=== PATIENT | female | born 1960 | race Caucasian/White ===

== ENCOUNTER → 2020-03-23 10:43 | Outpatient (BNVA) | payer OTHER, SELFPAY | PROVIDERS: PCP Internal Medicine Geriatric Medicine; Referring Provider Internal Medicine Geriatric Medicine; Visit Provider Anesthesiology | DX: M19.011 Primary osteoarthritis, right shoulder (principal) | CPT/HCPCS: 99213 ==

== ENCOUNTER 2020-07-01 10:44 | Outpatient (REF) | payer OTHER, SELFPAY | END 2020-07-01 10:45 | disposition home or self-care (01) | LOC: HO.LAB 10:44 | PROVIDERS: Visit Provider Internal Medicine | DX: Z20.822 Contact with and (suspected) exposure to COVID-19 (principal) | CPT/HCPCS: 36415; C9803; U0003 ==

== ENCOUNTER 2020-09-14 10:58 | Outpatient (REF) | payer OTHER, SELFPAY ==
[2020-09-14 14:44] LABS: SARS COV2 PCR INHOUSE NEGATIVE (Negative)
== END 2020-09-14 10:59 | disposition home or self-care (01) ==
LOC: HO.LAB 10:58
PROVIDERS: Visit Provider Internal Medicine
DX: Z20.822 Contact with and (suspected) exposure to COVID-19 (principal)
CPT/HCPCS: C9803; U0003

== ENCOUNTER 2021-11-17 14:06 | Outpatient (REF) | payer OTHER, SELFPAY ==
--- NOTE | ~2021-11-17 | MM_ITS ---
EXAMINATION: MM DIAGNOSTIC DIGITAL BREAST TOMOSYNTHESIS, RIGHT US DIAGNOSTIC ULTRASOUND BREAST, RIGHT CLINICAL INFORMATION: New palpable lump right breast mid upper quadrant. No known family history breast cancer. TC score 7%. COMPARISON: Mammography: Outside mammography 05/30/2021, 05/17/2020, 05/12/2019 ([place]). TECHNIQUE: Digital breast tomosynthesis is performed in both the craniocaudal and mediolateral oblique views along with computer-aided detection (CAD). Synthesized 2D images are generated from the tomosynthesis. Additional spot right CC and standard right ML views are obtained. Case also reviewed intra departmentally. Ultrasound right breast is targeted to the palpable concern mid upper breast. Grayscale imaging and color Doppler are performed without and with harmonics. Additional imaging also performed right axilla. FINDINGS: There are scattered areas of fibroglandular density (ACR BI-RADS breast composition Category b). There is a new oval mass in the area of palpable concern mid 11:30 o'clock position measuring approximately 1.5 cm. Margins appear smooth but partly obscured. There is minor overlying compressed parenchyma. No spiculation or associated calcifications. No skin thickening or coarsening of the Austin's ligaments. The axilla is unremarkable. Ultrasound demonstrates a complex oval cystic mass with geographic internal echogenicity, mildly irregular margins, increased through-transmission of sound, measuring 2.7 x 1.6 x 2.0 cm and residing at 12:00 position 7 cm from nipple. There is strong adjacent and surrounding color flow but also moderate scattered internal color flow. There is a small triangular shaped hypoechoic lesion also with some peripheral or internal color flow measuring 1.3 x 0.7 x 0.8 cm. There is no significant pain with transducer compression. No skin thickening or edema tracking in soft tissue planes. Additional imaging right axilla shows no lymphadenopathy. Results are discussed with the patient at time of visit using an customer engagement specialist. Ultrasound-guided sampling is recommended. Results and recommendation called to office (Jo kauffman RN) for JARROD Capps on 11/17/2021. MM/MM tomosynthesis diagnostic RT IMPRESSION: -New complex cystic/solid mass at site of palpable concern mid upper right breast measuring 2.7 x 1.6 x 2.0 cm with strong peripheral and moderate internal color flow. -No skin thickening or edema tracking in soft tissue planes. Axilla are unremarkable. ASSESSMENT: BI-RADS 4: Suspicious RECOMMENDATION: Ultrasound-guided sampling right breast lesion. Consider attempt at aspiration followed by core biopsy if lesion will not aspirate. This patient's information was entered into a reminder system with a target due date for their next mammogram.
== END 2021-11-17 14:07 | disposition home or self-care (01) ==
LOC: HO.MAMMO 14:06
PROVIDERS: Visit Provider Registered Nurse
DX: N63.15 Unspecified lump in the right breast, overlapping quadrants (principal)
CPT/HCPCS: 76642; 77061; 77065

== ENCOUNTER → 2021-11-20 08:21 | Outpatient (BNVA) | payer OTHER, SELFPAY | PROVIDERS: PCP Internal Medicine Geriatric Medicine; Referring Provider Internal Medicine Geriatric Medicine; Visit Provider Surgery | DX: N63.15 Unspecified lump in the right breast, overlapping quadrants (principal) | CPT/HCPCS: 99202 ==

== ENCOUNTER 2021-11-21 08:01 | Outpatient (REF) | payer OTHER, SELFPAY ==
--- NOTE | ~2021-11-21 | US_ITS ---
PROCEDURE: US GUIDED BREAST BIOPSY, RIGHT CLINICAL INFORMATION: Mass 12:00 position right breast COMPARISON: November 17, 2021 and mammography dating back to May 12, 2019 PROCEDURAL DETAILS: The details of the procedure, as well as the risks, benefits, and alternatives to the procedure were explained to the patient in detail and all of her questions were answered, after which written informed consent was obtained. Site and side were confirmed. Prior to the procedure, sonography revealed a hypoechoic solid mass with mildly irregular margins and measuring 2.7 cm in largest dimension.. A time-out was performed, the lesion intended for biopsy was targeted, and the skin of the right breast was then prepped and draped in the usual sterile fashion. Using sonographic guidance, sterile technique, and 1% lidocaine without epinephrine for local anesthesia, multiple automated core biopsies were obtained through the targeted area with a 14G spring loaded Achieve core biopsy device. There was real-time confirmation of appropriate needle passage. Sampling was documented. At the completion of tissue sampling, a single open coil metallic clip was deposited at the biopsy site. There was no evidence of immediate complication. SPECIMEN: An appropriate sample was obtained. No postprocedure mammogram was performed due to the position of the biopsied lesion and direct visualization of the clip placement in the lesion by ultrasound. The patient tolerated the procedure well and, after assuring adequate hemostasis, was discharged in good condition after reviewing postbiopsy breast care instructions. Final pathology results are pending. US/US breast ndl core biopsy RT IMPRESSION: 1. No immediate complication from ultrasound-guided percutaneous biopsy right breast. 2. Ultrasound was used to localize and guide marker clip placement. 3. Final pathology results are pending. A separate report with final recommendations will be issued once these results are made available.
--- NOTE | ~2021-11-21 | MM_ITS ---
EXAMINATION: MM DIAGNOSTIC DIGITAL BREAST TOMOSYNTHESIS, RIGHT CLINICAL INFORMATION: Two-view study post ultrasound-guided core biopsy right breast with clip placement. COMPARISON: Mammography: November 17, 2021 and ultrasound done today. Technique: A two-view postprocedure diagnostic mammogram was performed in craniocaudal and mediolateral oblique projections with thompson symphysis is being performed. The breast parenchyma is a mixture of fibroglandular tissue (ACR BI-RADS category B) A coil-shaped clip is seen within the targeted mass within the superior aspect of the right breast. No new abnormalities identified. ASSESSMENT: BI-RADS (Post Biopsy Clip Placement)
[2021-11-21] MEDS: Lidocaine HCl 1 % 20 ML VIAL 10 ML SUBCUT (09:19)
== END 2021-11-21 08:02 | disposition home or self-care (01) ==
LOC: HO.MAMMO 08:01
PROVIDERS: PCP Internal Medicine Geriatric Medicine; Visit Provider Surgery
DX: N63.15 Unspecified lump in the right breast, overlapping quadrants (principal)
CPT/HCPCS: 19083; 77061; 77065; 88305; 88360; A4648

== ENCOUNTER → 2021-11-27 09:59 | Outpatient (BNVA) | payer OTHER, SELFPAY | PROVIDERS: PCP Internal Medicine Geriatric Medicine; Visit Provider Surgery | DX: C50.911 Malignant neoplasm of unspecified site of right female breast (principal); Z17.1 Estrogen receptor negative status [ER-]; Z98.890 Other specified postprocedural states | CPT/HCPCS: 99212 ==

== ENCOUNTER → 2021-12-01 15:13 | Outpatient (BNV) | payer OTHER, SELFPAY | PROVIDERS: PCP Internal Medicine Geriatric Medicine; Referring Provider Surgery; Visit Provider Internal Medicine | DX: C50.911 Malignant neoplasm of unspecified site of right female breast (principal); C77.9 Secondary and unspecified malignant neoplasm of lymph node, unspecified; G89.3 Neoplasm related pain (acute) (chronic) | CPT/HCPCS: 99205; 99212; 99213; 99214; 99215; G2211 ==

== ENCOUNTER 2021-12-11 07:18 | Day surgery (SDC) | payer OTHER, SELFPAY ==
--- NOTE | ~2021-12-11 | IR_ITS ---
PROCEDURE: IR INSERTION OF TUNNEL CATHETER CLINICAL INFORMATION: Right breast cancer. COMPARISON: None TECHNIQUE: Procedure and risks and benefits including bleeding, infection and pneumothorax were discussed with the patient and informed consent was obtained. All elements of maximal sterile barrier technique followed including use of cap, mask, sterile gown, sterile gloves, a sterile full body drape and hand hygiene. Also followed skin preparation with 2% chlorhexidine for cutaneous antisepsis, and sterile ultrasound preparation with sterile gel and probe cover when applicable. The left neck and chest were anesthetized with 1% lidocaine with epinephrine. A small incision was made in the lower neck. Using ultrasound guidance and a 5-Surinamese micropuncture system, left internal jugular vein access was obtained. Over an .018 wire, a 5-Surinamese dilator was positioned in the left innominate vein. A small incision in the left chest was made. Using blunt dissection, a subcutaneous pocket was created. Subcutaneous tunnel from the chest to the neck incision was anesthetized with 1% lidocaine with epinephrine. Using a tunneler, a 6.6-Surinamese single-lumen catheter was tunneled from the chest to the neck incision. The catheter was attached to the port. The port was positioned in the subcutaneous pocket and secured using two 2-0 nonabsorbable sutures. An .025 guidewire was advanced through the 5-Surinamese dilator into the IVC. Following serial dilatation, a 7-Surinamese peel-away sheath was advanced over the guidewire into the SVC. Using bent wire technique, the catheter length was estimated and the catheter was cut. The catheter length is 26.5 cm. The catheter was fed through the peel-away sheath. The catheter tip is in the cavoatrial junction. The neck incision was closed using a 4-0 absorbable subcuticular suture. The chest was closed using three 3-0 interrupted sutures followed by a 4-0 absorbable running subcuticular suture. The port was accessed. The port had good blood return, flushed easily and was instilled with 5 mL heparin 1000 unit per mL solution. Real-time ultrasound guidance was used to document vein patency and for needle entry. A formal ultrasound picture was recorded. Fluoroscopy time: 0.4 minutes. DAP: 72 cGy-cm2. 1 saved fluoroscopic image. Conscious sedation was provided by a registered nurse under my direct supervision. The patient received Versed 1 mg and fentanyl 50 mcg and Kefzol 2 g IV during the procedure. Total sedation time was 54 minutes. FINDINGS: There is a left internal jugular 6.6-Surinamese Dignity Port-A-Cath with tip projecting over the cavoatrial junction. IR/IR cvc insert tunnel w prt/complex case manager IMPRESSION: Left internal jugular 6.6-Surinamese single-lumen Dignity Port-A-Cath placement.
[2021-12-11 07:14] VITALS: BMI 36.7
[2021-12-11 07:21] VITALS: BP 116/76; PULSE 80; RESP 18; TEMP 36.6; O2SAT 98
[2021-12-11] MEDS: Lidocaine HCl 2% PF/Epi 1:200 20 ML VIAL INFILTRATI (11:32)
[2021-12-11] MEDS: Heparin Sodium,Porcine Flush 500 UNIT/5 ML SYRINGE IVFLUSH (11:32)
[2021-12-11] MEDS: Lidocaine HCl 1 % MPF 5 ML VIAL INFILTRATI (11:33)
[2021-12-11 12:23] VITALS: BP 107/64; PULSE 70; RESP 17; TEMP 36.8; O2SAT 95
--- NOTE | 2021-12-11 12:33 | HO.RADPN ---
RADIOLOGY Narrative Narrative: [facility] 6.6 fr Dignity portacath placed. Tip at cavoatrial junction.
[2021-12-11 12:38] VITALS: BP 102/59; PULSE 72; RESP 16; O2SAT 95
[2021-12-11 12:53] VITALS: BP 105/70; PULSE 70; RESP 16; O2SAT 95
[2021-12-11 13:08] VITALS: BP 114/70; PULSE 71; RESP 16; O2SAT 97
[2021-12-11 13:20] VITALS: BP 99/66; PULSE 72; RESP 16; TEMP 36.8; O2SAT 97
== END 2021-12-11 13:23 | disposition home or self-care (01) ==
PROVIDERS: PCP Internal Medicine Geriatric Medicine; Visit Provider Radiology Diagnostic Radiology
DX: C50.911 Malignant neoplasm of unspecified site of right female breast (principal); Z17.1 Estrogen receptor negative status [ER-]; M79.7 Fibromyalgia; I10 Essential (primary) hypertension; M19.90 Unspecified osteoarthritis, unspecified site; Z79.899 Other long term (current) drug therapy; Z88.8 Allergy status to other drugs, medicaments and biological substances
CPT/HCPCS: 36561; 99152; 99153; C1769; C1788; J0690; J1642; J2250; J3010

== ENCOUNTER → 2022-01-18 09:12 | Outpatient (REF) | payer OTHER, SELFPAY ==
--- NOTE | 2022-01-18 09:17 | CA_ITS ---
Transthoracic Echocardiogram Patient (Last, First, Middle): Magaly Zaidi, Gender: Female Date of : 1960 Age: 61 Procedure Date: 01/18/2022 Procedure Type: Transthoracic Echocardiogram Location: OP Height: 149.86 cm Weight: 83.01 kg BSA: 1.78 m2 Heart Rate: 74 bpm BP: 108 / 76 mmHg Systems Support Officer: LEONARDO Referring MD: Linda Calderon MD Heating And Air Conditioning Mechanic: Tae Spence MD Symptoms: pre chemo eval Study Quality: Strain unable to track due to fair apical window ECG Rhythm: Sinus Conclusions: - Essentially normal study Findings Left Ventricle Normal left ventricular size, thickness, and systolic function. The visually estimated ejection fraction is between 60-65%. Spectral Doppler is indicative of a normal filling pattern. Right Ventricle Normal right ventricular cavity size and systolic function. Atria The left atrium is normal in size. Interatrial shunt cannot be excluded. The right atrium is normal in size. Aortic Valve Normal aortic valve structure and function. There is no aortic valve stenosis. There is no aortic valve regurgitation. Mitral Valve Normal mitral valve structure and function. There is trace mitral valve regurgitation. There is no mitral valve stenosis. Pulmonic Valve The pulmonic valve was not well visualized. Tricuspid Valve Likely normal tricuspid valve structure and function. There is trace tricuspid valve regurgitation. The right ventricular systolic pressure is normal. The right ventricular systolic pressure is 24 mmHg. Normal right atrial pressure. There is no evidence of pulmonary hypertension. Great Vessels All visible segments of the aorta are normal in size. The pulmonary artery was not well visualized. Venous The inferior vena cava is normal in size and collapses greater than 50% with inspiration. Pericardium/Pleural There is no evidence of pericardial effusion. Prior Study Comparison No significant change compared to prior study dated: 01/31/2017. Measurements 2D Linear Measurements IVSd: 1.06 0.6-0.9/0.6-1.0 cm LVIDd: 4.57 3.9-5.3/4.2-5.9 cm LVIDd Index: 2.57 2.4-3.2/2.2-3.1 cm/m2 LVIDs: 3.39 2.0-3.6 cm LVPWd: 0.74 0.7-1.1 cm LA Diam: 3.10 2.7-3.8/3.0-4.0 cm LAIDs Index: 1.74 1.5-2.3 cm/m2 LV Mass: 169.68 67-162/88-224 g LV Mass Index: 95.33 43-95/49-115 g/m2 LVOT Diam: 1.90 3.0+(-)1.3 cm 2D Systolic Function EF 4C: 60.30 >55% EF 2C: 65.00 >55% EF BiP: 60.00 >55% Mitral Valve MV Pk E: 0.97 MV PK A: 0.85 MV Decel Time: 152.00 E/A: 1.20 E'Lateral: 10.00 E'Medial: 7.07 E/E' Med: 13.80 E/E' Lat: 9.70 PHT: 45.00 MVA PHT: 4.89 Decel Meeker: 6.39 Aortic Valve AoV Pk Timo: 1.53 AoV Mn Timo: 0.98 AoV VTI: 0.30 AoV Pk Grad: 9.00 Aov Mn Grad: 4.00 JOYCE Cont.VTI: 2.22 LVOT LVOT Pk Timo: 1.17 LVOT Mn Timo: 0.81 LVOT VTI: 0.24 LVOT Pk Grad: 5.00 LVOT Mn Grad: 3.00 LVOT Diam: 1.90 LVOT Area: 2.84 Diastolic Function MV Pk E: 0.97 MV Pk A: 0.85 E/A: 1.20 E'Medial: 7.07 E/E' Med: 13.80 E' Laterial: 10.00 E/E' Lat: 9.70 Right Ventricle TAPSE (mm): 23.50 TVS' Timo: 11.70 Tricuspid Valve TR Pk Timo: 2.31 TR Pk Grad: 21.00 RA Press: 3.00 RVSP: 24.00 Great Vessels Aorta Sinus of Valsalva: 3.00 2.0-3.5 cm Ao Asc: 3.20 2.1-3.4 cm Ao Arch: 2.80 Pulmonary Valve PV Pk Timo: 1.14 Peak PV Grad: 5.00 Updated in Other Vendor System with Status of Final Tae Spence MD electronically signed on 01/19/2022 5:38:48 PM with status of Final
== END ==
LOC: HO.CARD 09:12
PROVIDERS: PCP Internal Medicine Geriatric Medicine; Visit Provider Internal Medicine
DX: Z01.818 Encounter for other preprocedural examination (principal); C50.919 Malignant neoplasm of unspecified site of unspecified female breast
CPT/HCPCS: 93306

== ENCOUNTER 2022-01-22 09:09 | Inpatient (IN) | payer OTHER, SELFPAY ==
[2022-01-22] VITALS (10 sets, daily range): BP systolic 83–117; BP diastolic 43–84; PULSE 92–198; RESP 16–18; TEMP 36.9–38.2; O2SAT 95–98; BMI 36.9; BMI 37.3
--- NOTE | 2022-01-22 | ECG_ITS ---
Test Reason : ?seizure Blood Pressure : / mmHG Vent. Rate : 113 BPM Atrial Rate : 113 BPM P-R Int : 128 ms QRS Dur : 086 ms QT Int : 306 ms P-R-T Axes : 049 024 009 degrees QTc Int : 419 ms Sinus tachycardia Nonspecific ST and T wave abnormality Abnormal ECG When compared with ECG of 09-NOV-2009 12:02, Vent. rate has increased BY 38 BPM Nonspecific T wave abnormality, worse in Inferior leads Nonspecific T wave abnormality now evident in Lateral leads Referred By: Generic ED Physician Electronically Signed By:OLVIN JOHNSTON
--- NOTE | ~2022-01-22 | CT_ITS ---
EXAMINATION: CT HEAD WITH/WITHOUT CONTRAST CLINICAL INFORMATION: Headaches, history of breast cancer COMPARISON: None TECHNIQUE: Contiguous axial imaging was performed from the skull base to vertex before and after the administration of 85 mL of Omnipaque [address] examination was performed using dose optimization techniques as appropriate, variously including the following: *Automated exposure control *Adjustment of mA and/or kV according to patient size (this includes techniques or standardized protocols for targeted exams where dose is matched to indication/reason for exam; i.e. extremities or head) *Use of iterative reconstruction technique DLP: 1238 mGy-cm FINDINGS: There is no evidence of acute intracranial hemorrhage or territorial infarction. No abnormal mass effect or midline shift is seen. Clarke to white matter differentiation is well preserved. No extra-axial fluid collections are identified. There is no abnormal enhancement. The ventricles are normal in size. There is no abnormal attenuation within the brain parenchyma. The osseous structures and soft tissues are normal. The mastoid air cells are well aerated. Right frontal sinus mucous retention cyst and mild left posterior ethmoid mucosal thickening. CT/CT head/brain wo/w con IMPRESSION: No acute intracranial abnormality. No evidence of intracranial metastatic disease, although contrast-enhanced MRI would be more sensitive.
--- NOTE | ~2022-01-22 | XR_ITS ---
EXAMINATION: XR chest 1V CLINICAL INFORMATION: Cough COMPARISON: None TECHNIQUE: XR chest 1V Tubes and lines: Port-A-Cath embedded in the left chest wall with its tip projecting over the SVC unchanged properly positioned. Lungs and pleura: Mild prominence of the pulmonary vasculature, No radiographic evidence of acute pneumonia. Heart and mediastinum: The mediastinum is within normal limits.. Bones/soft tissue: Skeletal structures included are normal for patient's age. XR/XR chest 1V IMPRESSION: Exam somewhat limited, motion artifact and soft tissue overlap. There is mild vascular congestion No radiographic evidence of pneumonia.
--- NOTE | ~2022-01-22 | XR_ITS ---
EXAMINATION: XR CHEST CLINICAL INFORMATION: Fever and shaking chills COMPARISON: 07/30/2016 TECHNIQUE: 2 views of the chest were obtained. FINDINGS: A left chest wall port is present with its tip in the proximal SVC. No significant abnormality is noted involving the heart, lungs, mediastinum, bony thorax or soft tissues. XR/XR chest 2V IMPRESSION: Unremarkable examination. A left chest wall port is in place with tip in the proximal SVC.
[2022-01-22 10:13] LABS: MANUAL DIFF FLAG NO
[2022-01-22 10:17] LABS: Basophils Percent Auto 0.6 % (0-2); Hematocrit 39.1 % (37.0-47.0); Hemoglobin 13.1 g/dl (12.0-16.0); Imm Gran Abs Auto 0.06 X10*3/uL (0.00-0.03); Imm Gran Pct Auto 0.9 % (0.0-0.4); Lymphocytes Absolute Auto 0.3 X10*3/uL (1.2-4.9); Lymphocytes Percent Auto 5.1 % (20-40); Mean Corpuscular HGB Conc 33.5 g/dl (31.0-35.0); Mean Corpuscular Hemoglobin 28.8 pg (27.0-33.0); Mean Corpuscular Volume 85.9 fL (80.0-98.0); Mean Platelet Volume 10.1 fL (9.4-12.3); Monocytes Absolute Auto 0.5 X10*3/uL (0.1-1.2); Monocytes Percent Auto 6.9 % (2-11); Neutrophils Absolute Auto 5.8 x10*3/uL (2.0-8.3); Neutrophils Percent Auto 86.5 % (45-73); Red Blood Count 4.55 X10*6/uL (4.20-5.50); Red Cell Distribution Width 15.2 % (11.0-16.0); White Blood Count 6.7 X10*3/uL (4.8-10.8)
[2022-01-22 10:33] LABS: Lactic Acid 1.9 mmol/L (0.5-2.0)
[2022-01-22 10:36] LABS: Anion Gap 16 (12-20); Blood Urea Nitrogen 12 mg/dL (9-16); Carbon Dioxide 23 mmol/L (22-29); Chloride 99 mmol/L (96-108); Creatinine Clr Calc Pharmacy 69.8; Estimated Glomerular Filt Rate > 60; Glucose Random 163 mg/dL (60-115); Potassium 4.1 mmol/L (3.3-5.1); Sodium 134 mmol/L (135-145)
[2022-01-22 11:48] LABS: Carbamazepine Tegretol < 2.0 mcg/mL (5.0-12.0); Phenytoin Dilantin < 0.5 ug/mL (10.0-20.0); Valproate < 2.0 mcg/mL (50.0-100.0)
[2022-01-22 11:51] LABS: Platelet Count 171 X10*3/uL (160-400)
[2022-01-22] MEDS: Acetaminophen 325 MG TABLET 650 MG PO ×2 (12:49→22:33)
--- NOTE | 2022-01-22 16:10 | ED.GENADULT ---
HPI - General Adult General Chief complaint: General Medical Stated complaint: headache ,seizure Time Seen by Provider: 01/22/22 16:10 Source: patient Mode of arrival: ambulatory Limitations: language barrier History of Present Illness HPI narrative: History obtained through program review director. patient is an active chemotherapy patient for breast cancer. 2 days ago had chills, yesterday the temp was 107. Bodyaches, headache, tired. Patient is vaccinated against covid. Onset (ago): day(s) Related Data Home Medications Medication Instructions Recorded Confirmed albuterol sulfate 90 mcg/actuation 2 puff PO Q4H PRN Shortness Of 03/19/20 01/22/22 aerosol inhaler Breath baclofen 10 mg tablet 10 mg PO TID 03/19/20 01/22/22 clonazepam 0.5 mg tablet 0.5 mg PO DAILY 03/19/20 01/22/22 duloxetine 20 mg capsule,delayed 20 mg PO DAILY 03/19/20 01/22/22 release hydroxyzine pamoate 25 mg capsule 25 mg PO BID 03/19/20 01/22/22 lisinopril 10 mg tablet 10 mg PO DAILY 03/19/20 01/22/22 meloxicam 15 mg tablet 15 mg PO DAILY 03/19/20 01/22/22 omeprazole 20 mg capsule,delayed 20 mg PO DAILY 03/19/20 01/22/22 release atorvastatin 20 mg tablet 20 mg PO DAILY 11/20/21 01/22/22 amlodipine 2.5 mg tablet 1 tab PO DAILY 01/22/22 01/22/22 calcium carbonate 600 mg-vitamin 1 tab PO DAILY 01/22/22 01/22/22 D3 5 mcg (200 unit) tablet diclofenac sodium 1 % topical gel See Rx Instructions .Route .COMPLEX 01/22/22 01/22/22 fluticasone propionate 110 1 inh inhalation BID 01/22/22 01/22/22 mcg/actuation HFA aerosol inhaler (Flovent HFA) mometasone 0.1 % topical cream 1 applic topical DAILY 01/22/22 01/22/22 multivitamin with folic acid 400 1 tab PO DAILY 01/22/22 01/22/22 mcg tablet (Tab-A-Richard) pregabalin 150 mg capsule 1 cap PO BID 01/22/22 01/22/22 triamcinolone acetonide 0.1 % 1 applic topical BID-TID 01/22/22 01/22/22 topical cream Previous Rx's Medication Instructions Recorded dexamethasone 4 mg tablet 4 mg PO BID #30 tabs 12/19/21 ondansetron 8 mg disintegrating 8 mg PO Q8H PRN Nausea #60 tabs 12/19/21 tablet Allergies Allergy/AdvReac Type Severity Reaction Status Date / Time metoprolol [METOPROLOL] Allergy Unknown RASH Verified 01/22/22 09:51 Review of Systems Constitutional: Constitutional: Reports no additional constitutional complaints Eyes: Eyes: Reports no additional eye complaints ENT: Denies dizziness Cardiovascular: Cardiovascular: Reports no additional cardiovascular complaints Respiratory: Respiratory: Reports as per HPI Gastrointestinal: Gastrointestinal: Reports no additional gastrointestinal complaints Genitourinary: Genitourinary: Reports no additional female genitourinary complaints Musculoskeletal: Musculoskeletal: Reports no additional musculoskeletal complaints Integumentary/Breasts: Skin/Breast: Denies rash Neurologic: Reports system reviewed and no additional complaints, except as documented, Denies dizziness and Denies Sensory deficit (Neuro) Psychiatric: Psychiatric: Denies anxiety [facility] Past Medical History Medical History Breast mass, right Fibromyalgia HTN (hypertension) Invasive ductal carcinoma of breast Osteoarthritis of right shoulder Surgical History History of foot surgery History of hysterectomy Family History Family History Father Stroke Mother Hypertension Asthma Maternal Grandmother Lung cancer Maternal Aunt Breast cancer Maternal Aunt Thyroid cancer Maternal Aunt Colon cancer Social History Social History Household Members: Spouse and Children Housing: Other 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 (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) Alcohol intake: current Alcohol intake frequency: holidays/special occasions only Patient Tobacco Use Status: Never used Tobacco Advance Directives: No Advance Directives Information Provided: Yes service: No Current occupational status: disabled Physical Exam ED Vital Signs: Vital Signs - 24 hr 01/22/22 09:45 01/22/22 16:00 01/22/22 18:00 Temperature 100.6 F H 99.6 F 100.7 F H Pulse Rate 115 H 107 H 198 H Respiratory Rate 18 16 16 Blood Pressure 104/66 98/70 83/43 L Pulse Oximetry 95 98 98 Oxygen Delivery Method Room Air Room Air Room Air 01/22/22 18:24 01/22/22 18:56 01/22/22 19:20 Temperature 98.9 F Pulse Rate 103 H Respiratory Rate 16 Blood Pressure 94/52 L 103/56 L 96/58 L Pulse Oximetry 95 Oxygen Delivery Method Room Air BMI result Body Mass Index 36.9 Const Other: Alopecia Nutritional Appearance: average body habitus Orientation/consciousness: oriented to person and patient oriented x3 Limitations: no limitations HENMT Head: Yes normal to inspection Ears: external ears normal General nose exam: Normal external nose present Mouth: Normal oral and palatal mucosa present and oropharynx normal Throat: Yes posterior oropharynx normal Eyes General: appearance normal, both eyes and all related structures Neck Neck: Yes normal visual inspection Chest Chest palpation & inspection: normal inspection of the chest Resp Auscultation: clear to auscultation bilaterally Cardio Jugular venous distension: no JVD Rate: regular rate Rhythm: regular rhythm Heart sounds: S1 normal heart sound present and S2 normal heart sound present GI Inspection: Yes normal to inspection Palpation (GI): Soft to palpation, nontender and No hepatosplenomegaly present Auscultation: normal bowel sounds General: Yes no CVA tenderness Back/Spine/Pelvis Back: no CVA tenderness Skin General skin exam: no rashes or lesions noted Neuro General: oriented to person and patient oriented x3 Cranial nerves: Yes CN's II-XII intact bilaterally Motor exam (neuro): 5/5 motor strength present throughout Sensory Exam: No Sensory deficit (Neuro) Extrem General: Yes normal to inspection Psych Appearance: grossly normal Course Reevaluation(s) Reevaluation #1: systolic BP is 83, temperature 101 will call sepsis alert Time: 18:19 Reevaluation #2: patient lactic acid not elevated BP now 106 systolic will admit Time: 19:24 Reevaluation #3: BP dropped again, discussed with Dr. Snyder will place a rodriguez repeat chem 7, if urine output is ok can go to floor. patient is looking well and is well perfused. Time: 20:42 Medical Decision Making Lab Data Result diagrams: 01/22/22 10:06 01/22/22 10:06 Labs: Lab Results 01/22/22 01/22/22 01/22/22 Range/Units 10:06 10:06 10:06 WBC 6.7 (4.8-10.8) X10*3/uL RBC 4.55 (4.20-5.50) X10*6/uL Hgb 13.1 (12.0-16.0) g/dl Hct 39.1 (37.0-47.0) % MCV 85.9 (80.0-98.0) fL MCH 28.8 (27.0-33.0) pg MCHC 33.5 (31.0-35.0) g/dl RDW 15.2 (11.0-16.0) % Plt Count 171 D (160-400) X10*3/uL MPV 10.1 (9.4-12.3) fL Immature Gran % (Auto) 0.9 H (0.0-0.4) % Neut % (Auto) 86.5 H (45-73) % Lymph % (Auto) 5.1 L (20-40) % [place] % (Auto) 6.9 (2-11) % Eos % (Auto) 0.0 (0-4) % Baso % (Auto) 0.6 (0-2) % Lymph # (Auto) 0.3 L (1.2-4.9) X10*3/uL [place] # (Auto) 0.5 (0.1-1.2) X10*3/uL Eos # (Auto) 0.0 (0.0-0.4) X10*3/uL Baso # (Auto) 0.0 (0.0-0.2) X10*3/uL Abs Immat Gran (auto) 0.06 H (0.00-0.03) X10*3/uL Absolute Neuts (auto) 5.8 (2.0-8.3) x10*3/uL Absolute Nucleated RBC 0.000 (0.0-0.012) X10*3/uL Nucleated RBC % (auto) 0.0 (0.0-0.2) /100WBC Sodium 134 L (135-145) mmol/L Potassium 4.1 (3.3-5.1) mmol/L Chloride 99 (96-108) mmol/L Carbon Dioxide 23 (22-29) mmol/L Anion Gap 16 (12-20) BUN 12 (9-16) mg/dL Creatinine 0.81 (0.5-1.4) mg/dL Estim Creat Clear Calc 69.8 Estimated GFR > 60 Random Glucose 163 H (60-115) mg/dL Lactic Acid 1.9 (0.5-2.0) mmol/L Calcium 9.0 (8.4-10.2) mg/dL Urine Color Urine Appearance Urine pH (5.0-8.0) Ur Specific [place] (1.005-1.025) Urine Protein (NEG-TRACE) MG/DL Urine Glucose (UA) (NEG) MG/DL Urine Ketones (NEG) MG/DL Urine Blood (NEG) Urine Nitrite (NEG) Ur Leukocyte Esterase (NEG) Urine RBC (0) /HPF Urine WBC (0-4) /HPF Ur Squamous Epith Cells /LPF Amorphous Sediment /LPF Urine Bacteria /LPF Urine Mucus /LPF Phenytoin < 0.5 L* (10.0-20.0) ug/mL Valproic Acid < 2.0 L (50.0-100.0) mcg/mL Carbamazepine < 2.0 L* (5.0-12.0) mcg/mL COVID-19 (DOUGIE) (Negative) COVID-19 Clin Com 01/22/22 01/22/22 01/22/22 Range/Units 17:00 18:15 18:46 WBC (4.8-10.8) X10*3/uL RBC (4.20-5.50) X10*6/uL Hgb (12.0-16.0) g/dl Hct (37.0-47.0) % MCV (80.0-98.0) fL MCH (27.0-33.0) pg MCHC (31.0-35.0) g/dl RDW (11.0-16.0) % Plt Count (160-400) X10*3/uL MPV (9.4-12.3) fL Immature Gran % (Auto) (0.0-0.4) % Neut % (Auto) (45-73) % Lymph % (Auto) (20-40) % [place] % (Auto) (2-11) % Eos % (Auto) (0-4) % Baso % (Auto) (0-2) % Lymph # (Auto) (1.2-4.9) X10*3/uL [place] # (Auto) (0.1-1.2) X10*3/uL Eos # (Auto) (0.0-0.4) X10*3/uL Baso # (Auto) (0.0-0.2) X10*3/uL Abs Immat Gran (auto) (0.00-0.03) X10*3/uL Absolute Neuts (auto) (2.0-8.3) x10*3/uL Absolute Nucleated RBC (0.0-0.012) X10*3/uL Nucleated RBC % (auto) (0.0-0.2) /100WBC Sodium (135-145) mmol/L Potassium (3.3-5.1) mmol/L Chloride (96-108) mmol/L Carbon Dioxide (22-29) mmol/L Anion Gap (12-20) BUN (9-16) mg/dL Creatinine (0.5-1.4) mg/dL Estim Creat Clear Calc Estimated GFR Random Glucose (60-115) mg/dL Lactic Acid 0.9 (0.5-2.0) mmol/L Calcium (8.4-10.2) mg/dL Urine Color YELLOW Urine Appearance CLEAR Urine pH 6.0 (5.0-8.0) Ur Specific [place] 1.025 (1.005-1.025) Urine Protein 1+ H (NEG-TRACE) MG/DL Urine Glucose (UA) NEG (NEG) MG/DL Urine Ketones NEG (NEG) MG/DL Urine Blood TRACE (NEG) Urine Nitrite NEG (NEG) Ur Leukocyte Esterase 1+ H (NEG) Urine RBC 1-4 (0) /HPF Urine WBC 15-29 H (0-4) /HPF Ur Squamous Epith Cells 1+ /LPF Amorphous Sediment TRACE /LPF Urine Bacteria TRACE /LPF Urine Mucus 1+ /LPF Phenytoin (10.0-20.0) ug/mL Valproic Acid (50.0-100.0) mcg/mL Carbamazepine (5.0-12.0) mcg/mL COVID-19 (DOUGIE) Negative (Negative) COVID-19 Clin Com See Note Imaging Data Chest x-ray: Radiologist's impression: IMPRESSION: Unremarkable examination. A left chest wall port is in place with tip in the proximal SVC. Critical Care Time Critical Care Time Attestation: I spent 40 minutes of critical care, with interventions, assessments, speaking to patient, consultants, and family. Discharge Plan Discharge Clinical Impression: Urinary tract infection, Acute hypotension, Fever Patient Disposition: Admitted As Inpatient
[2022-01-22] MEDS: 0.9 % Sodium Chloride 1,000 ML 999 ML IVCONT ×4 (16:52→18:54)
[2022-01-22] MEDS: Ibuprofen 800 MG TABLET PO (16:55)
[2022-01-22 17:17] LABS: Appearance Urine CLEAR; Color Urine YELLOW; Glucose Urine UA NEG (NEG); Leukocyte Esterase Urine 1+ (NEG); Nitrite Urine NEG (NEG); Specific Gravity - Urine 1.025 (1.005-1.025); UACC Culture Trigger YES; Urine Blood TRACE (NEG); Urine Ketones NEG (NEG); Urine Protein 1+ MG/DL (NEG-TRACE)
[2022-01-22 17:30] LABS: Mucus Urine 1+ /LPF; Squamous Epithelial Cell Urine 1+ /LPF
[2022-01-22 17:32] LABS: Amorphous Sediment Urine TRACE /LPF; Bacteria Urine TRACE /LPF
[2022-01-22 18:40] LABS: COVID-19 Test Negative (Negative); IDNOW Serial# 16C4AD1C
[2022-01-22] MEDS: cefTRIAXone sodium 1 GM in 0.9 % Sodium Chloride 50 ML IV (18:51)
[2022-01-22 19:01] LABS: Lactic Acid 0.9 mmol/L (0.5-2.0)
--- NOTE | 2022-01-22 19:25 | P.HPHOSP_ITS ---
History of Present Illness Date of Service: 01/22/22 [facility] Medical History Breast mass, right Fibromyalgia HTN (hypertension) Invasive ductal carcinoma of breast Osteoarthritis of right shoulder Family History Father Stroke Mother Hypertension Asthma Maternal Grandmother Lung cancer Maternal Aunt Breast cancer Maternal Aunt Thyroid cancer Maternal Aunt Colon cancer Surgical History History of foot surgery History of hysterectomy Social History Household Members: Spouse and Children Housing: Other Are you a primary home health care respiratory therapist to a significant other at home: Yes (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) Alcohol intake: current Alcohol intake frequency: holidays/special occasions only Patient Tobacco Use Status: Never used Tobacco Advance Directives: No Advance Directives Information Provided: Yes service: No Current occupational status: disabled Meds Allergies Allergy/AdvReac Type Severity Reaction Status Date / Time metoprolol [METOPROLOL] Allergy Unknown RASH Verified 01/22/22 09:51 Active Medications: Current Medications Pharmacy Consult (Consult Rx Perform Med Rec) 1 each MISCELLANE ONCE PRN PRN Reason: Consult order Home Medications Medication Instructions Recorded Confirmed Last Taken Type albuterol sulfate 90 mcg/actuation 2 puff PO Q4-6H PRN Allergic 03/19/20 01/17/22 12/11/21 History aerosol inhaler Symptoms baclofen 10 mg tablet 10 mg PO TID 03/19/20 01/17/22 12/11/21 History clonazepam 0.5 mg tablet 0.5 mg PO DAILY 03/19/20 01/17/22 Unknown History diclofenac sodium 1 % topical gel 1 g topical DAILY 03/19/20 01/17/22 Unknown History duloxetine 20 mg capsule,delayed 20 mg PO DAILY 03/19/20 01/17/22 Unknown History release hydroxyzine pamoate 25 mg capsule 25 mg PO BID 03/19/20 01/17/22 Unknown History lisinopril 10 mg tablet 10 mg PO DAILY 03/19/20 01/17/22 12/11/21 History meloxicam 15 mg tablet 15 mg PO DAILY 03/19/20 01/17/2212/08/22 History omeprazole 20 mg capsule,delayed 20 mg PO DAILY 03/19/20 01/17/22 12/11/21 History release atorvastatin 20 mg tablet 20 mg PO DAILY 11/20/21 01/17/22 Unknown History Physical Exam Vital Signs and Narrative: Vital Signs: Last Vital Signs Temp 98.9 F 01/22/22 19:20 Pulse 103 H 01/22/22 19:20 Resp 16 01/22/22 19:20 BP 96/58 L 01/22/22 19:20 Pulse Ox 95 01/22/22 19:20 O2 Del Method 01/22/22 19:20 BMI result Body Mass Index 36.9 Results Labs CBC and Chem 7: 01/22/22 10:06 01/22/22 10:06 Labs: Laboratory Results - last 24 hr 01/22/22 01/22/22 01/22/22 10:06 10:06 10:06 MCV 85.9 MCH 28.8 MCHC 33.5 RDW 15.2 Plt Count 171 D MPV 10.1 Immature Gran % (Auto) 0.9 H Neut % (Auto) 86.5 H Lymph % (Auto) 5.1 L [place] % (Auto) 6.9 Eos % (Auto) 0.0 Baso % (Auto) 0.6 Lymph # (Auto) 0.3 L [place] # (Auto) 0.5 Eos # (Auto) 0.0 Baso # (Auto) 0.0 Abs Immat Gran (auto) 0.06 H Absolute Neuts (auto) 5.8 Absolute Nucleated RBC 0.000 Nucleated RBC % (auto) 0.0 Anion Gap 16 Estim Creat Clear Calc 69.8 Estimated GFR > 60 Random Glucose 163 H Lactic Acid 1.9 Calcium 9.0 Urine Color Urine Appearance Urine pH Ur Specific [place] Urine Protein Urine Glucose (UA) Urine Ketones Urine Blood Urine Nitrite Ur Leukocyte Esterase Urine RBC Urine WBC Ur Squamous Epith Cells Amorphous Sediment Urine Bacteria Urine Mucus Phenytoin < 0.5 L* Valproic Acid < 2.0 L Carbamazepine < 2.0 L* COVID-19 ([facility]) COVID-19 Clin Com 01/22/22 01/22/22 01/22/22 17:00 18:15 18:46 MCV MCH MCHC RDW Plt Count MPV Immature Gran % (Auto) Neut % (Auto) Lymph % (Auto) [place] % (Auto) Eos % (Auto) Baso % (Auto) Lymph # (Auto) [place] # (Auto) Eos # (Auto) Baso # (Auto) Abs Immat Gran (auto) Absolute Neuts (auto) Absolute Nucleated RBC Nucleated RBC % (auto) Anion Gap Estim Creat Clear Calc Estimated GFR Random Glucose Lactic Acid 0.9 Calcium Urine Color YELLOW Urine Appearance CLEAR Urine pH 6.0 Ur Specific [place] 1.025 Urine Protein 1+ H Urine Glucose (UA) NEG Urine Ketones NEG Urine Blood TRACE Urine Nitrite NEG Ur Leukocyte Esterase 1+ H Urine RBC 1-4 Urine WBC 15-29 H Ur Squamous Epith Cells 1+ Amorphous Sediment TRACE Urine Bacteria TRACE Urine Mucus 1+ Phenytoin Valproic Acid Carbamazepine COVID-19 (D[facility]GIE) Negative COVID-19 Clin Com See Note Imaging Radiologist's Impressions: Impressions Chest X-Ray 01/22/22 17:23 IMPRESSION: Unremarkable examination. A left chest wall port is in place with tip in the proximal SVC. Quality VTE VTE Risk Level:: Medical - moderate - high VTE Device Contraindication: Treatment Not Indicated VTE Drug Contraindication: N/A - Med Ordered
--- NOTE | 2022-01-22 21:11 | PHA.MEDREC ---
Pharmacy Consult ? Medication Reconciliation Pharmacy has completed the medication reconciliation. SPOKE WITH PT AND FAMILY MEMBER USING DIRECTOR EDUCATIONAL RADIO
[2022-01-22] MEDS: 0.9 % Sodium Chloride 1,000 ML 200 ML IVCONT (21:37)
[2022-01-22 21:38] LABS: Influenza A PCR NEGATIVE (Negative); Influenza B PCR NEGATIVE (Negative); Resp Syncy Virus RNA Qual PCR NEGATIVE (Negative); SARS COV2 PCR INHOUSE NEGATIVE (Negative)
[2022-01-22 22:22] LABS: Anion Gap 13 (12-20); Blood Urea Nitrogen 9 mg/dL (9-16); Calcium 7.5 mg/dL (8.4-10.2); Carbon Dioxide 20 mmol/L (22-29); Chloride 109 mmol/L (96-108); Creatinine Clr Calc Pharmacy 80.8; Estimated Glomerular Filt Rate > 60; Glucose Random 144 mg/dL (60-115); Sodium 138 mmol/L (135-145)
[2022-01-22] MEDS: Enoxaparin Sodium 40 MG/0.4 ML SYRINGE SUBCUT (22:25)
--- NOTE | 2022-01-22 22:55 | PHA.PROG ---
Admission Date/Time: January 22, 2022 19:24 Indication: bacteremia Weight in k.007 kg Adjusted body weight in K.6 [place] body weight in Kg: Obesity Dosing Indication % IBW: Serum Creatinine - Last 168 Hours 01/22/22 01/22/22 10:06 22:02 Creatinine 0.81 0.70 Estimated CrCl and GFR - Last 168 Hours 01/22/22 01/22/22 10:06 22:02 Estim Creat Clear Calc 69.8 80.8 Estimated GFR > 60 > 60 Vancomycin Loading Dose: 1250 mg Current Vancomycin Dosing Regimen:750 mg q 12 hours Vancomycin Monitoring using AUC goal of 400 - 600 range with trough as surrogate marker: Date and Time for next Vancomycin Level to be drawn:01/24/22 0900 Pharmacist Comments on Vancomycin Plan:predicted auc 487 Vancomycin dosing will take advantage of [employer] as a clinical decision support tool that uses Bayesian modeling to calculate individual patient's pharmacokinetic parameters and forecast the patient's drug concentration time course with the target goal AUC 24 range of 400 - 600 mg/L/hr.
[2022-01-22] MEDS: 0.9 % Sodium Chloride Flush 3 ML SYRINGE IVFLUSH (23:40)
[2022-01-22] MEDS: vancomycin HCL 1,250 MG in 0.9 % Sodium Chloride 250 ML 166.67 MG IV (23:40)
[2022-01-23] VITALS (8 sets, daily range): BP systolic 91–116; BP diastolic 53–66; PULSE 87–119; RESP 16–20; TEMP 36.1–37.1; O2SAT 93–99
--- NOTE | 2022-01-23 06:47 | PM.IMHP ---
History of Present Illness Date of Service: 01/22/22 Chief Complaint: elevated temp Dutch-speaking only, history is obtained with the help of an assembler installer general This is a 61-year-old female with history of breast cancer currently undergoing chemotherapy, HTN, who presents to the hospital with complaints of chills, as well as a fever of 107 yesterday. Patient is adamant that she had a fever of 107 yesterday, she is also complaining feeling generally fatigued, body aches, and headache. She denies any chest pain, no shortness of breath, has urinary frequency and urgency with no dysuria, reports no diarrhea constipation, no abdominal pain nausea or vomiting, and no lower extremity edema. On arrival to the ED patient found to be hypotensive with blood pressure in the 80s/40s. patient was also found to be febrile.Patient was aggressively resuscitated with over 4 L of fluid with blood pressure improving. Labs were found to be significant for WBC count of 6.7, hemoglobin of 13.1, hematocrit 39.1, sodium of 134, UA positive for leukocyte Estrace and WBC, Chest x-ray is unremarkable patient started on IV antibiotics and will be admitted for further management Review of Systems Review of Systems: Yes all other systems are reviewed and are negative [facility] Medical History Breast mass, right Fibromyalgia HTN (hypertension) Invasive ductal carcinoma of breast Osteoarthritis of right shoulder Family History Father Stroke Mother Hypertension Asthma Maternal Grandmother Lung cancer Maternal Aunt Breast cancer Maternal Aunt Thyroid cancer Maternal Aunt Colon cancer Surgical History History of foot surgery History of hysterectomy Social History Household Members: Family Housing: House Are you a primary medicare contact specialist to a significant other at home: Yes (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) Alcohol intake: current Alcohol intake frequency: holidays/special occasions only Patient Tobacco Use Status: Never used Tobacco Use of substances other than those prescribed or required for medical reasons: No Currently Displaying Signs/Symptoms of Drug Intoxication Withdrawal: No Any prior treatment program specific to substance use: No Have you been hit, kicked, punched, or otherwise hurt by someone within the past year? If so, by whom?: No Do you feel safe in your current relationship?: No Is there a partner from a previous relationship who is making you feel unsafe now?: No Are you made to feel afraid or neglected: No Advance Directives: No Advance Directives Information Provided: Yes Do you have thoughts of harming others: None Do you have a plan to hurt others: No Plan Recently lost weight without trying: No How much weight loss: Not applicable Eating poorly because of decreased appetite: No Nutrition screen score: 0 Nutrition Risks: No Nutritional Risk Patient : No : No Poor oral hygiene: No service: No Current occupational status: disabled Meds Allergies Allergy/AdvReac Type Severity Reaction Status Date / Time metoprolol [METOPROLOL] Allergy Unknown RASH Verified 01/22/22 09:51 Active Medications: Current Medications Acetaminophen (Acetaminophen 325 Mg Tablet) 650 mg PO Q6H PRN PRN Reason: Pain, Mild (Pain Scale 1-3) Last Admin: 01/22/22 22:33 Dose: 650 mg Docusate Sodium (Docusate Sodium 100 Mg Capsule) 100 mg PO DAILY PRN PRN Reason: Constipation Enoxaparin Sodium (Enoxaparin Sodium 40 Mg/0.4 Ml Syringe) 40 mg SUBCUT Q24H [facility] Last Admin: 01/22/22 22:25 Dose: 40 mg Ceftriaxone Sodium 1 gm/ (Sodium Chloride) 50 mls @ 100 mls/hr IV Q24H CHRIS Vancomycin HCl 750 mg/ Sodium (Chloride) 265 mls @ 265 mls/hr IV Q12H [facility] Melatonin (Melatonin 3 Mg Tablet) 6 mg PO BEDTIME PRN PRN Reason: Insomnia Ondansetron HCl (Ondansetron Hcl 4 Mg/2 Ml Vial) 4 mg IVPUSH Q8H PRN PRN Reason: Nausea and Vomiting Pharmacy Consult (Consult Rx Perform Med Rec) 1 each MISCELLANE ONCE PRN PRN Reason: Consult order Pharmacy Consult (Consult Rx Vancomycin Dosing) 1 each MISCELLANE DAILY PRN PRN Reason: Consult order Sodium Chloride (0.9 % Sodium Chloride Flush 3 Ml Syringe) 3 ml IVFLUSH QSHIFT [facility] Last Admin: 01/22/22 23:40 Dose: 3 ml Home Medications Medication Instructions Recorded Confirmed Last Taken Type albuterol sulfate 90 mcg/actuation 2 puff PO Q4H PRN Shortness Of 03/19/20 01/22/22 12/11/21 History aerosol inhaler Breath baclofen 10 mg tablet 10 mg PO TID 03/19/20 01/22/22 01/21/22 History clonazepam 0.5 mg tablet 0.5 mg PO DAILY 03/19/20 01/22/22 01/21/22 History duloxetine 20 mg capsule,delayed 20 mg PO DAILY 03/19/20 01/22/22 01/21/22 History release hydroxyzine pamoate 25 mg capsule 25 mg PO BID 03/19/20 01/22/22 01/21/22 History lisinopril 10 mg tablet 10 mg PO DAILY 03/19/20 01/22/22 01/21/22 History meloxicam 15 mg tablet 15 mg PO DAILY 03/19/20 01/22/22 01/21/22 History omeprazole 20 mg capsule,delayed 20 mg PO DAILY 03/19/20 01/22/22 01/21/22 History release atorvastatin 20 mg tablet 20 mg PO DAILY 11/20/21 01/22/22 01/21/22 History amlodipine 2.5 mg tablet 1 tab PO DAILY 01/22/22 01/22/22 01/21/22 History calcium carbonate 600 mg-vitamin 1 tab PO DAILY 01/22/22 01/22/22 01/21/22 History D3 5 mcg (200 unit) tablet dexamethasone 4 mg tablet See Rx Instructions .Route .COMPLEX 01/22/22 01/22/22 Unknown History diclofenac sodium 1 % topical gel See Rx Instructions .Route .COMPLEX 01/22/22 01/22/22 01/21/22 History fluticasone propionate 110 1 inh inhalation BID 01/22/22 01/22/22 01/21/22 History mcg/actuation HFA aerosol inhaler (Flovent HFA) mometasone 0.1 % topical cream 1 applic topical DAILY 01/22/22 01/22/22 01/21/22 History multivitamin with folic acid 400 1 tab PO DAILY 01/22/22 01/22/22 01/21/22 History mcg tablet (Tab-A-Richard) pregabalin 150 mg capsule 1 cap PO BID 01/22/22 01/22/22 01/21/22 History triamcinolone acetonide 0.1 % 1 applic topical TID 01/22/22 01/22/22 01/21/22 History topical cream Physical Exam Vital Signs and Narrative: Vital Signs: Last Vital Signs Temp 98.7 F 01/23/22 03:51 Pulse 91 01/23/22 03:51 Resp 18 01/23/22 03:51 BP 105/58 L 01/23/22 03:51 Pulse Ox 95 01/23/22 03:51 O2 Del Method 01/23/22 03:51 BMI result Body Mass Index 37.3 Const: Other: Nontoxic appearing General: cooperative and no acute distress Orientation/consciousness: patient oriented x3 Eyes: General: appearance normal, both eyes and all related structures Resp: Effort & Inspection: normal respiratory effort Auscultation: clear to auscultation bilaterally Cardio: Rate: regular rate Rhythm: regular rhythm GI: Palpation (GI): Soft to palpation Auscultation: normal bowel sounds Skin: General skin exam: no rashes or lesions noted Neuro: General: patient oriented x3 Cognition (Neuro): normal cognition Extrem: General: Yes normal to inspection and Yes no pedal edema Results Labs CBC and Chem 7: 01/22/22 10:06 01/22/22 22:02 Labs: Laboratory Results - last 24 hr 01/22/22 01/22/22 01/22/22 10:06 10:06 10:06 MCV 85.9 MCH 28.8 MCHC 33.5 RDW 15.2 Plt Count 171 D MPV 10.1 Immature Gran % (Auto) 0.9 H Neut % (Auto) 86.5 H Lymph % (Auto) 5.1 L [place] % (Auto) 6.9 Eos % (Auto) 0.0 Baso % (Auto) 0.6 Lymph # (Auto) 0.3 L [place] # (Auto) 0.5 Eos # (Auto) 0.0 Baso # (Auto) 0.0 Abs Immat Gran (auto) 0.06 H Absolute Neuts (auto) 5.8 Absolute Nucleated RBC 0.000 Nucleated RBC % (auto) 0.0 Anion Gap 16 Estim Creat Clear Calc 69.8 Estimated GFR > 60 Random Glucose 163 H Lactic Acid 1.9 Calcium 9.0 Urine Color Urine Appearance Urine pH Ur Specific [place] Urine Protein Urine Glucose (UA) Urine Ketones Urine Blood Urine Nitrite Ur Leukocyte Esterase Urine RBC Urine WBC Ur Squamous Epith Cells Amorphous Sediment Urine Bacteria Urine Mucus Phenytoin < 0.5 L* Valproic Acid < 2.0 L Carbamazepine < 2.0 L* SARS-CoV-2 (PCR) COVID-19 ([facility]) COVID-19 Clin Com Influenza Type A (PCR) Influenza Type B (PCR) RSV RNA Qual (PCR) SARS-CoV-2 RNA (RT-PCR) 01/22/22 01/22/22 01/22/22 17:00 18:15 18:46 MCV MCH MCHC RDW Plt Count MPV Immature Gran % (Auto) Neut % (Auto) Lymph % (Auto) [place] % (Auto) Eos % (Auto) Baso % (Auto) Lymph # (Auto) [place] # (Auto) Eos # (Auto) Baso # (Auto) Abs Immat Gran (auto) Absolute Neuts (auto) Absolute Nucleated RBC Nucleated RBC % (auto) Anion Gap Estim Creat Clear Calc Estimated GFR Random Glucose Lactic Acid 0.9 Calcium Urine Color YELLOW Urine Appearance CLEAR Urine pH 6.0 Ur Specific [place] 1.025 Urine Protein 1+ H Urine Glucose (UA) NEG Urine Ketones NEG Urine Blood TRACE Urine Nitrite NEG Ur Leukocyte Esterase 1+ H Urine RBC 1-4 Urine WBC 15-29 H Ur Squamous Epith Cells 1+ Amorphous Sediment TRACE Urine Bacteria TRACE Urine Mucus 1+ Phenytoin Valproic Acid Carbamazepine SARS-CoV-2 (PCR) COVID-19 ([facility]) Negative COVID-19 Clin Com See Note Influenza Type A (PCR) Influenza Type B (PCR) RSV RNA Qual (PCR) SARS-CoV-2 RNA (RT-PCR) 01/22/22 01/22/22 01/22/22 20:50 20:50 22:02 MCV MCH MCHC RDW Plt Count MPV Immature Gran % (Auto) Neut % (Auto) Lymph % (Auto) [place] % (Auto) Eos % (Auto) Baso % (Auto) Lymph # (Auto) [place] # (Auto) Eos # (Auto) Baso # (Auto) Abs Immat Gran (auto) Absolute Neuts (auto) Absolute Nucleated RBC Nucleated RBC % (auto) Anion Gap 13 Estim Creat Clear Calc 80.8 Estimated GFR > 60 Random Glucose 144 H Lactic Acid Calcium 7.5 L D Urine Color Urine Appearance Urine pH Ur Specific [place] Urine Protein Urine Glucose (UA) Urine Ketones Urine Blood Urine Nitrite Ur Leukocyte Esterase Urine RBC Urine WBC Ur Squamous Epith Cells Amorphous Sediment Urine Bacteria Urine Mucus Phenytoin Valproic Acid Carbamazepine SARS-CoV-2 (PCR) Cancelled COVID-19 ([facility]) COVID-19 Clin Com Influenza Type A (PCR) NEGATIVE Influenza Type B (PCR) NEGATIVE RSV RNA Qual (PCR) NEGATIVE SARS-CoV-2 RNA (RT-PCR) NEGATIVE Imaging Radiologist's Impressions: Impressions Chest X-Ray 01/22/22 17:23 IMPRESSION: Unremarkable examination. A left chest wall port is in place with tip in the proximal SVC. Assessment and Plan (1) Sepsis: Status: Acute (2) Urinary tract infection: Status: Acute (3) Acute hypotension: Status: Acute Plan 61-year-old female with past medical history of breast cancer undergoing chemotherapy treatment at this time presents to the hospital with complaints of fatigue, chills, and fever found to have UTI # acute sepsis - secondary to UTI - UA positive, has fever, hypotension - treated with IV fluids, will start IV antibiotic - follow cultures # UTI - acute - positive UA , symptomatic - treated with IV antibiotics, will continue - follow cultures # hypertension - secondary to above - resuscitated with aggressive IV fluid - continue maintenance fluids - hold antihypertensives - monitor BP # breast cancer - continue outpatient follow-up DVT prophylaxis: Lovenox Quality Stroke Does the patient have a stroke diagnosis?: No VTE Prior VTE?: No VTE Risk Level:: Medical - moderate - high VTE Device Contraindication: Treatment Not Indicated VTE Drug Contraindication: N/A - Med Ordered
[2022-01-23 06:56] LABS: Hematocrit 30.8 % (37.0-47.0); Mean Corpuscular HGB Conc 33.1 g/dl (31.0-35.0); Mean Corpuscular Hemoglobin 28.7 pg (27.0-33.0); Mean Corpuscular Volume 86.8 fL (80.0-98.0); Mean Platelet Volume 10.9 fL (9.4-12.3); Red Blood Count 3.55 X10*6/uL (4.20-5.50); Red Cell Distribution Width 15.4 % (11.0-16.0); White Blood Count 5.3 X10*3/uL (4.8-10.8)
[2022-01-23 07:01] LABS: Anion Gap 12 (12-20); Blood Urea Nitrogen 7 mg/dL (9-16); Calcium 7.6 mg/dL (8.4-10.2); Carbon Dioxide 20 mmol/L (22-29); Chloride 110 mmol/L (96-108); Creatinine Clr Calc Pharmacy 93.2; Estimated Glomerular Filt Rate > 60; Glucose Random 126 mg/dL (60-115); Potassium 3.7 mmol/L (3.3-5.1); Sodium 138 mmol/L (135-145)
[2022-01-23 07:04] LABS: Hemoglobin 10.2 g/dl (12.0-16.0)
--- NOTE | 2022-01-23 07:33 | HE.PHANOTE ---
Vancomycin Dosing Addendum Patients renal function is down to 0.61 this morning from 0.7. Continue current dose of 750mg Q12H for now. Level to be drawn 01/24 @ 0900. Will reassess once labs are done. Predicted AUC 428 mg/L/hr.
[2022-01-23 08:01] LABS: Band Neutrophils Percent 29 % (3-5); Lymphocytes Absolute Manual 0.4 X10*3/uL (1.2-4.9); Lymphocytes Percent Manual 7 % (20-40); Metamyelocytes Absolute 0.1 X10*3/uL; Metamyelocytes Percent 1 %; Monocytes Absolute Manual 0.5 X10*3/uL (0.1-1.2); Monocytes Percent Manual 9 % (2-11); Neutrophils Absolute Manual 4.4 X10*3/uL (2.0-8.3); Neutrophils Percent Manual 54 % (45-73); Platelet Estimate DECREASED (NORMAL); RBC Morphology NORMAL
[2022-01-23 08:02] LABS: Dohle Bodies PRESENT; Platelet Morphology Comment NORMAL
[2022-01-23 08:09] LABS: Platelet Count 109 X10*3/uL (160-400)
[2022-01-23] MEDS: Lactated Ringers 1,000 ML 100 ML IVCONT ×2 (08:29→19:41)
[2022-01-23] MEDS: Calcium + Vitamin D 250 MG TABLET 500 MG PO (08:33)
[2022-01-23] MEDS: Omeprazole 20 MG CAPSULE.DR PO (08:33)
[2022-01-23] MEDS: clonazePAM 0.5 MG TABLET PO (08:33)
[2022-01-23] MEDS: Baclofen 10 MG TABLET PO ×3 (08:33→22:01)
[2022-01-23] MEDS: 0.9 % Sodium Chloride Flush 3 ML SYRINGE IVFLUSH ×2 (08:33→18:04)
[2022-01-23] MEDS: hydrOXYzine HCL 25 MG TABLET PO ×2 (08:33→22:02)
[2022-01-23] MEDS: Pregabalin 150 MG CAPSULE PO ×2 (08:33→22:02)
[2022-01-23] MEDS: NaPROXEN 500 MG TABLET PO ×2 (08:33→22:02)
[2022-01-23] MEDS: DULoxetine HCl 20 MG CAPSULE.DR PO (08:33)
[2022-01-23] MEDS: Multivitamin TABLET 1 TAB PO (08:33)
[2022-01-23] MEDS: Fluticasone Propionate 100 MCG BLST.W.DEV 1 PUFF INHALE ×2 (08:35→19:23)
--- NOTE | 2022-01-23 08:58 | MHC.CM.PN ---
Addendum entered by Irina Landrum 01/23/22 11:17: HCP COMPLETED. ORIGINAL AND COPIES GIVEN TO PT. COPY UPLOADED TO [facility] COPY FILED IN CHART Original Note: IMM addressed, original to patient and copy filed in chart. Patient is Urdu speaking/requires insurance clerk Patient reports she lives with her spouse and foster child, has a daughter that lives next door. She is independent at home and community, does have a cane that she uses sometime, also uses CPAP equipment. No home services at [facility]. She is connected to [facility], has a nurse who calls her annually and a coordinator. She is Ayseid carlos eduardo'd x4 (MRNA), HCP is Mahesh Rosenbaum. Spouse or daughter will transport home. HCP will be completed with patient. D/C Plan: Home (self-care).
--- NOTE | 2022-01-23 11:27 | HO.PM.IMPN ---
Subjective Subjective Date of Service: 01/23/22 Interval History: Seen in f/u for sepsis due to UTI and Gram-positive cocci bacteremia. Interval history: Clinically improving, blood pressure is better, no fever, and overall clinically she feels better than she did yesterday. Review of Systems No fever, no chills, no chest pain no dizziness no dysuria. Physical Exam Vital Signs: Vital Signs: Last Vital Signs Temp 97.6 F 01/23/22 07:47 Pulse 107 H 01/23/22 08:36 Resp 16 01/23/22 08:36 BP 116/66 01/23/22 07:47 Pulse Ox 98 01/23/22 07:47 O2 Del Method 01/23/22 07:47 BMI result Body Mass Index 37.3 Const: Other: General: AO X 3, no acute distress Resp: CTA bilateral CVS: S1,S2,RRR GI: +BS, NT, no distention Skin: No rash Neuro: motor grossly intact Psych: appropriate affect Objective Data Active Medications Acetaminophen (Acetaminophen 325 Mg Tablet) 650 mg PO Q6H PRN PRN Reason: Pain, Mild (Pain Scale 1-3) Last Admin: 01/22/22 22:33 Dose: 650 mg Documented By: LAURA Albuterol Sulfate (Albuterol Sulfate 90 Mcg 8 Gm Inhaler) 2 puff INHALE Q4H PRN PRN Reason: Shortness Of Breath Atorvastatin Calcium (Atorvastatin Calcium 20 Mg Tablet) 20 mg PO BEDTIME [facility] Baclofen (Baclofen 10 Mg Tablet) 10 mg PO TID [facility] Last Admin: 01/23/22 08:33 Dose: 10 mg Documented By: MARSHALL Calcium Carbonate/Cholecalciferol (Calcium + Vitamin D 250 Mg Tablet) 500 mg PO DAILY [facility] Last Admin: 01/23/22 08:33 Dose: 500 mg Documented By: MARSHALL Clonazepam (Clonazepam 0.5 Mg Tablet) 0.5 mg PO DAILY [facility] Last Admin: 01/23/22 08:33 Dose: 0.5 mg Documented By: MARSHALL Docusate Sodium (Docusate Sodium 100 Mg Capsule) 100 mg PO DAILY PRN PRN Reason: Constipation Duloxetine HCl (Duloxetine Hcl 20 Mg Capsule.) 20 mg PO DAILY [facility] Last Admin: 01/23/22 08:33 Dose: 20 mg Documented By: MARSHALL Enoxaparin Sodium (Enoxaparin Sodium 40 Mg/0.4 Ml Syringe) 40 mg SUBCUT Q24H [facility] Last Admin: 01/22/22 22:25 Dose: 40 mg Documented By: LAURA Fluticasone Propionate (Fluticasone Propionate 100 Mcg Blst.W.Dev) 1 puff INHALE RBID [facility] Last Admin: 01/23/22 08:35 Dose: 1 puff Documented By: JOÃO Hydroxyzine HCl (Hydroxyzine Hcl 25 Mg Tablet) 25 mg PO BID [facility] Last Admin: 01/23/22 08:33 Dose: 25 mg Documented By: MARSHALL Ceftriaxone Sodium 1 gm/ (Sodium Chloride) 50 mls @ 100 mls/hr IV Q24H [facility] Vancomycin HCl 750 mg/ Sodium (Chloride) 265 mls @ 265 mls/hr IV Q12H [facility] Lactated Ringer's (Lr) 1,000 mls @ 100 mls/hr IVCONT .Q10H [facility] Last Admin: 01/23/22 08:29 Dose: 100 mls/hr Documented By: MARSHALL Melatonin (Melatonin 3 Mg Tablet) 6 mg PO BEDTIME PRN PRN Reason: Insomnia Multivitamins/Vitamin C (Multivitamin Tablet) 1 tab PO DAILY [facility] Last Admin: 01/23/22 08:33 Dose: 1 tab Documented By: MARSHALL Naproxen (Naproxen 500 Mg Tablet) 500 mg PO BID [facility] Last Admin: 01/23/22 08:33 Dose: 500 mg Documented By: MARSHALL Omeprazole (Omeprazole 20 Mg Capsule.) 20 mg PO DAILY@0630 [facility] Last Admin: 01/23/22 08:33 Dose: 20 mg Documented By: MARSHALL Ondansetron HCl (Ondansetron Hcl 4 Mg/2 Ml Vial) 4 mg IVPUSH Q8H PRN PRN Reason: Nausea and Vomiting Pharmacy Consult (Consult Rx Perform Med Rec) 1 each MISCELLANE ONCE PRN PRN Reason: Consult order Pharmacy Consult (Consult Rx Vancomycin Dosing) 1 each MISCELLANE DAILY PRN PRN Reason: Consult order Pregabalin (Pregabalin 150 Mg Capsule) 150 mg PO BID [facility] Last Admin: 01/23/22 08:33 Dose: 150 mg Documented By: MARSHALL Sodium Chloride (0.9 % Sodium Chloride Flush 3 Ml Syringe) 3 ml IVFLUSH QSHIFT [facility] Last Admin: 01/23/22 08:33 Dose: 3 ml Documented By: MARSHALL Triamcinolone Acetonide (Triamcinolone Acet 0.1 % Cream 15 Gm Tube) 1 appl TOPICAL TID [facility]; Protocol Last Admin: 01/23/22 08:34 Dose: Not Given Documented By: MARSHALL Non-Admin Reason: Med Not Available Labs CBC & Chem 7: 01/23/22 05:54 01/23/22 05:54 Labs: Laboratory Results - last 24 hr 01/22/22 01/22/22 01/22/22 10:06 10:06 17:00 MCV MCH MCHC RDW Plt Count 171 D MPV Immature Gran % (Auto) Neut % (Auto) Lymph % (Auto) [place] % (Auto) Eos % (Auto) Baso % (Auto) Lymph # (Auto) [place] # (Auto) Eos # (Auto) Baso # (Auto) Abs Immat Gran (auto) Absolute Neuts (auto) Absolute Nucleated RBC Nucleated RBC % (auto) Neutrophils % (Manual) Band Neutrophils % Lymphocytes % (Manual) Monocytes % (Manual) Metamyelocytes % Abs Neuts (Manual) Lymphocytes # (Manual) Monocytes # (Manual) Metamyelocytes # Dohle Bodies Platelet Estimate Plt Morphology Comment RBC Morphology Anion Gap Estim Creat Clear Calc Estimated GFR Random Glucose Lactic Acid Calcium Urine Color YELLOW Urine Appearance CLEAR Urine pH 6.0 Ur Specific [place] 1.025 Urine Protein 1+ H Urine Glucose (UA) NEG Urine Ketones NEG Urine Blood TRACE Urine Nitrite NEG Ur Leukocyte Esterase 1+ H Urine RBC 1-4 Urine WBC 15-29 H Ur Squamous Epith Cells 1+ Amorphous Sediment TRACE Urine Bacteria TRACE Urine Mucus 1+ Phenytoin < 0.5 L* Valproic Acid < 2.0 L Carbamazepine < 2.0 L* SARS-CoV-2 (PCR) COVID-19 ([facility]) COVID-19 Clin Com Influenza Type A (PCR) Influenza Type B (PCR) RSV RNA Qual (PCR) SARS-CoV-2 RNA (RT-PCR) 01/22/22 01/22/22 01/22/22 18:15 18:46 20:50 MCV MCH MCHC RDW Plt Count MPV Immature Gran % (Auto) Neut % (Auto) Lymph % (Auto) [place] % (Auto) Eos % (Auto) Baso % (Auto) Lymph # (Auto) [place] # (Auto) Eos # (Auto) Baso # (Auto) Abs Immat Gran (auto) Absolute Neuts (auto) Absolute Nucleated RBC Nucleated RBC % (auto) Neutrophils % (Manual) Band Neutrophils % Lymphocytes % (Manual) Monocytes % (Manual) Metamyelocytes % Abs Neuts (Manual) Lymphocytes # (Manual) Monocytes # (Manual) Metamyelocytes # Dohle Bodies Platelet Estimate Plt Morphology Comment RBC Morphology Anion Gap Estim Creat Clear Calc Estimated GFR Random Glucose Lactic Acid 0.9 Calcium Urine Color Urine Appearance Urine pH Ur Specific [place] Urine Protein Urine Glucose (UA) Urine Ketones Urine Blood Urine Nitrite Ur Leukocyte Esterase Urine RBC Urine WBC Ur Squamous Epith Cells Amorphous Sediment Urine Bacteria Urine Mucus Phenytoin Valproic Acid Carbamazepine SARS-CoV-2 (PCR) Cancelled COVID-19 ([facility]) Negative COVID-19 Clin Com See Note Influenza Type A (PCR) Influenza Type B (PCR) RSV RNA Qual (PCR) SARS-CoV-2 RNA (RT-PCR) 01/22/22 01/22/22 01/23/22 20:50 22:02 05:54 MCV 86.8 MCH 28.7 MCHC 33.1 RDW 15.4 Plt Count 109 L D MPV 10.9 Immature Gran % (Auto) Cancelled Neut % (Auto) Cancelled Lymph % (Auto) Cancelled [place] % (Auto) Cancelled Eos % (Auto) Cancelled Baso % (Auto) Cancelled Lymph # (Auto) Cancelled [place] # (Auto) Cancelled Eos # (Auto) Cancelled Baso # (Auto) Cancelled Abs Immat Gran (auto) Cancelled Absolute Neuts (auto) Cancelled Absolute Nucleated RBC 0.000 Nucleated RBC % (auto) 0.0 Neutrophils % (Manual) 54 Band Neutrophils % 29 H Lymphocytes % (Manual) 7 L Monocytes % (Manual) 9 Metamyelocytes % 1 Abs Neuts (Manual) 4.4 Lymphocytes # (Manual) 0.4 L Monocytes # (Manual) 0.5 Metamyelocytes # 0.1 Dohle Bodies PRESENT Platelet Estimate DECREASED Plt Morphology Comment NORMAL RBC Morphology NORMAL Anion Gap 13 Estim Creat Clear Calc 80.8 Estimated GFR > 60 Random Glucose 144 H Lactic Acid Calcium 7.5 L D Urine Color Urine Appearance Urine pH Ur Specific [place] Urine Protein Urine Glucose (UA) Urine Ketones Urine Blood Urine Nitrite Ur Leukocyte Esterase Urine RBC Urine WBC Ur Squamous Epith Cells Amorphous Sediment Urine Bacteria Urine Mucus Phenytoin Valproic Acid Carbamazepine SARS-CoV-2 (PCR) COVID-19 ([facility]) COVID-19 Clin Com Influenza Type A (PCR) NEGATIVE Influenza Type B (PCR) NEGATIVE RSV RNA Qual (PCR) NEGATIVE SARS-CoV-2 RNA (RT-PCR) NEGATIVE 01/23/22 05:54 MCV MCH MCHC RDW Plt Count MPV Immature Gran % (Auto) Neut % (Auto) Lymph % (Auto) [place] % (Auto) Eos % (Auto) Baso % (Auto) Lymph # (Auto) [place] # (Auto) Eos # (Auto) Baso # (Auto) Abs Immat Gran (auto) Absolute Neuts (auto) Absolute Nucleated RBC Nucleated RBC % (auto) Neutrophils % (Manual) Band Neutrophils % Lymphocytes % (Manual) Monocytes % (Manual) Metamyelocytes % Abs Neuts (Manual) Lymphocytes # (Manual) Monocytes # (Manual) Metamyelocytes # Dohle Bodies Platelet Estimate Plt Morphology Comment RBC Morphology Anion Gap 12 Estim Creat Clear Calc 93.2 Estimated GFR > 60 Random Glucose 126 H Lactic Acid Calcium 7.6 L Urine Color Urine Appearance Urine pH Ur Specific [place] Urine Protein Urine Glucose (UA) Urine Ketones Urine Blood Urine Nitrite Ur Leukocyte Esterase Urine RBC Urine WBC Ur Squamous Epith Cells Amorphous Sediment Urine Bacteria Urine Mucus Phenytoin Valproic Acid Carbamazepine SARS-CoV-2 (PCR) COVID-19 ([facility]) COVID-19 Clin Com Influenza Type A (PCR) Influenza Type B (PCR) RSV RNA Qual (PCR) SARS-CoV-2 RNA (RT-PCR) Microbiology Microbiology Results: Microbiology 01/22/22 17:00 Urine Culture - Preliminary Urine clean catch - Urine mathew top Culture too young to evaluate. 01/22/22 10:08 Blood Culture - Preliminary Blood - Venous Staphylococcus species 01/22/22 10:06 Blood Culture - Preliminary Blood - Venous Staphylococcus species Assessment and Plan (1) Sepsis: Status: Acute (2) Urinary tract infection: Status: Acute (3) Invasive ductal carcinoma of breast: Status: Acute Plan 61-year-old female with past medical history of breast cancer undergoing chemotherapy treatment at this time presents to the hospital with complaints of fatigue, chills, and fever found to have UTI #? acute sepsis -? secondary to UTI and bacteremia -? continue IVF -? follow cultures -ID consult -echo to rule vegetation #? UTI--culture pending, continue Ceftriaxone D2 #? hypertension--BP now low, hold all meds #? breast cancer -? continue outpatient follow-up (due to for chemo tomorrow but will need to be postponed ?DVT prophylaxis:? Lovenox Need for inapteitn: Sepsis in chemo patient and life threatening and therefore needs IV Abx and close monitoring Quality Stroke Does the patient have a stroke diagnosis?: No VTE Prior VTE?: No VTE Risk Level:: Medical - moderate - high VTE Device Contraindication: Treatment Not Indicated VTE Drug Contraindication: N/A - Med Ordered
[2022-01-23] MEDS: vancomycin HCL 750 MG in 0.9 % Sodium Chloride 250 ML 265 MG IV ×2 (11:37→22:03)
--- NOTE | 2022-01-23 13:00 | CA_ITS ---
Transthoracic Echocardiogram Limited Patient (Last, First, Middle): Magaly Zaidi, Gender: Female Date of : 1960 Age: 61 Procedure Date: 01/23/2022 Procedure Type: Transthoracic Echocardiogram Limited Location: S3E Height: 149.86 cm Weight: 83.92 kg BSA: 1.78 m2 Heart Rate: bpm BP: 116 / 66 mmHg Compensation/Benefits Specialist: JONATHON Referring MD: Arjun Chaparro MD Symptoms: bacteremia Study Quality: Adequate ECG Rhythm: Sinus Conclusions: - The left ventricular systolic function is normal. The calculated ejection fraction is 58% by biplane method. - No obvious valvular pathology seen on this study. Findings Left Ventricle Normal left ventricular cavity size. The left ventricular systolic function is normal. The calculated ejection fraction is 58% by biplane method. There is no evidence of regional wall motion abnormalities. Aortic Valve The aortic valve structure and function is likely normal. There is no aortic valve stenosis. There is no aortic valve regurgitation. Mitral Valve The mitral valve appears normal. There is trace mitral valve regurgitation. There is no mitral valve stenosis. Pulmonic Valve The pulmonic valve was not well visualized. There is mild pulmonic valve regurgitation. Tricuspid Valve Normal tricuspid valve structure. There is trace tricuspid valve regurgitation. Prior Study Comparison No significant change compared to prior study dated: 01/18/2022. Recommendations, Care & Conclusions No obvious valvular pathology seen on this study. Consider a CHIDI if clinically appropriate. Measurements 2D Linear Measurements IVSd: 0.89 0.6-0.9/0.6-1.0 cm LVIDd: 4.14 3.9-5.3/4.2-5.9 cm LVIDd Index: 2.33 2.4-3.2/2.2-3.1 cm/m2 LVIDs: 2.34 2.0-3.6 cm LVPWd: 1.04 0.7-1.1 cm LV Mass: 158.68 67-162/88-224 g LV Mass Index: 89.15 43-95/49-115 g/m2 2D Systolic Function EF 4C: 54.30 >55% EF 2C: 58.50 >55% EF BiP: 58.40 >55% Tricuspid Valve TR Pk Timo: 2.47 TR Pk Grad: 24.00 RA Press: 3.00 RVSP: 27.00 Updated in Other Vendor System with Status of Final Bjorn Yan MD electronically signed on 01/23/2022 4:36:06 PM with status of Final
--- NOTE | 2022-01-23 13:58 | W.PM.IDCN ---
History of Present Illness Data of Consult Service Date: 01/23/22 Requesting physician: Arjun Chaparro Primary Care Provider: MD SALLIE Acevedo Reason for consult: sepsis,staph She presents with two days of chills and fever to 107 she says. She has right breast cancer recently diagnosed and started on chemotherapy. She had chemotherapy six days ago and is due tomorrow again to finish second round. Two weeks ago she had port placed and has been having chemotherapy. Her impression was that sutures would fall out or dissolve on own but had one stitch upper chest wall left that didnt fall out and area became reddened. Her daughter said area near suture had purulence as well. Area became better after antibiotics and there is no pain over port or redness or swelling there. Review of Systems Review of Systems: Yes all other systems are reviewed and are negative [facility] Past Medical History Medical History Breast mass, right Fibromyalgia HTN (hypertension) Invasive ductal carcinoma of breast Osteoarthritis of right shoulder Family History Family History Father Stroke Mother Hypertension Asthma Maternal Grandmother Lung cancer Maternal Aunt Breast cancer Maternal Aunt Thyroid cancer Maternal Aunt Colon cancer Family history: reviewed and not pertinent Surgical History Surgical History History of foot surgery History of hysterectomy Social History Social History Household Members: Family Housing: House 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 If so, by whom?: No Do you feel safe in your current relationship?: No Is there a partner from a previous relationship who is making you feel unsafe now?: No Are you made to feel afraid or neglected: No Advance Directives: No Advance Directives Information Provided: Yes Do you have thoughts of harming others: None Do you have a plan to hurt others: No Plan Recently lost weight without trying: No How much weight loss: Not applicable Eating poorly because of decreased appetite: No Nutrition screen score: 0 Nutrition Risks: No Nutritional Risk Patient : No : No Poor oral hygiene: No service: No Current occupational status: disabled Meds Allergies Allergy/AdvReac Type Severity Reaction Status Date / Time metoprolol [METOPROLOL] Allergy Unknown RASH Verified 01/22/22 09:51 Active Medications: Current Medications Acetaminophen (Acetaminophen 325 Mg Tablet) 650 mg PO Q6H PRN PRN Reason: Pain, Mild (Pain Scale 1-3) Last Admin: 01/22/22 22:33 Dose: 650 mg Albuterol Sulfate (Albuterol Sulfate 90 Mcg 8 Gm Inhaler) 2 puff INHALE Q4H PRN PRN Reason: Shortness Of Breath Atorvastatin Calcium (Atorvastatin Calcium 20 Mg Tablet) 20 mg PO BEDTIME [facility] Baclofen (Baclofen 10 Mg Tablet) 10 mg PO TID [facility] Last Admin: 01/23/22 08:33 Dose: 10 mg Calcium Carbonate/Cholecalciferol (Calcium + Vitamin D 250 Mg Tablet) 500 mg PO DAILY [facility] Last Admin: 01/23/22 08:33 Dose: 500 mg Clonazepam (Clonazepam 0.5 Mg Tablet) 0.5 mg PO DAILY [facility] Last Admin: 01/23/22 08:33 Dose: 0.5 mg Docusate Sodium (Docusate Sodium 100 Mg Capsule) 100 mg PO DAILY PRN PRN Reason: Constipation Duloxetine HCl (Duloxetine Hcl 20 Mg Capsule.Dr) 20 mg PO DAILY [facility] Last Admin: 01/23/22 08:33 Dose: 20 mg Enoxaparin Sodium (Enoxaparin Sodium 40 Mg/0.4 Ml Syringe) 40 mg SUBCUT Q24H [facility] Last Admin: 01/22/22 22:25 Dose: 40 mg Fluticasone Propionate (Fluticasone Propionate 100 Mcg Blst.W.Dev) 1 puff INHALE RBID [facility] Last Admin: 01/23/22 08:35 Dose: 1 puff Hydroxyzine HCl (Hydroxyzine Hcl 25 Mg Tablet) 25 mg PO BID [facility] Last Admin: 01/23/22 08:33 Dose: 25 mg Ceftriaxone Sodium 1 gm/ (Sodium Chloride) 50 mls @ 100 mls/hr IV Q24H [facility] Vancomycin HCl 750 mg/ Sodium (Chloride) 265 mls @ 265 mls/hr IV Q12H [facility] Last Infusion: 01/23/22 12:50 Dose: Infused Lactated Ringer's (Lr) 1,000 mls @ 100 mls/hr IVCONT .Q10H [facility] Last Admin: 01/23/22 08:29 Dose: 100 mls/hr Melatonin (Melatonin 3 Mg Tablet) 6 mg PO BEDTIME PRN PRN Reason: Insomnia Multivitamins/Vitamin C (Multivitamin Tablet) 1 tab PO DAILY [facility] Last Admin: 01/23/22 08:33 Dose: 1 tab Naproxen (Naproxen 500 Mg Tablet) 500 mg PO BID [facility] Last Admin: 01/23/22 08:33 Dose: 500 mg Omeprazole (Omeprazole 20 Mg Capsule.Dr) 20 mg PO DAILY@0630 [facility] Last Admin: 01/23/22 08:33 Dose: 20 mg Ondansetron HCl (Ondansetron Hcl 4 Mg/2 Ml Vial) 4 mg IVPUSH Q8H PRN PRN Reason: Nausea and Vomiting Pharmacy Consult (Consult Rx Perform Med Rec) 1 each MISCELLANE ONCE PRN PRN Reason: Consult order Pharmacy Consult (Consult Rx Vancomycin Dosing) 1 each MISCELLANE DAILY PRN PRN Reason: Consult order Pregabalin (Pregabalin 150 Mg Capsule) 150 mg PO BID [facility] Last Admin: 01/23/22 08:33 Dose: 150 mg Sodium Chloride (0.9 % Sodium Chloride Flush 3 Ml Syringe) 3 ml IVFLUSH QSHIFT [facility] Last Admin: 01/23/22 08:33 Dose: 3 ml Triamcinolone Acetonide (Triamcinolone Acet 0.1 % Cream 15 Gm Tube) 1 appl TOPICAL TID [facility]; Protocol Last Admin: 01/23/22 08:34 Dose: Not Given Home Medications Medication Instructions Recorded Confirmed Last Taken Type albuterol sulfate 90 mcg/actuation 2 puff PO Q4H PRN Shortness Of 03/19/20 01/22/22 12/11/21 History aerosol inhaler Breath baclofen 10 mg tablet 10 mg PO TID 03/19/20 01/22/22 01/21/22 History clonazepam 0.5 mg tablet 0.5 mg PO DAILY 03/19/20 01/22/22 01/21/22 History duloxetine 20 mg capsule,delayed 20 mg PO DAILY 03/19/20 01/22/22 01/21/22 History release hydroxyzine pamoate 25 mg capsule 25 mg PO BID 03/19/20 01/22/22 01/21/22 History lisinopril 10 mg tablet 10 mg PO DAILY 03/19/20 01/22/22 01/21/22 History meloxicam 15 mg tablet 15 mg PO DAILY 03/19/20 01/22/22 01/21/22 History omeprazole 20 mg capsule,delayed 20 mg PO DAILY 03/19/20 01/22/22 01/21/22 History release atorvastatin 20 mg tablet 20 mg PO DAILY 11/20/21 01/22/22 01/21/22 History amlodipine 2.5 mg tablet 1 tab PO DAILY 01/22/22 01/22/22 01/21/22 History calcium carbonate 600 mg-vitamin 1 tab PO DAILY 01/22/22 01/22/22 01/21/22 History D3 5 mcg (200 unit) tablet dexamethasone 4 mg tablet See Rx Instructions .Route .COMPLEX 01/22/22 01/22/22 Unknown History diclofenac sodium 1 % topical gel See Rx Instructions .Route .COMPLEX 01/22/22 01/22/22 01/21/22 History fluticasone propionate 110 1 inh inhalation BID 01/22/22 01/22/22 01/21/22 History mcg/actuation HFA aerosol inhaler (Flovent HFA) mometasone 0.1 % topical cream 1 applic topical DAILY 01/22/22 01/22/22 01/21/22 History multivitamin with folic acid 400 1 tab PO DAILY 01/22/22 01/22/22 01/21/22 History mcg tablet (Tab-A-Richard) pregabalin 150 mg capsule 1 cap PO BID 01/22/22 01/22/22 01/21/22 History triamcinolone acetonide 0.1 % 1 applic topical TID 01/22/22 01/22/22 01/21/22 History topical cream Physical Exam Vital Signs: Vital Signs: Last Vital Signs Temp 97.0 F 01/23/22 11:52 Pulse 105 H 01/23/22 11:52 Resp 17 08/09/22 11:52 BP 94/61 01/23/22 11:52 Pulse Ox 99 01/23/22 11:52 O2 Del Method 01/23/22 11:52 BMI result Body Mass Index 37.3 Const: General: cooperative HEENT: Other: alopecic Face and sinus: Yes normal facial exam Mouth: Normal oral and palatal mucosa present Teeth and gingiva: dentition normal Eyes: General: appearance normal, both eyes and all related structures Pupils: Equal, round and reactive pupils present Chest: Other: mild redness left upper chest near clavicle port clear Chest/axillae images: 1. mild redness 2. clear port 3. Resp: Effort & Inspection: normal respiratory effort Cardio: Rate: regular rate Rhythm: regular rhythm GI: Palpation (GI): Soft to palpation and nontender : General: Yes no CVA tenderness Back/Spine/Pelvis: Back: no CVA tenderness Skin: General skin exam: no rashes or lesions noted Neuro: General: moves all extremities Cranial nerves: Yes Equal, round and reactive pupils present Extrem: General: Yes normal to inspection Psych: Appearance: grossly normal Results Labs CBC & Chem 7: 01/23/22 05:54 01/23/22 05:54 Labs: Short CBC 01/23/22 Range/Units 05:54 WBC 5.3 (4.8-10.8) X10*3/uL Hgb 10.2 L D (12.0-16.0) g/dl Hct 30.8 L D (37.0-47.0) % Plt Count 109 L D (160-400) X10*3/uL BMP 01/22/22 01/23/22 22:02 05:54 Sodium 138 138 Potassium 4.0 3.7 Chloride 109 H 110 H Carbon Dioxide 20 L 20 L BUN 9 7 L Creatinine 0.70 0.61 Calcium 7.5 L D 7.6 L Urine 01/22/22 Range/Units 17:00 Urine Color YELLOW Urine Appearance CLEAR Urine pH 6.0 (5.0-8.0) Ur Specific [place] 1.025 (1.005-1.025) Urine Protein 1+ H (NEG-TRACE) MG/DL Urine Glucose (UA) NEG (NEG) MG/DL Microbiology Microbiology Results: Microbiology 01/22/22 17:00 Urine clean catch - Urine mathew top Urine Culture - Preliminary Culture too young to evaluate. 01/22/22 10:08 Blood - Venous Blood Culture - Preliminary Staphylococcus species 01/22/22 10:06 Blood - Venous Blood Culture - Preliminary Staphylococcus species Assessment and Plan (1) Sepsis: Status: Acute Staph bacteremia, skin source likely Continue Vancomycin Check echo (had last week) but just check with bacteremia for endocarditis. Hopefully port line will be able to be maintained as long as blood culture clears quickly and then IV antibiotic (to be determined)when sensitivities back for probable four weeks (2) Invasive ductal carcinoma of breast: Status: Acute (3) Urinary tract infection: Status: Acute last night started dysuria on Ceftriaxone continue patient seen with daughter and cattle brander Erica and all questions answered (4) Acute hypotension: Status: Acute
[2022-01-23] MEDS: cefTRIAXone sodium 1 GM in 0.9 % Sodium Chloride 50 ML IV (18:05)
[2022-01-23] MEDS: Enoxaparin Sodium 40 MG/0.4 ML SYRINGE SUBCUT (22:01)
[2022-01-23] MEDS: Atorvastatin Calcium 20 MG TABLET PO (22:01)
[2022-01-24] VITALS (7 sets, daily range): BP systolic 97–117; BP diastolic 63–76; PULSE 76–100; RESP 15–17; TEMP 36.1–36.6; O2SAT 92–95
[2022-01-24] MEDS: Lactated Ringers 1,000 ML 100 ML IVCONT ×2 (06:03→18:16)
[2022-01-24] MEDS: Omeprazole 20 MG CAPSULE.DR PO (06:25)
[2022-01-24] MEDS: Fluticasone Propionate 100 MCG BLST.W.DEV 1 PUFF INHALE ×2 (08:05→20:11)
[2022-01-24] MEDS: NaPROXEN 500 MG TABLET PO ×2 (08:25→21:17)
[2022-01-24] MEDS: clonazePAM 0.5 MG TABLET PO (08:25)
[2022-01-24] MEDS: Baclofen 10 MG TABLET PO ×3 (08:25→21:17)
[2022-01-24] MEDS: Multivitamin TABLET 1 TAB PO (08:26)
[2022-01-24] MEDS: DULoxetine HCl 20 MG CAPSULE.DR PO (08:26)
[2022-01-24] MEDS: Pregabalin 150 MG CAPSULE PO ×2 (08:26→21:17)
[2022-01-24] MEDS: hydrOXYzine HCL 25 MG TABLET PO ×2 (08:26→21:17)
[2022-01-24] MEDS: Calcium + Vitamin D 250 MG TABLET 500 MG PO (08:26)
[2022-01-24] MEDS: Triamcinolone Acet 0.1 % Cream 15 GM TUBE 1 APPL TOPICAL (08:27)
[2022-01-24 09:42] LABS: Creatinine Clr Calc Pharmacy 87.6; Estimated Glomerular Filt Rate > 60
[2022-01-24 09:48] LABS: Vancomycin Trough 6.6 mcg/mL (10.0-20.0)
--- NOTE | 2022-01-24 10:04 | HE.PHANOTE ---
Vancomycin Dosing Addendum Patients level came back this morning at 6.6 mg/dL. Given the current diagnosis of bacteremia, the patient is sub therapeutic. Desired trough is about 15-20 mg/dL with an AUC of 500 to 600 mg/L/hr. Increasing dose to 1250mg Q12H to get patients levels up. Dose choices were between 1000mg Q12 or 1250mg Q12, the 1000mg gave an AUC of 377 which is under therapeutic levels. with 1250mg AUC is 472 mg/L/hr which isnt quite in the therapeutic window but it is very close while with the smallest risk of toxicity. Plan is to give three doses of 1250mg and get a level at 01/25 @2100 right before the fourth dose to assess efficacy and safety.
--- NOTE | 2022-01-24 11:03 | HO.PM.IMPN ---
Subjective Subjective Date of Service: 01/24/22 Interval History: Seen in f/u for sepsis due to UTI and Gram-positive cocci bacteremia. Interval history: She feels mubh better today, blood pressure is better, no fever, Review of Systems No fever, no chills, no chest pain no dizziness no dysuria. Physical Exam Vital Signs: Vital Signs: Last Vital Signs Temp 97.0 F 01/24/22 07:38 Pulse 85 01/24/22 08:06 Resp 16 01/24/22 08:06 BP 98/65 01/24/22 07:38 Pulse Ox 95 01/24/22 07:38 O2 Del Method 01/24/22 07:38 BMI result Body Mass Index 37.3 Const: Other: General: AO X 3, no acute distress Resp: CTA bilateral CVS: S1,S2,RRR GI: +BS, NT, no distention Skin: No rash Neuro: motor grossly intact Psych: appropriate affect Objective Data Active Medications Acetaminophen (Acetaminophen 325 Mg Tablet) 650 mg PO Q6H PRN PRN Reason: Pain, Mild (Pain Scale 1-3) Last Admin: 01/22/22 22:33 Dose: 650 mg Documented By: LAURA Albuterol Sulfate (Albuterol Sulfate 90 Mcg 8 Gm Inhaler) 2 puff INHALE Q4H PRN PRN Reason: Shortness Of Breath Atorvastatin Calcium (Atorvastatin Calcium 20 Mg Tablet) 20 mg PO BEDTIME [facility] Last Admin: 01/23/22 22:01 Dose: 20 mg Documented By: VENICE Baclofen (Baclofen 10 Mg Tablet) 10 mg PO TID [facility] Last Admin: 01/24/22 08:25 Dose: 10 mg Documented By: MARSHALL Calcium Carbonate/Cholecalciferol (Calcium + Vitamin D 250 Mg Tablet) 500 mg PO DAILY [facility] Last Admin: 01/24/22 08:26 Dose: 500 mg Documented By: MARSHALL Clonazepam (Clonazepam 0.5 Mg Tablet) 0.5 mg PO DAILY [facility] Last Admin: 01/24/22 08:25 Dose: 0.5 mg Documented By: MARSHALL Docusate Sodium (Docusate Sodium 100 Mg Capsule) 100 mg PO DAILY PRN PRN Reason: Constipation Duloxetine HCl (Duloxetine Hcl 20 Mg Capsule.) 20 mg PO DAILY [facility] Last Admin: 01/24/22 08:26 Dose: 20 mg Documented By: MARSHALL Enoxaparin Sodium (Enoxaparin Sodium 40 Mg/0.4 Ml Syringe) 40 mg SUBCUT Q24H [facility] Last Admin: 01/23/22 22:01 Dose: 40 mg Documented By: VENICE Fluticasone Propionate (Fluticasone Propionate 100 Mcg Blst.W.Dev) 1 puff INHALE RBID [facility] Last Admin: 01/24/22 08:05 Dose: 1 puff Documented By: JOÃO Hydroxyzine HCl (Hydroxyzine Hcl 25 Mg Tablet) 25 mg PO BID [facility] Last Admin: 01/24/22 08:26 Dose: 25 mg Documented By: MARSHALL Ceftriaxone Sodium 1 gm/ (Sodium Chloride) 50 mls @ 100 mls/hr IV Q24H [facility] Last Infusion: 01/23/22 19:39 Dose: 0 mls/hr Documented By: VENICE Lactated Ringer's (Lr) 1,000 mls @ 100 mls/hr IVCONT .Q10H [facility] Last Admin: 01/24/22 06:03 Dose: 100 mls/hr Documented By: MADHU Vancomycin HCl 1,250 mg/ (Sodium Chloride) 250 mls @ 166.667 mls/hr IV Q12H [facility] Melatonin (Melatonin 3 Mg Tablet) 6 mg PO BEDTIME PRN PRN Reason: Insomnia Multivitamins/Vitamin C (Multivitamin Tablet) 1 tab PO DAILY [facility] Last Admin: 01/24/22 08:26 Dose: 1 tab Documented By: MARSHALL Naproxen (Naproxen 500 Mg Tablet) 500 mg PO BID [facility] Last Admin: 01/24/22 08:25 Dose: 500 mg Documented By: MARSHALL Omeprazole (Omeprazole 20 Mg Capsule.Dr) 20 mg PO DAILY@0630 [facility] Last Admin: 01/24/22 06:25 Dose: 20 mg Documented By: MADHU Ondansetron HCl (Ondansetron Hcl 4 Mg/2 Ml Vial) 4 mg IVPUSH Q8H PRN PRN Reason: Nausea and Vomiting Pharmacy Consult (Consult Rx Perform Med Rec) 1 each MISCELLANE ONCE PRN PRN Reason: Consult order Pharmacy Consult (Consult Rx Vancomycin Dosing) 1 each MISCELLANE DAILY PRN PRN Reason: Consult order Pregabalin (Pregabalin 150 Mg Capsule) 150 mg PO BID [facility] Last Admin: 01/24/22 08:26 Dose: 150 mg Documented By: MARSHALL Sodium Chloride (0.9 % Sodium Chloride Flush 3 Ml Syringe) 3 ml IVFLUSH QSHIFT [facility] Last Admin: 01/24/22 08:26 Dose: Not Given Documented By: MARSHALL Non-Admin Reason: IV Running Triamcinolone Acetonide (Triamcinolone Acet 0.1 % Cream 15 Gm Tube) 1 appl TOPICAL TID [facility]; Protocol Last Admin: 01/24/22 08:27 Dose: 1 appl Documented By: MARSHALL Labs CBC & Chem 7: 01/23/22 05:54 01/24/22 09:00 Labs: Laboratory Results - last 24 hr 01/24/22 01/24/22 09:00 09:00 Estim Creat Clear Calc 87.6 Estimated GFR > 60 Vancomycin Trough 6.6 L Microbiology Microbiology Results: Microbiology 01/22/22 10:08 Blood Culture - Preliminary Blood - Venous Staphylococcus aureus 01/22/22 23:19 Blood Culture - Preliminary Blood - Venous Staphylococcus aureus 01/22/22 23:19 Blood Culture - Preliminary Blood - Venous Staphylococcus aureus 01/22/22 10:06 Blood Culture - Preliminary Blood - Venous Staphylococcus aureus 01/22/22 17:00 Urine Culture - Final Urine clean catch - Urine mathew top Assessment and Plan (1) Sepsis: Status: Acute (2) Urinary tract infection: Status: Acute (3) Invasive ductal carcinoma of breast: Status: Acute Plan 61-year-old female with past medical history of breast cancer undergoing chemotherapy treatment at this time presents to the hospital with complaints of fatigue, chills, and fever found to have UTI #? Sepsis due to Staph Aureus likely skin source but also has UTI -Continue Vanco and Ceftriaxone, ID input noted -Echo 01/23 no vegetations #? UTI--culture pending, continue Ceftriaxone D2 #? hypertension--BP borderline so continue #? Breast cancer -? continue outpatient follow-up, next chemo was 01/24 but postponed due ?DVT prophylaxis:? Lovenox Need for inapteitn: Sepsis in chemo patient and life threatening and therefore needs IV Abx and close monitoring Quality Stroke Does the patient have a stroke diagnosis?: No VTE Prior VTE?: No VTE Risk Level:: Medical - moderate - high VTE Device Contraindication: Treatment Not Indicated VTE Drug Contraindication: N/A - Med Ordered
[2022-01-24] MEDS: vancomycin HCL 1,250 MG in 0.9 % Sodium Chloride 250 ML 166.67 MG IV ×2 (11:11→22:26)
--- NOTE | 2022-01-24 12:35 | MHC.CM.PN ---
Per ROUNDS discussion, patient is Not yet medically cleared for discharge today r/t Sepsis in chemo patient/life threatening On IV antibiotics and pending ID consult. D/C plan remains Home (self-care) pending ID recommendations. CM will continue to follow for D/C needs.
[2022-01-24] MEDS: cefTRIAXone sodium 1 GM in 0.9 % Sodium Chloride 50 ML IV (18:15)
[2022-01-24] MEDS: Mag&Al/Sim/Diphenhyd/Lidocaine 10 ML ORAL.SUSP PO (18:15)
[2022-01-24] MEDS: Enoxaparin Sodium 40 MG/0.4 ML SYRINGE SUBCUT (21:18)
[2022-01-24] MEDS: Atorvastatin Calcium 20 MG TABLET PO (21:18)
[2022-01-25] VITALS (8 sets, daily range): BP systolic 111–136; BP diastolic 71–87; PULSE 68–88; RESP 16–20; TEMP 35.8–36.4; O2SAT 92–96
[2022-01-25] MEDS: Lactated Ringers 1,000 ML 100 ML IVCONT (04:38)
[2022-01-25] MEDS: Omeprazole 20 MG CAPSULE.DR PO (06:06)
[2022-01-25] MEDS: Acetaminophen 325 MG TABLET 650 MG PO (06:26)
[2022-01-25 06:30] LABS: Creatinine Clr Calc Pharmacy 83.6; Estimated Glomerular Filt Rate > 60
[2022-01-25] MEDS: Fluticasone Propionate 100 MCG BLST.W.DEV 1 PUFF INHALE ×2 (08:15→20:07)
--- NOTE | 2022-01-25 08:52 | MHC.CM.PN ---
CM MET W/PT VIA OFFICE SUPPORT ASSISTANT TO DISCUSS NEED FOR PRISON IV ABX, PT DOES REPORT HER AND/OR DTR MICHAEL WHO LIVES NEXT DOOR WOULD BE ABLE TO ASSIST HER AT HOME, PT DENIES HAVING ANY PREFERENCE OF [facility] AND IS AGREEABLE TO REFERRALS TO [facility], PT WILL NOT NEED PICC/MID LINE D/T [facility] CATH, 2ND SET OF BC'S REMAIN POSITIVE, PT DID VOICE CONCERN REGARDING ABX INTERFERING W/HER CHEMO AND CM WILL RELAY TO HOSPITALIST. CM WILL CONT TO FOLLOW D/C NEEDS.
[2022-01-25 09:04] LABS: Hematocrit 28.5 % (37.0-47.0); Hemoglobin 9.7 g/dl (12.0-16.0); Mean Corpuscular Volume 85.1 fL (80.0-98.0); Mean Platelet Volume 11.4 fL (9.4-12.3); Platelet Count 143 X10*3/uL (160-400); Red Blood Count 3.35 X10*6/uL (4.20-5.50); Red Cell Distribution Width 15.5 % (11.0-16.0)
[2022-01-25] MEDS: Pregabalin 150 MG CAPSULE PO ×2 (09:33→21:20)
[2022-01-25] MEDS: DULoxetine HCl 20 MG CAPSULE.DR PO (09:33)
[2022-01-25] MEDS: NaPROXEN 500 MG TABLET PO (09:33)
[2022-01-25] MEDS: Multivitamin TABLET 1 TAB PO (09:33)
[2022-01-25] MEDS: hydrOXYzine HCL 25 MG TABLET PO ×2 (09:33→21:21)
[2022-01-25] MEDS: Calcium + Vitamin D 250 MG TABLET 500 MG PO (09:33)
[2022-01-25] MEDS: clonazePAM 0.5 MG TABLET PO (09:33)
[2022-01-25] MEDS: Baclofen 10 MG TABLET PO ×3 (09:33→21:21)
[2022-01-25] MEDS: 0.9 % Sodium Chloride Flush 3 ML SYRINGE IVFLUSH ×2 (09:34→15:27)
[2022-01-25] MEDS: vancomycin HCL 1,250 MG in 0.9 % Sodium Chloride 250 ML 166.67 MG IV (10:08)
--- NOTE | 2022-01-25 14:29 | P.PNIM_ITS ---
Subjective Subjective Date of Service: 01/25/22 Interval History: seen and examined this morning Follow-up for bacteremia, UTI. History obtained with the assistance of a official court interpreter reporting sore throat, no sob, dry cough, and headache. Headache has improved with tylenol Review of Systems Review of Systems: Yes all other systems are reviewed and are negative Constitutional Constitutional: Denies chills and Denies fever(s) Cardiovascular Cardiovascular: Denies chest pain, Denies palpitations and Denies dyspnea Respiratory Respiratory: Reports cough and Denies dyspnea Gastrointestinal Gastrointestinal: Denies abdominal pain, Denies nausea and Denies vomiting Endocrine Endocrine: Denies palpitations Physical Exam Vital Signs: Vital Signs: Last Vital Signs Temp 97.0 F 01/25/22 11:14 Pulse 84 01/25/22 11:14 Resp 16 01/25/22 11:14 BP 136/85 01/25/22 11:14 Pulse Ox 96 01/25/22 11:14 O2 Del Method 01/25/22 11:14 BMI result Body Mass Index 37.3 Const: General: cooperative, comfortable, no acute distress, alert and awake Nutritional Appearance: overweight Orientation/consciousness: patient oriented x3 HEENT: Other: shallow ulcer upper palate; no thrush Chest: Other: port left chest wall Resp: Effort & Inspection: normal respiratory effort and able to speak in complete sentences Auscultation: clear to auscultation bilaterally Cardio: Rate: regular rate Heart sounds: S1 normal heart sound present and S2 normal heart sound present GI: Inspection: No distended Palpation (GI): Soft to palpation and nontender Neuro: General: patient oriented x3 and CN's II-XI intact bilaterally Extrem: General: Yes no pedal edema Objective Data Active Medications Acetaminophen (Acetaminophen 325 Mg Tablet) 650 mg PO Q6H PRN PRN Reason: Pain, Mild (Pain Scale 1-3) Last Admin: 01/25/22 06:26 Dose: 650 mg Documented By: MADHU Albuterol Sulfate (Albuterol Sulfate 90 Mcg 8 Gm Inhaler) 2 puff INHALE Q4H PRN PRN Reason: Shortness Of Breath Atorvastatin Calcium (Atorvastatin Calcium 20 Mg Tablet) 20 mg PO BEDTIME [facility] Last Admin: 01/24/22 21:18 Dose: 20 mg Documented By: VENICE Baclofen (Baclofen 10 Mg Tablet) 10 mg PO TID [facility] Last Admin: 01/25/22 09:33 Dose: 10 mg Documented By: JOCY Calcium Carbonate/Cholecalciferol (Calcium + Vitamin D 250 Mg Tablet) 500 mg PO DAILY [facility] Last Admin: 01/25/22 09:33 Dose: 500 mg Documented By: JOCY Clonazepam (Clonazepam 0.5 Mg Tablet) 0.5 mg PO DAILY [facility] Last Admin: 01/25/22 09:33 Dose: 0.5 mg Documented By: JOCY Docusate Sodium (Docusate Sodium 100 Mg Capsule) 100 mg PO DAILY PRN PRN Reason: Constipation Duloxetine HCl (Duloxetine Hcl 20 Mg Capsule.Dr) 20 mg PO DAILY [facility] Last Admin: 01/25/22 09:33 Dose: 20 mg Documented By: JOCY Enoxaparin Sodium (Enoxaparin Sodium 40 Mg/0.4 Ml Syringe) 40 mg SUBCUT Q24H [facility] Last Admin: 01/24/22 21:18 Dose: 40 mg Documented By: VENICE Fluticasone Propionate (Fluticasone Propionate 100 Mcg Blst.W.Dev) 1 puff INHALE RBID [facility] Last Admin: 01/25/22 08:15 Dose: 1 puff Documented By: BRESNE Hydroxyzine HCl (Hydroxyzine Hcl 25 Mg Tablet) 25 mg PO BID [facility] Last Admin: 01/25/22 09:33 Dose: 25 mg Documented By: JOCY Ceftriaxone Sodium 1 gm/ (Sodium Chloride) 50 mls @ 100 mls/hr IV Q24H [facility] Last Infusion: 01/24/22 19:14 Dose: 0 mls/hr Documented By: VENICE Vancomycin HCl 1,250 mg/ (Sodium Chloride) 250 mls @ 166.667 mls/hr IV Q12H [facility] Last Infusion: 01/25/22 11:51 Dose: 0 mls/hr Documented By: JOCY Lidocaine/Diphenhydr/Alum/Mg/Simeth (Mag&Al/Sim/Diphenhyd/Lidocaine 10 Ml Oral.Susp) 10 ml PO Q6H PRN; Protocol PRN Reason: Mouth Sore Pain Last Admin: 01/24/22 18:15 Dose: 10 ml Documented By: HO.BEIT Melatonin (Melatonin 3 Mg Tablet) 6 mg PO BEDTIME PRN PRN Reason: Insomnia Multivitamins/Vitamin C (Multivitamin Tablet) 1 tab PO DAILY [facility] Last Admin: 01/25/22 09:33 Dose: 1 tab Documented By: JOCY Naproxen (Naproxen 500 Mg Tablet) 500 mg PO BID [facility] Last Admin: 01/25/22 09:33 Dose: 500 mg Documented By: JOCY Omeprazole (Omeprazole 20 Mg Capsule.) 20 mg PO DAILY@0630 [facility] Last Admin: 01/25/22 06:06 Dose: 20 mg Documented By: MADHU Ondansetron HCl (Ondansetron Hcl 4 Mg/2 Ml Vial) 4 mg IVPUSH Q8H PRN PRN Reason: Nausea and Vomiting Pharmacy Consult (Consult Rx Perform Med Rec) 1 each MISCELLANE ONCE PRN PRN Reason: Consult order Pharmacy Consult (Consult Rx Vancomycin Dosing) 1 each MISCELLANE DAILY PRN PRN Reason: Consult order Pregabalin (Pregabalin 150 Mg Capsule) 150 mg PO BID [facility] Last Admin: 01/25/22 09:33 Dose: 150 mg Documented By: JOCY Sodium Chloride (0.9 % Sodium Chloride Flush 3 Ml Syringe) 3 ml IVFLUSH QSHIFT [facility] Last Admin: 01/25/22 09:34 Dose: 3 ml Documented By: JOCY Triamcinolone Acetonide (Triamcinolone Acet 0.1 % Cream 15 Gm Tube) 1 appl TOPICAL TID [facility]; Protocol Last Admin: 01/25/22 09:38 Dose: Not Given Documented By: JOCY Non-Admin Reason: Patient Refused Labs CBC & Chem 7: 01/25/22 08:39 01/25/22 05:16 Labs: Laboratory Results - last 24 hr 01/25/22 01/25/22 05:16 08:39 MCV 85.1 MCH 29.0 MCHC 34.0 RDW 15.5 Plt Count 143 L D MPV 11.4 Absolute Nucleated RBC 0.000 Nucleated RBC % (auto) 0.0 Estim Creat Clear Calc 83.6 Estimated GFR > 60 Microbiology Microbiology Results: Microbiology 01/22/22 23:19 Blood Culture - Final Blood - Venous Staphylococcus aureus 01/22/22 23:19 Blood Culture - Final Blood - Venous Staphylococcus aureus 01/22/22 10:08 Blood Culture - Final Blood - Venous Staphylococcus aureus 01/22/22 10:06 Blood Culture - Final Blood - Venous Staphylococcus aureus Assessment and Plan (1) Sepsis: Status: Acute (2) Breast mass, right: Status: Acute (3) Urinary tract infection: Status: Acute Plan 61-year-old female with past medical history of breast cancer undergoing chemotherapy treatment at this time presents to the hospital with complaints of fatigue, chills, and fever found to have UTI Sepsis due to Staph Aureus likely skin source but also has UTI. has been afebrile since admission BCx growing MSSA Urine culture growing mixed bacterial ten -Continue Vanco and Ceftriaxone for now -ID input noted -Echo 01/23 no vegetations UTI- culture growing mixed bacterial ten, continue Ceftriaxone D3 normocytic Anemia likely r/t chemo no blood loss follow CBC thrombocytopenia Likely related to sepsis /chemo - follow CBC hypertension--BP borderline Norvasc, lisinopril on hold resume as BP allows Breast cancer followed by Dr. Calderon -? continue outpatient follow-up, next chemo was 01/24 but postponed due to illness/hospitalization mood Continue home meds DVT prophylaxis:? Lovenox attending-Dr. Fontana Need for inpatient: Sepsis in chemo patient is life threatening and therefore ne eds IV Abx and close monitoring Quality Stroke Does the patient have a stroke diagnosis?: No VTE Prior VTE?: No VTE Risk Level:: Medical - moderate - high VTE Device Contraindication: Treatment Not Indicated VTE Drug Contraindication: N/A - Med Ordered
[2022-01-25] MEDS: ceFAZolin Sodium/Dextrose,Iso 2 GM/50 ML PIGGYBACK IV (16:54)
[2022-01-25] MEDS: Enoxaparin Sodium 40 MG/0.4 ML SYRINGE SUBCUT (21:21)
[2022-01-25] MEDS: Atorvastatin Calcium 20 MG TABLET PO (21:21)
[2022-01-25] MEDS: Melatonin 3 MG TABLET 6 MG PO (21:24)
[2022-01-25 21:29] LABS: Vancomycin Trough 10.9 mcg/mL (10.0-20.0)
[2022-01-26] MEDS: ceFAZolin Sodium/Dextrose,Iso 2 GM/50 ML PIGGYBACK IV ×3 (00:17→16:22)
[2022-01-26 03:10] VITALS: BP 129/70; PULSE 82; RESP 16; TEMP 36.1; O2SAT 94
[2022-01-26] MEDS: Acetaminophen 325 MG TABLET 650 MG PO ×2 (03:32→10:32)
[2022-01-26] MEDS: Omeprazole 20 MG CAPSULE.DR PO (06:10)
[2022-01-26] MEDS: oxyCODONE HCl Immed Release 5 MG TABLET PO (06:42)
[2022-01-26 07:04] LABS: Hemoglobin 9.7 g/dl (12.0-16.0); Mean Corpuscular HGB Conc 33.4 g/dl (31.0-35.0); Mean Corpuscular Hemoglobin 28.2 pg (27.0-33.0); Mean Corpuscular Volume 84.3 fL (80.0-98.0); Platelet Count 174 X10*3/uL (160-400); Red Blood Count 3.44 X10*6/uL (4.20-5.50); Red Cell Distribution Width 15.5 % (11.0-16.0); White Blood Count 5.2 X10*3/uL (4.8-10.8)
[2022-01-26 07:21] LABS: Creatinine Clr Calc Pharmacy 86.2; Estimated Glomerular Filt Rate > 60
[2022-01-26 07:34] VITALS: BP 138/88; PULSE 78; RESP 18; TEMP 36; O2SAT 93
[2022-01-26] MEDS: 0.9 % Sodium Chloride Flush 3 ML SYRINGE IVFLUSH ×2 (08:57→16:22)
[2022-01-26] MEDS: Multivitamin TABLET 1 TAB PO (08:57)
[2022-01-26] MEDS: clonazePAM 0.5 MG TABLET PO (08:57)
[2022-01-26] MEDS: Calcium + Vitamin D 250 MG TABLET 500 MG PO (08:57)
[2022-01-26] MEDS: hydrOXYzine HCL 25 MG TABLET PO ×2 (08:58→21:21)
[2022-01-26] MEDS: DULoxetine HCl 20 MG CAPSULE.DR PO (08:58)
[2022-01-26] MEDS: Baclofen 10 MG TABLET PO ×3 (08:58→21:21)
[2022-01-26] MEDS: Pregabalin 150 MG CAPSULE PO ×2 (08:58→21:21)
[2022-01-26 11:18] LABS: TSH reflex Free T4 0.53 uIU/mL (0.32-4.0)
[2022-01-26] MEDS: iohexoL 350 MG/ML 100 ML INFUS..BTL 85 ML IV (11:25)
[2022-01-26 12:00] VITALS: BP 133/65; PULSE 83; RESP 18; TEMP 36; O2SAT 96
[2022-01-26] MEDS: Morphine Sulfate 2 MG/ML CARTRIDGE IVPUSH (12:13)
--- NOTE | 2022-01-26 12:27 | HO.PM.IMPN ---
Subjective Subjective Date of Service: 01/26/22 Interval History: Seen and examined this morning follow-up for bacteremia patient reporting another headache, not controlled with Tylenol. Oxycodone did provide some relief. no vision changes reports dry cough feels like she has a lump in the front of her neck - concerned because her daughter has a history of Graves disease. no sore throat, no difficulty swallowing, no throat pain no fever, chills Review of Systems Review of Systems: Yes all other systems are reviewed and are negative Constitutional Constitutional: Denies chills and Denies fever(s) Cardiovascular Cardiovascular: Denies chest pain, Denies palpitations and Denies dyspnea Respiratory Respiratory: Reports cough and Denies dyspnea Gastrointestinal Gastrointestinal: Denies abdominal pain Endocrine Endocrine: Denies palpitations Physical Exam Vital Signs: Vital Signs: Last Vital Signs Temp 96.8 F 01/26/22 12:00 Pulse 83 01/26/22 12:00 Resp 18 01/26/22 12:00 BP 133/65 01/26/22 12:00 Pulse Ox 96 01/26/22 12:00 O2 Del Method 01/26/22 12:00 BMI result Body Mass Index 37.3 Const: General: cooperative, comfortable, no acute distress, alert and awake Nutritional Appearance: overweight Orientation/consciousness: patient oriented x3 HEENT: Other: shallow ulcer upper palate; no thrush Neck: Neck: Yes normal visual inspection, Yes trachea midline, Yes supple and No tender Chest: Other: port left chest wall Resp: Effort & Inspection: normal respiratory effort and able to speak in complete sentences Auscultation: clear to auscultation bilaterally Cardio: Rate: regular rate Heart sounds: S1 normal heart sound present and S2 normal heart sound present GI: Inspection: No distended Palpation (GI): Soft to palpation and nontender Neuro: General: patient oriented x3 and CN's II-XI intact bilaterally Extrem: General: Yes no pedal edema Objective Data Active Medications Acetaminophen (Acetaminophen 325 Mg Tablet) 650 mg PO Q6H PRN PRN Reason: Pain, Mild (Pain Scale 1-3) Last Admin: 01/26/22 10:32 Dose: 650 mg Documented By: ROB Albuterol Sulfate (Albuterol Sulfate 90 Mcg 8 Gm Inhaler) 2 puff INHALE Q4H PRN PRN Reason: Shortness Of Breath Atorvastatin Calcium (Atorvastatin Calcium 20 Mg Tablet) 20 mg PO BEDTIME [facility] Last Admin: 01/25/22 21:21 Dose: 20 mg Documented By: ARCHEL Baclofen (Baclofen 10 Mg Tablet) 10 mg PO TID [facility] Last Admin: 01/26/22 08:58 Dose: 10 mg Documented By: ROB Benzonatate (Benzonatate 100 Mg Capsule) 100 mg PO TID PRN PRN Reason: Cough Calcium Carbonate/Cholecalciferol (Calcium + Vitamin D 250 Mg Tablet) 500 mg PO DAILY [facility] Last Admin: 01/26/22 08:57 Dose: 500 mg Documented By: ROB Clonazepam (Clonazepam 0.5 Mg Tablet) 0.5 mg PO DAILY [facility] Last Admin: 01/26/22 08:57 Dose: 0.5 mg Documented By: ROB Docusate Sodium (Docusate Sodium 100 Mg Capsule) 100 mg PO DAILY PRN PRN Reason: Constipation Duloxetine HCl (Duloxetine Hcl 20 Mg Capsule.Dr) 20 mg PO DAILY [facility] Last Admin: 01/26/22 08:58 Dose: 20 mg Documented By: ROB Enoxaparin Sodium (Enoxaparin Sodium 40 Mg/0.4 Ml Syringe) 40 mg SUBCUT Q24H [facility] Last Admin: 01/25/22 21:21 Dose: 40 mg Documented By: RACHEL Fluticasone Propionate (Fluticasone Propionate 100 Mcg Blst.W.Dev) 1 puff INHALE RBID [facility] Last Admin: 01/26/22 08:36 Dose: Not Given Documented By: FROY Non-Admin Reason: Patient Refused Hydroxyzine HCl (Hydroxyzine Hcl 25 Mg Tablet) 25 mg PO BID [facility] Last Admin: 01/26/22 08:58 Dose: 25 mg Documented By: ROB Cefazolin Sodium/Dextrose (Ancef) 2 gm in 50 mls @ 100 mls/hr IV Q8H [facility] Last Infusion: 01/26/22 10:14 Dose: 0 mls/hr Documented By: ROB Lidocaine/Diphenhydr/Alum/Mg/Simeth (Mag&Al/Sim/Diphenhyd/Lidocaine 10 Ml Oral.Susp) 10 ml PO Q6H PRN; Protocol PRN Reason: Mouth Sore Pain Last Admin: 01/24/22 18:15 Dose: 10 ml Documented By: VENICE Melatonin (Melatonin 3 Mg Tablet) 6 mg PO BEDTIME PRN PRN Reason: Insomnia Last Admin: 01/25/22 21:24 Dose: 6 mg Documented By: RACHEL Multivitamins/Vitamin C (Multivitamin Tablet) 1 tab PO DAILY [facility] Last Admin: 01/26/22 08:57 Dose: 1 tab Documented By: ROB Omeprazole (Omeprazole 20 Mg Capsule.) 20 mg PO DAILY@0630 [facility] Last Admin: 01/26/22 06:10 Dose: 20 mg Documented By: RACHEL Ondansetron HCl (Ondansetron Hcl 4 Mg/2 Ml Vial) 4 mg IVPUSH Q8H PRN PRN Reason: Nausea and Vomiting Pharmacy Consult (Consult Rx Perform Med Rec) 1 each MISCELLANE ONCE PRN PRN Reason: Consult order Pharmacy Consult (Consult Rx Vancomycin Dosing) 1 each MISCELLANE DAILY PRN PRN Reason: Consult order Pregabalin (Pregabalin 150 Mg Capsule) 150 mg PO BID [facility] Last Admin: 01/26/22 08:58 Dose: 150 mg Documented By: ROB Sodium Chloride (0.9 % Sodium Chloride Flush 3 Ml Syringe) 3 ml IVFLUSH QSHIFT [facility] Last Admin: 01/26/22 08:57 Dose: 3 ml Documented By: ROB Triamcinolone Acetonide (Triamcinolone Acet 0.1 % Cream 15 Gm Tube) 1 appl TOPICAL TID [facility]; Protocol Last Admin: 01/26/22 08:58 Dose: Not Given Documented By: ROB Non-Admin Reason: Patient Refused Labs CBC & Chem 7: 01/26/22 06:14 01/26/22 06:14 Labs: Laboratory Results - last 24 hr 01/25/22 01/26/22 01/26/22 20:57 06:14 06:14 MCV 84.3 MCH 28.2 MCHC 33.4 RDW 15.5 Plt Count 174 MPV 11.0 Absolute Nucleated RBC 0.000 Nucleated RBC % (auto) 0.0 Estim Creat Clear Calc 86.2 Estimated GFR > 60 TSH Vancomycin Trough 10.9 01/26/22 10:14 MCV MCH MCHC RDW Plt Count MPV Absolute Nucleated RBC Nucleated RBC % (auto) Estim Creat Clear Calc Estimated GFR TSH 0.53 Vancomycin Trough Microbiology Microbiology Results: Microbiology 01/22/22 23:19 Blood Culture - Final Blood - Venous Staphylococcus aureus 01/22/22 23:19 Blood Culture - Final Blood - Venous Staphylococcus aureus 01/22/22 10:08 Blood Culture - Final Blood - Venous Staphylococcus aureus 01/22/22 10:06 Blood Culture - Final Blood - Venous Staphylococcus aureus Assessment and Plan (1) Sepsis: Status: Acute (2) Invasive ductal carcinoma of breast: Status: Acute (3) Bacteremia: Status: Acute Plan 61-year-old female with past medical history of breast cancer undergoing chemotherapy treatment at this time presents to the hospital with complaints of fatigue, chills, and fever found to have UTI Sepsis due to Staph Aureus likely skin source but also has UTI. has been afebrile since admission BCx growing MSSA. repeat blood cultures from 01/25 pending Urine culture growing mixed bacterial ten Echo 01/23 no vegetations Seen by ID, rec to change abx to kefzol for 10 days UTI- culture growing mixed bacterial ten, continue ceftriaxone changed to Kefzol cough will obtain chest xray, no sob and no hypoxia normocytic Anemia likely r/t chemo no blood loss H/H stable thrombocytopenia Likely related to sepsis /chemo platelets improved hypertension--BP borderline Norvasc, lisinopril on hold resume as BP allows Breast cancer followed by Dr. Calderon -? continue outpatient follow-up, next chemo was 01/24 but postponed due to illness/hospitalization - due to headache will obtain brain CT with IV contrast to rule out Mets mood Continue home meds DVT prophylaxis:? Lovenox attending-Dr. Fontana Need for inpatient: Sepsis in chemo patient is life threatening and therefore needs IV Abx and close monitoring Quality Stroke Does the patient have a stroke diagnosis?: No VTE Prior VTE?: No VTE Risk Level:: Medical - moderate - high VTE Device Contraindication: Treatment Not Indicated VTE Drug Contraindication: N/A - Med Ordered
[2022-01-26 13:41] LABS: B Type Natriuretic Peptide 67 pg/mL (<100)
[2022-01-26 15:47] VITALS: BP 133/80; PULSE 75; RESP 17; TEMP 36.1; O2SAT 93
--- NOTE | 2022-01-26 16:28 | MHC.CM.PN ---
EMR REVIEWED, PER ID PT WILL NEED KEFZOL X 10 DAYS UPON D/C, UNCLEAR AT THIS TIME WHETHER PT WILL BE ABLE TO USE CHEMO PORT OR IF SHE WILL NEED MID/PICC LINE FOR IV ABX, [facility] UPDATED AND CM WILL FOLLOW D/C NEEDS.
[2022-01-26 19:52] VITALS: BP 138/85; PULSE 78; RESP 16; TEMP 36.3; O2SAT 94
[2022-01-26] MEDS: Enoxaparin Sodium 40 MG/0.4 ML SYRINGE SUBCUT (21:21)
[2022-01-26] MEDS: Atorvastatin Calcium 20 MG TABLET PO (21:21)
[2022-01-26] MEDS: Butalb/Acetamin/Caff 50/325/40 TABLET 1 TAB PO (23:17)
[2022-01-27] VITALS (7 sets, daily range): BP systolic 123–153; BP diastolic 68–86; PULSE 73–83; RESP 16–20; TEMP 36.2–36.9; O2SAT 93–97
[2022-01-27] MEDS: ceFAZolin Sodium/Dextrose,Iso 2 GM/50 ML PIGGYBACK IV ×3 (00:07→16:57)
[2022-01-27] MEDS: Omeprazole 20 MG CAPSULE.DR PO (06:08)
[2022-01-27] MEDS: Acetaminophen 325 MG TABLET 650 MG PO ×2 (06:09→23:42)
[2022-01-27 06:46] LABS: Anion Gap 16 (12-20); Blood Urea Nitrogen 9 mg/dL (9-16); Calcium 8.5 mg/dL (8.4-10.2); Carbon Dioxide 26 mmol/L (22-29); Chloride 103 mmol/L (96-108); Creatinine Clr Calc Pharmacy 94.9; Estimated Glomerular Filt Rate > 60; Glucose Random 91 mg/dL (60-115); Potassium 3.4 mmol/L (3.3-5.1); Sodium 142 mmol/L (135-145)
[2022-01-27 07:39] LABS: Glucose, Whole Blood 89 mg/dL (60-115)
[2022-01-27] MEDS: Calcium + Vitamin D 250 MG TABLET 500 MG PO (09:07)
[2022-01-27] MEDS: Multivitamin TABLET 1 TAB PO (09:08)
[2022-01-27] MEDS: DULoxetine HCl 20 MG CAPSULE.DR PO (09:08)
[2022-01-27] MEDS: hydrOXYzine HCL 25 MG TABLET PO ×2 (09:08→22:26)
[2022-01-27] MEDS: Baclofen 10 MG TABLET PO ×3 (09:08→22:26)
[2022-01-27] MEDS: Pregabalin 150 MG CAPSULE PO ×2 (09:08→22:26)
[2022-01-27] MEDS: Benzonatate 100 MG CAPSULE PO (09:08)
[2022-01-27] MEDS: Butalb/Acetamin/Caff 50/325/40 TABLET 1 TAB PO (09:08)
[2022-01-27] MEDS: clonazePAM 0.5 MG TABLET PO (09:08)
[2022-01-27] MEDS: 0.9 % Sodium Chloride Flush 3 ML SYRINGE IVFLUSH ×3 (09:09→22:26)
[2022-01-27] MEDS: oxyCODONE HCl Immed Release 5 MG TABLET PO ×2 (10:30→22:28)
--- NOTE | 2022-01-27 12:45 | HO.PM.IMPN ---
Subjective Subjective Date of Service: 01/27/22 Interval History: seen and examined this morning with the assistance of a health technician hearing Follow-up for Staph bacteremia So reporting persistent headache. Patient reports headache does not completely resolve only has periods of improvement. Oxycodone helps. She does not want anything stronger than that. She denies any associated vision changes. No fever no chills dry cough, no phlegm production Review of Systems Review of Systems: Yes all other systems are reviewed and are negative Constitutional Constitutional: Denies body ache(s), Denies chills, Denies fever(s) and Reports headache(s) ENT Ears, Nose, Mouth, and Throat: Reports headache(s) Cardiovascular Cardiovascular: Denies chest pain, Denies palpitations and Denies dyspnea Respiratory Respiratory: Reports cough and Denies dyspnea Gastrointestinal Gastrointestinal: Denies abdominal pain, Denies nausea and Denies vomiting Neurologic Neurologic: Reports headache(s) Endocrine Endocrine: Denies palpitations Physical Exam Vital Signs: Vital Signs: Last Vital Signs Temp 97.1 F 01/27/22 11:22 Pulse 75 01/27/22 11:22 Resp 18 01/27/22 11:22 BP 144/81 H 01/27/22 11:22 Pulse Ox 97 01/27/22 11:22 O2 Del Method 01/27/22 11:22 BMI result Body Mass Index 37.3 Const: General: cooperative, comfortable, alert and awake Nutritional Appearance: overweight Orientation/consciousness: patient oriented x3 HEENT: Other: shallow ulcer upper palate; no thrush Neck: Neck: Yes normal visual inspection, Yes trachea midline, Yes supple and No tender Chest: Other: port left chest wall - no erythema Resp: Effort & Inspection: normal respiratory effort and able to speak in complete sentences Auscultation: clear to auscultation bilaterally Cardio: Rate: regular rate Heart sounds: S1 normal heart sound present and S2 normal heart sound present GI: Inspection: No distended Palpation (GI): Soft to palpation and nontender Neuro: General: patient oriented x3 and CN's II-XI intact bilaterally Extrem: General: Yes no pedal edema Objective Data Active Medications Acetaminophen (Acetaminophen 325 Mg Tablet) 650 mg PO Q6H PRN PRN Reason: Pain, Mild (Pain Scale 1-3) Last Admin: 01/27/22 06:09 Dose: 650 mg Documented By: RACHEL Acetaminophen/Butalbital/Caffeine (Butalb/Acetamin/Caff 50/325/40 Tablet) 1 tab PO Q6H PRN PRN Reason: Headache Last Admin: 01/27/22 09:08 Dose: 1 tab Documented By: ROB Albuterol Sulfate (Albuterol Sulfate 90 Mcg 8 Gm Inhaler) 2 puff INHALE Q4H PRN PRN Reason: Shortness Of Breath Atorvastatin Calcium (Atorvastatin Calcium 20 Mg Tablet) 20 mg PO BEDTIME [facility] Last Admin: 01/26/22 21:21 Dose: 20 mg Documented By: RACHEL Baclofen (Baclofen 10 Mg Tablet) 10 mg PO TID [facility] Last Admin: 01/27/22 09:08 Dose: 10 mg Documented By: ROB Benzonatate (Benzonatate 100 Mg Capsule) 100 mg PO TID PRN PRN Reason: Cough Last Admin: 01/27/22 09:08 Dose: 100 mg Documented By: ROB Calcium Carbonate/Cholecalciferol (Calcium + Vitamin D 250 Mg Tablet) 500 mg PO DAILY [facility] Last Admin: 01/27/22 09:07 Dose: 500 mg Documented By: ROB Clonazepam (Clonazepam 0.5 Mg Tablet) 0.5 mg PO DAILY [facility] Last Admin: 01/27/22 09:08 Dose: 0.5 mg Documented By: ROB Docusate Sodium (Docusate Sodium 100 Mg Capsule) 100 mg PO DAILY PRN PRN Reason: Constipation Duloxetine HCl (Duloxetine Hcl 20 Mg Capsule.Dr) 20 mg PO DAILY [facility] Last Admin: 01/27/22 09:08 Dose: 20 mg Documented By: ROB Enoxaparin Sodium (Enoxaparin Sodium 40 Mg/0.4 Ml Syringe) 40 mg SUBCUT Q24H [facility] Last Admin: 01/26/22 21:21 Dose: 40 mg Documented By: RACHEL Hydroxyzine HCl (Hydroxyzine Hcl 25 Mg Tablet) 25 mg PO BID [facility] Last Admin: 01/27/22 09:08 Dose: 25 mg Documented By: ROB Cefazolin Sodium/Dextrose (Ancef) 2 gm in 50 mls @ 100 mls/hr IV Q8H [facility] Last Infusion: 01/27/22 09:49 Dose: 0 mls/hr Documented By: ROB Lidocaine/Diphenhydr/Alum/Mg/Simeth (Mag&Al/Sim/Diphenhyd/Lidocaine 10 Ml Oral.Susp) 10 ml PO Q6H PRN; Protocol PRN Reason: Mouth Sore Pain Last Admin: 01/24/22 18:15 Dose: 10 ml Documented By: VENICE Melatonin (Melatonin 3 Mg Tablet) 6 mg PO BEDTIME PRN PRN Reason: Insomnia Last Admin: 01/25/22 21:24 Dose: 6 mg Documented By: RACHEL Multivitamins/Vitamin C (Multivitamin Tablet) 1 tab PO DAILY [facility] Last Admin: 01/27/22 09:08 Dose: 1 tab Documented By: ROB Omeprazole (Omeprazole 20 Mg Capsule.) 20 mg PO DAILY@0630 [facility] Last Admin: 01/27/22 06:08 Dose: 20 mg Documented By: RACHEL Ondansetron HCl (Ondansetron Hcl 4 Mg/2 Ml Vial) 4 mg IVPUSH Q8H PRN PRN Reason: Nausea and Vomiting Oxycodone HCl (Oxycodone Hcl Immed Release 5 Mg Tablet) 5 mg PO Q6H PRN PRN Reason: Pain, Moderate (Pain Scale 4-6 Last Admin: 01/27/22 10:30 Dose: 5 mg Documented By: ROB Pharmacy Consult (Consult Rx Perform Med Rec) 1 each MISCELLANE ONCE PRN PRN Reason: Consult order Pharmacy Consult (Consult Rx Vancomycin Dosing) 1 each MISCELLANE DAILY PRN PRN Reason: Consult order Pregabalin (Pregabalin 150 Mg Capsule) 150 mg PO BID [facility] Last Admin: 01/27/22 09:08 Dose: 150 mg Documented By: ROB Sodium Chloride (0.9 % Sodium Chloride Flush 3 Ml Syringe) 3 ml IVFLUSH QSHIFT [facility] Last Admin: 01/27/22 09:09 Dose: 3 ml Documented By: ROB Triamcinolone Acetonide (Triamcinolone Acet 0.1 % Cream 15 Gm Tube) 1 appl TOPICAL TID [facility]; Protocol Last Admin: 01/27/22 09:09 Dose: Not Given Documented By: ROB Non-Admin Reason: Patient Refused Labs CBC & Chem 7: 01/26/22 06:14 01/27/22 05:35 Labs: Laboratory Results - last 24 hr 01/26/22 01/27/22 01/27/22 13:11 05:35 07:33 Anion Gap 16 Estim Creat Clear Calc 94.9 Estimated GFR > 60 POC Glucose 89 Random Glucose 91 Calcium 8.5 D B-Natriuretic Peptide 67 Microbiology Microbiology Results: Microbiology 01/25/22 08:39 Blood Culture - Preliminary Blood - Venous No growth after 24 hours. 01/25/22 08:39 Blood Culture - Preliminary Blood - Venous No growth after 24 hours. Assessment and Plan (1) Bacteremia: Status: Acute Plan 61-year-old female with past medical history of breast cancer undergoing chemotherapy treatment at this time presents to the hospital with complaints of fatigue, chills, and fever found to have UTI Sepsis due to Staph Aureus likely skin source but also has UTI. has been afebrile since admission BCx growing MSSA. repeat blood cultures from 01/25 negative to date Urine culture growing mixed bacterial ten Echo 01/23 no vegetations Seen by ID, rec to change abx to kefzol for 10 days, with end date 02/01 & repeat blood cultures one week after completion oncology rec midline for abx rather then use port after discharge persistent headache Patient afebrile, no focal neurological deficits Brain CT negative does not completely resolve with fioricet, oxycodone -neuro consult pending UTI- culture growing mixed bacterial ten cough cxr negative for pna, no fever, no leukocytosis normocytic Anemia likely r/t chemo no blood loss H/H stable thrombocytopenia Likely related to sepsis /chemo platelets improved hypertension-BP borderline resume Norvasc lisinopril on hold, resume as BP allows Breast cancer followed by Dr. Calderon -? continue outpatient follow-up, next chemo was 01/24 but postponed due to illness/hospitalization - brain CT negative for mets mood Continue home meds DVT prophylaxis:? Lovenox attending-Dr. Ann Need for inpatient: Sepsis in chemo patient is life threatening and therefore needs IV Abx and close monitoring Quality Stroke Does the patient have a stroke diagnosis?: No VTE Prior VTE?: No VTE Risk Level:: Medical - moderate - high VTE Device Contraindication: Treatment Not Indicated VTE Drug Contraindication: N/A - Med Ordered
--- NOTE | 2022-01-27 13:19 | MHC.CM.PN ---
Per Jessica BREEN recommends Kefzol 3x a day after discharge until 02/01; Anticipate Midline for Saturday.
[2022-01-27] MEDS: amLODIPine Besylate 2.5 MG TABLET PO (14:23)
[2022-01-27] MEDS: Atorvastatin Calcium 20 MG TABLET PO (22:26)
[2022-01-27] MEDS: Enoxaparin Sodium 40 MG/0.4 ML SYRINGE SUBCUT (22:26)
[2022-01-27] MEDS: Melatonin 3 MG TABLET 6 MG PO (23:42)
[2022-01-28] MEDS: ceFAZolin Sodium/Dextrose,Iso 2 GM/50 ML PIGGYBACK IV ×3 (00:58→17:22)
[2022-01-28 03:49] VITALS: BP 142/82; PULSE 62; RESP 16; TEMP 36; O2SAT 92
[2022-01-28] MEDS: oxyCODONE HCl Immed Release 5 MG TABLET PO (04:34)
[2022-01-28] MEDS: Omeprazole 20 MG CAPSULE.DR PO (06:07)
[2022-01-28 06:39] LABS: Creatinine Clr Calc Pharmacy 90.3; Estimated Glomerular Filt Rate > 60
[2022-01-28 07:44] VITALS: BP 126/71; PULSE 64; RESP 16; TEMP 36.3; O2SAT 93
[2022-01-28] MEDS: amLODIPine Besylate 2.5 MG TABLET PO (09:19)
[2022-01-28] MEDS: hydrOXYzine HCL 25 MG TABLET PO ×2 (09:19→22:16)
[2022-01-28] MEDS: 0.9 % Sodium Chloride Flush 3 ML SYRINGE IVFLUSH ×2 (09:19→17:21)
[2022-01-28] MEDS: clonazePAM 0.5 MG TABLET PO (09:19)
[2022-01-28] MEDS: Pregabalin 150 MG CAPSULE PO ×2 (09:19→22:16)
[2022-01-28] MEDS: Baclofen 10 MG TABLET PO ×3 (09:19→22:16)
[2022-01-28] MEDS: Calcium + Vitamin D 250 MG TABLET 500 MG PO (09:19)
[2022-01-28] MEDS: DULoxetine HCl 20 MG CAPSULE.DR PO (09:19)
[2022-01-28] MEDS: Multivitamin TABLET 1 TAB PO (09:19)
--- NOTE | 2022-01-28 10:23 | P.CNNE_ITS ---
History of Present Illness Data of Consult Service Date: 01/28/22 Primary Care Provider: Mahesh Rosenbaum MD HPI Reason for consult: Headache 61 years old woman with history of breast cancer being treated for UTI/skin in fection related bacteremia. Initially she complained of fever chills and headache. When I examine her she was comfortable talking to her daughter with no sign of distress. Review of Systems Review of Systems: Fever chills and headache on admission PMFSH Past Medical History Medical History Breast mass, right Fibromyalgia HTN (hypertension) Invasive ductal carcinoma of breast Osteoarthritis of right shoulder Family History Family History Father Stroke Mother Hypertension Asthma Maternal Grandmother Lung cancer Maternal Aunt Breast cancer Maternal Aunt Thyroid cancer Maternal Aunt Colon cancer Family history: reviewed and not pertinent Surgical History Surgical History History of foot surgery History of hysterectomy Social History Social History Household Members: Family Housing: House 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 other at home: Yes (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) Alcohol intake: current Alcohol intake frequency: holidays/special occasions only Patient Tobacco Use Status: Never used Tobacco service: No Current occupational status: disabled Meds Allergies Allergy/AdvReac Type Severity Reaction Status Date / Time metoprolol [METOPROLOL] Allergy Unknown RASH Verified 01/22/22 09:51 Active Medications: Current Medications Acetaminophen (Acetaminophen 325 Mg Tablet) 650 mg PO Q6H PRN PRN Reason: Pain, Mild (Pain Scale 1-3) Last Admin: 01/27/22 23:42 Dose: 650 mg Acetaminophen/Butalbital/Caffeine (Butalb/Acetamin/Caff 50/325/40 Tablet) 1 tab PO Q6H PRN PRN Reason: Headache Last Admin: 01/27/22 09:08 Dose: 1 tab Albuterol Sulfate (Albuterol Sulfate 90 Mcg 8 Gm Inhaler) 2 puff INHALE Q4H PRN PRN Reason: Shortness Of Breath Amlodipine Besylate (Amlodipine Besylate 2.5 Mg Tablet) 2.5 mg PO DAILY [facility]; Protocol Last Admin: 01/28/22 09:19 Dose: 2.5 mg Atorvastatin Calcium (Atorvastatin Calcium 20 Mg Tablet) 20 mg PO BEDTIME [facility] Last Admin: 01/27/22 22:26 Dose: 20 mg Baclofen (Baclofen 10 Mg Tablet) 10 mg PO TID [facility] Last Admin: 01/28/22 09:19 Dose: 10 mg Benzonatate (Benzonatate 100 Mg Capsule) 100 mg PO TID PRN PRN Reason: Cough Last Admin: 01/27/22 09:08 Dose: 100 mg Calcium Carbonate/Cholecalciferol (Calcium + Vitamin D 250 Mg Tablet) 500 mg PO DAILY [facility] Last Admin: 01/28/22 09:19 Dose: 500 mg Clonazepam (Clonazepam 0.5 Mg Tablet) 0.5 mg PO DAILY [facility] Last Admin: 01/28/22 09:19 Dose: 0.5 mg Docusate Sodium (Docusate Sodium 100 Mg Capsule) 100 mg PO DAILY PRN PRN Reason: Constipation Duloxetine HCl (Duloxetine Hcl 20 Mg Capsule.) 20 mg PO DAILY [facility] Last Admin: 01/28/22 09:19 Dose: 20 mg Enoxaparin Sodium (Enoxaparin Sodium 40 Mg/0.4 Ml Syringe) 40 mg SUBCUT Q24H [facility] Last Admin: 01/27/22 22:26 Dose: 40 mg Hydroxyzine HCl (Hydroxyzine Hcl 25 Mg Tablet) 25 mg PO BID [facility] Last Admin: 01/28/22 09:19 Dose: 25 mg Cefazolin Sodium/Dextrose (Ancef) 2 gm in 50 mls @ 100 mls/hr IV Q8H [facility] Last Infusion: 01/28/22 09:48 Dose: Infused Lidocaine/Diphenhydr/Alum/Mg/Simeth (Mag&Al/Sim/Diphenhyd/Lidocaine 10 Ml Oral.Susp) 10 ml PO Q6H PRN; Protocol PRN Reason: Mouth Sore Pain Last Admin: 01/24/22 18:15 Dose: 10 ml Melatonin (Melatonin 3 Mg Tablet) 6 mg PO BEDTIME PRN PRN Reason: Insomnia Last Admin: 01/27/22 23:42 Dose: 6 mg Multivitamins/Vitamin C (Multivitamin Tablet) 1 tab PO DAILY [facility] Last Admin: 01/28/22 09:19 Dose: 1 tab Omeprazole (Omeprazole 20 Mg Capsule.) 20 mg PO DAILY@0630 [facility] Last Admin: 01/28/22 06:07 Dose: 20 mg Ondansetron HCl (Ondansetron Hcl 4 Mg/2 Ml Vial) 4 mg IVPUSH Q8H PRN PRN Reason: Nausea and Vomiting Oxycodone HCl (Oxycodone Hcl Immed Release 5 Mg Tablet) 5 mg PO Q6H PRN PRN Reason: Pain, Moderate (Pain Scale 4-6 Last Admin: 01/28/22 04:34 Dose: 5 mg Pharmacy Consult (Consult Rx Perform Med Rec) 1 each MISCELLANE ONCE PRN PRN Reason: Consult order Pharmacy Consult (Consult Rx Vancomycin Dosing) 1 each MISCELLANE DAILY PRN PRN Reason: Consult order Pregabalin (Pregabalin 150 Mg Capsule) 150 mg PO BID [facility] Last Admin: 01/28/22 09:19 Dose: 150 mg Sodium Chloride (0.9 % Sodium Chloride Flush 3 Ml Syringe) 3 ml IVFLUSH QSHIFT [facility] Last Admin: 01/28/22 09:19 Dose: 3 ml Triamcinolone Acetonide (Triamcinolone Acet 0.1 % Cream 15 Gm Tube) 1 appl TOPICAL TID [facility]; Protocol Last Admin: 01/28/22 09:14 Dose: Not Given Home Medications Medication Instructions Recorded Confirmed Last Taken Type albuterol sulfate 90 mcg/actuation 2 puff PO Q4H PRN Shortness Of 03/19/20 01/22/22 12/11/21 History aerosol inhaler Breath baclofen 10 mg tablet 10 mg PO TID 03/19/20 01/22/22 01/21/22 History clonazepam 0.5 mg tablet 0.5 mg PO DAILY 03/19/20 01/22/22 01/21/22 History duloxetine 20 mg capsule,delayed 20 mg PO DAILY 03/19/20 01/22/22 01/21/22 History release hydroxyzine pamoate 25 mg capsule 25 mg PO BID 03/19/20 01/22/22 01/21/22 Hi story lisinopril 10 mg tablet 10 mg PO DAILY 03/19/20 01/22/22 01/21/22 History meloxicam 15 mg tablet 15 mg PO DAILY 03/19/20 01/22/22 01/21/22 History omeprazole 20 mg capsule,delayed 20 mg PO DAILY 03/19/20 01/22/22 01/21/22 History release atorvastatin 20 mg tablet 20 mg PO DAILY 11/20/21 01/22/22 01/21/22 History amlodipine 2.5 mg tablet 1 tab PO DAILY 01/22/22 01/22/22 01/21/22 History calcium carbonate 600 mg-vitamin 1 tab PO DAILY 01/22/22 01/22/22 01/21/22 History D3 5 mcg (200 unit) tablet dexamethasone 4 mg tablet See Rx Instructions .Route .COMPLEX 01/22/22 01/22/22 Unknown History diclofenac sodium 1 % topical gel See Rx Instructions .Route .COMPLEX 01/22/22 01/22/22 01/21/22 History fluticasone propionate 110 1 inh inhalation BID 01/22/22 01/22/22 01/21/22 History mcg/actuation HFA aerosol inhaler (Flovent HFA) mometasone 0.1 % topical cream 1 applic topical DAILY 01/22/22 01/22/22 01/21/22 History multivitamin with folic acid 400 1 tab PO DAILY 01/22/22 01/22/22 01/21/22 History mcg tablet (Tab-A-Richard) pregabalin 150 mg capsule 1 cap PO BID 01/22/22 01/22/22 01/21/22 History triamcinolone acetonide 0.1 % 1 applic topical TID 01/22/22 01/22/22 01/21/22 History topical cream Physical Exam Vital Signs: Vital Signs: Last Vital Signs Temp 97.3 F 01/28/22 07:44 Pulse 64 01/28/22 07:44 Resp 16 01/28/22 07:44 BP 126/71 01/28/22 07:44 Pulse Ox 93 01/28/22 07:44 O2 Del Method 01/28/22 07:44 BMI result Body Mass Index 37.3 Neuro: Other: She is alert and awake with normal spontaneity of speech fluency comprehension and affect. Pupils are round reactive to light. Extraocular muscles are intact. Face is symmetrical. There is no pronator drift. Deep tendon reflexes are trace to absent with flexor plantars. Affect is normal. Neck is supple. Results Labs CBC & Chem 7: 01/26/22 06:14 01/28/22 05:49 Labs: BMP 01/28/22 05:49 Creatinine 0.[address] did not reveal any significant abnormality Microbiology Microbiology Results: Microbiology 01/25/22 08:39 Blood - Venous Blood Culture - Preliminary No growth after 48 hours. 01/25/22 08:39 Blood - Venous Blood Culture - Preliminary No growth after 48 hours. 01/22/22 23:19 Blood - Venous Blood Culture - Final Staphylococcus aureus 01/22/22 23:19 Blood - Venous Blood Culture - Final Staphylococcus aureus 01/22/22 10:08 Blood - Venous Blood Culture - Final Staphylococcus aureus 01/22/22 10:06 Blood - Venous Blood Culture - Final Staphylococcus aureus 01/22/22 17:00 Urine clean catch - Urine mathew top Urine Culture - Final Assessment and Plan (1) Head ache: Status: Acute 61 years old woman who probably has infection related headache, which should be treated with p.r.n. Tylenol or Fioricet type of medicines. When I examine her and there was no sign of distress or significant headache. Procedures Date of Service Date of Service: 01/28/22
--- NOTE | 2022-01-28 10:41 | P.PNIM_ITS ---
Subjective Subjective Date of Service: 01/28/22 Interval History: seen and examined this morning, history obtained with the assistance of a facilities plant engineer Headache improved yesterday afternoon but worsened overnight. Oxycodone does help Cough improving, no shortness of breath. No fever, no chills. tolerating diet Review of Systems Review of Systems: Yes all other systems are reviewed and are negative Constitutional Constitutional: Denies chills, Denies fever(s) and Reports headache(s) ENT Ears, Nose, Mouth, and Throat: Reports headache(s) Cardiovascular Cardiovascular: Denies chest pain, Denies palpitations and Denies dyspnea Respiratory Respiratory: Denies dyspnea Gastrointestinal Gastrointestinal: Denies abdominal pain, Denies diarrhea, Denies nausea and Denies vomiting Neurologic Neurologic: Reports headache(s) Endocrine Endocrine: Denies palpitations Physical Exam Vital Signs: Vital Signs: Last Vital Signs Temp 97.3 F 01/28/22 07:44 Pulse 64 01/28/22 07:44 Resp 16 01/28/22 07:44 BP 126/71 01/28/22 07:44 Pulse Ox 93 01/28/22 07:44 O2 Del Method 01/28/22 07:44 BMI result Body Mass Index 37.3 Const: General: cooperative, comfortable, no acute distress, alert and awake Nutritional Appearance: overweight Orientation/consciousness: patient oriented x3 HEENT: Other: shallow ulcer upper palate; no thrush Neck: Neck: Yes normal visual inspection, Yes trachea midline, Yes supple and No tender Chest: Other: port left chest wall - no erythema Resp: Effort & Inspection: normal respiratory effort and able to speak in complete sentences Auscultation: clear to auscultation bilaterally Cardio: Rate: regular rate Heart sounds: S1 normal heart sound present and S2 normal heart sound present GI: Inspection: No distended Palpation (GI): Soft to palpation and nontender Neuro: General: patient oriented x3 and CN's II-XI intact bilaterally Extrem: General: Yes no pedal edema Objective Data Active Medications Acetaminophen (Acetaminophen 325 Mg Tablet) 650 mg PO Q6H PRN PRN Reason: Pain, Mild (Pain Scale 1-3) Last Admin: 01/27/22 23:42 Dose: 650 mg Documented By: NAEEM Acetaminophen/Butalbital/Caffeine (Butalb/Acetamin/Caff 50/325/40 Tablet) 1 tab PO Q6H PRN PRN Reason: Headache Last Admin: 01/27/22 09:08 Dose: 1 tab Documented By: ROB Albuterol Sulfate (Albuterol Sulfate 90 Mcg 8 Gm Inhaler) 2 puff INHALE Q4H PRN PRN Reason: Shortness Of Breath Amlodipine Besylate (Amlodipine Besylate 2.5 Mg Tablet) 2.5 mg PO DAILY REPLACED BY [facility]; Protocol Last Admin: 01/28/22 09:19 Dose: 2.5 mg Documented By: ROB Atorvastatin Calcium (Atorvastatin Calcium 20 Mg Tablet) 20 mg PO BEDTIME REPLACED BY [facility] Last Admin: 01/27/22 22:26 Dose: 20 mg Documented By: ALTAF Baclofen (Baclofen 10 Mg Tablet) 10 mg PO TID REPLACED BY [facility] Last Admin: 01/28/22 09:19 Dose: 10 mg Documented By: ROB Benzonatate (Benzonatate 100 Mg Capsule) 100 mg PO TID PRN PRN Reason: Cough Last Admin: 01/27/22 09:08 Dose: 100 mg Documented By: ROB Calcium Carbonate/Cholecalciferol (Calcium + Vitamin D 250 Mg Tablet) 500 mg PO DAILY REPLACED BY [facility] Last Admin: 01/28/22 09:19 Dose: 500 mg Documented By: ROB Clonazepam (Clonazepam 0.5 Mg Tablet) 0.5 mg PO DAILY REPLACED BY [facility] Last Admin: 01/28/22 09:19 Dose: 0.5 mg Documented By: ROB Docusate Sodium (Docusate Sodium 100 Mg Capsule) 100 mg PO DAILY PRN PRN Reason: Constipation Duloxetine HCl (Duloxetine Hcl 20 Mg Capsule.Dr) 20 mg PO DAILY REPLACED BY [facility] Last Admin: 01/28/22 09:19 Dose: 20 mg Documented By: ROB Enoxaparin Sodium (Enoxaparin Sodium 40 Mg/0.4 Ml Syringe) 40 mg SUBCUT Q24H REPLACED BY [facility] Last Admin: 01/27/22 22:26 Dose: 40 mg Documented By: ALTAF Hydroxyzine HCl (Hydroxyzine Hcl 25 Mg Tablet) 25 mg PO BID REPLACED BY [facility] Last Admin: 01/28/22 09:19 Dose: 25 mg Documented By: ROB Cefazolin Sodium/Dextrose (Ancef) 2 gm in 50 mls @ 100 mls/hr IV Q8H REPLACED BY [facility] Last Infusion: 01/28/22 09:48 Dose: 0 mls/hr Documented By: ROB Ketorolac Tromethamine (Ketorolac Tromethamine 15 Mg/Ml Vial) 15 mg IVPUSH ONCE ONE Stop: 01/28/22 10:40 Lidocaine/Diphenhydr/Alum/Mg/Simeth (Mag&Al/Sim/Diphenhyd/Lidocaine 10 Ml Oral.Susp) 10 ml PO Q6H PRN; Protocol PRN Reason: Mouth Sore Pain Last Admin: 01/24/22 18:15 Dose: 10 ml Documented By: VENICE Melatonin (Melatonin 3 Mg Tablet) 6 mg PO BEDTIME PRN PRN Reason: Insomnia Last Admin: 01/27/22 23:42 Dose: 6 mg Documented By: NAEEM Multivitamins/Vitamin C (Multivitamin Tablet) 1 tab PO DAILY REPLACED BY [facility] Last Admin: 01/28/22 09:19 Dose: 1 tab Documented By: ROB Omeprazole (Omeprazole 20 Mg Capsule.) 20 mg PO DAILY@0630 REPLACED BY [facility] Last Admin: 01/28/22 06:07 Dose: 20 mg Documented By: NAEEM Ondansetron HCl (Ondansetron Hcl 4 Mg/2 Ml Vial) 4 mg IVPUSH Q8H PRN PRN Reason: Nausea and Vomiting Oxycodone HCl (Oxycodone Hcl Immed Release 5 Mg Tablet) 5 mg PO Q6H PRN PRN Reason: Pain, Moderate (Pain Scale 4-6 Last Admin: 01/28/22 04:34 Dose: 5 mg Documented By: NAEEM Pharmacy Consult (Consult Rx Perform Med Rec) 1 each MISCELLANE ONCE PRN PRN Reason: Consult order Pharmacy Consult (Consult Rx Vancomycin Dosing) 1 each MISCELLANE DAILY PRN PRN Reason: Consult order Pregabalin (Pregabalin 150 Mg Capsule) 150 mg PO BID REPLACED BY [facility] Last Admin: 01/28/22 09:19 Dose: 150 mg Documented By: ROB Sodium Chloride (0.9 % Sodium Chloride Flush 3 Ml Syringe) 3 ml IVFLUSH QSHIFT REPLACED BY [facility] Last Admin: 01/28/22 09:19 Dose: 3 ml Documented By: ROB Triamcinolone Acetonide (Triamcinolone Acet 0.1 % Cream 15 Gm Tube) 1 appl TOPICAL TID [facility]; Protocol Last Admin: 01/28/22 09:14 Dose: Not Given Documented By: ROB Non-Admin Reason: Patient Refused Labs CBC & Chem 7: 01/26/22 06:14 01/28/22 05:49 Labs: Laboratory Results - last 24 hr 01/28/22 05:49 Estim Creat Clear Calc 90.3 Estimated GFR > 60 Microbiology Microbiology Results: Microbiology 01/25/22 08:39 Blood Culture - Preliminary Blood - Venous No growth after 48 hours. 01/25/22 08:39 Blood Culture - Preliminary Blood - Venous No growth after 48 hours. Assessment and Plan (1) Head ache: Status: Acute (2) Bacteremia: Status: Acute Plan 61-year-old female with past medical history of breast cancer undergoing chemotherapy treatment at this time presents to the hospital with complaints of fatigue, chills, and fever found to have UTI Sepsis due to Staph Aureus likely skin source but also has UTI. has been afebrile since admission Initial BCx growing MSSA. repeat blood cultures from 01/25 negative to date Urine culture growing mixed bacterial ten Echo 01/23 no vegetations Seen by ID, rec to change abx to kefzol for 10 days, with end date 02/01 & repeat blood cultures one week after completion oncology rec midline for abx rather then use port after discharge, midline ordered for AM persistent headache Patient afebrile, no focal neurological deficits Brain CT negative ?chemo related seen by neuro,possibly r/t infection - rec tylenol, fioricet UTI- culture growing mixed bacterial ten cough. improving cxr negative for pna, no fever, no leukocytosis normocytic Anemia likely r/t chemo no blood loss H/H stable thrombocytopenia Likely related to sepsis /chemo platelets improved hypertension-BP borderline resume Norvasc lisinopril on hold, resume as BP allows Breast cancer followed by Dr. Calderon -? continue outpatient follow-up, next chemo was 01/24 but postponed due to illness/hospitalization - brain CT negative for mets mood Continue home meds DVT prophylaxis:? Lovenox attending-Dr. Guevara requires ongoing inpatient hospitalization for IV antibiotics /treatment of Staph bacteremia, midline placement Quality Stroke Does the patient have a stroke diagnosis?: No VTE Prior VTE?: No VTE Risk Level:: Medical - moderate - high VTE Device Contraindication: Treatment Not Indicated VTE Drug Contraindication: N/A - Med Ordered
[2022-01-28 11:53] VITALS: BP 142/73; PULSE 76; RESP 18; TEMP 36.2; O2SAT 97
--- NOTE | 2022-01-28 12:00 | MHC.CM.PN ---
EMR review, patient continues to need inpatient hospitalization r/t IV antibiotic treatment of Staph bacteremia; midline placement. MIDLINE PLACEMENT ANTICIPATED FOR MONDAY 01/29.
[2022-01-28 15:30] VITALS: BP 144/78; PULSE 81; RESP 18; TEMP 36.1; O2SAT 92
[2022-01-28 20:10] VITALS: BP 133/83; PULSE 85; RESP 20; TEMP 36.3; O2SAT 92
[2022-01-28] MEDS: Atorvastatin Calcium 20 MG TABLET PO (22:16)
[2022-01-28] MEDS: Enoxaparin Sodium 40 MG/0.4 ML SYRINGE SUBCUT (22:16)
[2022-01-28] MEDS: Melatonin 3 MG TABLET 6 MG PO (22:18)
[2022-01-28] MEDS: Acetaminophen 325 MG TABLET 650 MG PO (22:18)
[2022-01-28 23:47] VITALS: BP 129/77; PULSE 76; RESP 17; TEMP 36; O2SAT 91
[2022-01-29] MEDS: ceFAZolin Sodium/Dextrose,Iso 2 GM/50 ML PIGGYBACK IV ×2 (01:27→09:02)
[2022-01-29 03:27] VITALS: BP 143/80; PULSE 70; RESP 17; TEMP 36; O2SAT 94
[2022-01-29] MEDS: Acetaminophen 325 MG TABLET 650 MG PO (04:06)
[2022-01-29] MEDS: Omeprazole 20 MG CAPSULE.DR PO (05:32)
[2022-01-29 07:43] VITALS: BP 137/83; PULSE 75; RESP 18; TEMP 36.4; O2SAT 96
[2022-01-29] MEDS: Multivitamin TABLET 1 TAB PO (09:02)
[2022-01-29] MEDS: clonazePAM 0.5 MG TABLET PO (09:02)
[2022-01-29] MEDS: 0.9 % Sodium Chloride Flush 3 ML SYRINGE IVFLUSH (09:02)
[2022-01-29] MEDS: amLODIPine Besylate 2.5 MG TABLET PO (09:02)
[2022-01-29] MEDS: Calcium + Vitamin D 250 MG TABLET 500 MG PO (09:02)
[2022-01-29] MEDS: hydrOXYzine HCL 25 MG TABLET PO (09:02)
[2022-01-29] MEDS: DULoxetine HCl 20 MG CAPSULE.DR PO (09:02)
[2022-01-29] MEDS: Pregabalin 150 MG CAPSULE PO (09:02)
[2022-01-29] MEDS: Baclofen 10 MG TABLET PO ×2 (09:02→15:27)
[2022-01-29 09:11] VITALS: BP 130/80
--- NOTE | 2022-01-29 09:30 | P.PNIM_ITS ---
Subjective Subjective Date of Service: 01/29/22 Interval History: f/u on on sepsis, MSSA bacteremia interval history: Feeling better, no fever, last blood cultures negative x 48, no CANO Physical Exam Vital Signs: Vital Signs: Last Vital Signs Temp 97.6 F 01/29/22 07:43 Pulse 75 01/29/22 07:43 Resp 18 01/29/22 07:43 BP 130/80 01/29/22 09:11 Pulse Ox 96 01/29/22 07:43 O2 Del Method 01/29/22 07:43 BMI result Body Mass Index 37.3 Const: Other: General: AO X 3, no acute distress Resp: CTA bilateral CVS: S1,S2,RRR GI: +BS, NT, no distention Skin: No rash Neuro: motor grossly intact Psych: appropriate affect Objective Data Active Medications Acetaminophen (Acetaminophen 325 Mg Tablet) 650 mg PO Q6H PRN PRN Reason: Pain, Mild (Pain Scale 1-3) Last Admin: 01/29/22 04:06 Dose: 650 mg Documented By: RACHEL Acetaminophen/Butalbital/Caffeine (Butalb/Acetamin/Caff 50/325/40 Tablet) 1 tab PO Q6H PRN PRN Reason: Headache Last Admin: 01/27/22 09:08 Dose: 1 tab Documented By: ROB Albuterol Sulfate (Albuterol Sulfate 90 Mcg 8 Gm Inhaler) 2 puff INHALE Q4H PRN PRN Reason: Shortness Of Breath Amlodipine Besylate (Amlodipine Besylate 2.5 Mg Tablet) 2.5 mg PO DAILY [facility]; Pr otocol Last Admin: 01/29/22 09:02 Dose: 2.5 mg Documented By: JAN Atorvastatin Calcium (Atorvastatin Calcium 20 Mg Tablet) 20 mg PO BEDTIME [facility] Last Admin: 01/28/22 22:16 Dose: 20 mg Documented By: RACHEL Baclofen (Baclofen 10 Mg Tablet) 10 mg PO TID [facility] Last Admin: 01/29/22 09:02 Dose: 10 mg Documented By: JAN Benzonatate (Benzonatate 100 Mg Capsule) 100 mg PO TID PRN PRN Reason: Cough Last Admin: 01/27/22 09:08 Dose: 100 mg Documented By: ROB Calcium Carbonate/Cholecalciferol (Calcium + Vitamin D 250 Mg Tablet) 500 mg PO DAILY [facility] Last Admin: 01/29/22 09:02 Dose: 500 mg Documented By: JAN Clonazepam (Clonazepam 0.5 Mg Tablet) 0.5 mg PO DAILY [facility] Last Admin: 01/29/22 09:02 Dose: 0.5 mg Documented By: JAN Docusate Sodium (Docusate Sodium 100 Mg Capsule) 100 mg PO DAILY PRN PRN Reason: Constipation Duloxetine HCl (Duloxetine Hcl 20 Mg Capsule.) 20 mg PO DAILY [facility] Last Admin: 01/29/22 09:02 Dose: 20 mg Documented By: JAN Enoxaparin Sodium (Enoxaparin Sodium 40 Mg/0.4 Ml Syringe) 40 mg SUBCUT Q24H [facility] Last Admin: 01/28/22 22:16 Dose: 40 mg Documented By: RACHEL Hydroxyzine HCl (Hydroxyzine Hcl 25 Mg Tablet) 25 mg PO BID [facility] Last Admin: 01/29/22 09:02 Dose: 25 mg Documented By: JAN Cefazolin Sodium/Dextrose (Ancef) 2 gm in 50 mls @ 100 mls/hr IV Q8H [facility] Last Admin: 01/29/22 09:02 Dose: 100 mls/hr Documented By: JAN Lidocaine/Diphenhydr/Alum/Mg/Simeth (Mag&Al/Sim/Diphenhyd/Lidocaine 10 Ml Oral.Susp) 10 ml PO Q6H PRN; Protocol PRN Reason: Mouth Sore Pain Last Admin: 01/24/22 18:15 Dose: 10 ml Documented By: VENICE Melatonin (Melatonin 3 Mg Tablet) 6 mg PO BEDTIME PRN PRN Reason: Insomnia Last Admin: 01/28/22 22:18 Dose: 6 mg Documented By: RACHEL Multivitamins/Vitamin C (Multivitamin Tablet) 1 tab PO DAILY [facility] Last Admin: 01/29/22 09:02 Dose: 1 tab Documented By: JAN Omeprazole (Omeprazole 20 Mg Capsule.) 20 mg PO DAILY@0630 [facility] Last Admin: 01/29/22 05:32 Dose: 20 mg Documented By: RACHEL Ondansetron HCl (Ondansetron Hcl 4 Mg/2 Ml Vial) 4 mg IVPUSH Q8H PRN PRN Reason: Nausea and Vomiting Oxycodone HCl (Oxycodone Hcl Immed Release 5 Mg Tablet) 5 mg PO Q6H PRN PRN Reason: Pain, Moderate (Pain Scale 4-6 Last Admin: 01/28/22 04:34 Dose: 5 mg Documented By: NAEEM Pharmacy Consult (Consult Rx Perform Med Rec) 1 each MISCELLANE ONCE PRN PRN Reason: Consult order Pharmacy Consult (Consult Rx Vancomycin Dosing) 1 each MISCELLANE DAILY PRN PRN Reason: Consult order Pregabalin (Pregabalin 150 Mg Capsule) 150 mg PO BID [facility] Last Admin: 01/29/22 09:02 Dose: 150 mg Documented By: JAN Sodium Chloride (0.9 % Sodium Chloride Flush 3 Ml Syringe) 3 ml IVFLUSH QSHIFT [facility] Last Admin: 01/29/22 09:02 Dose: 3 ml Documented By: JAN Trazodone HCl (Trazodone Hcl 25 Mg Halftab) 25 mg PO BEDTIME PRN PRN Reason: Sleep Triamcinolone Acetonide (Triamcinolone Acet 0.1 % Cream 15 Gm Tube) 1 appl TO PICAL TID [facility]; Protocol Last Admin: 01/29/22 09:03 Dose: Not Given Documented By: JAN Non-Admin Reason: Patient Refused Labs CBC & Chem 7: 01/26/22 06:14 01/28/22 05:49 Assessment and Plan (1) Sepsis: Status: Acute (2) Bacteremia: Status: Acute Plan 61-year-old female with past medical history of breast cancer undergoing chemoth erapy treatment at this time presents to the hospital with complaints of fatigue, chills, and fever found to have UTI and MSSA bacteremia #Sepsis due to Staph Aureus likely skin source but also has UTI. has been afebrile since admission Blood cultures grew MSSA. repeat blood cultures from 01/25 negative to date. Echo 01/23 no vegetations. She was initially treated with IV Vancomycin and later changed to Kefzol following ID recommendation. ID recommending total of 10 days of IV antibiotics ending 02/01. Urine culture growing mixed bacterial ten but was treated apropriately wit Ceftin. She will go home with midline. She has an indweling portacath not believed to be the source of infection. #persistent headache--No meningeal signs Patient afebrile, no focal neurological deficits Brain CT negative seen by neuro,possibly r/t infection - rec tylenol, fioricet #cough. improving cxr negative for pna, no fever, no leukocytosis #normocytic Anemia likely r/t chemo no blood loss H/H stable #thrombocytopenia Likely related to sepsis /chemo platelets improved #hypertension-BP borderline resume Norvasc lisinopril on hold, resume as BP allows #Breast cancer followed by Dr. Calderon -? continue outpatient follow-up, next chemo was 01/24 but postponed due to illness/hospitalization - brain CT negative for mets.. # mood Continue home meds DVT prophylaxis:? Lovenox requires ongoing inpatient hospitalization for IV antibiotics /treatment of Staph bacteremia, midline placement Probably home later today Quality Stroke Does the patient have a stroke diagnosis?: No VTE Prior VTE?: No VTE Risk Level:: Medical - moderate - high VTE Device Contraindication: Treatment Not Indicated VTE Drug Contraindication: N/A - Med Ordered
--- NOTE | 2022-01-29 11:04 | PM.DS ---
DS: Providers Provider Date of Service: 01/29/22 Date of admission: 01/22/22 19:24 Primary care physician: Mahesh Rosenbaum MD Consults: 01/23/22 08:00 Consult to Infectious Diseases Routine Consulting Provider: Leila Do Reason for consultation: bacteremia Has provider been notified: No 01/27/22 10:09 Consult to Neurology Routine Consulting Provider: [facility] Reason for consultation: persistent headache despite Fioricet Has provider been notified: No DS: Diagnosis Discharge Diagnosis (1) Sepsis: Status: Acute (2) Bacteremia: Status: Acute DS: Summary Hospital Course Hospital Course: Chief Complaint: elevated temp ?Mauritanian-speaking only, history is obtained with the help of an pupil personnel services director This is a 61-year-old female with history of breast cancer currently undergoing chemotherapy, HTN, who presents to the hospital with complaints of chills, as well as a fever of 107 yesterday.? Patient is adamant that she had a fever of 107 yesterday, she is also complaining feeling generally fatigued, body aches, and headache.? She denies any chest pain, no shortness of breath, has urinary frequency and urgency with no dysuria, reports no diarrhea constipation, no abdominal pain nausea or vomiting,? and no lower extremity edema.? On arrival to the ED patient? found to be hypotensive with blood pressure in the 80s/40s.? patient? was also found to be febrile.Patient was aggressively resuscitated with over 4 L of fluid with blood pressure improving.? Labs were found to be significant for WBC count of 6.7, hemoglobin of 13.1, hematocrit 39.1, sodium of 134, UA positive for leukocyte Estrace and WBC, Chest x-ray is unremarkable ?patient started on IV antibiotics? and will be admitted for further management Hospital course: #Sepsis due to Staph Aureus likely skin source but also has UTI. has been afebrile since admission Blood cultures grew? MSSA.? repeat blood cultures from 01/25 negative to date. Echo 01/23 no vegetations. She was initially treated with IV Vancomycin and later changed to Kefzol following ID recommendation.? ID recommending total of 10 days of IV antibiotics ending 02/01. Urine culture growing mixed bacterial ten but was treated apropriately wit Ceftin. She will go home with midline. She has an indweling portacath not believed to be the source of infection.? #persistent headache--No meningeal signs Patient afebrile, no focal neurological deficits Brain CT negative seen by neuro,possibly r/t infection - rec tylenol, fioricet? #cough. improving cxr negative for pna, no fever, no leukocytosis #normocytic Anemia likely r/t chemo no blood loss ?H/H stable #thrombocytopenia Likely related to sepsis /chemo platelets improved #hypertension-BP borderline resume Norvasc lisinopril on hold, resume as BP allows #Breast cancer followed by Dr. aClderon -? continue outpatient follow-up, next chemo was 01/24 but postponed due to illness/hospitalization -? brain CT negative for mets.. # mood Continue home meds Time Spent with Patient Time attestation: Total time spent providing and/or coordinating discharge services: Discharge coordination time: Greater than 30 minutes Quality: Safe Use of Opioids Does Pt have an Active Cancer Diagnosis on the Problem List?: No Quality: Stroke Does the patient have a stroke diagnosis?: No Physical Exam Vital Signs: Vital Signs: Last Vital Signs Temp 97.6 F 01/29/22 07:43 Pulse 75 01/29/22 07:43 Resp 18 01/29/22 07:43 BP 130/80 01/29/22 09:11 Pulse Ox 96 01/29/22 07:43 O2 Del Method 01/29/22 07:43 BMI result Body Mass Index 37.3 DS: Data Data Completed and Pending Labs on day of discharge: Preliminary micro results at discharge 01/25/22 08:39 Blood Culture - Preliminary Blood - Venous No growth after 48 hours. 01/25/22 08:39 Blood Culture - Preliminary Blood - Venous No growth after 48 hours. Discharge Plan Discharge Anticipated Discharge Date/Time: 01/29/22 11:04 Patient Disposition: Home, Self-Care Discharge Diagnosis: Sepsis, bacteremia, UTI Referrals: Name,MD Mahesh [Primary Care Provider] - 1 Week Discharge Medications: New ceftriaxone 2 gram recon soln 2 g IM DAILY Qty: 3 0RF Rx Instructions: Next dose 01/30/22 during chemo Continued amlodipine 2.5 mg tablet 1 tab PO DAILY calcium carbonate-vitamin D3 600 mg-5 mcg (200 unit) tablet 1 tab PO DAILY triamcinolone acetonide 0.1 % cream 1 applic topical TID fluticasone propionate [Flovent HFA] 110 mcg/actuation HFA aerosol inhaler 1 inh inhalation BID mometasone 0.1 % cream 1 applic topical DAILY pregabalin 150 mg capsule 1 cap PO BID diclofenac sodium 1 % gel See Rx Instructions .ROUTE .COMPLEX Rx Instructions: 1 APPLICATION TOPICALLY TWICE DAILY multivitamin with folic acid [Tab-A-Richard] 400 mcg tablet 1 tab PO DAILY dexamethasone 4 mg tablet See Rx Instructions .ROUTE .COMPLEX Rx Instructions: 4 MG PO BID For 2 days after chemotherapy on D1 ondansetron 8 mg Tablet,Disintegrating 8 mg PO Q8H PRN (Reason: Nausea) Qty: 60 2RF albuterol sulfate 90 mcg/actuation HFA aerosol inhaler 2 puff PO Q4H PRN (Reason: Shortness Of Breath) baclofen 10 mg tablet 10 mg PO TID clonazepam 0.5 mg tablet 0.5 mg PO DAILY meloxicam 15 mg tablet 15 mg PO DAILY hydroxyzine pamoate 25 mg capsule 25 mg PO BID lisinopril 10 mg tablet 10 mg PO DAILY duloxetine 20 mg capsule,delayed release(DR/EC) 20 mg PO DAILY omeprazole 20 mg capsule,delayed release(DR/EC) 20 mg PO DAILY atorvastatin 20 mg tablet 20 mg PO DAILY Discharge Orders: Discharge Order (Routine); Ordered 01/29/22 Ordered By: Arjun Chaparro Diet: Advance to usual diet Activity on Discharge: As tolerated Stand Alone Forms: Patient Portal Discharge page Care Plan Goals: Resolution of bacteremia and sepsis Health Concerns: Sepsis, Staph bacteremia Plan of Treatment: Take Cefttriaxone IV daily for 3 more days--to be administer in Chemo Follow up with Dr. Calderon in oncology clinic Assessment: as above
[2022-01-29 11:39] VITALS: BP 126/75; PULSE 79; RESP 18; TEMP 36.6; O2SAT 94
[2022-01-29] MEDS: cefTRIAXone sodium 2 GM in 0.9 % Sodium Chloride 50 ML IV (12:10)
--- NOTE | 2022-01-29 13:02 | MHC.CM.PN ---
Addendum entered by Franchesak Riley RN 01/29/22 14:20: PT WILL BE SEEN IN DR AVILEZ'S OFFICE THE NEXT 3 DAYS (,SAT,) AT NOON TO FINISH HER LAST 3 DOSES OF IV ABX, TIME CONFIRMED W/RAGHAV'S OFFICE. Original Note: EMR REVIEWED, PER HOSPITALIST PT WILL NOT NEED IV ABX, ABX WILL BE ORDERED BY PT'S ONCOLOGIST DR. AVILEZ AND RECEIVE AT ONCOLOGY CLINIC, NO NEW SERVICES ORDERED, PT TO ARRANGE TRANSPORT W/FAMILY
[2022-01-29] MEDS: Heparin Sodium,Porcine Flush 50 UNITS, 0.9 % Sodium Chloride Flush 5 ML IVFLUSH (15:28)
--- NOTE | 2022-01-29 16:37 | PC.NURSE ---
Pt instructed to Dr Calderon office tomorrow at noon for antibiotics. Pt vebalized understanding. Portacath flushed and de-accessed per protocol.
== END 2022-01-29 16:36 | disposition home or self-care (01) | DRG 872 ==
LOC: HO.ED 19:22 → HO.EDOVER 19:34 → HO.S3 21:16
PROVIDERS: Internal Medicine; Physician Assistant Medical; Admitting Provider Internal Medicine; Emergency Provider Emergency Medicine; PCP Internal Medicine Geriatric Medicine; Visit Provider Internal Medicine
DX: A41.01 Sepsis due to Methicillin susceptible Staphylococcus aureus (principal); N39.0 Urinary tract infection, site not specified; M79.7 Fibromyalgia; D64.81 Anemia due to antineoplastic chemotherapy; R51.9 Headache, unspecified; D69.59 Other secondary thrombocytopenia; T45.1X5A Adverse effect of antineoplastic and immunosuppressive drugs, initial encounter; D63.0 Anemia in neoplastic disease; I10 Essential (primary) hypertension; I95.9 Hypotension, unspecified; D05.11 Intraductal carcinoma in situ of right breast; Z20.822 Contact with and (suspected) exposure to COVID-19; Z79.51 Long term (current) use of inhaled steroids; Z79.899 Other long term (current) drug therapy
CPT/HCPCS: 0241U; 36415; 70470; 71045; 71046; 80048; 80156; 80164; 80185; 80202; 81001; 82565; 82947; 83605; 83880; 84443; 85007; 85025; 85027; 87040; 87077; 87086; 87147; 87186; 87205; 87635; 93005; 93308; 96361; 96374; 99285; C1758; J0690; J0696; J1642; J1650; J2270; J3370; Q9967; U0003; U0005

== ENCOUNTER 2022-04-20 13:56 | Outpatient (REF) | payer OTHER, SELFPAY ==
--- NOTE | ~2022-04-20 | US_ITS ---
EXAMINATION: US DIAGNOSTIC ULTRASOUND BREAST, RIGHT CLINICAL INFORMATION: Right breast IDC, status post new adjuvant chemotherapy. Patient perceives lesions larger. Reassess ultrasound. COMPARISON: Ultrasound-guided core biopsy right breast 11/21/2021, targeted right breast ultrasound 12/04/2021, mammography 11/17/2021 and 05/30/2021 outside mammography ([facility]). TECHNIQUE: Ultrasound right breast is targeted to the upper breast. Grayscale imaging and color Doppler are performed without and with harmonics. FINDINGS: The mass 12:00 position 7 cm from nipple appears macrolobulated with overall dimensions approximately 2.4 x 1.2 x 2.2 cm. Prior measurements are 2.7 x 1.6 x 2.0 cm. Again, there is scattered color-flow within the mass. The triangular hypoechoic area adjacent to the lesion noted on prior ultrasound is not demonstrated on current exam. There is no new mass or architectural abnormality. No skin thickening or edema tracking in soft tissue planes. Results are discussed with the patient at time of visit, using an architectural renderer. US/US breast RT limited IMPRESSION: -Mass 12:00 right breast 2.4 x 1.2 x 2.2 cm, borderline decreased. Prior measurements 2.7 x 1.6 x 2.0 cm. -The triangular hypoechoic area adjacent to the lesion noted on prior ultrasound is not demonstrated on current exam. ASSESSMENT: BI-RADS 6: Known Biopsy-Proven Malignancy RECOMMENDATION: Patient to follow-up with her oncologist and surgeon as planned.
== END 2022-04-20 13:57 | disposition home or self-care (01) ==
LOC: HO.MAMMO 13:56
PROVIDERS: PCP Internal Medicine Geriatric Medicine; Visit Provider Internal Medicine
DX: C50.911 Malignant neoplasm of unspecified site of right female breast (principal)
CPT/HCPCS: 76642

== ENCOUNTER 2022-06-07 07:11 | Outpatient (REF) | payer OTHER, SELFPAY ==
[2022-06-07 08:10] LABS: Cortisol Random 7.8 ug/dL
[2022-06-13 06:34] LABS: Adrenocorticotropic Hormone 21 pg/mL (6-50)
== END 2022-06-07 07:12 | disposition home or self-care (01) ==
LOC: HO.LAB 07:11
PROVIDERS: PCP Internal Medicine Geriatric Medicine; Visit Provider Internal Medicine
DX: R79.89 Other specified abnormal findings of blood chemistry (principal)
CPT/HCPCS: 36415; 82024; 82533

== ENCOUNTER 2022-06-27 10:51 | Outpatient (REF) | payer OTHER, SELFPAY ==
--- NOTE | ~2022-06-27 | MR_ITS ---
EXAMINATION: MR BREAST WITHOUT AND WITH CONTRAST, BILATERAL CLINICAL INFORMATION: Known right breast cancer, 12:00, 7 cm from the nipple status post neoadjuvant chemotherapy. Right breast pain. COMPARISON: No MRI for comparison. TECHNIQUE: Imaging was performed with a dedicated breast coil. Prior to the administration of contrast, bilateral axial T1 and bilateral axial T2 weighted sequences were obtained. After the uneventful administration of?8 mL of Gadavist, dynamic contrast-enhanced VIBRANT series through the breasts in the axial plane were performed. Subtracted images were performed and reviewed. A delayed sagittal sequence through both breasts was acquired. Additionally, CAD post-processing, including maximum intensity projections, 3-D reconstructions and kinetic analysis, were performed an independent workstation and reviewed by the interpreting radiologist is a portion of this exam. FINDINGS: The patient's fibroglandular tissue demonstrates moderate background enhancement. LEFT BREAST: No suspicious masslike or non-masslike enhancement. No abnormal skin thickening or nipple retraction. No abnormal architectural distortion. Review of the T2 weighted images demonstrates no fibrocystic changes or dilated ducts. Review of kinetic images reveals no additional findings. RIGHT BREAST: In the 12:00 position, 7 cm from the nipple, there is an enhancing mass with marked vascular recruitment measuring 3.1 (AP) by 2.6 (CC) by 2.2 (transverse) CM (image 29, series 100). This lesion previously measured approximately 2.0 x 1.6 x 1.6 cm. No other suspicious nonmass or mass enhancement within the right breast. There are multiple abnormal right axillary lymph nodes. The largest measures up to at least 4 additional morphologically abnormal lymph nodes are identified within the axilla. In addition, there are several lymph nodes in the left axilla which demonstrate suspicious morphology. The most prominent located inferior axilla measuring up to 1.2 cm in diameter and demonstrates cortical thickening measuring 0.4 cm. No evidence of abnormal internal mammary chain adenopathy. There are a few subcentimeter T2 hyperintense structures in the right lower lobe liver which are partially imaged most consistent with cysts. MR/MR breast BI wo/w con IMPRESSION: 1. Interval growth of right breast known cancer compared to ultrasound images from 11/17/2021 concerning for limited response to treatment. 2. Highly concerning right axillary adenopathy with multiple pathologic lymph nodes. 3. Suspicious left axillary lymph nodes. ASSESSMENT: LEFT BREAST: BI-RADS 4 - Suspicious abnormality - Biopsy should be considered. RIGHT BREAST: BI-RADS 4 - Suspicious abnormality - Biopsy should be considered. RECOMMENDATIONS: Consider bilateral axillary ultrasound to further characterize lymph nodes and biopsy as appropriate.
== END 2022-06-27 10:52 | disposition home or self-care (01) ==
LOC: HO.MRI 10:51
PROVIDERS: PCP Internal Medicine Geriatric Medicine; Visit Provider Internal Medicine
DX: C50.919 Malignant neoplasm of unspecified site of unspecified female breast (principal)
CPT/HCPCS: 77049; A9585

== ENCOUNTER → 2022-06-28 09:39 | Outpatient (BNVA) | payer OTHER, SELFPAY | PROVIDERS: PCP Internal Medicine Geriatric Medicine; Visit Provider Surgery | DX: C50.919 Malignant neoplasm of unspecified site of unspecified female breast (principal) | CPT/HCPCS: 99212 ==

== ENCOUNTER 2022-07-05 09:08 | Outpatient (REF) | payer OTHER, SELFPAY ==
--- NOTE | ~2022-07-05 | US_ITS ---
EXAMINATION: US GUIDED BREAST BIOPSY, BILATERAL AXILLARY LYMPH NODE BIOPSY CLINICAL INFORMATION: Right breast malignancy, now with suspicious bilateral axillary lymph nodes by MRI. COMPARISON: MRI of 06/27/2022 and ultrasound study of 04/20/2022. PROCEDURAL DETAILS: The details of the procedure, as well as the risks, benefits, and alternatives to the procedure were explained to the patient in detail and all of her questions were answered, after which written informed consent was obtained. Site and side were confirmed. Two right-sided axillary lymph nodes and one left axillary lymph node were biopsied with ultrasound guidance. Prior to the procedure, sonography revealed multiple right axillary lymph nodes with cortical thickness up to approximately 3 mm in diameter, without definite lobulation and without definite infiltration of the hilar fat. There are noted to be multiple left axillary lymph nodes with cortex measuring greater than 4 mm in diameter, without lobulation and with one of the dominant thickened cortex lymph nodes being biopsied. A time-out was performed, the lesion intended for biopsy was targeted, and the skin of the bilateral breast was then prepped and draped in the usual sterile fashion. Using sonographic guidance, sterile technique, and 1% lidocaine without epinephrine for local anesthesia, multiple automated core biopsies were obtained through the bilateral targeted area lymph nodes with a 14G spring loaded Achieve core biopsy device. There was real-time confirmation of appropriate needle passage. Sampling was documented. A more proximal lymph node was biopsied first with an adjacent, more distal, lymph node which appeared different in morphology biopsied second. At the completion of tissue sampling, within the right breast a butterfly-shaped metallic clip was deposited at the more proximal lymph node with a coil-shaped metallic clip placed in the adjacent, more distal, lymph node biopsy site. Using sterile technique and ultrasound guidance, following lidocaine administration, a 13-gauge guiding needle was positioned at a dominant left axillary lymph node with thickened cortex and multiple 14-gauge core biopsy samples obtained. Following the sampling a butterfly-shaped metallic clip was placed at the biopsy site. Samples were placed in formalin as well as tubes for flow cytometry. There was no evidence of immediate complication. SPECIMEN: An appropriate sample was obtained. DIGITAL POST-PROCEDURE MAMMOGRAPHY: Breast density: The tissue contains scattered areas of fibroglandular density. BI-RADS version 5, category B. The postprocedure bilateral mediolateral oblique views and spot compression right mediolateral oblique view performed. Due to position within the axilla, 1 of the 2 right axillary lymph node clips is not identified. The right breast mass is again noted with clip within it from previous biopsy. A single left axillary clip is noted in place. The patient tolerated the procedure well and, after assuring adequate hemostasis, was discharged in good condition after reviewing postbiopsy breast care instructions. Final pathology results are pending. US/US breast ndl core biopsy LT IMPRESSION: 1. No immediate complication from ultrasound-guided percutaneous biopsy bilateral axilla. 2. Ultrasound was used to localize and guide marker clip placement. 3. The 2-view direct digital postprocedure mammogram reveals satisfactory positioning of 1 of 2 right breast and single left breast biopsy clips. 4. Final pathology results are pending. A separate report with final recommendations will be issued once these results are made available.
== END 2022-07-05 09:09 | disposition home or self-care (01) ==
LOC: HO.MAMMO 09:08
PROVIDERS: Pathology Cytopathology; PCP Internal Medicine Geriatric Medicine; Visit Provider Internal Medicine
DX: C50.911 Malignant neoplasm of unspecified site of right female breast (principal)
CPT/HCPCS: 19083; 19084; 36415; 76641; 76642; 77063; 77067; 88184; 88185; 88300; 88305; 88341; 88342; A4648

== ENCOUNTER 2022-07-17 09:03 | Outpatient (REF) | payer OTHER, SELFPAY ==
--- NOTE | ~2022-07-17 | PE_ITS ---
EXAMINATION: Fluorine-18 FDG PET/CT Scan CLINICAL INDICATION: Subsequent treatment management. Right breast cancer, status post chemotherapy, last treatment 05/29/2022. PROCEDURE: 56 minutes following the intravenous administration of 18.3 mCi of fluorine 18 FDG, images from the base of the skull to the mid thighs were obtained using a combined PET/CT scanner with CT scan based attenuation correction. No oral contrast was administered. No intravenous contrast was administered. Transverse, coronal, sagittal, and volume reconstruction projections were obtained. The patient's blood glucose as determined by a finger stick, was 82 mg/dl immediately prior to injection. Total CT exam dose-length product 784.65 mGy-cm * These CT images were obtained using dose optimization techniques as appropriate, variously including the following: Automated exposure control * Adjustment of mA and/or kV according to patient size (this includes techniques or standardized protocols for targeted exams where dose is matched to indication/reason for exam; i.e. extremities or head) * Use of iterative reconstruction technique COMPARISON: No previous PET/CT scan is available for comparison. FINDINGS: (Slice numbers described in this report are numbered superiorly to inferiorly with slice #1 in the head) NECK AND VISUALIZED HEAD: No foci of abnormal FDG activity are noted. The distribution of FDG activity is physiological. There is no cervical lymphadenopathy. Minimal mucosal thickening is present in the right maxillary sinus with no associated abnormal FDG activity. THORAX: There is an FDG avid soft tissue mass present in the upper inner quadrant of the right breast showing SUVmax 11.5, slice 79/267. On the CT images this measures 4.4 x 3.1 cm in largest transverse dimensions, and approximately 3.6 cm cephalocaudad. There is mildly FDG avid diffuse skin thickening adjacent to the right nipple which extends dominantly inferiorly and laterally from the nipple but with some medial extension also present. There is an intensely FDG avid enlarged right axillary lymph node showing SUVmax 15.2, slice 83/267, measuring 2.8 x 2.4 cm in largest transverse dimensions. Posterior and slightly inferior to this there is a much less intensely FDG avid right axillary lymph node that shows SUVmax 2.5, slice 86/267, and this measures 1.6 x 1.0 cm in largest transverse dimensions. There are no additional foci of abnormal FDG activity present in the chest. No suspicious pulmonary nodules are visualized. There is no pleural or pericardial fluid. There is no mediastinal, supraclavicular or additional axillary lymphadenopathy. ABDOMEN AND PELVIS: There is FDG activity of mild intensity present throughout the gastrointestinal tract, and this is probably physiological. The most prominent activity is at the gastroduodenal junction, but no associated CT abnormality is present. There is diverticulosis without evidence of diverticulitis. The hollow viscera are otherwise unremarkable. The liver, gallbladder, spleen,, adrenal glands and pancreas are unremarkable. There is a nonobstructing 0.3 cm densely calcified calculus in the upper pole of the right kidney. There is an exophytic fluid density cyst present posterolaterally in the lower pole of the left kidney and this is markedly FDG photopenic. The kidneys are otherwise unremarkable. The patient is status post hysterectomy. The pelvic organs are otherwise unremarkable. MUSCULOSKELETAL: There are no foci of abnormal FDG activity in the osseous structures. There are degenerative changes in the spine, most severely in the mid and lower thoracic spine. There are no suspicious sclerotic or lytic lesions visualized. VASCULAR: Vascular calcifications including coronary are noted. PET/PET CT fusion skull to thigh IMPRESSION: 1. An intensely FDG avid right breast mass is noted as described above, most consistent with a primary breast malignancy. 2. An enlarged intensely FDG avid right axillary lymph node is likely a metastasis. An additional mildly FDG avid lymph node is also present as described above and this likely represents an additional metastasis. 3. Diffuse FDG avid skin thickening is present across the inferior aspect of the right breast. The appearance suggests changes secondary to radiation therapy, but the patient provides no history of the latter and in addition this skin thickening is well inferior to the primary breast mass described above. This appearance is therefore suspicious for infiltrative cutaneous metastases. 4. No additional abnormalities suspicious for other metastatic or malignant lesions are noted. 5. Nephrolithiasis. 6. Vascular calcifications including coronary.
== END 2022-07-17 09:04 | disposition home or self-care (01) ==
LOC: HO.PET 09:03
PROVIDERS: Visit Provider Internal Medicine
DX: Z13.89 Encounter for screening for other disorder (principal)

== ENCOUNTER → 2022-07-25 10:50 | Outpatient (BNVA) | payer OTHER, SELFPAY | PROVIDERS: PCP Internal Medicine Geriatric Medicine; Visit Provider Surgery | DX: C50.911 Malignant neoplasm of unspecified site of right female breast (principal) | CPT/HCPCS: 99212 ==

== ENCOUNTER 2022-08-02 07:57 | Inpatient (IN) | payer OTHER, SELFPAY ==
[2022-07-31 14:27] VITALS: BP 114/77; PULSE 83; RESP 20; O2SAT 97; BMI 36.7
[2022-08-02] VITALS (9 sets, daily range): BP systolic 110–137; BP diastolic 58–87; PULSE 91–120; RESP 12–18; TEMP 36–36.6; O2SAT 94–97; BMI 36.3
--- NOTE | ~2022-08-02 | NM_ITS ---
EXAMINATION: NM LYMPH SCINTIGRAPHY CLINICAL INFORMATION: Breast cancer COMPARISON: None TECHNIQUE: Procedure and risks and benefits including bleeding and infection were discussed with the patient and informed consent was obtained. The subcutaneous soft tissues at the skin nipple interface of the right breast at the 12, 3, 6 and 9:00 axes were injected with 0.125 mCi aliquots of technetium 99m labeled lymphoseek for total dose of 0.5 mCi. Anterior GREGG and right lateral imaging of the chest was performed at 30 and 60 minutes. FINDINGS: There is adequate radiotracer activity seen at the skin nipple interface. No sentinel node activity is identified. NM/NM sentinel node w imaging IMPRESSION: No sentinel node activity seen.
--- NOTE | 2022-08-02 07:56 | MHC.SHP ---
Pre-Procedural Eval Section A Date of Service: 08/02/22 The patient is an INPATIENT: No Changes since office visit: No Cold of Flu in the past 2 weeks, No New Medical Problems, No Changes in Medication and No Patient answered all questions The History & Physical has been completed within 30 days and I have reviewed it.: Yes Section B Chief Complaint: Malignant neoplasm of unspecified site of unspecif Allergies: Allergies Allergy/AdvReac Type Severity Reaction Status Date / Time ceftriaxone Allergy Intermediate Rash Verified 07/31/22 14:21 metoprolol [METOPROLOL] Allergy Unknown RASH Verified 07/31/22 14:21 adhesive tape Allergy Rash Verified 07/31/22 14:21 Plan I have reviewed the history and physical and performed a pertinent physical examination on my patient. No changes have occurred unless specified. Time Spent With Patient Time: Total time managing care of this patient today ____ minutes.
--- OUTSIDE RECORDS SUMMARY | 2022-08-02 08:12 | XMS_ITS | Continuity of Care Document ---
:1960 Author Organization [facility] Address [address] [place] [id number]- Care Team Providers Name Role Phone Name Mahesh STEVENS Primary Care Physician Encounter [facility] Date(s): 11/17/19 - 11/17/[address] [id number]- [facility] Discharge Disposition: A-D/C Home Attending Physician: Elmo Chin MD Admitting Physician: Elmo Chin MD Referring Physician: Not on Staff, Referring MD Allergies, Adverse Reactions, Alerts Substance Reaction Severity Status metoprolol Persistent Moderate Active Medications Baclofen By Mouth, 0 Refills, Maintenance, 11/17/19 15:15:00 EDT Start Date: 11/17/19 Status: OrderedCymbalta Capsule By Mouth, 0 Refills, Maintenance, 11/17/19 15:15:00 EDT Start Date: 11/17/19 Status: OrderedLisinopril By Mouth, Daily, 0 Refills, Maintenance, 11/17/19 15:15:00 EDT Start Date: 11/17/19 Status: OrderedLyrica 25 mg oral capsule By Mouth, 0 Refills, Maintenance, 11/17/19 15:14:00 EDT Start Date: 11/17/19 Status: OrderedMeloxicam By Mouth, Daily, 0 Refills, Maintenance, 11/17/19 15:15:00 EDT Start Date: 11/17/19 Status: OrderedNorco 325 mg-5 mg oral tablet 1 tablet, By Mouth, Every 4 hours, PRN Pain , Severe, # 10 tablet, 0 Refills, Acute 11/23/19 15:47:00 EDT, 11/17/19 15:47:00 EDT, Tablet, [id number], Partial fill upon patient request, 1 tabletBy Mouth Every 4 hours,PRN:Pain , Severe, 150, cm... Start Date: 11/17/19 Stop Date: 11/23/19 Status: OrderedOmeprazole By Mouth, Daily, 0 Refills, Maintenance, 11/17/19 15:14:00 EDT Start Date: 11/17/19 Status: Ordered Results Radiology Reports Exam Date Time Procedure Performing Provider Status 11/17/19 3:09 PM Shoulder Min 2 Views Right Jessie Garcia (Verified) Notes:(Shoulder Min 2 Views Right) Reason For Exam: PainRESULT: Shoulder Min 2 Views Right Shoulder Min 2 Views Right, 3 views INDICATION: Pain; COMPARISON: None. FINDINGS: No fracture or dislocation. No focal osseous lesion. Moderate lateral downward sloping acromion. Subtle hyperdensity in the region of the rotator cuff suggest mild hydroxyapatite deposition. IMPRESSION: Mild calcific tendinopathy is suggested. MR imaging could be performed on a nonemergent basis to further evaluate. WSN: [id number] Ordering Physician: Delia Cabezas Dictated By: Wilfredo Murphy MD Dictated Date/Time: 11/17/19 3:19 pm Reviewed By: Wilfredo Murphy MD Signed By: Wilfredo Murphy MD Signed Date/Time: 11/17/19 3:19 pm Transcribed By: ASIF Transcribed Date/Time: 11/17/19 3:15 pm Vital Signs Most recent to oldest [Reference Range]: 1 Height 150 cm (11/17/19 3:06 PM) Weight 81.4 kg (11/17/19 3:06 PM) Oxygen Saturation [94-100 %] 98 % (11/17/19 3:06 PM) Pulse Rate [55-90 bpm] 81 bpm (11/17/19 3:06 PM) Blood Pressure [90-138/55-84 mm Hg] 101/79 mm Hg (11/17/19 3:06 PM) Respiratory Rate [16-30 br/min] 16 br/min (11/17/19 3:06 PM) Temperature [96.8-100.4 DegF] 98.1 DegF (11/17/19 3:06 PM) Mode of Delivery (Oxygen) Room air (11/17/19 3:06 PM) Blood pressure sites Arm, left (11/17/19 3:06 PM) Temperature Route Oral (11/17/19 3:06 PM) Dry Weight 81.4 kg (11/17/19 3:06 PM) Weight Obtained Via Standing scale (11/17/19 3:06 PM) Dry Weight Obtained Via Standing scale (11/17/19 3:06 PM)
--- OUTSIDE RECORDS SUMMARY | 2022-08-02 08:12 | XMS_ITS | Continuity of Care Document ---
:1960 Author Organization [facility] Address [address] [place] [id number]- Care Team Providers Name Role Phone Name Mahesh STEVENS Primary Care Physician Encounter [facility] Date(s): 03/20/22 - 04/19/22 [facility] [address] [place] [id number] Allergies, Adverse Reactions, Alerts Substance Reaction Severity Status metoprolol Persistent Moderate Active [id number] Active 1hives Immunizations Given and Recorded Vaccine Date Status Refusal Reason zoster vaccine, inactivated 11/23/21 Recorded SARS-CoV-2 (COVID-19) mRNA-1273 vaccine 11/23/21 Recorded SARS-CoV-2 (COVID-19) mRNA-1273 vaccine 05/22/21 Recorded SARS-CoV-2 (COVID-19) mRNA-1273 vaccine 10/13/20 Recorded SARS-CoV-2 (COVID-19) mRNA-1273 vaccine 09/14/20 Recorded influenza virus vaccine, inactivated 04/05/21 Recorded influenza virus vaccine, inactivated 04/29/20 Recorded influenza virus vaccine, inactivated 05/13/18 Recorded influenza virus vaccine, inactivated 06/06/17 Recorded influenza virus vaccine, inactivated 04/25/16 Recorded influenza virus vaccine, inactivated 05/19/15 Recorded influenza virus vaccine, inactivated 03/19/14 Recorded influenza virus vaccine, inactivated 03/10/13 Recorded influenza virus vaccine, inactivated 02/22/12 Recorded influenza virus vaccine, inactivated 02/26/11 Recorded pneumococcal 23-valent vaccine 02/11/18 Recorded tetanus/diphtheria/pertussis, acel(Tdap) 02/26/11 Recorde d Medications Albuterol (Eqv-ProAir HFA) 90 mcg/inh inhalation aerosol Inhalation, as directed, 0 Refills, Maintenance, 02/20/22 23:16:00 EDT, Partial fill upon patient request if the prescription is for a schedule II opioid drug. Start Date: 02/20/22 Status: OrderedamLODIPine 2.5 mg oral tablet 1 tablet = 2.5 mg, By Mouth, Daily, 0 Refills, Maintenance, 02/20/22 23:14:00 EDT, Tablet, Partial fill upon patient request if the prescription is for a schedule II opioid drug. Start Date: 02/20/22 Status: Orderedatorvastatin 20 mg oral tablet 1 tablet = 20 mg, By Mouth, Daily, 0 Refills, Maintenance, 02/20/22 23:14:00 EDT, Tablet, Partial fill upon patient request if the prescription is for a schedule II opioid drug. Start Date: 02/20/22 Status: Orderedbaclofen 10 mg oral tablet 10 mg, 1, tablet, By Mouth, 3 times a day, Refills 0, Maintenance, 02/20/22 23:14:00 EDT, Partial fill upon patient request if the prescription is for a schedule II opioid drug. Start Date: 02/20/22 Status: Orderedbetamethasone topical dipropionate 0.05% ointment 1 application, Topically, 2 times a day, 0 Refills, Maintenance, 02/20/22 23:14:00 EDT, Ointment, Partial fill upon patient request if the prescription is for a schedule II opioid drug. Start Date: 02/20/22 Status: OrderedCalcium 600 +D oral tablet 1 tablet, By Mouth, Daily, 0 Refills, Maintenance, 02/20/22 23:15:00 EDT, Tablet, Partial fill upon patient request if the prescription is for a schedule II opioid drug. Start Date: 02/20/22 Status: OrderedclonazePAM 0.5 mg oral tablet 1 tablet = 0.5 mg, By Mouth, Daily at bedtime, 0 Refills, Maintenance, 02/20/22 23:15:00 EDT, Tablet, Partial fill upon patient request if the prescription is for a schedule II opioid drug. Start Date: 02/20/22 Status: Ordereddexamethasone 4 mg oral tablet 1 tablet = 4 mg, By Mouth, Daily, 0 Refills, Maintenance, 02/21/22 0:13:00 EDT, Tablet, Partial fillupon patient request if the prescription is for a schedule II opioid drug. Start Date: 02/21/22 Stop Date: 03/07/22 Status: Ordereddiclofenac 1% topical gel 1 application, Topically, 4 times a day, 0 Refills, Maintenance, 02/20/22 23:15:00 EDT, Gel, Partialfill upon patient request if the prescription is for a schedule II opioid drug. Start Date: 02/20/22 Status: Orderedduloxetine 20 mg oral enteric coated capsule 1 capsule = 20 mg, By Mouth, 2 times a day, 0 Refills, Maintenance, 02/20/22 23:15:00 EDT, EC Capsule, Partial fill upon patient request if the prescription is for a schedule II opioid drug. Start Date: 02/20/22 Status: OrderedFlovent HFA 110 mcg/inh inhalation aerosol 2 puffs, Inhalation, 2 times a day, 0 Refills, Maintenance, 02/20/22 23:15:00 EDT, Aerosol, Partial fill upon patient request if the prescription is for a schedule II opioid drug. Start Date: 02/20/22 Status: OrderedhydrOXYzine hydrochloride 25 mg oral tablet 1 tablet = 25 mg, By Mouth, 2 times a day, PRN for anxiety, 0 Refills, Maintenance, 02/20/22 23:15:00 EDT, Tablet, Partial fill upon patient request if the prescription is for a schedule II opioid drug. Start Date: 02/20/22 Status: Orderedlisinopril 10 mg oral tablet 10 mg, 1, tablet, By Mouth, Daily, Refills 0, Maintenance, 02/20/22 23:16:00 EDT, Partial fill upon patient request if the prescription is for a schedule II opioid drug. Start Date: 02/20/22 Status: Orderedmometasone 0.1% topical cream 1 application, Topically, Daily, 0 Refills, Maintenance, 02/20/22 23:16:00 EDT, Cream, Partial fill upon patient request if the prescription is for a schedule II opioid drug. Start Date: 02/20/22 Status: Orderedomeprazole 20 mg oral enteric coated capsule 1 capsule = 20 mg, By Mouth, Daily, 0 Refills, Maintenance, 02/20/22 23:16:00 EDT, EC Capsule, Partial fill upon patient request if the prescription is for a schedule II opioid drug. Start Date: 02/20/22 Status: Orderedondansetron 8 mg oral tablet, disintegrating 1 tablet = 8 mg, By Mouth, Every 8 hours, PRN Nausea & Vomiting, 0 Refills, Maintenance, 02/20/22 23:16:00 EDT, Tablet, Partial fill upon patient request if the prescription is for a schedule II opioid drug. Start Date: 02/20/22 Status: Orderedoxacillin 2g Q4hrs until 03/24 oxacillin 2g Q4hrs until 03/24, See Instructions, # 1 each, Refills 0, Tot. Refills 0, Maintenance, oxacillin 2g Q4hrs until 03/24, 02/28/22 11:40:00 EDT, Supply Start Date: 02/28/22 Status: Orderedpregabalin 150 mg oral capsule 1 capsule = 150 mg, By Mouth, 2 times a day, 0 Refills, Maintenance, 02/20/22 23:16:00 EDT, Capsule,Partial fill upon patient request if the prescription is for a schedule II opioid drug. Start Date: 02/20/22 Status: VrchpvrXcv-L-Kvdh oral tablet 1 tablet, By Mouth, Daily, 0 Refills, Maintenance, 02/20/22 23:16:00 EDT, Tablet, Partial fill upon patient request if the prescription is for a schedule II opioid drug. Start Date: 02/20/22 Status: Orderedtriamcinolone 0.1% topical cream 1 application, Topically, 2 times a day, 0 Refills, Maintenance, 02/20/22 23:16:00 EDT, Cream, Partial fill upon patient request if the prescription is for a schedule II opioid drug. Start Date: 02/20/22 Status: Ordered Problem List Condition Confirmation Course Effective Dates Status Health Stat us Informant COVID-191 Confirmed 02/28/22 Active COVID-192 Confirmed 02/28/22 Active Obese class II Confirmed Active Sepsis Confirmed Active 1Problem added by Discern [id number] added by Discern Expert Social History Social History Type Response Smoking Status Never (less than 100 in life time) entered on: 03/13/22 Sex Patient Care team information PersonnelName: Mahesh Rosenbaum MD Address: Address: [address] [place] [address]
--- OUTSIDE RECORDS SUMMARY | 2022-08-02 08:12 | XMS_ITS | Continuity of Care Document ---
:1960 Author Organization [facility] Address [address] [place] [id number]- Care Team Providers Name Role Phone Name Mahesh STEVENS Primary Care Physician Encounter [facility] Date(s): 02/26/22 - 04/12/22 [facility] [address] [place] [id number] Attending Physician: Bashir Hoskins MD Admitting Physician: Bashir Hoskins MD Referring Physician: Name Mahesh STEVENS Allergies, Adverse Reactions, Alerts Substance Reaction Severity [...] II opioid drug. Start Date: 02/20/22 Status: VfikhvwXzi-Q-Yvkd oral tablet 1 tablet, By Mouth, Daily, [...] Sepsis Confirmed Active 1Problem added by Discern [id number] added by Discern Expert Social History Social History Type Response Smoking Status Never (less than 100 in life time) entered on: 03/13/22 Sex Patient Care team information PersonnelName: Mahesh Rosenbaum MD Address: Address: [address] [place], [place] [address]
--- OUTSIDE RECORDS SUMMARY | 2022-08-02 08:12 | XMS_ITS | Continuity of Care Document ---
:1960 Author Organization [facility] Address [address] [place] [id number]- Care Team Providers Name Role Phone Name Mahesh STEVENS Primary Care Physician Encounter [facility] [place] Date(s): 02/20/22 - 02/28/[address] [address]- Encounter Diagnosis COVID (Final) - 02/20/22 Tachycardia (Final) - 02/20/22 Tachypnea (Final) - 02/20/22 COVID (Final) - 02/20/22 Hypoxia (Final) - 02/20/22 Discharge Disposition: A-D/C Home Attending Physician: Td Moore MD Admitting Physician: Izzy STEVENS, Desiree Yi Referring Physician: Not on Staff, Referring MD [...] opioid drug. Start Date: 02/20/22 Status: OrderedamLODIPine 5 mg oral tablet 2.5 mg, Tablet, By Mouth, 02/28/22 9:00:00 EDT Start Date: 02/28/22 Stop Date: 02/28/22 Status: Completedatorvastatin 20 mg oral tablet 1 tablet = 20 mg, By Mouth, Daily, 0 Refills, Maintenance, 02/20/22 23:14:00 EDT, Tablet, Partial fill upon patient request if the prescription is for a schedule II opioid drug. Start Date: 02/20/22 Status: Orderedbaclofen 10 mg oral tablet 10 mg, Tablet, By Mouth, 02/28/22 9:00:00 EDT Start Date: 02/28/22 Stop Date: 02/28/22 Status: Completedbaclofen 10 mg oral tablet 10 mg, Tablet, By Mouth, 02/28/22 15:00:00 EDT Start Date: 02/28/22 Stop Date: 02/28/22 Status: Completedbaclofen 10 mg oral tablet 10 mg, 1, [...] Orderedlisinopril 10 mg oral tablet 10 mg, Tablet, By Mouth, 02/28/22 9:00:00 EDT Start Date: 02/28/22 Stop Date: 02/28/22 Status: Completedlisinopril 10 mg oral tablet 10 mg, 1, [...] II opioid drug. Start Date: 02/20/22 Status: NknygjqDaw-A-Pimo oral tablet 1 tablet, By Mouth, Daily, [...] Date: 02/20/22 Status: Ordered Problem List Condition Effective Dates Status Health Status Informant COVID-19(Confirmed)1 02/28/22 Active COVID-19(Confirmed)2 02/28/22 Active Obese class II(Confirmed) Active Sepsis(Confirmed) Active 1Problem added by Discern [id number] added by Discern Expert Results Orders for Microbiology Reports Name Date Blood Culture 02/24/22 Blood Culture #2 02/24/22 Blood Culture 02/23/22 Blood Culture #2 02/23/22 Blood Culture 02/22/22 Blood Culture #2 02/22/22 Blood Culture 02/20/22 Blood Culture #2 02/20/22 Microbiology Reports TEST:Blood Culture STATUS:Unauthenticated BODY SITE: SOURCE:Blood COLLECTED DATE/TIME:02/24/22 12:05 PMBlood Culture SPECIMEN DESCRIPTION : BLOOD SPECIAL REQUESTS : NONE CULTURE : NO GROWTH 4 DAYS REPORT STATUS : PRELIMINARY REPORT TEST:Blood Culture, Second Order STATUS:Unauthenticated BODY SITE: SOURCE:Blood COLLECTED DATE/TIME:02/24/22 12:05 PMBlood Culture, Second Order SPECIMEN DESCRIPTION : BLOOD SPECIAL REQUESTS : NONE CULTURE : NO GROWTH 4 DAYS REPORT STATUS : PRELIMINARY REPORT TEST:Blood Culture STATUS:Auth (Verified) BODY SITE: SOURCE:Blood COLLECTED DATE/TIME:02/23/22 1:50 AMBlood Culture SPECIMEN DESCRIPTION : BLOOD RT HAND SPECIAL REQUESTS : CRITICAL VALUE CALLED AND VERIFIED BY READBACK FOR: GRAM POSITIVE COCCI TO [id number], D6A, 02/24/22 AT 0547 BY TECH [id number] CULTURE : STAPHYLOCOCCUS AUREUS. This isolate was identified using Maldi-TOF system These AST results were performed on the Microscan ID and AST system REPORT STATUS : FINAL 02/26/2022 ORGANISM STAPHYLOCOCCUS AUREUS. This isolate was identified using Maldi-TOF system These AST results were performed on the Microscan ID and AST system METHOD MIN. INHIB. CONC. (MCG/ML) CIPROFLOXACIN SUSCEPTIBLE CLINDAMYCIN SUSCEPTIBLE ERYTHROMYCIN SUSCEPTIBLE LEVOFLOXACIN SUSCEPTIBLE OXACILLIN SUSCEPTIBLE PENICILLIN RESISTANT RIFAMPIN SUSCEPTIBLE RIFAMPIN RIFAMPIN SHOULD NOT BE USED ALONE FOR ANTIMICROBIAL RIFAMPIN THERAPY. TETRACYCLINE SUSCEPTIBLE TRIMETH/SULFAMETHOX SUSCEPTIBLE VANCOMYCIN SUSCEPTIBLETEST:Blood Culture, Second Order STATUS:Auth (Verified) BODY SITE: SOURCE:Blood COLLECTED DATE/TIME:02/23/22 1:42 AMBlood Culture, Second Order SPECIMEN DESCRIPTION : BLOOD L ARM SPECIAL REQUESTS : NONE CULTURE : STAPHYLOCOCCUS AUREUS. This isolate was identified using Maldi-TOF system FOR SUSCEPTIBILITY RESULT REFER TO BLOOD CULTURE REPORT STATUS : FINAL 02/26/2022TEST:Blood Culture STATUS:Auth (Verified) BODY SITE: SOURCE:Blood COLLECTED DATE/TIME:02/22/22 6:12 AMBlood Culture SPECIMEN DESCRIPTION : BLOOD RIGHT AC SPECIAL REQUESTS : CRITICAL VALUE CALLED AND VERIFIED BY READBACK FOR: GRAM POSITIVE COCCI NOTIFIED TO [id number], FROM A AT 2150, 02/22/2022. [id number] CULTURE : STAPHYLOCOCCUS AUREUS. This isolate was identified using Maldi-TOF system These AST results were performed on the Microscan ID and AST system REPORT STATUS : FINAL 02/25/2022 ORGANISM STAPHYLOCOCCUS AUREUS. This isolate was identified using Maldi-TOF system These AST results were performed on the Microscan ID and AST system METHOD MIN. INHIB. CONC. (MCG/ML) CIPROFLOXACIN SUSCEPTIBLE CLINDAMYCIN SUSCEPTIBLE ERYTHROMYCIN SUSCEPTIBLE LEVOFLOXACIN SUSCEPTIBLE OXACILLIN SUSCEPTIBLE PENICILLIN RESISTANT RIFAMPIN SUSCEPTIBLE RIFAMPIN RIFAMPIN SHOULD NOT BE USED ALONE FOR ANTIMICROBIAL RIFAMPIN THERAPY. TETRACYCLINE SUSCEPTIBLE TRIMETH/SULFAMETHOX SUSCEPTIBLE VANCOMYCIN SUSCEPTIBLETEST:Blood Culture, Second Order STATUS:Auth (Verified) BODY SITE: SOURCE:Blood COLLECTED DATE/TIME:02/22/22 6:12 AMBlood Culture, Second Order SPECIMEN DESCRIPTION : BLOOD LEFT AC SPECIAL REQUESTS : NONE CULTURE : STAPHYLOCOCCUS AUREUS. This isolate was identified using Maldi-TOF system FOR SUSCEPTIBILITY RESULT REFER TO BLOOD CULTURE REPORT STATUS : FINAL 02/25/2022TEST:Blood Culture STATUS:Auth (Verified) BODY SITE: SOURCE:Blood COLLECTED DATE/TIME:02/21/22 12:25 AMBlood Culture SPECIMEN DESCRIPTION : BLOOD CENTERAL LINE SPECIAL REQUESTS : CRITICAL VALUE CALLED AND VERIFIED BY READBACK FOR: [place] [id number] BY TECH [id number] ON 02/21/22 AT 0853 CULTURE : STAPHYLOCOCCUS AUREUS. FOR SUSCEPTIBILITY RESULT REFER TO BLOOD CULTURE S. aureus was identified by multi-plex PCR. MecA NOT detected. The absence of the mecA gene is associated with susceptibility to methicillin (MSSA). REPORT STATUS : FINAL 02/23/2022TEST:Blood Culture, Second Order STATUS:Auth (Verified) BODY SITE: SOURCE:Blood COLLECTED DATE/TIME:02/20/22 9:42 PMBlood Culture, Second Order SPECIMEN DESCRIPTION : BLOOD NO SITE SPECIAL REQUESTS : NONE CULTURE : STAPHYLOCOCCUS AUREUS. This isolate was identified using Maldi-TOF system These AST results were performed on the Fridgecan ID and AST system REPORT STATUS : FINAL 02/23/2022 ORGANISM STAPHYLOCOCCUS AUREUS. This isolate was identified using Maldi-TOF system These AST results were performed on the Microscan ID and AST system METHOD MIN. INHIB. CONC. (MCG/ML) CIPROFLOXACIN SUSCEPTIBLE CLINDAMYCIN SUSCEPTIBLE ERYTHROMYCIN SUSCEPTIBLE LEVOFLOXACIN SUSCEPTIBLE OXACILLIN SUSCEPTIBLE PENICILLIN RESISTANT RIFAMPIN SUSCEPTIBLE RIFAMPIN RIFAMPIN SHOULD NOT BE USED ALONE FOR ANTIMICROBIAL RIFAMPIN THERAPY. TETRACYCLINE SUSCEPTIBLE TRIMETH/SULFAMETHOX SUSCEPTIBLE VANCOMYCIN SUSCEPTIBLERadiology Reports Exam Date Time Procedure Performing Provider Status 02/20/22 10:36 PM Chest Portable Sanjuana Bedoya; Auth (Ve rified) Notes:(Chest Portable) Reason For Exam: Shortness of BreathRESULT: Chest Portable Chest Portable Hx of Present Illness: pt c o several days of weakness, chills, gen milase and not feeling well pt seen at [facility] [place] yesterday and discharged. now feels dizzy and reports increased general weakness. pt in treatment for breast CA active chemo.; Reason: Shortness of Breath; Clinical Question(s): CHF COMPARISON: None. FINDINGS: LINES AND TUBES: Left IJ central venous access port with tip in SVC. LUNGS AND PLEURA: Suboptimal inspiration with mild atelectasis in the lower right lung. Lungs are otherwise clear withnormal vascularity. No pleural effusion. No pneumothorax. HEART, MEDIASTINUM AND DENISSE: Heart is normal in size. Normal upper mediastinal and hilar contour. BONES AND SOFT TISSUES: No acute abnormality. Calcific tendinitis in the left shoulder. IMPRESSION: Mild right lower lung atelectasis. No other acute abnormality. WSN: [id number] Ordering Physician: DirectorIndiana Dictated By: Mango Gallego MD Dictated Date/Time: 02/20/22 10:48 p Reviewed By: Mango Gallego MD Signed By: Mango Gallego MD Signed Date/Time: 02/20/22 10:48 pm Transcribed By: ASIF Transcribed Date/Time: 02/20/22 10:45 pm Vital Signs Most recent to oldest 1 2 3 [Reference Range]: Height 150 cm 150 cm 150 cm (02/28/22 4:24 PM) (02/28/22 8:06 AM) (02/27/22 4:3 5 PM) Weight 84 kg (02/22/22 5:39 PM) Oxygen Saturation [94-100 %] 95 % 98 % 96 % (02/28/22 4:24 PM) (02/28/22 8:06 AM) (02/28/22 2:0 0 AM) Pulse Rate [55-90 bpm] 71 bpm 72 bpm 78 bpm (02/28/22 4:24 PM) (02/28/22 8:06 AM) (02/28/22 2:0 0 AM) Body Mass Index [18.5-24.99] 37.33 *>HHI* (02/22/22 5:39 PM) Blood Pressure [90-138/55-84 mm 90/68 mm Hg 123/78 mm Hg 123/78 mm Hg Hg] (02/28/22 4:24 PM) (02/28/22 9:07 AM) (02/28/22 9:0 4 AM) Respiratory Rate [16-30 br/min] 18 br/min 18 br/min 18 br/min (02/28/22 4:24 PM) (02/28/22 4:23 PM) (02/28/22 9:0 5 AM) Temperature [96.8-100.4 DegF] 97.7 DegF 97.8 DegF 97 .8 DegF (02/28/22 4:24 PM) (02/28/22 8:06 AM) (02/27/22 8:0 0 PM) Mode of Delivery (Oxygen) Room air Room air Room a ir (02/28/22 4:24 PM) (02/28/22 8:06 AM) (02/28/22 2:0 0 AM) Blood pressure sites Arm, right Arm, right Arm, right (02/28/22 4:24 PM) (02/28/22 8:06 AM) (02/28/22 2:0 0 AM) Temperature Route Oral Oral Oral (02/28/22 4:24 PM) (02/28/22 8:06 AM) (02/27/22 8:0 0 PM) Dry Weight 84 kg (02/22/22 5:39 PM) Note BHSPowerscribe , CIS S: TRANSCRIBE Mango Gallego MD: VERIFY Event Display: Result: Authored Date: Chest Portable Hx of Present Illness: pt c o several days of weakness, chills, gen milase and not feeling well pt seen at [facility] [place] yesterday and discharged. now feels dizzy and reports increased general weakness. pt in treatment for breast CA active chemo.; Reason: Shortness of Breath; Clinical Question(s): CHF COMPARISON: None. FINDINGS: LINES AND TUBES: Left IJ central venous access port with tip in SVC. LUNGS AND PLEURA: Suboptimal inspiration with mild atelectasis in the lower right lung. Lungs are otherwise clear withnormal vascularity. No pleural effusion. No pneumothorax. HEART, MEDIASTINUM AND DENISSE: Heart is normal in size. Normal upper mediastinal and hilar contour. BONES AND SOFT TISSUES: No acute abnormality. Calcific tendinitis in the left shoulder. IMPRESSION: Mild right lower lung atelectasis. No other acute abnormality. WSN: [id number] Ordering Physician: [place] Rangel Dictated By: Mango Gallego MD Dictated Date/Time: 02/20/22 10:48 p Reviewed By: Mango Gallego MD Signed By: Mango Gallego MD Signed Date/Time: 02/20/22 10:48 pm Transcribed By: ASIF Transcribed Date/Time: 02/20/22 10:45 pm Care Team PersonnelName: Name MD, Mahesh Address: [address] [place] [id number]
--- OUTSIDE RECORDS SUMMARY | 2022-08-02 08:12 | XMS_ITS | Continuity of Care Document ---
:1960 Author Organization [facility] Address [address] [place] [id number]- Care Team Providers Name Role Phone Name Mahesh STEVENS Primary Care Physician Encounter [facility] Date(s): 03/13/22 - 04/12/22 [facility] [address] [place] [id number] Attending Physician: AdmTon maya Admitting Physician: AdmtrTon Referring Physician: Admtr, Ar8 Allergies, Adverse Reactions, Alerts Substance Reaction Severity [...] II opioid drug. Start Date: 02/20/22 Status: ElpsranIlt-Y-Hgug oral tablet 1 tablet, By Mouth, Daily, [...] Sepsis Confirmed Active 1Problem added by Discern [id number] added by Discern Expert Social History Social History Type Response Smoking Status Never (less than 100 in life time) entered on: 03/13/22 Sex Patient Care team information PersonnelName: Mahesh Rosenbaum MD Address: Address: [address] [place] [id number]- [place]
[2022-08-02 08:17] LABS: COVID-19 Test Negative (Negative); IDNOW Serial# 16C4AD1C
--- NOTE | 2022-08-02 10:24 | HO.ANESPROP2 ---
HPI - Anesthesia Eval Consult details Narrative: 61 yr old with bilateral breast ca s/p chemo, devoloped septicemia after her neoadjuvant treatment resulting in port removal. comorbid conditions include asthma and obesity besides breast ca. [facility] Active Problems Active Problems: All Active Problems (Updated 07/31/22 @ 14:26 by Maru Ledesma, RN) Invasive ductal carcinoma of breast (Chronic) Osteoarthritis of right shoulder (Acute) Past Medical History Medical History (Updated 07/31/22 @ 14:26 by Maru Ledesma RN) Asthma Breast mass, right Fibromyalgia HTN (hypertension) Invasive ductal carcinoma of breast Osteoarthritis of right shoulder PONV (postoperative nausea and vomiting) Family History Family History Father Stroke Mother Hypertension Asthma Maternal Grandmother Lung cancer Maternal Aunt Breast cancer Maternal Aunt Thyroid cancer Maternal Aunt Colon cancer Family history of problems with anesthesia: No Surgical History Surgical History History of foot surgery History of hysterectomy History of Problems with Anesthesia: No Social History Social History Household Members: Family Household Members Other:: Foster child Housing: House Housing Other:: mobile home 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 If so, by whom?: No Are you DNR?: No Advance Directives: No Advance Directives Information Provided: Yes (Jayda Lutz) Advance Directives on File: No Recently lost weight without trying: No Eating poorly because of decreased appetite: No Nutrition Risks: No Nutritional Risk Patient : No Poor oral hygiene: Yes (upper partial) service: No Current occupational status: disabled Meds Allergies Allergy/AdvReac Type Severity Reaction Status Date / Time ceftriaxone Allergy Intermediate Rash Verified 07/31/22 14:21 metoprolol [METOPROLOL] Allergy Unknown RASH Verified 07/31/22 14:21 adhesive tape Allergy Rash Verified 07/31/22 14:21 Active Medications: Current Medications Heparin Sodium (Porcine) (Heparin Sodium,Porcine 5,000 Unit/Ml Vial) 5,000 unit SUBCUT Q8H [facility] Sodium Chloride (0.9 % Sodium Chloride Flush 3 Ml Syringe) 3 ml IVFLUSH QSHIFT [facility] Home Medications Medication Instructions Recorded Confirmed Last Taken Type albuterol sulfate 90 mcg/actuation 2 puff PO Q4H PRN Shortness Of 03/19/20 07/31/22 12/11/21 History aerosol inhaler Breath baclofen 10 mg tablet 10 mg PO TID 03/19/20 07/31/22 01/21/22 History clonazepam 0.5 mg tablet 0.5 mg PO DAILY 03/19/20 07/31/22 01/21/22 History duloxetine 20 mg capsule,delayed 20 mg PO DAILY 03/19/20 07/31/22 01/21/22 History release hydroxyzine pamoate 25 mg capsule 25 mg PO BID 03/19/20 07/31/22 01/21/22 History atorvastatin 20 mg tablet 20 mg PO DAILY 11/20/21 07/31/22 01/21/22 History calcium carbonate 600 mg-vitamin 1 tab PO DAILY 01/22/22 07/31/22 01/21/22 History D3 5 mcg (200 unit) tablet diclofenac sodium 1 % topical gel See Rx Instructions .Route .COMPLEX 01/22/22 07/31/22 01/21/22 History fluticasone propionate 110 1 inh inhalation BID 01/22/22 07/31/22 01/21/22 History mcg/actuation HFA aerosol inhaler (Flovent HFA) mometasone 0.1 % topical cream 1 applic topical DAILY 01/22/22 07/31/22 01/21/22 History multivitamin with folic acid 400 1 tab PO DAILY 01/22/22 07/31/22 01/21/22 History mcg tablet (Tab-A-Richard) pregabalin 150 mg capsule 1 cap PO BID 01/22/22 07/31/22 01/21/22 History triamcinolone acetonide 0.1 % 1 applic topical TID 01/22/22 07/31/22 01/21/22 History topical cream Exam Exam Date and Time: August 02, 2022 1024 Height,Weight and Vital Signs: Height 4 ft 11 in Weight 81.647 kg Last Vital Signs Pulse 83 07/31/22 14:27 Resp 20 07/31/22 14:27 BP 114/77 07/31/22 14:27 Pulse Ox 97 07/31/22 14:27 O2 Del Method 07/31/22 14:27 Pertinent Lab Results Pertinent Lab Results: Laboratory Tests 08/02/22 07:45 COVID-19 (DOUGIE) Negative COVID-19 Clin Com See Note Airway Mallampati Class: II TM Dist: >3cm Neck ROM: Full Heart: rrr Lungs: cta Assessment and Plan Assessment Anesthesia Assessment: Anesthesia Plan Discussed and Chart Reviewed Final Anesthetic Review Family History of Problems with Anesthesia: No History of Problems with Anesthesia: No NPO: Yes ASA Class: III Final Preanesthetic Review: No Changes in Pt Med Stat, Meds/Allgs Chart Reviewed, Consent Obtained/Reviewed and Anes Risks/Benef Reviewed Patient Risk: Intermediate Procedure Risk: Intermediate Anesthetic Plan Anesthetic Plan: GA, Regional Block and Other (Discussed possible bilateral PEC block after induction.) Disposition: Standard PACU
--- NOTE | 2022-08-02 14:29 | P.OP_ITS ---
Operative Note Operative Note Date of Service: 08/02/22 Narrative: Preop diagnose: invasive ductal carcinoma, right breast , status post neoadjuvant chemotherapy Postop diagnosis: the same Procedure: 1. Total mastectomy, right breast, with removal of multiple lymph nodes x3, nuclear scintigram of the axilla 2. prophylactic mastectomy, left breast Surgeon: Talat Estrada MD financial assistant: ANTONIO Todd The patient is a 61 year female who had undergone neoadjuvant chemotherapy for breast cancer, with no apparent response. She is scheduled to have mastectomy, sentinel node biopsy and prophylactic mastectomy on the contralateral left breast. She had a biopsy of a enlarged lymph node on the right axilla which showed inflammatory cells without metastatic disease, hence we had decided on proceeding with sentinel biopsy. She understood the planned procedure. She was aware of the risks, benefits, and alternatives. She did not want to proceed with any immediate breast reconstruction. She was brought to the operating room. She was placed supine under general anesthesia via mask airway. A pectoralis back cut been done earlier by the anesthesiologist. The patient received cefazolin 2 g IV preoperatively Both arms were placed in abducted position. The mass was palpable on the upper part of the right breast. I marked the planned line of incision to include this area with the skin overlying this. Made my incision using blade 15. And this carried down through the full- thickness of the skin with electrocautery. I developed my superior flap using electrocautery. I maintained about a 5 mm subcutaneous flap on the in superio r aspect of the breast. the superior border was clavicle. The medial border was the sternum. I developed this plane until I reached this borders and then I incised the fascia of the pectoralis. there was note of what appeared to be a seroma overlying the mass on the superior part of the breast below the skin. Otherwise, there was no obvious involvement of the skin flap itself. I then proceeded to develop my inferior flap as well in the same fashion. The inferior border was the inframammary fold Once this was achieved, I proceeded to then defined the pectoralis all around the superior border as well as the inferior border. I developed the plane of dissection above the was muscle starting from the sternum going laterally by lifting the pectoralis fascia off of this. I continued proceed along this well- defined plane all the wait until I reached the lateral edge of the pectoralis. This was our lateral margin of dissection. I had to cauterize oozing areas on the pectorals muscle during the dissection to achieve good hemostasis on perforating vessels. I then proceeded to complete the dissection along the planes of above the pectoralis from the inferior flap. I continued to define this all the way to the margins along the edge of the pectoralis and I transected the subcutaneous fat on this area. Was sent as a specimen. I had marked the superior aspect of the breast I proceeded to check the axilla for signal from the nuclear probe. I had reviewed the scintigram earlier and there was no lymph node lining up I could not detect any signal from the entire axilla. For proceeded to gently palpate and I was able to feel 1 large lymph node initially. This was about a 3.5 cm lymph node and this for comfort dissected. This was sent as specimen. 2 smaller lymph nodes were palpated as well and were removed. We made sure that we had hemostasis on all the areas of dissection of the lymph node. I continued to palpate around the axilla and I could not feel any other enlarged lymph node. There was no signal either on the nuclear probe I continued to make sure that we had good hemostasis on the axilla as well as the breast. I applied a moist lap pad on this and proceeded to do the mastectomy on the contralateral side. I made my incision around the nipple area complex using blade 15. All the way to the tail of the breast. This was carried down through the full-thickness of the skin subcutaneous fat. I continued to develop the care flap in the same manner as the contralateral breast earlier. Again, the superior margins of the flap was at the clavicle. The medial margin was the sternum. I continued to developed the flap inferiorly all the way to the inframammary fold. I then made an incision on the pectoralis fascia and lifted up this entire breast tissue off of the pectoralis along this well-defined plane of dissection. This was carried down all the way to the lateral margin of the pectoralis. I then proceeded to separate and divide the rest of subcutaneous layer at the tail of the breast and feel this entire breast was and sent as specimen. I observed him a stasis. I made sure that we entire area of dissection was hemostatic. This was achieved electrocautery Once hemostasis was confirmed, I proceeded to then position drains both sides. These drains were brought out through an exit site at the aspect the lower flap on each breast These CHARLES drains were secured with nylon 2-0 sutures After final inspection for hemostasis, I proceeded then reapposed the subdermal and subcutaneous layer with full Dexon 3-0 interrupted sutures on both sides. Skin closure was achieved on both incisions using subcuticular running Dexon 4-0 sutures. Thick dressings were applied. The procedure was completed The patient tolerated procedure well. There were medial complications. Initial final counts of sponges and instruments were correct. Estimated blood loss about 100 cc The patient was extubated without difficulty and transferred to the recovery room with stable vital signs.
[2022-08-02] MEDS: ondansetron HCL 4 MG/2 ML VIAL IVPUSH (14:51)
[2022-08-02] MEDS: Lactated Ringers 1,000 ML 50 ML IVCONT (15:14)
--- NOTE | 2022-08-02 15:23 | PHA.MEDREC ---
Pharmacy Consult ? Medication Reconciliation Pharmacy has completed the medication reconciliation. Reviewed med rec done by nursing
--- NOTE | 2022-08-02 17:39 | PM.EVENT ---
Event Note Date of Service: 08/02/22 Event Note: seen postop underwent mastectomy, right with removal of LN, and prophylactic mastectomy left today seems to have good pain control dressings dry stable VS CHARLES drain dark bloody output, minimal continue pain mgt family updated stable postop Time Spent With Patient Time: Total time managing care of this patient today ____ minutes.
--- NOTE | 2022-08-02 19:14 | PC.NURSE ---
Patient arrived from OR at 1545 - CHARLES drains emptied at 1900 - Left CHARLES drain - 10ml color red, Right CHARLES drain - 20ml color red.
[2022-08-02] MEDS: oxyCODONE HCl Immed Release 5 MG TABLET 10 MG PO (19:22)
[2022-08-02] MEDS: Pregabalin 150 MG CAPSULE PO (20:15)
[2022-08-02] MEDS: Acetaminophen 1,000 MG/100 ML PIGGYBACK 400 MG IV (20:16)
[2022-08-03] MEDS: Acetaminophen 1,000 MG/100 ML PIGGYBACK 400 MG IV (01:23)
[2022-08-03 03:18] VITALS: BP 113/56; PULSE 89; RESP 18; TEMP 36.4; O2SAT 96
[2022-08-03] MEDS: Lactated Ringers 1,000 ML 50 ML IVCONT (05:54)
[2022-08-03 07:57] VITALS: BP 114/57; PULSE 90; RESP 18; TEMP 36.1; O2SAT 99
[2022-08-03] MEDS: Heparin Sodium,Porcine 5,000 UNIT/ML VIAL 5000 UNIT SUBCUT (09:23)
[2022-08-03] MEDS: Pregabalin 150 MG CAPSULE PO (09:24)
[2022-08-03] MEDS: Atorvastatin Calcium 20 MG TABLET PO (09:24)
[2022-08-03] MEDS: DULoxetine HCl 20 MG CAPSULE.DR PO (09:24)
--- NOTE | 2022-08-03 09:28 | PM.PNGS ---
Subjective Subjective Date of Service: 08/03/22 <Rylee Hemphill PA-C - Last Filed: 08/03/22 09:34> 08/03/22 <Talat Estrada MD - Last Filed: 08/03/22 14:50> Interval history: Feels well this morning. Pain is minimal and has only required oxycodone once overnight. Tolerating solid diet. OOB to commode. <Rylee Hemphill PA-C - Last Filed: 08/03/22 09:34> Physical Exam Vital Signs: Vital Signs: Last Vital Signs Temp 96.9 F 08/03/22 07:57 Pulse 90 08/03/22 07:57 Resp 18 08/03/22 07:57 BP 114/57 L 08/03/22 07:57 Pulse Ox 99 08/03/22 07:57 O2 Del Method 08/03/22 07:57 O2 Flow Rate 2.5 08/03/22 07:57 BMI result Body Mass Index 36.3 <Rylee Hemphill PA-C - Last Filed: 08/03/22 09:34> Const: General: comfortable, no acute distress and alert <Rylee Hemphill PA-C - Last Filed: 08/03/22 09:34> Orientation/consciousness: patient oriented x3 <ADDI Batista Last Filed: 08/03/22 09:34> Chest: Other: dressings c/d/i; CHARLES drains in place with sanguineous drainage (L> R); incisions tender <Rylee Hemphill PA-C - Last Filed: 08/03/22 09:34> Resp: Effort & Inspection: normal respiratory effort <Rylee Hemphill PA-C - Last Filed: 08/03/22 09:34> Skin: General skin exam: no rashes or lesions noted <ADDI Batista Last Filed: 08/03/22 09:34> Neuro: General: patient oriented x3 and moves all extremities <ADDI Batista Last Filed: 08/03/22 09:34> Objective Data Active Medications Acetaminophen (Acetaminophen 325 Mg Tablet) 650 mg PO Q6H PRN PRN Reason: Pain, Mild (Pain Scale 1-3) Albuterol Sulfate (Albuterol Sulfate 90 Mcg 8 Gm Inhaler) 2 puff INHALE Q4H PRN PRN Reason: Shortness Of Breath Atorvastatin Calcium (Atorvastatin Calcium 20 Mg Tablet) 20 mg PO DAILY [facility] Last Admin: 08/03/22 09:24 Dose: 20 mg Documented By: NICOLE Clonazepam (Clonazepam 0.5 Mg Tablet) 0.5 mg PO DAILY [facility] Last Admin: 08/03/22 09:24 Dose: Not Given Documented By: NICOLE Non-Admin Reason: Patient Refused Duloxetine HCl (Duloxetine Hcl 20 Mg Capsule.Dr) 20 mg PO DAILY [facility] Last Admin: 08/03/22 09:24 Dose: 20 mg Documented By: NICOLE Fentanyl (Fentanyl Citrate/Pf 100 Mcg/2 Ml Vial) 25 mcg IVPUSH Q5M PRN; Protocol PRN Reason: Pain, Moderate (Pain Scale 4-6 Heparin Sodium (Porcine) (Heparin Sodium,Porcine 5,000 Unit/Ml Vial) 5,000 unit SUBCUT Q8H [facility] Last Admin: 08/03/22 09:23 Dose: 5,000 unit Documented By: NICOLE Lactated Ringer's (Lr) 1,000 mls @ 50 mls/hr IVCONT .Q20H [facility] Last Admin: 08/03/22 05:54 Dose: 50 mls/hr Documented By: CASTILTea Morphine Sulfate (Morphine Sulfate 4 Mg/Ml Cartridge) 3 mg IVPUSH Q3H PRN; Protocol PRN Reason: Pain, Severe (Pain Scale 7-10) Ondansetron HCl (Ondansetron Hcl 4 Mg/2 Ml Vial) 4 mg IVPUSH Q6H PRN PRN Reason: nausea Oxycodone HCl (Oxycodone Hcl Immed Release 5 Mg Tablet) 5 mg PO ONCE PRN PRN Reason: Pain, Severe (Pain Scale 7-10) Oxycodone HCl (Oxycodone Hcl Immed Release 5 Mg Tablet) 10 mg PO Q4H PRN PRN Reason: Pain, Moderate (Pain Scale 4-6 Last Admin: 08/02/22 19:22 Dose: 10 mg Documented By: DOBROB Pregabalin (Pregabalin 150 Mg Capsule) 150 mg PO BID [facility] Last Admin: 08/03/22 09:24 Dose: 150 mg Documented By: NICOLE Sodium Chloride (0.9 % Sodium Chloride Flush 3 Ml Syringe) [facility] Admin: 08/03/22 09:23 Dose: Not Given Documented By: NICOLE Non-Admin Reason: IV Running <Rylee Hemphill PA-C - Last Filed: 08/03/22 09:34> Labs Labs: Laboratory Results - last 24 hr 08/02/22 10:00 Blood Type A Positive Antibody Screen NEGATIVE <Rylee Hemphill PA-C - Last Filed: 08/03/22 09:34> Procedures Date of Service Date of Service: 08/03/22 <Rylee Hemphill PA-C - Last Filed: 08/03/22 09:34> Progress Note: A&P Assessment and plan (1) Invasive ductal carcinoma of breast: Status: Chronic <Rylee Hemphill PA-C - Last Filed: 08/03/22 09:34> (2) S/P bilateral mastectomy: Status: Acute <Rylee Hemphill PA-C - Last Filed: 08/03/22 09:34> Assessment and Plan: pt remains comfortable good pain control dressings dry CHARLES scanty output she wants to go home seen and examined independently - agree with ANTONIO Hemphill <Talat Estrada MD - Last Filed: 08/03/22 14:50> Assessment and Plan: 61 year old female with invasive ductal CA of the right breast now POD #1 s/p right simple mastectomy with removal of multiple lymph nodes x3, nuclear scintigram of the right axilla and prophylactic simple mastectomy, left breast. She is doing fairly well post op with good pain control. VSS. Mastectomy dressings c/d/i, CHARLES drains with sanguineous drainage. Will dc IV tylenol and order PO tylenol. Will reassess later today and if remains comfortable on PO analgesics alone, stable for dc to home today with VNA services for drain care. Will change dressings if being discharged today. Patient and family comfortable with plan. Encouraged OOB/ambultion. <Rylee Hemphill PA-C - Last Filed: 08/03/22 09:34> Time Spent With Patient Time: Total time managing care of this patient today ____ minutes. <Rylee Hemphill PA-C - Last Filed: 08/03/22 09:34> Quality Stroke Does the patient have a stroke diagnosis?: No <Rylee Hemphill PA-C - Last Filed: 08/03/22 09:34> VTE Prior VTE?: No <Rylee Hemphill PA-C - Last Filed: 08/03/22 09:34> VTE Risk Level:: Medical - moderate - high <Rylee Hemphill PA-C - Last Filed: 08/03/22 09:34> VTE Device Contraindication: N/A - Device Ordered <Rylee Hemphill PA-C - Last Filed: 08/03/22 09:34> VTE Drug Contraindication: N/A - Med Ordered <Rylee Hemphill PA-C - Last Filed: 08/03/22 09:34>
[2022-08-03] MEDS: Acetaminophen 325 MG TABLET 650 MG PO (10:58)
[2022-08-03 14:14] VITALS: BMI 36.3
--- NOTE | 2022-08-03 14:24 | PM.DS ---
DS: Providers Provider Date of Service: 08/03/22 <Rylee Todd PA-C - Last Filed: 08/03/22 14:48> Date of admission: 08/02/22 07:57 <Rylee Todd PA-C - Last Filed: 08/03/22 14:48> Date of discharge: 08/03/22 <Rylee Todd PA-C - Last Filed: 08/03/22 14:48> Primary care physician: Mahesh Rosenbaum MD <Rylee Todd PA-C - Last Filed: 08/03/22 14:48> Attending physician on admission: Talat Estrada <ADDI Batista Last Filed: 08/03/22 14:48> Attending physician on discharge: Talat Estrada <Rylee Todd PA-C - Last Filed: 08/03/22 14:48> DS: Diagnosis Discharge Diagnosis (1) Invasive ductal carcinoma of breast: Status: Chronic <ADDI Batista Last Filed: 08/03/22 14:48> (2) S/P bilateral mastectomy: Status: Acute <ADDI Batista Last Filed: 08/03/22 14:48> DS: Summary Hospital Course Hospital Course: HPI AT ADMISSION: The patient is a 61 year female who had undergone neoadjuvant chemotherapy for breast cancer, with no apparent response.? She? is scheduled to have mastectomy, sentinel node biopsy and prophylactic mastectomy on the contralateral left breast.? She had a biopsy of a enlarged lymph node on the right axilla which showed inflammatory cells without metastatic disease, ?hence we had decided on proceeding with sentinel biopsy.?She did not want to proceed with any immediate breast reconstruction. She presents today for the procedure. HOSPITAL COURSE: On 08/02/22, a right simple mastectomy with removal of multiple lymph nodes x3, nuclear scintigram of the right axilla and prophylactic simple mastectomy, left breast was performed by Dr. Estrada without complication. The patient tolerated the procedure well. She had an uncomplicated recovery course. She felt well on POD #1 with adequate pain control on PO analgesics. She was tolerating a solid diet. She was OOB without difficulty. Her dressings were dry and intact and CHARLES had moderate sanguineous output on the right and low output on the left. Her vitals were stable. She was reassessed later in the day and felt well. She felt ready for discharged to home. She was discharged to home on 08/03/22 in stable condition. She was discharged with VNA services for drain care. <Rylee Todd PA-C - Last Filed: 08/03/22 14:48> Status at Discharge Functional status at discharge: independent ambulation <Rylee Todd PA-C - Last Filed: 08/03/22 14:48> Overall status at discharge: patient is progressing back to baseline <Rylee Todd PA-C - Last Filed: 08/03/22 14:48> Time Spent with Patient Time attestation: Total time managing care of this patient today ____ minutes. <Rylee Tdod PA-C - Last Filed: 08/03/22 14:48> Discharge coordination time: Less than 30 minutes <Rylee Todd PA-C - Last Filed: 08/03/22 14:48> Quality: Safe Use of Opioids Does Pt have an Active Cancer Diagnosis on the Problem List?: Yes <Rylee Todd PA-C - Last Filed: 08/03/22 14:48> Opioid Measure Date for [facility] Report: 07/04/22 <Rylee Todd PA-C - Last Filed: 08/03/22 14:48> 07/04/22 <Talat Estrada MD - Last Filed: 08/03/22 15:38> Opioid Measure Time for [facility] Report: 14:47 <Rylee Todd PA-C - Last Filed: 08/03/22 14:48> 15:38 <Talat Estrada MD - Last Filed: 08/03/22 15:38> Quality: Stroke Does the patient have a stroke diagnosis?: No <Rylee Todd PA-C - Last Filed: 08/03/22 14:48> Physical Exam Vital Signs: Vital Signs: Last Vital Signs Temp 96.9 F 08/03/22 07:57 Pulse 90 08/03/22 07:57 Resp 18 08/03/22 07:57 BP 114/57 L 08/03/22 07:57 Pulse Ox 99 08/03/22 07:57 O2 Del Method 08/03/22 07:57 O2 Flow Rate 2.5 08/03/22 07:57 BMI result Body Mass Index 36.3 <Rylee Todd PA-C - Last Filed: 08/03/22 14:48> Const: General: comfortable, no acute distress and alert <Rylee Todd PA-C - Last Filed: 08/03/22 14:48> Orientation/consciousness: patient oriented x3 <Rylee Todd PA-C - Last Filed: 08/03/22 14:48> Chest: Other: dressings c/d/i; CHARLES drains with sanguineous drainage; sites tender <Rylee Todd PA-C - Last Filed: 08/03/22 14:48> Resp: Effort & Inspection: normal respiratory effort <Rylee Todd PA-C Last Filed: 08/03/22 14:48> Skin: General skin exam: no rashes or lesions noted <Rylee Todd PA-C - Last Filed: 08/03/22 14:48> Neuro: General: patient oriented x3 and moves all extremities <Rylee Todd PA-C - Last Filed: 08/03/22 14:48> DS: Data Data Completed and Pending Pending studies at discharge: Pending at discharge 08/02/22 12:26 Surgical [PTH] Routine <Rylee Todd PA-C - Last Filed: 08/03/22 14:48> Discharge Plan Discharge Anticipated Discharge Date/Time: 08/03/22 17:30 <Rylee Todd PA-C - Last Filed: 08/03/22 14:48> Patient Disposition: Home Health Service <Rylee Todd PA-C - Last Filed: 08/03/22 14:48> Discharge Diagnosis: right breast cancer <Rylee Todd PA-C - Last Filed: 08/03/22 14:48> right breast cancer <Talat Estrada MD - Last Filed: 08/03/22 15:38> Referrals: Talat Estrada MD [Physician] - 1 Week Name,MD Mahesh [Primary Care Provider] - 1 Week <Rylee Todd PA-C - Last Filed: 08/03/22 14:48> Discharge Medications: New oxycodone-acetaminophen [Percocet] 5-325 mg tablet 1 tab PO Q4-6H PRN (Reason: pain) Qty: 30 0RF Rx Instructions: Partial Fill upon patient request. ibuprofen 600 mg tablet 600 mg PO Q6H PRN (Reason: pain) Qty: 30 0RF oxycodone-acetaminophen [Percocet] 5-325 mg tablet 1 tab PO Q4-6H PRN (Reason: pain) Qty: 30 0RF Rx Instructions: Partial Fill upon patient request. ibuprofen 600 mg tablet 600 mg PO Q6H PRN (Reason: pain) Qty: 30 0RF Continued calcium carbonate-vitamin D3 600 mg-5 mcg (200 unit) tablet 1 tab PO DAILY triamcinolone acetonide 0.1 % cream 1 applic topical TID fluticasone propionate [Flovent HFA] 110 mcg/actuation HFA aerosol inhaler 1 inh inhalation BID mometasone 0.1 % cream 1 applic topical DAILY pregabalin 150 mg capsule 1 cap PO BID diclofenac sodium 1 % gel See Rx Instructions .ROUTE .COMPLEX Rx Instructions: 1 APPLICATION TOPICALLY TWICE DAILY multivitamin with folic acid [Tab-A-Richard] 400 mcg tablet 1 tab PO DAILY ondansetron 8 mg Tablet,Disintegrating 8 mg PO Q8H PRN (Reason: Nausea) Qty: 60 2RF Magic Mouthwash Diphen/Lido/Antacid 1:1:1 240 mL Suspension 10 ml PO TID Qty: 240 2RF Rx Instructions: Lidocaine Viscous 2 % 80mL; diphenhydramine 12.5 mg/5 mL 80mL; aluminum-mag hydrox-simeth [id number]/5mL 80mL albuterol sulfate 90 mcg/actuation HFA aerosol inhaler 2 puff PO Q4H PRN (Reason: Shortness Of Breath) baclofen 10 mg tablet 10 mg PO TID clonazepam 0.5 mg tablet 0.5 mg PO DAILY hydroxyzine pamoate 25 mg capsule 25 mg PO BID duloxetine 20 mg capsule,delayed release(DR/EC) 20 mg PO DAILY atorvastatin 20 mg tablet 20 mg PO DAILY <Rylee Todd PA-C - Last Filed: 08/03/22 14:48> Discharge Orders: Discharge Order (Routine); Ordered 08/03/22 Ordered By: Rylee Todd <Rylee Todd PA-C - Last Filed: 08/03/22 14:48> Diet: Advance to usual diet <Rylee Todd PA-C - Last Filed: 08/03/22 14:48> Advance to usual diet <Talat Estrada MD - Last Filed: 08/03/22 15:38> Activity on Discharge: No heavy lifting <Rylee Todd PA-C - Last Filed: 08/03/22 14:48> No heavy lifting <Talat Estrada MD - Last Filed: 08/03/22 15:38> Stand Alone Forms: Patient Portal Discharge page <Rylee Todd PA-C - Last Filed: 08/03/22 14:48> Activity Restrictions/Additional Instructions: woundcare - the visiting nurse will change your dressings every other day - dry gauze to both incisions If the incision area is tender, you may apply an ice pack for short intervals (No more than 20 minutes on, followed by at least 20 minutes off). Do not apply heat. Do not use creams, lotions, or topical antibiotics unless instructed to do so by your surgeon. These can cause infection or allergic reaction. Ok to shower starting 08/04 NO HEAVY LIFTING (>10lbs). CHARLES drain care- empty drain BID and as needed. Record output. Bring record to follow up appointment. Follow up in office. ([phone]) Call Your Doctor If: ? ? -Your temperature exceeds 101.5? F? ? ? -You experience excessive pain or swelling ? ? -You have an unexpected reaction to medication ? ? -You have excessive bleeding ? ? -You experience continued vomiting/nausea ? ? -Your incision begins to separate ?? ? -Your incision shows signs of infection such as increased redness, swelling, excessive pain, drainage (light blood or clear fluid is normal) or heat <Rylee Todd PA-C - Last Filed: 08/03/22 14:48> Care Plan Goals: continue treatment for breast cancer <Rylee Todd PA-C - Last Filed: 08/03/22 14:48> Health Concerns: breast cancer <Rylee Todd PA-C - Last Filed: 08/03/22 14:48> Plan of Treatment: pain meds wound care CHARLES drain care ffup next week in office <Rylee Todd PA-C - Last Filed: 08/03/22 14:48> Assessment: doing well postop <Rylee Todd PA-C - Last Filed: 08/03/22 14:48>
--- NOTE | 2022-08-03 14:47 | PM.EVENT ---
Event Note Date of Service: 08/03/22 Event Note: she continues to feel well shewants to go home she says she is comfortable dressings dry CHARLES drain scanty dw outpatient case manager - PARDEEP arranged explained isntructions to pt will see in office next week Time Spent With Patient Time: Total time managing care of this patient today ____ minutes.
--- NOTE | 2022-08-03 14:48 | W.MHC.F2F ---
Service Date Service Date: 08/03/22 Encounter Date of encounter: 08/03/22 Reasons for Services Signs and symptoms assessed: Incisional pain, PO intake, mastectomy site dressings, CHARLES drain output and appearance, vitals Reason for retirement: wound care and postoperative assessment and/or care Homebound: Leaving the home is medically contraindicated at this time without the assist of a device and/or another person due the the listed conditions above and below. Reason homebound: weakness related to hospital stay and unable to drive Homebound supporting statement: Ms. Zaidi is a 61 year old female who underwent right simple mastectomy with removal of multiple lymph nodes x3, nuclear scintagram of the right axilla and prophylactic simple mastectomy, left breast on 08/02/22. She will need VNA services for dressing changes and CHARLES drain care. Certification: Based on the above findings, I certify that this patient is confined to the home and needs intermittent retirement care, physical therapy and/or speech therapy, or continues to need occupational therapy. The patient is under my care, and I have initiated the establishment of the plan of care. The patient will be followed by a physician who will periodically review the plan of care. Time Spent With Patient Time: Total time managing care of this patient today ____ minutes.
[2022-08-03 15:24] VITALS: BP 172/92; PULSE 91; RESP 18; TEMP 36.6; O2SAT 95
--- NOTE | 2022-08-03 15:36 | HO.POSTANES ---
Post Anesthesia Evaluation Post Anesthesia Evaluation Vital Signs: 172/92, 91, 18, 97.8F, 97%RA Anesthesia: Nerve Block and General Mental Status: Awake Pain Control: Satisfactory Nausea/Vomiting: None Hydration: Adequate Anesthesia-Related Issues: No Anes. Related Issues
--- NOTE | 2022-08-03 16:06 | MHC.CM.PN ---
PT LIVES WITH HER S/O AND FAMILY SHE IS INDEPENDENT WITH CARE SHE HAS NO SERVICES AND A CPAP FOR DME PT HAS A HCP ON FILE PCP: [facility] IMM DELIVERED DCP: HOME WITH VNA FOR DRAINS AND DRESSING CHANGES COMFORT PLUS ACCEPTING REFERRAL FAMILY TO TRANSPORT
== END 2022-08-03 18:42 | disposition home health service (06) | DRG 581 ==
LOC: HO.SSSA 08:10 → HO.S3 15:03
PROVIDERS: Anesthesiology; Admitting Provider Surgery; PCP Internal Medicine Geriatric Medicine; Visit Provider Surgery
PROC: 07B50ZZ Excision of Right Axillary Lymphatic, Open Approach (ICD-10-PCS; CPT 19303; principal; 2022-08-02 10:00)
PROC: 07B50ZZ Excision of Right Axillary Lymphatic, Open Approach (ICD-10-PCS; 2022-08-02 10:00)
DX: C50.911 Malignant neoplasm of unspecified site of right female breast (principal); M79.7 Fibromyalgia; Z20.822 Contact with and (suspected) exposure to COVID-19; Z92.21 Personal history of antineoplastic chemotherapy; Z88.1 Allergy status to other antibiotic agents; Z88.8 Allergy status to other drugs, medicaments and biological substances; Z79.51 Long term (current) use of inhaled steroids; Z79.899 Other long term (current) drug therapy
CPT/HCPCS: 78195; 86850; 86900; 86901; 87635; 88305; 88307; 88342; 88360; A9520; J0131; J0690; J1100; J1170; J1643; J2250; J2370; J2405; J2795; J3010

== ENCOUNTER → 2022-08-09 08:24 | Outpatient (BNVA) | payer OTHER, SELFPAY | PROVIDERS: PCP Internal Medicine Geriatric Medicine; Visit Provider Surgery | DX: Z13.89 Encounter for screening for other disorder (principal) ==

== ENCOUNTER → 2022-08-16 10:08 | Outpatient (BNVA) | payer OTHER, SELFPAY | PROVIDERS: PCP Internal Medicine Geriatric Medicine; Referring Provider Internal Medicine Geriatric Medicine; Visit Provider Surgery | DX: Z13.89 Encounter for screening for other disorder (principal) ==

== ENCOUNTER → 2022-08-20 13:54 | Outpatient (BNVA) | payer OTHER, SELFPAY | PROVIDERS: PCP Internal Medicine Geriatric Medicine; Referring Provider Internal Medicine Geriatric Medicine; Visit Provider Surgery | DX: Z13.89 Encounter for screening for other disorder (principal) ==

== ENCOUNTER → 2022-08-23 12:46 | Outpatient (BNVA) | payer OTHER, SELFPAY | PROVIDERS: PCP Internal Medicine Geriatric Medicine; Visit Provider Surgery ==

== ENCOUNTER → 2022-08-29 09:11 | Outpatient (BNVA) | payer OTHER, SELFPAY | PROVIDERS: PCP Internal Medicine Geriatric Medicine; Visit Provider Surgery | DX: Z48.3 Aftercare following surgery for neoplasm (principal); Z90.13 Acquired absence of bilateral breasts and nipples | CPT/HCPCS: 99212 ==

== ENCOUNTER 2022-09-14 09:19 | Day surgery (SDC) | payer OTHER, SELFPAY ==
[2022-09-11 10:24] VITALS: BMI 36.5
--- NOTE | 2022-09-13 11:53 | HO.ANESPROP2 ---
Documented by User: Lorri Fernandez NP 09/13/22 12:02 HPI - Anesthesia Eval Consult details Narrative: 62yo F for Right Excision skin flap margins breast s/p mastectomy 07/2022 with GA-LMA 4 and pectoral block (no signif PONV noted) PMFSH Active Problems Active Problems: All Active Problems (Updated 08/10/22 @ 13:02 by Linda Calderon MD) S/P bilateral mastectomy (Acute) Invasive ductal carcinoma of breast (Chronic) Osteoarthritis of right shoulder (Acute) Past Medical History Medical History Asthma Breast mass, right Fibromyalgia HTN (hypertension) Invasive ductal carcinoma of breast Osteoarthritis of right shoulder PONV (postoperative nausea and vomiting) Family History Family History Father Stroke Mother Hypertension Asthma Maternal Grandmother Lung cancer Maternal Aunt Breast cancer Maternal Aunt Thyroid cancer Maternal Aunt Colon cancer Family history of problems with anesthesia: No Surgical History Surgical History History of foot surgery History of hysterectomy History of Problems with Anesthesia: No Social History Social History Household Members: Family Household Members Other:: Foster child Housing: House Housing Other:: mobile home Are you a primary animal care technician to a significant other at home: Yes (foster child) Do you presently have visiting nurse or other home services: Yes ([facility]) Alcohol intake: current Alcohol intake frequency: does not drink Patient Tobacco Use Status: Never used Tobacco Second Hand Smoke Exposure: No Use of substances other than those prescribed or required for medical reasons: No Are you DNR?: No Advance Directives: No Advance Directives Information Provided: Yes service: No Current occupational status: disabled Meds Allergies Allergy/AdvReac Type Severity Reaction Status Date / Time ceftriaxone Allergy Intermediate Rash Verified 08/23/22 13:10 metoprolol [METOPROLOL] Allergy Unknown RASH Verified 08/23/22 13:10 adhesive tape Allergy Rash Verified 08/23/22 13:10 Home Medications Medication Instructions Recorded Confirmed Last Taken Type albuterol sulfate 90 mcg/actuation 2 puff PO Q4H PRN Shortness Of 03/19/20 09/14/22 09/14/22 History aerosol inhaler Breath baclofen 10 mg tablet 10 mg PO TID 03/19/20 09/14/22 09/14/22 History clonazepam 0.5 mg tablet 0.5 mg PO DAILY 03/19/20 09/14/22 09/14/22 History duloxetine 20 mg capsule,delayed 20 mg PO DAILY 03/19/20 09/14/22 09/14/22 History release hydroxyzine pamoate 25 mg capsule 25 mg PO BID 03/19/20 09/14/22 09/14/22 History atorvastatin 20 mg tablet 20 mg PO DAILY 11/20/21 09/14/22 09/14/22 History calcium carbonate 600 mg-vitamin 1 tab PO DAILY 01/22/22 09/14/22 09/14/22 History D3 5 mcg (200 unit) tablet diclofenac sodium 1 % topical gel See Rx Instructions .Route .COMPLEX 01/22/22 09/14/22 09/14/22 History fluticasone propionate 110 1 inh inhalation BID 01/22/22 09/14/22 09/14/22 History mcg/actuation HFA aerosol inhaler (Flovent HFA) mometasone 0.1 % topical cream 1 applic topical DAILY 01/22/22 09/14/22 09/14/22 History multivitamin with folic acid 400 1 tab PO DAILY 01/22/22 09/14/22 09/14/22 History mcg tablet (Tab-A-Richard) pregabalin 150 mg capsule 1 cap PO BID 01/22/22 09/14/22 09/14/22 History triamcinolone acetonide 0.1 % 1 applic topical TID 01/22/22 09/14/22 09/14/22 History topical cream Exam Exam Date and Time: September 13, 2022 1153 Height,Weight and Vital Signs: Height 4 ft 11 in Weight 81.998 kg Pertinent Lab Results Pertinent Lab Results: Laboratory Tests 05/29/22 06/06/22 09:43 09:09 WBC 9.1 Hgb 11.4 L Hct 35.0 L Plt Count 184 D Sodium 140 Potassium 4.2 Chloride 108 Carbon Dioxide 26 BUN 13 Creatinine 0.71 Narrative Narrative: EKG 01/2022 Vent. Rate : 113 BPM ? ? Atrial Rate : 113 BPM ?? P-R Int : 128 ms? QRS Dur : 086 ms ? ? QT Int : 306 ms ? ? ? P-R-T Axes : 049 024 009 degrees ?? QTc Int : 419 ms ? Sinus tachycardia Nonspecific ST and T wave abnormality Abnormal ECG When compared with ECG of 09-NOV-2009 12:02, Vent. rate has increased BY? 38 BPM Nonspecific T wave abnormality, worse in Inferior leads Nonspecific T wave abnormality now evident in Lateral leads ECHO 01/2022 Conclusions: - The left ventricular systolic function is normal.? The ? calculated ejection fraction is 58% by biplane method. ? - No obvious valvular pathology seen on this study.? Assessment and Plan Assessment Anesthesia Assessment: Chart Reviewed Final Anesthetic Review Family History of Problems with Anesthesia: No History of Problems with Anesthesia: No Documented by User: Hillary Portillo MD 09/14/22 11:20 PMFSH Active Problems Active Problems: All Active Problems (Updated 09/14/22 @ 11:09 by Hillary Portillo MD) S/P bilateral mastectomy (Acute) Invasive ductal carcinoma of breast (Chronic) Osteoarthritis of right shoulder (Acute) LUISA. Uses CPAP machine Asthma. Inhaler prn. Last used last week Past Medical History Medical History Asthma Breast mass, right Fibromyalgia HTN (hypertension) Invasive ductal carcinoma of breast Osteoarthritis of right shoulder PONV (postoperative nausea and vomiting) Family History Family History Father Stroke Mother Hypertension Asthma Maternal Grandmother Lung cancer Maternal Aunt Breast cancer Maternal Aunt Thyroid cancer Maternal Aunt Colon cancer Surgical History Surgical History History of foot surgery History of hysterectomy Social History Social History Household Members: Family Household Members Other:: Foster child Housing: House Housing Other:: mobile home Are you a primary animal care technician to a significant other at home: Yes (foster child) Do you presently have visiting nurse or other home services: Yes ([facility]) Alcohol intake: current Alcohol intake frequency: does not drink Patient Tobacco Use Status: Never used Tobacco Second Hand Smoke Exposure: No Use of substances other than those prescribed or required for medical reasons: No Are you DNR?: No Advance Directives: No Advance Directives Information Provided: Yes service: No Current occupational status: disabled Meds Allergies Allergy/AdvReac Type Severity Reaction Status Date / Time ceftriaxone Allergy Intermediate Rash Verified 08/23/22 13:10 metoprolol [METOPROLOL] Allergy Unknown RASH Verified 08/23/22 13:10 adhesive tape Allergy Rash Verified 08/23/22 13:10 Home Medications Medication Instructions Recorded Confirmed Last Taken Type albuterol sulfate 90 mcg/actuation 2 puff PO Q4H PRN Shortness Of 03/19/20 09/14/22 09/14/22 History aerosol inhaler Breath baclofen 10 mg tablet 10 mg PO TID 03/19/20 09/14/22 09/14/22 History clonazepam 0.5 mg tablet 0.5 mg PO DAILY 03/19/20 09/14/22 09/14/22 History duloxetine 20 mg capsule,delayed 20 mg PO DAILY 03/19/20 09/14/22 09/14/22 History release hydroxyzine pamoate 25 mg capsule 25 mg PO BID 03/19/20 09/14/22 09/14/22 History atorvastatin 20 mg tablet 20 mg PO DAILY 11/20/21 09/14/22 09/14/22 History calcium carbonate 600 mg-vitamin 1 tab PO DAILY 01/22/22 09/14/22 09/14/22 History D3 5 mcg (200 unit) tablet diclofenac sodium 1 % topical gel See Rx Instructions .Route .COMPLEX 01/22/22 09/14/22 09/14/22 History fluticasone propionate 110 1 inh inhalation BID 01/22/22 09/14/22 09/14/22 History mcg/actuation HFA aerosol inhaler (Flovent HFA) mometasone 0.1 % topical cream 1 applic topical DAILY 01/22/22 09/14/22 09/14/22 History multivitamin with folic acid 400 1 tab PO DAILY 01/22/22 09/14/22 09/14/22 History mcg tablet (Tab-A-Richard) pregabalin 150 mg capsule 1 cap PO BID 01/22/22 09/14/22 09/14/22 History triamcinolone acetonide 0.1 % 1 applic topical TID 01/22/22 09/14/22 09/14/22 History topical cream Exam Height,Weight and Vital Signs: Height 4 ft 11 in Weight 81.998 kg Vital Signs Temp Pulse Resp BP Pulse Ox O2 Del Method 09/14/22 10:16 97.9 F 71 18 137/69 97 Room Air Airway Mallampati Class: III TM Dist: >3cm Neck ROM: Full Partial: Upper Loose/Missing/Broken Teeth: Yes (Some missing teeth bottom. Denies broken or loose teeth) Heart: RRR Lungs: CTAB Assessment and Plan Assessment Anesthesia Assessment: Anesthesia Plan Discussed Final Anesthetic Review NPO: Yes ASA Class: III Final Preanesthetic Review: No Changes in Pt Med Stat, Meds/Allgs Chart Reviewed, Consent Obtained/Reviewed and Anes Risks/Benef Reviewed Patient Risk: Intermediate Procedure Risk: Low Anesthetic Plan Anesthetic Plan: GA Disposition: Standard PACU
[2022-09-14] VITALS (7 sets, daily range): BP systolic 123–149; BP diastolic 69–105; PULSE 71–86; RESP 10–18; TEMP 36.6–37.4; O2SAT 94–100; BMI 36.3
[2022-09-14] MEDS: Lactated Ringers 1,000 ML 100 ML IVCONT (10:34)
--- NOTE | 2022-09-14 10:59 | MHC.SHP ---
Pre-Procedural Eval Section A Date of Service: 09/14/22 The patient is an INPATIENT: No Changes since office visit: No Cold of Flu in the past 2 weeks, No New Medical Problems, No Changes in Medication and No Patient answered all questions The History & Physical has been completed within 30 days and I have reviewed it.: Yes Section B Chief Complaint: Acquired absence of bilateral breasts and nipples Allergies: Allergies Allergy/AdvReac Type Severity Reaction Status Date / Time ceftriaxone Allergy Intermediate Rash Verified 08/23/22 13:10 metoprolol [METOPROLOL] Allergy Unknown RASH Verified 08/23/22 13:10 adhesive tape Allergy Rash Verified 08/23/22 13:10 Plan I have reviewed the history and physical and performed a pertinent physical examination on my patient. No changes have occurred unless specified. Time Spent With Patient Time: Total time managing care of this patient today ____ minutes.
--- NOTE | 2022-09-14 12:18 | W.PM.OPN ---
Operative Note Operative Note Date of Service: 09/14/22 Narrative: Preop diagnosis status post mastectomy for invasive ductal carcinoma with positive margins on the superior flap, right breast Postop diagnosis: The same Procedure: Excision of additional margins on the superior flap, mastectomy site of the right breast; full-thickness of the flap 10 cm by 2.5 cm removed surgeon: Talat Estrada MD assistant to the president: ANTONIO Ramirez student The patient is a 62-year-old female, who had undergone mastectomy and biopsies of lymph nodes on the right breast for invasive ductal cancer last July,. Her path report showed that the tumor was on the margins on the anterior superior aspect. This represented the margin just at the superior flap. I therefore scheduled her for excision of wider margins on the superior flap. She understood the technique of the planned procedure and was aware of the risks, benefits, and alternatives She was brought to the operating room. She was placed supine under general anesthesia via laryngeal mask airway. A surgical time-out was done. The patient received cefazolin preoperatively. I marked the approximate area of the tumor based on the mammogram finding showing this to be somewhere around the 11 30 to 12 o'clock position of the breast. I infiltrated the planned line of incision with lidocaine 1%. I made the incision using blade 15. This was carried down through the full-thickness of the skin subcutaneous fat until I reached the muscle fibers. Find a plane of dissection about the muscle fibers to excise this full-thickness of the flap. The excised area was about 10 cm x 2.5 cm. This was sent as a specimen. I cauterized oozing areas on the muscle layers. There was no palpable induration. There were no signs of residual tumor. I reapposed the subcutaneous layer with Dexon 3-0 interrupted sutures. Skin closure was achieved with full-thickness nylon 3-0 interrupted sutures. I infiltrated the area with Marcaine 0.5% for postop all MARIAH. Dressings were applied. The procedure was then completed . The patient tolerated procedure well. There were no immediate complications. Initial and final counts of sponges and instruments were correct. Estimated blood loss was about 25 cc The patient was extubated without difficulty and transferred to the recovery room with stable vital signs.
== END 2022-09-14 13:35 | disposition home or self-care (01) ==
PROVIDERS: PCP Internal Medicine Geriatric Medicine; Visit Provider Surgery
PROC: (CPT 11606; principal; 2022-09-14 11:30)
DX: L76.82 Other postprocedural complications of skin and subcutaneous tissue (principal); Z90.13 Acquired absence of bilateral breasts and nipples; C50.911 Malignant neoplasm of unspecified site of right female breast; Z17.1 Estrogen receptor negative status [ER-]; L90.5 Scar conditions and fibrosis of skin; L92.3 Foreign body granuloma of the skin and subcutaneous tissue; I10 Essential (primary) hypertension; J45.909 Unspecified asthma, uncomplicated; M79.7 Fibromyalgia; Z79.51 Long term (current) use of inhaled steroids; Z79.1 Long term (current) use of non-steroidal anti-inflammatories (NSAID); Z79.899 Other long term (current) drug therapy; L23.1 Allergic contact dermatitis due to adhesives; Z88.8 Allergy status to other drugs, medicaments and biological substances
CPT/HCPCS: 11606; 12034; 88305; 88307; J0690; J1100; J2250; J2405; J2795; J3010

== ENCOUNTER → 2022-09-27 13:46 | Outpatient (BNVA) | payer OTHER, SELFPAY | PROVIDERS: PCP Internal Medicine Geriatric Medicine; Visit Provider Surgery ==

== ENCOUNTER → 2022-10-24 09:11 | Outpatient (BNVA) | payer OTHER, SELFPAY | PROVIDERS: PCP Internal Medicine Geriatric Medicine; Visit Provider Surgery | DX: C50.911 Malignant neoplasm of unspecified site of right female breast (principal); Z90.13 Acquired absence of bilateral breasts and nipples | CPT/HCPCS: 99212 ==

== ENCOUNTER 2023-04-29 09:03 | Outpatient (AMB) | payer OTHER, SELFPAY ==
--- NOTE | 2023-04-29 09:20 | A.OFFVIS_ITS ---
Intake Vital Signs 04/29/23 09:31 Height 4 ft 11 in Weight 187 lb 4 oz BMI 37.8 BP 134/82 Blood Pressure Location Lt brachial Position Sitting Intake Visit Reasons: 6 month follow-up breast exam Intake Note: Patient is seen in office for 6 month follow up visit, breast exam. Patient c/o: right breast pain when applying pressure/touch for the past month, denies discharge, redness, swelling or other concerns, all done with radiation and was given meds by Dr Calderon and side effects are hands and foot pain and foot ulcer/burning/dryness Railroad Emergency Services Manager Required: Yes Railroad Emergency Services Manager Language: Forensic Specialist Name: Zee Signals Collection Technician: Signals Collection Technician Present Accompanied by: Self / Same As Patient Allergies ceftriaxone Allergy (Intermediate, Verified 04/29/23 09:27) Rash metoprolol [METOPROLOL] Allergy (Unknown, Verified 04/29/23 09:27) RASH adhesive tape Allergy (Verified 04/29/23 09:27) Rash Medication List - Last Reconciled 04/29/23 by Talat Estrada MD albuterol sulfate 90 mcg/actuation 2 puffs PO Q4H PRN atorvastatin 20 mg PO DAILY baclofen 10 mg PO TID calcium carb-mag hydrox-simeth 1,200 mg-270 mg -80 mg/10 mL (Mylanta Coat-Cool) 15 mL PO BID calcium carbonate-vitamin D3 600 mg-5 mcg (200 unit) 1 tab PO DAILY capecitabine (Xeloda) 2,000 mg (4 x 500 mg) PO BID clonazepam 0.5 mg PO DAILY diclofenac sodium 1% 1 APPLICATION TOPICALLY TWICE DAILY duloxetine 30 mg PO DAILY ferrous sulfate 325 mg PO DAILY fluticasone propionate 110 mcg/actuation (Flovent HFA) 1 inh inhalation BID hydrocortisone 2.5% 1 appl topical TID hydroxyzine pamoate 25 mg PO BID ibuprofen 600 mg PO Q6H PRN levofloxacin 500 mg PO Q24H lisinopril 5 mg PO DAILY Magic Mouthwash Diphen/Lido/Antacid 1:1:1 10 mL PO TID mometasone 0.1% 1 applic topical DAILY multivitamin with folic acid 400 mcg (Tab-A-Richard) 1 tab PO DAILY omeprazole 40 mg PO DAILY ondansetron 8 mg PO Q8H PRN oxycodone-acetaminophen 5-325 mg (Percocet) 1 tab PO Q4-6H PRN pregabalin 1 cap PO BID triamcinolone acetonide 0.1% 1 applic topical TID triamcinolone acetonide 0.1% 1 appl topical BID HPI 6 month follow-up breast exam HPI Details She had undergone total mastectomy, sentinel biopsy right breast, prophylactic mastectomy left breast last July, with excision of wider margins last September 14, 2022 on the skin flap superiorly on her right breast after mastectomy for invasive ductal cancer.? She says that she has completed radiation treatment to the axilla as well as immunotherapy and chemotherapy with Dr. Calderon. 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 She says that her hair has grown back although she still notices hair loss at this time. ON LICENSE OF [facility] Medical History Asthma PONV (postoperative nausea and vomiting) Fibromyalgia HTN (hypertension) Invasive ductal carcinoma of breast Breast mass, right Osteoarthritis of right shoulder Surgical History Hx of bilateral mastectomy (08/02/22) History of foot surgery History of hysterectomy Family History Father Stroke Mother Hypertension Asthma Maternal Grandmother Lung cancer Maternal Aunt Breast cancer Maternal Aunt Thyroid cancer Maternal Aunt Colon cancer Social History Household Members: Family Household Members Other:: Foster child Housing: House Housing Other:: mobile home Are you a primary dog day care attendant to a significant other at home: Yes (foster child) Do you presently have visiting nurse or other home services: Yes ([facility]) Alcohol intake: current Alcohol intake frequency: does not drink Patient Tobacco Use Status: Never used Tobacco Second Hand Smoke Exposure: No service: No Current occupational status: disabled Review of Systems Const Denies chills and Denies fever(s) Card Denies chest pain GI Denies abdominal pain and Denies change in bowel habits Denies difficulty voiding Musc Reports tingling ( Right arm, all fingertips) Neuro Reports tingling ( Right arm, all fingertips) Physical Exam Vital Signs: Last Vital Signs BP 134/82 04/29/23 09:31 BMI result Body Mass Index 37.8 Const Other: obese General: comfortable and no acute distress Chest Other: skin changes from radiation on the right chest wall axilla, no palpable masses, no axillary lymphadenopathy open wounds or lesions Resp Effort & Inspection: normal respiratory effort Cardio Rate: regular rate GI Palpation (GI): Soft to palpation, not firm and nontender Assessment & Plan Assessment & Plan (1) Invasive ductal carcinoma of breast: Code(s): C50.919 - Malignant neoplasm of unspecified site of unspecified female breast Plan: She had undergone mastectomy, right breast with sentinel biopsy along with prophylactic mastectomy of left breast last July,. She had y T2 N1 stage IIB invasive ductal cancer. She has significant changes from radiation on the right chest She states that she has finished chemotherapy and immunotherapy with Dr. Calderon. I do not see any palpable breast masses at this time. She seems to be doing well overall. She is supposed to see Dr. Calderon tomorrow. I had advised her to continue close follow-up with Oncology. I will see her again in the office in about 6 months. Coding Level of Care Code Est Pt Level 3 (35231) Diagnoses Invasive ductal carcinoma of breast C50.919
[2023-04-29 09:31] VITALS: BP 134/82; BMI 37.8
== END 2023-04-29 10:09 | disposition home or self-care (01) ==
PROVIDERS: Visit Provider Surgery
DX: C50.919 Malignant neoplasm of unspecified site of unspecified female breast (principal)
CPT/HCPCS: 99213

== ENCOUNTER → 2023-04-29 09:03 | Outpatient (BNVA) | payer OTHER, SELFPAY | PROVIDERS: Visit Provider Surgery | DX: C50.919 Malignant neoplasm of unspecified site of unspecified female breast (principal); Z90.13 Acquired absence of bilateral breasts and nipples; Z92.21 Personal history of antineoplastic chemotherapy | CPT/HCPCS: 99212 ==

== ENCOUNTER 2023-05-16 09:56 | Outpatient (AMB) | payer OTHER, SELFPAY ==
--- NOTE | 2023-05-16 10:04 | A.OFFVIS_ITS ---
Intake Vital Signs 05/16/23 10:11 Height 4 ft 11 in Weight 187 lb BMI 37.8 Intake Visit Reasons: Licensed Guide- Trigger finger of right hand Intake Note: Magaly a 62 year old female presents today as a new patient for an evaluation of right hand middle finger. Patient reports her finger is locking and catching for a while. She has tried injections in the past which provides little relief however locking and catching returns. She would like to discuss tx vs surgical intervention. Roustabout Crew Pusher Name: Ori ID#[id number] Allergies ceftriaxone Allergy (Intermediate, Verified 05/16/23 10:12) Rash metoprolol [METOPROLOL] Allergy (Unknown, Verified 05/16/23 10:12) RASH adhesive tape Allergy (Verified 05/16/23 10:12) Rash HPI Licensed Guide- Trigger finger of right hand HPI Details 62-year-[facility]. She states she has locking as well as catching in her middle finger. She had an injection about 2 years ago which provided her mild relief but the symptoms returned. She would like to discuss treatment vs surgical intervention. FOR[facility]LY [facility], [facility] Medical History Asthma PONV (postoperative nausea and vomiting) Fibromyalgia HTN (hypertension) Invasive ductal carcinoma of breast Breast mass, right Osteoarthritis of right shoulder Surgical History Hx of bilateral mastectomy (08/02/22) History of foot surgery History of hysterectomy Family History Father Stroke Mother Hypertension Asthma Maternal Grandmother Lung cancer Maternal Aunt Breast cancer Maternal Aunt Thyroid cancer Maternal Aunt Colon cancer Social History (Updated 05/16/23 @ 10:09 by JOIE Burgess) Household Members: Family Household Members Other:: Foster child Housing: House Housing Other:: mobile home Are you a primary care connector to a significant other at home: Yes (foster child) Do you presently have visiting nurse or other home services: Yes ([facility]) Alcohol intake: current Alcohol intake frequency: does not drink Comment: does not use cane that much Patient Tobacco Use Status: Never used Tobacco Second Hand Smoke Exposure: No service: No Current occupational status: disabled Current occupation: right hand dominant Review of Systems Const All systems reviewed & are unremarkable except as noted in HPI and below Physical Exam Vital Signs: BMI result Body Mass Index 37.8 Const General: cooperative, healthy appearing, comfortable, no acute distress, well developed and alert Orientation/consciousness: patient oriented x3 HEENT Head: Yes normal to inspection, Yes normocephalic and Yes atraumatic Eyes General: appearance normal, both eyes and all related structures Neck Neck: Yes normal visual inspection and Yes no lymphadenopathy Resp Effort & Inspection: normal respiratory effort and able to speak in complete sentences Cardio Rate: regular rate Peripheral pulses: Peripheral pulses 2+ throughout GI Inspection: Yes normal to inspection Palpation (GI): Soft to palpation Skin General skin exam: no rashes or lesions noted Lesions: no lesions Rashes: no rashes Neuro General: patient oriented x3 Extrem Other: Right middle finger: Tender nodule along the A1 harmony with active catching and locking. NVI. Psych Appearance: grossly normal Mental Status: mental status grossly normal Assessment & Plan Assessment & Plan (1) Trigger finger, right middle finger: Code(s): M65.331 - Trigger finger, right middle finger Plan We discussed options which include conservative vs operative treatment. Since the patient has been symptomatic for several months and it is impacting their daily life, the decision was made to undergo Trigger release. We discussed risk, benefits and alternatives. Risk including but not limited to infection, stiffness, ongoing trigger or catching. She does understand all this and would like to proceed with right middle finger trigger release with Dr. Bailey. She will be booked accordingly. Patient Instructions: Scribed for Nereida Berger PA-C, by Héctor Tao medical billing and coding specialist, on 05/16/2023 at 10:00 AM EST. I, Nereida Berger PA-C, have personally reviewed and agree with the information entered by the scribe. Coding Level of Care Code New Pt Level 4 (39887) Diagnoses Trigger finger, right middle finger M65.331
[2023-05-16 10:11] VITALS: BMI 37.8
== END 2023-05-16 10:37 | disposition home or self-care (01) ==
PROVIDERS: PCP Internal Medicine Geriatric Medicine; Visit Provider Physician Assistant
DX: M65.331 Trigger finger, right middle finger (principal)
CPT/HCPCS: 99204

== ENCOUNTER → 2023-05-16 09:56 | Outpatient (BNVA) | payer OTHER, SELFPAY | PROVIDERS: PCP Internal Medicine Geriatric Medicine; Visit Provider Physician Assistant | DX: M65.331 Trigger finger, right middle finger (principal); M79.7 Fibromyalgia | CPT/HCPCS: 99202 ==

== ENCOUNTER 2023-06-24 11:07 | Outpatient (AMB) | payer OTHER, SELFPAY ==
--- NOTE | 2023-06-24 11:11 | A.OFFVIS_ITS ---
Intake Vital Signs 06/24/23 11:18 Height 4 ft 11 in Weight 183 lb 6.793 oz BMI 37.0 BP 110/80 Blood Pressure Location Lt brachial Position Sitting Intake Visit Reasons: pain surgical site , Hx mastectomy right breast Intake Note: This patient presents for an assessment for pain surgical site, history right breast mastectomy(09/14/22). Patient c/o; pain at the incision site for the past 2 wks, pain at all times, pulsating, denies redness, discharge or swelling Payroll And Benefits Specialist Required: Yes Payroll And Benefits Specialist Language: Decorating Inspector Name: Lesa SALTER Information Interpreted: non-clinical & clinical Accompanied by: Family/Other Allergies ceftriaxone Allergy (Intermediate, Verified 06/24/23 11:19) Rash metoprolol [METOPROLOL] Allergy (Unknown, Verified 06/24/23 11:19) RASH adhesive tape Allergy (Verified 06/24/23 11:19) Rash Medication List - Last Reconciled 06/24/23 by Talat Estrada MD albuterol sulfate 90 mcg/actuation 2 puffs PO Q4H PRN atorvastatin 20 mg PO DAILY baclofen 10 mg PO TID calcium carb-mag hydrox-simeth 1,200 mg-270 mg -80 mg/10 mL (Mylanta Coat-Cool) 15 mL PO BID calcium carbonate-vitamin D3 600 mg-5 mcg (200 unit) 1 tab PO DAILY clonazepam 0.5 mg PO DAILY diclofenac sodium 1% 1 APPLICATION TOPICALLY TWICE DAILY duloxetine 30 mg PO DAILY ferrous sulfate 325 mg PO DAILY fluticasone propionate 110 mcg/actuation (Flovent HFA) 1 inh inhalation BID hydrocortisone 2.5% 1 appl topical TID hydroxyzine pamoate 25 mg PO BID ibuprofen 600 mg PO Q6H PRN lisinopril 5 mg PO DAILY Magic Mouthwash Diphen/Lido/Antacid 1:1:1 10 mL PO TID mometasone 0.1% 1 applic topical DAILY multivitamin with folic acid 400 mcg (Tab-A-Richard) 1 tab PO DAILY omeprazole 40 mg PO DAILY pregabalin 1 cap PO BID triamcinolone acetonide 0.1% 1 applic topical TID triamcinolone acetonide 0.1% 1 appl topical BID HPI pain surgical site , Hx mastectomy right breast HPI Details She had mastectomy on the right breast for invasive ductal cancer and a prophylactic mastectomy on the left side last July,. She also had s entinel node biopsy on the right She continues to have this sharp stabbing pain on the mastectomy site on the right side. She had radiation as well on this side. She denies any problem with the left mastectomy site. She denies an obvious palpable mass. [facility] Medical History (Updated 06/24/23 @ 11:22 by Talat Estrada MD) Post-mastectomy pain Asthma PONV (postoperative nausea and vomiting) Fibromyalgia HTN (hypertension) Invasive ductal carcinoma of breast Breast mass, right Osteoarthritis of right shoulder Surgical History Hx of bilateral mastectomy (08/02/22) History of foot surgery History of hysterectomy Family History Father Stroke Mother Hypertension Asthma Maternal Grandmother Lung cancer Maternal Aunt Breast cancer Maternal Aunt Thyroid cancer Maternal Aunt Colon cancer Social History Household Members: Family Household Members Other:: Foster child Housing: House Housing Other:: mobile home Are you a primary palliative care nurse practitioner to a significant other at home: Yes (foster child) Do you presently have visiting nurse or other home services: Yes ([facility]) Alcohol intake: current Alcohol intake frequency: does not drink Comment: does not use cane that much Patient Tobacco Use Status: Never used Tobacco Second Hand Smoke Exposure: No service: No Current occupational status: disabled Current occupation: right hand dominant Review of Systems Const Denies chills and Denies fever(s) Card Denies chest pain, Denies dyspnea and Denies dyspnea on exertion Resp Denies cough, Denies dyspnea and Denies dyspnea on exertion GI Denies hematochezia and Denies change in bowel habits Denies hematuria Musc Denies back pain and Denies limited range of motion Neuro Denies focal weakness and Denies convulsions Psych Denies depression and Denies mood swings Physical Exam Vital Signs: Last Vital Signs BP 110/80 06/24/23 11:18 BMI result Body Mass Index 37.0 Const General: comfortable and no acute distress Chest Other: Mastectomy on both left and right; adjacent changes on the skin on the right mastectomy site. No palpable axillary lymphadenopathy. No palpable mass on the mastectomy site on the right although with some tenderness Resp Effort & Inspection: normal respiratory effort Cardio Rate: regular rate GI Palpation (GI): Soft to palpation and not firm Assessment & Plan Assessment & Plan (1) Post-mastectomy pain: Code(s): G89.18 - Other acute postprocedural pain Plan: She complains of sharp and stinging pain on the mastectomy site on the right. I do not feel any palpable mass on the area. I do not feel any axillary lymphadenopathy either I am going to order for an ultrasound of the soft tissue surrounding this area to rule out any mass. It is likely however that this pain is part of her postmastectomy pain syndrome. I will see her again in the office after her ultrasound to review the findings. Orders: Orders US extremity nonvascular 06/24/23 G89.18 - Other acute postprocedural pain Coding Level of Care Code Est Pt Level 3 (76782) Diagnoses Post-mastectomy pain G89.18
[2023-06-24 11:18] VITALS: BP 110/80; BMI 37.0
== END 2023-06-24 11:44 | disposition home or self-care (01) ==
PROVIDERS: PCP Internal Medicine Geriatric Medicine; Visit Provider Surgery
DX: G89.18 Other acute postprocedural pain (principal)
CPT/HCPCS: 99213

== ENCOUNTER → 2023-06-24 11:07 | Outpatient (BNVA) | payer OTHER, SELFPAY | PROVIDERS: PCP Internal Medicine Geriatric Medicine; Visit Provider Surgery | DX: G89.18 Other acute postprocedural pain (principal) | CPT/HCPCS: 99212 ==

== ENCOUNTER 2023-07-04 12:22 | Outpatient (REF) | payer OTHER, SELFPAY ==
--- NOTE | ~2023-07-04 | US_ITS ---
EXAMINATION: US CHEST CLINICAL INFORMATION: Right chest pain over the mastectomy site COMPARISON: None available. TECHNIQUE: Real-time ultrasound examination of the right chest FINDINGS: Targeted ultrasound examination of the right chest over the site of pain corresponding to the prostatectomy site shows echogenic fibrotic scar tissue, intact underlying echogenic breast tissue and chest muscle, right rib echogenic cortex. No discrete focal mass lesion or abnormal fluid collection could be found. US/US chest IMPRESSION: No discrete focal mass lesion or abnormal fluid collection could be found in the right chest over the site of pain.
== END 2023-07-04 12:23 | disposition home or self-care (01) ==
LOC: HO.US 12:22
PROVIDERS: PCP Internal Medicine Geriatric Medicine; Visit Provider Surgery
DX: G89.18 Other acute postprocedural pain (principal); Z90.13 Acquired absence of bilateral breasts and nipples
CPT/HCPCS: 76604

== ENCOUNTER 2023-07-11 12:29 | Outpatient (AMB) | payer OTHER, SELFPAY ==
--- NOTE | 2023-07-11 12:48 | MHC.OFFVIS ---
Intake Vital Signs 07/11/23 12:55 Height 4 ft 11 in Weight 179 lb 7.3 oz BMI 36.2 BP 117/61 Blood Pressure Location Lt brachial Position Sitting Pulse 89 Intake Visit Reasons: Pain on mastectomy site, US results Intake Note: This patient presents for a follow-up for Ultrasound results, pain mastectomy site. Patient c/o; reports no changes. Dope Maintenance Worker Required: Yes Dope Maintenance Worker Name: Pt declined management expert Accompanied by: Spouse Allergies ceftriaxone Allergy (Intermediate, Verified 07/11/23 12:57) Rash metoprolol [METOPROLOL] Allergy (Unknown, Verified 07/11/23 12:57) RASH adhesive tape Allergy (Verified 07/11/23 12:57) Rash Medication List - Last Reconciled 07/11/23 by Talat Estrada MD albuterol sulfate 90 mcg/actuation 2 puffs PO Q4H PRN atorvastatin 20 mg PO DAILY baclofen 10 mg PO TID calcium carb-mag hydrox-simeth 1,200 mg-270 mg -80 mg/10 mL (Mylanta Coat-Cool) 15 mL PO BID calcium carbonate-vitamin D3 600 mg-5 mcg (200 unit) 1 tab PO DAILY clonazepam 0.5 mg PO DAILY diclofenac sodium 1% 1 APPLICATION TOPICALLY TWICE DAILY duloxetine 30 mg PO DAILY ferrous sulfate 325 mg PO DAILY fluticasone propionate 110 mcg/actuation (Flovent HFA) 1 inh inhalation BID hydrocortisone 2.5% 1 appl topical TID hydroxyzine pamoate 25 mg PO BID ibuprofen 600 mg PO Q6H PRN lisinopril 5 mg PO DAILY Magic Mouthwash Diphen/Lido/Antacid 1:1:1 10 mL PO TID mometasone 0.1% 1 applic topical DAILY multivitamin with folic acid 400 mcg (Tab-A-Richard) 1 tab PO DAILY omeprazole 40 mg PO DAILY pregabalin 1 cap PO BID triamcinolone acetonide 0.1% 1 applic topical TID triamcinolone acetonide 0.1% 1 appl topical BID HPI Pain on mastectomy site, US results HPI Details I had sent her for an ultrasound of the mastectomy site on the right side of the chest was of her chronic pain on the area. She is here to discuss the findings. She had mastectomy on the right breast for invasive ductal cancer and a prophylactic mastectomy on the left side last July,. She also had sentinel node biopsy on the right PFSH Medical History Post-mastectomy pain Asthma PONV (postoperative nausea and vomiting) Fibromyalgia HTN (hypertension) Invasive ductal carcinoma of breast Breast mass, right Osteoarthritis of right shoulder Surgical History Hx of bilateral mastectomy (08/02/22) History of foot surgery History of hysterectomy Family History Father Stroke Mother Hypertension Asthma Maternal Grandmother Lung cancer Maternal Aunt Breast cancer Maternal Aunt Thyroid cancer Maternal Aunt Colon cancer Social History Household Members: Family Household Members Other:: Foster child Housing: House Housing Other:: mobile home Are you a primary career technical supervisor to a significant other at home: Yes (foster child) Do you presently have visiting nurse or other home services: Yes ([facility]) Alcohol intake: current Alcohol intake frequency: does not drink Comment: does not use cane that much Patient Tobacco Use Status: Never used Tobacco Second Hand Smoke Exposure: No service: No Current occupational status: disabled Current occupation: right hand dominant Review of Systems Const Denies chills and Denies fever(s) Card Denies chest pain, Denies dyspnea and Denies dyspnea on exertion Resp Denies cough, Denies dyspnea and Denies dyspnea on exertion GI Denies hematochezia and Denies change in bowel habits Denies hematuria Musc Denies back pain and Denies limited range of motion Neuro Denies focal weakness and Denies convulsions Psych Denies depression and Denies mood swings Physical Exam Vital Signs: Last Vital Signs Pulse 89 07/11/23 12:55 BP 117/61 07/11/23 12:55 BMI result Body Mass Index 36.2 Const General: comfortable and no acute distress Chest Other: Bilateral mastectomy sites both well healed, no palpable masses, no axillary lymph nodes Resp Effort & Inspection: normal respiratory effort Cardio Rate: regular rate Assessment & Plan Assessment & Plan (1) Post-mastectomy pain: Code(s): G89.18 - Other acute postprocedural pain Plan: I would sent her for an ultrasound and this does not show any mass on the mastectomy site on the right were she complains of chronic pain. Her pain is therefore likely secondary to postop changes. She does not have any palpable masses either. I will see her again in the office follow-up in about 6 months. She also continues to see Dr. Calderon of Oncology. Coding Level of Care Code Est Pt Level 3 (82509) Diagnoses Post-mastectomy pain G89.18
[2023-07-11 12:55] VITALS: BP 117/61; PULSE 89; BMI 36.2
== END 2023-07-11 13:13 | disposition home or self-care (01) ==
PROVIDERS: PCP Internal Medicine Geriatric Medicine; Visit Provider Surgery
DX: G89.18 Other acute postprocedural pain (principal)
CPT/HCPCS: 99213

== ENCOUNTER → 2023-07-11 12:29 | Outpatient (BNVA) | payer OTHER, SELFPAY | PROVIDERS: PCP Internal Medicine Geriatric Medicine; Visit Provider Surgery | DX: G89.18 Other acute postprocedural pain (principal) | CPT/HCPCS: 99212 ==

== ENCOUNTER 2023-08-01 10:19 | Outpatient (REF) | payer OTHER, SELFPAY ==
[2023-08-01 13:37] LABS: Anion Gap 11 (12-20); Blood Urea Nitrogen 12 mg/dL (9-16); Calcium 9.9 mg/dL (8.4-10.2); Carbon Dioxide 26 mmol/L (22-29); Chloride 106 mmol/L (96-108); Estimated Glomerular Filt Rate > 60; Glucose Random 97 mg/dL (60-115); Potassium 3.9 mmol/L (3.3-5.1); Sodium 139 mmol/L (135-145)
== END 2023-08-01 10:20 | disposition home or self-care (01) ==
LOC: HO.HHCL 10:19
PROVIDERS: Visit Provider Internal Medicine Geriatric Medicine
DX: I10 Essential (primary) hypertension (principal)
CPT/HCPCS: 36415; 80048

== ENCOUNTER 2023-08-19 10:56 | Day surgery (SDC) | payer OTHER, SELFPAY ==
[2023-08-19 12:09] VITALS: BP 125/75; PULSE 87; RESP 20; TEMP 36.4; O2SAT 96; BMI 38.5
--- NOTE | 2023-08-19 12:43 | MHC.SHP ---
Pre-Procedural Eval Section A - 24 Hr Update-Section A only Date of Service: 08/19/23 The patient is an INPATIENT: No Changes since office visit: No Cold of Flu in the past 2 weeks, No New Medical Problems, No Changes in Medication and No Patient answered all questions The patient has been examined within 24 hours of the surgical procedure. The History & Physical has been completed within 30 days and I have reviewed it.: Yes Section B - Complete if H&P > 30 days Chief Complaint: Trigger finger, right middle finger Allergies: Allergies Allergy/AdvReac Type Severity Reaction Status Date / Time ceftriaxone Allergy Intermediate Rash Verified 07/11/23 12:57 metoprolol [METOPROLOL] Allergy Unknown RASH Verified 07/11/23 12:57 adhesive tape Allergy Rash Verified 07/11/23 12:57 Plan I have reviewed the history and physical and performed a pertinent physical examination on my patient. No changes have occurred unless specified. Time Spent With Patient Time: Total time managing care of this patient today ____ minutes.
--- NOTE | 2023-08-19 12:43 | W.PM.OPN ---
Operative Note Operative Note Date of Service: 08/19/23 Narrative: Operative Note Preop diagnosis: 1. Right middle finger Trigger finger Postop diagnosis: 1. Right middle finger Trigger finger Procedure: 1. Right middle finger A1 harmony release Surgeon: Danii Bailey MD Anesthesia: local block using 1% lidocaine with epinephrine Findings: No locking or catching after A1 harmony release EBL: Less than 5 mL Tourniquet time: None Specimens: None Complications: None Disposition: Brought to recovery room in stable condition Plan: Follow-up for 10-14 days for wound check and suture removal Indications: The patient is a 63 years old, with a right middle finger trigger finger that has been unresponsive to nonoperative management. The risks and benefits of operative treatment including but not limited to risk of damage to blood vessels, nerves, tendons, infection, persistent pain, persistent symptoms, recurrence or possible need for additional surgery were discussed with the patient and the patient wishes to proceed with surgery. Procedure: Once consent was obtained a local block was performed in the preop area using a combination of 1% lidocaine with epinephrine. The patient was then brought back to the operating suite and placed on the operative table in supine position. The right upper extremity was prepped and draped in a standard surgical fashion. Once assured that we had a good block, a 1.5 cm oblique incision was made centered over the A1 harmony of the right middle finger . The incision was made through the skin to the subcutaneous tissues using a #15 blade. Careful dissection was made down to the level of the A1 harmony using tenotomy scissors, with care being taken to protect the nearby neurovascular structures. A longitudinal incision was made in the A1 harmony 1st using a #15 blade, then using tenotomy scissors under direct visualization. The A1 harmony was noted to be thickened. Following our A1 harmony release, we no longer saw any locking or catching of the digit with flexion and extension. Once satisfied with our A1 harmony release the wound was copiously irrigated with normal saline and hemostasis was obtained with a brief period of local pressure. The skin edges were reapproximated with some 5.0 nylon suture material and a sterile dressing was applied. The patient appears to have tolerated the procedure well and with no complications. All digits were well vascularized at the conclusion of the case.
[2023-08-19 14:21] VITALS: BP 109/69; PULSE 74; RESP 16; O2SAT 96
== END 2023-08-19 14:22 | disposition home or self-care (01) ==
PROVIDERS: PCP Internal Medicine Geriatric Medicine; Visit Provider Orthopaedic Surgery
PROC: (CPT 26055; principal; 2023-08-19 13:30)
DX: M65.331 Trigger finger, right middle finger (principal); Z88.8 Allergy status to other drugs, medicaments and biological substances; L23.1 Allergic contact dermatitis due to adhesives; J45.909 Unspecified asthma, uncomplicated; I10 Essential (primary) hypertension; M79.7 Fibromyalgia; M19.011 Primary osteoarthritis, right shoulder; Z79.51 Long term (current) use of inhaled steroids; Z79.899 Other long term (current) drug therapy; Z85.3 Personal history of malignant neoplasm of breast
CPT/HCPCS: 26055; J0171

== ENCOUNTER → 2023-08-19 10:56 | Outpatient (BNV) | payer OTHER, SELFPAY | PROVIDERS: PCP Internal Medicine Geriatric Medicine; Visit Provider Orthopaedic Surgery | DX: M65.331 Trigger finger, right middle finger (principal) | CPT/HCPCS: 26055 ==

== ENCOUNTER 2023-09-03 09:11 | Outpatient (AMB) | payer OTHER, SELFPAY ==
--- NOTE | 2023-09-03 09:13 | MHC.OFFVIS ---
Intake Vital Signs 09/03/23 09:14 Height 4 ft 11 in Weight 180 lb BMI 36.4 Intake Visit Reasons: PO-Rt MF Trigger Release 08/18 Intake Note: Magaly 63 yr old female presents today for his P/O visit for his Rt MF Trigger Release 08/19/23. States triggering has resolved. States she has no pain. Allergies ceftriaxone Allergy (Intermediate, Verified 09/03/23 09:24) Rash metoprolol [METOPROLOL] Allergy (Unknown, Verified 09/03/23 09:24) RASH adhesive tape Allergy (Verified 09/03/23 09:24) Rash HPI PO-Rt MF Trigger Release 08/18 HPI Details Magaly is a 63 year old right hand dominant woman who presents S/P right middle finger trigger release, DOS: 08/19/23. She says she is doing well. She says her locking has resolved, and she is happy with this. [facility] Medical History Post-mastectomy pain Asthma PONV (postoperative nausea and vomiting) Fibromyalgia HTN (hypertension) Invasive ductal carcinoma of breast Breast mass, right Osteoarthritis of right shoulder Surgical History Hx of bilateral mastectomy (08/02/22) History of foot surgery History of hysterectomy Family History Father Stroke Mother Hypertension Asthma Maternal Grandmother Lung cancer Maternal Aunt Breast cancer Maternal Aunt Thyroid cancer Maternal Aunt Colon cancer Social History Household Members: Family Household Members Other:: Foster child Housing: House Housing Other:: mobile home Are you a primary anesthesiologist and critical care to a significant other at home: Yes (foster child) Do you presently have visiting nurse or other home services: Yes ([facility]) Alcohol intake: current Alcohol intake frequency: does not drink Comment: counts correct Patient Tobacco Use Status: Never used Tobacco Second Hand Smoke Exposure: No service: No Current occupational status: disabled Current occupation: right hand dominant Review of Systems Const All systems reviewed & are unremarkable except as noted in HPI and below Physical Exam Vital Signs: BMI result Body Mass Index 36.4 Const General: no acute distress and alert Orientation/consciousness: patient oriented x3 Neuro General: patient oriented x3 Extrem Other: The patient was alert oriented and in no acute distress The incision is healing well with no erythema drainage or evidence of infection. Sutures removed and Steri-Strips applied She can make a fist and extend all her digits No locking or catching Sensation is intact Cap refill is brisk Psych Appearance: grossly normal Affect: normal affect Attitude: cooperative Assessment & Plan Assessment & Plan (1) Trigger finger, right middle finger: Code(s): M65.331 - Trigger finger, right middle finger Plan Assessment & Plan: 1. Right middle finger trigger finger, S/P release DOS: 08/19/23 The patient appears to be doing well post-operatively I educated her about the post-operative course I explained the signs and symptoms of infection, if the patient develops any new or worsening erythema, drainage, pain, or warmth they should contact the clinic or attend the ED. I discussed activity modifications, she is to lift nothing heavier than a cellphone for the next two weeks She will perform gentle ROM exercises at home She should avoid any underwater activities for the next 5 days She should gently massage about the incision site to reduce the risk of hypersensitivity She can follow up prn Scribed for Danii Bailey MD by Zach Lozano, medical claims assistant, on 09/03/23 at 9:30 AM, EST. Coding Level of Care Code Global (67441) Diagnoses Trigger finger, right middle finger M65.331
[2023-09-03 09:14] VITALS: BMI 36.4
== END 2023-09-03 09:31 | disposition home or self-care (01) ==
PROVIDERS: PCP Internal Medicine Geriatric Medicine; Visit Provider Orthopaedic Surgery
DX: M65.331 Trigger finger, right middle finger (principal)
CPT/HCPCS: 99024

== ENCOUNTER → 2023-09-03 09:11 | Outpatient (BNVA) | payer OTHER, SELFPAY | PROVIDERS: PCP Internal Medicine Geriatric Medicine; Visit Provider Orthopaedic Surgery | DX: M65.331 Trigger finger, right middle finger (principal) | CPT/HCPCS: 99212 ==

== ENCOUNTER 2023-09-12 13:44 | Outpatient (AMB) | payer OTHER, SELFPAY ==
--- NOTE | 2023-09-12 14:18 | A.OFFVIS_ITS ---
Intake Vital Signs 09/12/23 14:22 Height 4 ft 11 in Weight 178 lb BMI 35.9 BP 100/76 Blood Pressure Location Lt brachial Position Sitting Pulse 79 Pulse Source Pulse Oximeter Pulse Oximetry (%) 99 Oxygen Delivery Method Room Air Intake Visit Reasons: 09/09 LVM+Let [id number] Intake Note: Patient presents for LUISA. patient has a cpap machine that she uses on a regular basis. problems started to arise when patient started treatment for breast cancer which was making her mouth very dry she started having issues with her mouth being uncomfortable.. Allergies ceftriaxone Allergy (Intermediate, Verified 09/12/23 14:24) Rash metoprolol [METOPROLOL] Allergy (Unknown, Verified 09/12/23 14:) RASH adhesive tape Allergy (Verified 09/12/23 14:) Rash HPI HPI Comments History of Present Illness Details 63-yr-old female presents for new in-per son patient visit for sleep consultation. Pt underwent HST 2 yrs ago as her told she was loud snoring, gasping arousals, and daytime sleepiness. She had HST at [facility] which per pt showed AHI 9/hr. She was using her CPAP regularly with good effect. Unfortunately, she was diagnosed with right breast cancer which required bilateral mastectomy and chemotherapy, f/b oral breast cancer prevention tablet, capecitabine. Capecitabine caused dry mouth, and although she stopped this months ago, the dry mouth has persisted. And since this time, she has not been able to use her CPAP. She is interested in trying her CPAP again, as she is having increased daytime sleepiness, snoring, and unrefreshing sleep. [facility] Medical History Post-mastectomy pain Asthma PONV (postoperative nausea and vomiting) Fibromyalgia HTN (hypertension) Invasive ductal carcinoma of breast Breast mass, right Osteoarthritis of right shoulder Surgical History Hx of bilateral mastectomy (08/02/22) History of foot surgery History of hysterectomy Family History Father Stroke Mother Hypertension Asthma Maternal Grandmother Lung cancer Maternal Aunt Breast cancer Maternal Aunt Thyroid cancer Maternal Aunt Colon cancer Social History Household Members: Family Household Members Other:: Foster child Housing: House Housing Other:: mobile home Are you a primary home care manager to a significant other at home: Yes (foster child) Do you presently have visiting nurse or other home services: Yes ([facility]) Alcohol intake: current Alcohol intake frequency: does not drink Comment: counts correct Patient Tobacco Use Status: Never used Tobacco Second Hand Smoke Exposure: No service: No Current occupational status: disabled Current occupation: right hand dominant Review of Systems Const All systems reviewed & are unremarkable except as noted in HPI and below Reports fatigue and Reports snoring Resp Reports snoring Endo Reports fatigue Physical Exam Vital Signs: Last Vital Signs Pulse 79 09/12/23 14:22 BP 100/76 09/12/23 14:22 Pulse Ox 99 09/12/23 14:22 Oxygen Delivery Method Room Air 09/12/23 14:22 BMI result Body Mass Index 35.9 Const General: no acute distress Orientation/consciousness: patient oriented x3 HEENT Other: Mallampati stage Resp Effort & Inspection: normal respiratory effort and able to speak in complete sentences Auscultation: clear to auscultation bilaterally Cardio Rate: regular rate Rhythm: regular rhythm Neuro General: patient oriented x3 Psych Mental Status: mental status grossly normal Speech and movement: Clear speech present Attitude: cooperative Assessment & Plan Assessment & Plan (1) Obstructive sleep apnea: Code(s): G47.33 - Obstructive sleep apnea (adult) (pediatric) (2) Sleep difficulties: Code(s): G47.9 - Sleep disorder, unspecified (3) Xerostomia: Code(s): K11.7 - Disturbances of salivary secretion Plan Will request previous sleep study results from [facility] Will request compliance data from [facility] Pt needs to switch resp companies- send order to [facility] pt request. May trial Xylimelts for dry mouth Upon review of the above, consider adjusting PAP pressure down to reduce risk f or dry mouth. Patient seen in collaboration with Dr. Hirsch Coding Level of Care Code New Pt Level 3 (69668) Diagnoses Obstructive sleep apnea G47.33 Sleep difficulties G47.9 Xerostomia K11.7
[2023-09-12 14:22] VITALS: BP 100/76; PULSE 79; O2SAT 99; BMI 35.9
== END 2023-09-12 15:48 | disposition home or self-care (01) ==
PROVIDERS: PCP Internal Medicine Geriatric Medicine; Visit Provider Nurse Practitioner Family
DX: G47.33 Obstructive sleep apnea (adult) (pediatric) (principal); G47.9 Sleep disorder, unspecified; K11.7 Disturbances of salivary secretion
CPT/HCPCS: 99203

== ENCOUNTER → 2023-09-12 13:44 | Outpatient (BNVA) | payer OTHER, SELFPAY | PROVIDERS: PCP Internal Medicine Geriatric Medicine; Visit Provider Nurse Practitioner Family | DX: G47.33 Obstructive sleep apnea (adult) (pediatric) (principal); G47.9 Sleep disorder, unspecified; K11.7 Disturbances of salivary secretion | CPT/HCPCS: 99202 ==

== ENCOUNTER 2023-09-26 12:38 | Outpatient (REF) | payer OTHER, SELFPAY ==
--- NOTE | ~2023-09-26 | CT_ITS ---
EXAMINATION: CT chest, abdomen and pelvis. CLINICAL INFORMATION: Right breast carcinoma, completed chemotherapy on 05/29/2022. COMPARISON: FDG PET/CT scan on 07/17/2022 TECHNIQUE: A multidetector helical CT acquisition of the chest, abdomen and pelvis was obtained following the administration of 85 mL of Omnipaque 350. Multiplanar reformats were acquired and utilized for image interpretation. Coronal and sagittal images were reconstructed from axial image data. Dose reduction technique: One or more of the following individual dose optimization techniques were used including: Automated exposure control, mA and/or kV were adjusted according to patient size or iterative reconstruction. DLP: 613 mGy-cm FINDINGS: LUNGS: The visualized lung parenchyma is clear. PLEURA: No pleural effusion or pneumothorax is seen. PERICARDIUM: No pericardial effusion is seen. MEDIASTINUM AND DENISSE: Necrotic medial right upper chest wall tumor invasion into right superior mediastinum. The line No abnormally enlarged mediastinal or hilar lymph nodes are seen. TRACHEOBRONCHIAL TREE: Trachea and bilateral mainstem bronchi are patent. THORACIC AORTA: The thoracic aorta is normal in size and smoothly patent. CORONARY ARTERY CALCIFICATIONS: None PULMONARY ARTERIES: The main pulmonary arteries show normal enhancement. CHEST WALL AND LOWER NECK: Left upper chest linear wire or small caliber catheter is seen passing through the left upper chest subcutaneous tissue to and at the medial border of left pectoralis major muscle. The right breast is surgically absent, including resection of the hypermetabolic carcinoma and probably the right axillary metastatic lymph nodes. A large right upper chest necrotic tumor measuring 7.1 cm in AP diameter, 4.5 cm in width, 6.2 cm in vertical height, is seen in medial upper right chest contiguous with the posterior border of right pectoralis major muscle sternal head, penetrating through anterior medial right chest wall, including right second and third costochondral junctions to invade the right superior mediastinum. Contrast-filled right internal mammary artery is seen entering and passing through the right upper chest necrotic tumor. There is diffuse right chest skin thickening. Prominent left level 1 axillary lymph node with central fatty hilum is seen, measuring 1.3 cm in width, 1.8 cm in vertical height, containing focal calcification. Multiple additional smaller left axillary lymph nodes are present. No abnormal mass lesion could be seen in the visualized lower neck. BONES: Multiple prominent sharp anterior syndesmophytes are present. No fracture or dislocation. VISUALIZED UPPER ABDOMEN: Bilateral adrenal glands are not enlarged. Fleischner guidelines were followed. EXAMINATION: CT abdomen. FINDINGS: LUNG BASES: Bilateral lung bases are clear. LIVER: No focal lesion is seen in the liver. GALLBLADDER AND BILIARY TREE: Gallbladder appears unremarkable without calcified stones. Common bile duct is not dilated. SPLEEN: The spleen is normal in size without focal lesion. PANCREAS: The pancreas appears unremarkable. ADRENAL GLANDS: Adrenal glands are normal in size without focal lesion bilaterally. KIDNEYS: Bilateral kidneys are normal in size with a 0.4 cm calculus in posterior superior right renal pole. Bilateral renal cortical simple cysts are seen. The largest cyst is seen protruding from posterior lateral mid left renal cortex measuring 2.1 cm in diameter. The largest right renal cortical simple cyst is seen in posterior mid right renal cortex measuring 1.5 cm in diameter, for which no follow up imaging is recommended. BOWELS: There is no abnormal dilatation of the large and small bowel loops. RETROPERITONEUM: No abnormally enlarged retroperitoneal lymph nodes, mass or hematoma could be seen. BLOOD VESSELS: Abdominal aorta is normal in size and smoothly patent. ABDOMINAL WALL: Small umbilical hernia containing mesenteric fat is seen. PERITONEUM: There was no ascites. There were no abdominal peritoneal inflammatory changes seen. No free peritoneal air was seen. No abnormally enlarged mesenteric lymph nodes are found. BONES: No fracture or dislocation. No focal bone lesion diagnostic of metastatic disease could be seen in the lumbar region. EXAMINATION: CT pelvis. FINDINGS: URINARY BLADDER: Urinary bladder fills normally with urine. BOWELS: There is no abnormal dilatation of the large and small bowel loops. Normal coiled up long slender appendix is seen posterior to the cecum. GENITAL ORGANS: No adnexal mass lesion could be seen. The uterus is surgically absent. LYMPH NODES: No abnormally enlarged iliac or inguinal lymph nodes are seen. PERITONEUM: No inflammatory changes, ascites or free peritoneal air are found in the pelvis. BONES: No fracture or dislocation. No focal bone lesion diagnostic of metastatic disease could be seen in the pelvis. CT/CT abdomen pelvis w IV con IMPRESSION: 1. Interval performance of right breast lumpectomy, including resection of the hypermetabolic carcinoma and probably the right axillary metastatic lymph nodes. 2. Interval development of a large right upper chest necrotic tumor in medial upper right chest contiguous with the posterior border of right pectoralis major muscle sternal head, penetrating through anterior medial right chest wall, including right second and third costochondral junctions to invade the right superior mediastinum. 3. Prominent left level 1 axillary lymph node with central fatty hilum is seen. Multiple additional smaller left axillary lymph nodes are present. 4. No evidence of metastatic disease in the abdomen and pelvis. 5. Unchanged Nonobstructing 0.4 cm calculus in posterior superior right renal pole, and Bilateral renal cortical simple cysts, for which no follow up imaging is recommended. 6. Status post hysterectomy.
[2023-09-26] MEDS: iohexoL 350 MG/ML 100 ML INFUS..BTL 85 ML IV (13:44)
[2023-09-27 09:28] LABS: Creatinine POC 0.9 mg/dL (0.5-1.4); GFR POC > 60
== END 2023-09-26 12:39 | disposition home or self-care (01) ==
LOC: HO.CT 12:38
PROVIDERS: PCP Internal Medicine Geriatric Medicine; Visit Provider Internal Medicine
DX: C50.919 Malignant neoplasm of unspecified site of unspecified female breast (principal)
CPT/HCPCS: 71260; 74177; 82565; Q9967

== ENCOUNTER 2023-09-27 08:00 | Outpatient (RCR) | payer OTHER, SELFPAY ==
--- NOTE | 2023-09-10 12:54 | MHC.PT.EP ---
[facility] [place] Office [place] Office [place] Office [address] Kristin Ferguson [address] [phone] F: [phone] F: [phone] F: [phone] F: [phone] Physical Therapy Plan of Care Date of Evaluation: 09/10/23 Date of Surgery: 08/02/22 Diagnosis: POST MASTECTOMY PAIN Assessment: 63 YO FEMALE REF TO PT FOR POST- BILAT MASTECTOMY PAIN Rt > Lt x 2 MONTHS- HER SURGICAL DATE WAS JUL 2022 AND SHE RECEIVED PRE AND POST-OP CHEMOTHERAPY AND RADIATION. THE Pt IS Rt HAND DOMINANT AND SHE NOTED SHE HAS COMPUGRAPH OPERATOR ASSIST 19 HRS/WK TO ASSIST W HOUSECHORES/ LAUNDRY/MEALS. OBJECTIVE FINDINGS INCLUDE DECR POSTURAL AWARENESS, LIMITED ROM IN LILLY SH AND CERV REGIONS, WEAK PARASCAP/ POST RC MM, (+) ANT CHEST SCAR HYPOMOBILITY, AND PAIN IN Rt STERNOCLAVICULAR JUNCTION/ Rt INFRACLAV TISSUES . FUNCTIONALLY, THE Pt HAS DECR YAMILETH TO PUSHING/PULLING/LIFTING, REACHING, AND GENERAL ADLs W Rt UE. SHE IS A GOOD CANDIDATE TO ADDRESS THE ABOVE FINDINGS, IMPROVE SCAR TISSUE MOBILITY, DEV A HEP, AND PAIN MGMT TECHN. Frequency and Duration: The patient will be seen 2 x WK x 6 WKS Short Term Goals: *DECR Rt CLAVICULAR / PECTORAL REGION PAIN TO 2-3/10 *IMPROVE POSTURAL AWARENESS W RANDOM ADL SIMUL *INCREASE CERV AND SH AROM * INITIATE SCAR MOBILITY Professional Nursing Assistant Goals: *Pt INDEP W HEP AND SELF SX MGMT TECHN *Pt INCREASE HER ADL PERF/ YAMILETH EVIDENT W IMPROVED SPADI SCORE ( AT EVAL 78/130) *IMPROVED SLEEP Treatment Plan: Modalities to reduce pain, spasms and effusion. Manual therapy to restore motion and function. Therapeutic exercise to improve strength and flexibility. Neuromuscular re-education for posture and balance. Therapeutic activities to return to functional activities of daily living. Electronically signed by: JOBY RANGEL,PT Please sign and return to therapist. Thank you for your referral.
== END 2023-10-16 09:35 | disposition home or self-care (01) ==
LOC: HO.PT 08:00
PROVIDERS: PCP Internal Medicine Geriatric Medicine; Visit Provider Internal Medicine
DX: G89.18 Other acute postprocedural pain (principal)
CPT/HCPCS: 97110; 97140; 97162; 97530; 97535

== ENCOUNTER 2023-10-01 17:02 | Observation (INO) | payer OTHER, SELFPAY ==
--- NOTE | ~2023-10-01 | XR_ITS ---
EXAMINATION: XR CHEST CLINICAL INFORMATION: Right chest wall mass COMPARISON: None available. TECHNIQUE: 2 views of the chest were obtained. FINDINGS: Ill-defined large right paratracheal soft tissue density corresponds with previously CT demonstrated right upper chest necrotic tumor infiltrating into the anterior superior mediastinum. Heart size within normal limits. No vascular congestion. Left base atelectasis. Destruction of the second and third costochondral junctions seen on recent CT are not reproduced on chest radiograph. XR/XR chest 2V IMPRESSION: Known infiltrating right chest wall mass, please see separately reported 09/26/2023 CT dictation for more definitive findings. Left base atelectasis.
--- NOTE | 2023-10-01 17:07 | ECG_ITS ---
Test Reason : chest pain Blood Pressure : / mmHG Vent. Rate : 098 BPM Atrial Rate : 098 BPM P-R Int : 134 ms QRS Dur : 084 ms QT Int : 346 ms P-R-T Axes : 066 051 028 degrees QTc Int : 441 ms Normal sinus rhythm Nonspecific ST abnormality Abnormal ECG When compared with ECG of 22-JAN-2022 09:58, No significant change was found Referred By: Rajiv Tse Electronically Signed By:OLVIN JOHNSTON
[2023-10-01 17:16] VITALS: BP 155/71; PULSE 103; RESP 18; TEMP 37; O2SAT 95; BMI 35.9
--- NOTE | 2023-10-01 17:19 | ED.GENADULT ---
HPI - General Adult General Chief complaint: Chest Pain Stated complaint: chest pain/tumor Time Seen by Provider: 10/01/23 17:33 Source: patient and family Mode of arrival: ambulatory Limitations: language barrier (Patient is Haitian-speaking only, picker box operator used) History of Present Illness HPI narrative: 63-year-old female with a history of right breast invasive ductal carcinoma 1st diagnosed 11/21/2022 with recurrent in the right breast incision area. I did speak to Dr. Calderon and she states that the mass is rapidly growing in his now eroding into the rib and mediastinum. She did see the prescribed oxycodone 5 mg every 4 hours the pain was very severe and the patient could not tolerate it therefore Dr. Calderon recommended that she come to the emergency department and admission for pain management. She states that the tumor will most likely be treated with radiation therapy, The patient states that she has been experiencing pain in her chest for approximately 3 months but it is gotten progressively worse. She states that since 09/27/2023 (4 days prior) the patient has been excruciating. She was prescribed Tylenol with codeine with no relief. After her visit with Dr. Calderon today she took 2 oxycodone 5 mg tablets and still had no relief for pain. She states the pain is 10/10 at the time of my evaluation. She denied fever, chills, rhinorrhea, sore throat, cough, shortness of breath, nausea, vomiting, abdominal pain, frequency, urgency, dysuria, headache, numbness or weakness. Related Data Home Medications ?Medication ?Instructions ?Recorded ?Confirmed albuterol sulfate 90 mcg/actuation 2 puff PO Q4H PRN Shortness Of 03/19/20 10/01/23 aerosol inhaler Breath baclofen 10 mg tablet 10 mg PO TID 03/19/20 10/01/23 clonazepam 0.5 mg tablet 0.5 mg PO BEDTIME 03/19/20 10/01/23 atorvastatin 20 mg tablet 20 mg PO DAILY 11/20/21 10/01/23 calcium carbonate 600 mg-vitamin 1 tab PO DAILY 01/22/22 10/01/23 D3 5 mcg (200 unit) tablet mometasone 0.1 % topical cream 1 applic topical DAILY PRN Rash 01/22/22 10/01/23 multivitamin with folic acid 400 1 tab PO DAILY 01/22/22 10/01/23 mcg tablet (Tab-A-Richard) pregabalin 150 mg capsule 1 cap PO BID 01/22/22 10/01/23 lisinopril 5 mg tablet 5 mg PO DAILY 10/24/22 10/01/23 fluticasone furoate 100 1 inh inhalation DAILY 09/12/23 10/01/23 mcg/actuation blister powder for inhalation (Arnuity Ellipta) dexamethasone 6 mg tablet 6 mg PO BID PRN 1 day prior to 10/01/23 chem and 2 days after hydroxyzine HCl 25 mg tablet 25 mg PO BID 10/01/23 10/01/23 nystatin 100,000 unit/gram topical 1 appl topical DAILY 10/01/23 10/01/23 ointment omeprazole 20 mg capsule,delayed 20 mg PO DAILY 10/01/23 10/01/23 release silver sulfadiazine 1 % topical 1 appl topical BID PRN wounds 10/01/23 10/01/23 cream triamcinolone acetonide 0.1 % 1 appl topical BID PRN Rash 10/01/23 10/01/23 topical cream Previous Rx's ?Medication ?Instructions ?Recorded duloxetine 30 mg capsule,delayed 30 mg PO DAILY #30 caps 06/25/23 release compression sleeve and gauntlet #1 ea 09/23/23 (LympheDiva Arm Sleeve with Gauntlet) ferrous sulfate 325 mg (65 mg 325 mg PO DAILY #30 tabs 09/27/23 iron) tablet docusate sodium 100 mg capsule 100 mg PO DAILY PRN contipation 10/01/23 (Colace) #30 caps ondansetron 8 mg disintegrating 8 mg PO Q8H PRN Nausea #60 tabs 10/01/23 tablet oxycodone 5 mg tablet 5 mg PO Q4H PRN Pain (Scale Score 10/01/23 7-10) #60 tabs Allergies Allergy/AdvReac Type Severity Reaction Status Date / Time ceftriaxone Allergy Intermediate Rash Verified 10/01/23 17:20 metoprolol [METOPROLOL] Allergy Unknown RASH Verified 10/01/23 17:20 adhesive tape Allergy Rash Verified 10/01/23 17:20 Review of Systems Review of Systems: Yes all other systems are reviewed and are negative PMFSH Past Medical History Medical History Post-mastectomy pain Asthma PONV (postoperative nausea and vomiting) Fibromyalgia HTN (hypertension) Invasive ductal carcinoma of breast Breast mass, right Osteoarthritis of right shoulder Surgical History Hx of bilateral mastectomy (08/02/22) History of foot surgery History of hysterectomy Family History Family History Father Stroke Mother Hypertension Asthma Maternal Grandmother Lung cancer Maternal Aunt Breast cancer Maternal Aunt Thyroid cancer Maternal Aunt Colon cancer Social History Social History Household Members: Family Household Members Other:: Foster child Housing: House Housing Other:: mobile home Are you a primary critical care unit nurse to a significant other at home: Yes (foster child) Do you presently have visiting nurse or other home services: Yes ([facility]) Alcohol intake: current Alcohol intake frequency: does not drink Comment: counts correct Patient Tobacco Use Status: Never used Tobacco Smoked in Last 30 Days: No Second Hand Smoke Exposure: No Use of substances other than those prescribed or required for medical reasons: No Advance Directives: No Advance Directives Information Provided: Yes Nutrition Risks: No Nutritional Risk service: No Current occupational status: disabled Current occupation: right hand dominant Physical Exam ED Vital Signs: Vital Signs - 24 hr 10/01/23 17:16 10/01/23 19:33 Temperature 98.6 F Pulse Rate 103 H 95 Respiratory Rate 18 15 Blood Pressure 155/71 H 108/79 Pulse Oximetry 95 96 Oxygen Delivery Method Room Air Nasal Cannula Oxygen Flow Rate 2 BMI result Body Mass Index 35.9 Vital signs revealed an elevated heart rate of 103 and elevated blood pressure of 151/71-most likely secondary to her pain Exam: General: Awake, alert in no distress Head: Normocephalic, atraumatic EENT: PERRL, Lids normal, sclera normal, conjunctiva normal, nose normal , ears normal, throat without erythema or exudates Neck: Supple, no adenopathy Lung: breath sounds symmetric, no wheezing, rales or rhonchi Chest: Patient has a right mastectomy scar, there has no erythema or increased warmth over this area, she has increased tenderness over the right sternoclavicular joint and over the right upper medial anterior chest Heart: regular rate and rhythm, normal S1, S2 no murmurs or rubs Abdomen: soft, non-tender, nondistended, normal bowel sounds Back: no vertebral tenderness, no CVAT Extremities: no deformities, moves all extremities symmetrically Neuro: Awake, alert, oriented, normal speech, cranial nerves intact, moves all extremities symmetrically Psych: Pleasant, cooperative Course Course Course Narrative: RME- 63-year-old female presents for evaluation of chest pain that radiates through to her back. She has known breast cancer with a mass in her chest. She is followed by Dr. Calderon. She was seen in the office earlier today and had labs done. She was unable to tolerate the pain despite taking oxycodone x2. She was apparently sent here for pain control. I am EKG, troponin and INR. The patient had a chest CT on 09/26/2023 Medications Administered Generic Name Dose Route Start Last Admin Trade Name Freq PRN Reason Stop Dose Admin Baclofen 10 mg 10/01/23 21:00 10/01/23 20:52 Baclofen 10 Mg Tablet PO 10 mg TID CHRIS Administration Clonazepam 0.5 mg 10/01/23 21:00 10/01/23 20:52 Clonazepam 0.5 Mg Tablet PO 0.5 mg BEDTIME CHRIS Administration Dexamethasone 6 mg 10/01/23 20:30 10/01/23 20:53 Dexamethasone 6 Mg Tablet PO 6 mg DAILY CHRIS Administration Docusate Sodium 100 mg 10/01/23 21:00 10/01/23 20:53 Docusate Sodium 100 Mg Capsule PO 100 mg BID CHRIS Administration Heparin Sodium (Porcine) 5,000 unit 10/01/23 21:00 10/01/23 20:53 Heparin Sodium,Porcine 5,000 Unit/Ml Vial SUBCUT 5,000 unit Q12H CHRIS Administration Hydromorphone HCl 1 mg 10/01/23 20:15 10/01/23 21:01 Hydromorphone Hcl 1 Mg/Ml Syringe IVPUSH 1 mg Q4H PRN Administration Pain, Severe (Pain Scale 7-10) Protocol Hydroxyzine HCl 25 mg 10/01/23 21:00 10/01/23 20:52 Hydroxyzine Hcl 25 Mg Tablet PO 25 mg BID CHRIS Administration Sodium Chloride 1,000 mls @ 125 mls/hr 10/01/23 17:56 10/01/23 18:44 Ns IV 10/02/23 01:55 125 mls/hr .Q8H STA Administration Pregabalin 150 mg 10/01/23 21:00 10/01/23 20:52 Pregabalin 150 Mg Capsule PO 150 mg BID CHRIS Administration Sodium Chloride 3 ml 10/02/23 00:00 10/01/23 23:31 0.9 % Sodium Chloride Flush 3 Ml Syringe IVFLUSH Not Given QSHIFT CHRIS Discontinued Medications Generic Name Dose Route Start Last Admin Trade Name Freq PRN Reason Stop Dose Admin Diphenhydramine HCl 25 mg 10/01/23 17:56 10/01/23 18:44 Diphenhydramine Hcl 50 Mg/Ml Vial IVPUSH 10/01/23 17:57 25 mg ONCE STA Administration Hydromorphone HCl 1 mg 10/01/23 17:56 10/01/23 18:43 Hydromorphone Hcl 1 Mg/Ml Syringe IVPUSH 10/01/23 17:57 1 mg ONCE STA Administration Protocol Medical Decision Making Medical Decision Making MDM Narrative: 63-year-old female with a history of right breast invasive ductal carcinoma 1st diagnosed 11/21/2022 with recurrent in the right breast incision area over the past [address] scan of the chest abdomen pelvis done on 09/26/2023 the following: large right upper chest necrotic tumor in medial upper right chest contiguous with the posterior border of right pectoralis major muscle sternal head, penetrating through anterior medial right chest wall, including right second and third costochondral junctions to invade the right superior mediastinum The patient was seen today by Dr. Calderon and discharged home with oxycodone but despite taking this medication the patient's pain was severe. I did discuss the patient's presentation with Dr. Calderon who recommended that the patient be the hospital for pain management. She also stated that radiation therapy might help reduce the pain and tumor size. Patient denied fever, chills, rhinorrhea, sore throat, cough, shortness of breath, nausea, vomiting, abdominal pain, frequency, urgency, dysuria, headache, numbness or weakness. Differential diagnosis: ?Includes but is not limited to intractable pain secondary to recurrent breast cancer, myocardial infarction, myocardial ischemia, electrolyte abnormalities, anemia Following evaluation was ordered: Outpatient labs done today: CBC, CMP, PT/INR. ED orders are as follows: Troponin, EKG Patient was initially treated with the following:IV insertion, Normal saline 125 mL an hour, Dilaudid 1 mg IV, Benadryl 25 mg IV Course: 19:21 My interpretation patient's laboratory evaluation done today at 12:59 hours is as follows CBC was normal. PT/INR was normal. Glucose elevated 138. Electrolytes, renal function and liver tests were normal. Patient stated her pain was 20/10 initially and now her pain is significantly relieved with the IV Dilaudid/Benadryl combination. Since the patient failed outpatient management of her pain, I did discuss admission over tiger with the covering hospitalist, Dr. Saucedo and the patient will be admitted for further management Admission/Observation Consideration of admission/observation: Escalation of care including admission/observation considered Consult Healthcare Provider Management of the patient was discussed with: Hospitalist Lab Data MDM Lab Attestation statement: I reviewed the patient's lab results. Labs: Lab Results 10/01/23 Range/Units 19:18 Troponin I High Sens < 2.7 (<3.5-17.0) ng/L Independent Interpretation I performed an independent interpretation of an: EKG Interpretation: My interpretation patient's 12 EKG done at 17:06 hours is as follows: Normal sinus rhythm rate of 98, normal MN interval, QRS duration QTC interval, no ST segment elevation, no ST segment depression, nonspecific T-wave abnormalities, no PACs, no PVCs Radiology Impression Discussion of test interpretation with radiology: I have reviewed the radiologist's reading. Radiologist Impression: EXAMINATION: CT chest, abdomen and pelvis done on 09/26/2023 CLINICAL INFORMATION: Right breast carcinoma, completed chemotherapy on 05/29/2022. COMPARISON: FDG PET/CT scan on 07/17/2022 CT chest, abdomen pelvis MEDIASTINUM AND DENISSE: Necrotic medial right upper chest wall tumor invasion into right superior mediastinum. The line No abnormally enlarged mediastinal or hilar lymph nodes are seen. CHEST WALL AND LOWER NECK: Left upper chest linear wire or small caliber catheter is seen passing through the left upper chest subcutaneous tissue to and at the medial border of left pectoralis major muscle. The right breast is surgically absent, including resection of the hypermetabolic carcinoma and probably the right axillary metastatic lymph nodes. A large right upper chest necrotic tumor measuring 7.1 cm in AP diameter, 4.5 cm in width, 6.2 cm in vertical height, is seen in medial upper right chest contiguous with the posterior border of right pectoralis major muscle sternal head, penetrating through anterior medial right chest wall, including right second and third costochondral junctions to invade the right superior mediastinum. Contrast-filled right internal mammary artery is seen entering and passing through the right upper chest necrotic tumor. There is diffuse right chest skin thickening. Prominent left level 1 axillary lymph node with central fatty hilum is seen, measuring 1.3 cm in width, 1.8 cm in vertical height, containing focal calcification. Multiple additional smaller left axillary lymph nodes are present. No abnormal mass lesion could be seen in the visualized lower neck. IMPRESSION: 1. Interval performance of right breast lumpectomy, including resection of the hypermetabolic carcinoma and probably the right axillary metastatic lymph nodes. 2. Interval development of a large right upper chest necrotic tumor in medial upper right chest contiguous with the posterior border of right pectoralis major muscle sternal head, penetrating through anterior medial right chest wall, including right second and third costochondral junctions to invade the right superior mediastinum. 3. Prominent left level 1 axillary lymph node with central fatty hilum is seen. Multiple additional smaller left axillary lymph nodes are present. 4. No evidence of metastatic disease in the abdomen and pelvis. 5. Unchanged Nonobstructing 0.4 cm calculus in posterior superior right renal pole, and Bilateral renal cortical simple cysts, for which no follow up imaging is recommended. 6. Status post hysterectomy. Independent Historian Clinical information obtained from an independent historian. History obtained from or confirmed by: Spouse and Other (Daughter) Chronic Conditions Patient?s care impacted by: Cancer (Recurrent right chest wall breast cancer) Discharge Plan Discharge Clinical Impression: Chest wall recurrence of breast cancer, Severe pain Patient Disposition: Admitted As Inpatient
[2023-10-01] MEDS: HYDROmorphone HCl 1 MG/ML SYRINGE IVPUSH ×2 (18:43→21:01)
[2023-10-01] MEDS: 0.9 % Sodium Chloride 1,000 ML 125 ML IV (18:44)
[2023-10-01] MEDS: diphenhydrAMINE HCL 50 MG/ML VIAL 25 MG IVPUSH (18:44)
[2023-10-01 19:33] VITALS: BP 108/79; PULSE 95; RESP 15; O2SAT 96
[2023-10-01 19:49] LABS: Troponin-I High Sensitivity < 2.7 ng/L (<3.5-17.0)
--- NOTE | 2023-10-01 20:24 | PC.NURSE ---
Telephone call received from [facility] hospitalist with instructions to assess O2 RA. Supplemental O2 turned off, O2 Sat 95-97% RA, RR 20, respirations are even and non labored.
--- NOTE | 2023-10-01 20:26 | P.HPHOSP_ITS ---
History of Present Illness Date of Service: 10/01/23 Attending physician on admission: Gi Hernandez Chief Complaint: chest wall pain 63-year-old female with a history of right breast invasive ductal carcinoma 1st diagnosed 11/21/2022 with recurrence in the right breast incision area s/p chemotherapy, htn, fibromyalgia, asthma presented to the ED earlier today from oncology for evaluation of chest wall pain. Per Dr. Calderon, the mass is rapidly growing in his now eroding into the rib and mediastinum. She wasprescribed oxycodone 5 mg every 4 hours the pain was very severe and the patient could not tolerate it therefore Dr. Calderon recommended that she come to the emergency department and admission for pain management. She states that the tumor will most likely be treated with radiation therapy, which patient's is due to start on . Pt reports she has been experiencing intermittent 20/10 pain over the right chest at the tumor site and has been progressively worsening especially over the last 4 days. Pain worsens with deep inspiration. NO fevers, chills, abd pain, n/v/d, sob, cough, chest pain. In the ED, vitals stable, no hypoxia. Labs earlier today unremarkable. Trop in the ED undetectable. Last CT chest 09/25 showed interval performance of right breast lumpectomy, including resection of the hypermetabolic carcinoma and probably the right axillary metastatic lymph nodes. There is also interval development of a large right upper chest necrotic tumor in the medial upper right chest contiguous with the posterior border of the right pectoralis major muscle sternal head penetrating through anteromedial right chest wall including the right 2nd and 3rd costochondral junctions to invade the right superior mediastinum among other findings. No evidence of metastatic disease however. In the ED, has been given 1 mg IV morphine and IV Benadryl with improvement in pain levels to 3/10. She has also been started on 1 L IVF. Review of Systems Review of Systems: General: No fevers, malaise, unintentional weight loss HEENT: No blurred vision, diplopia. No sore throat, nasal congestion, rhinorrhea, sinus pain, ear pain Cardiovascular: No chest pressure, palpitations, or leg edema Respiratory: No shortness of breath, wheezing, cough GI: No abdominal pain, nausea, vomiting, diarrhea, constipation, melena, hematochezia : No dysuria, hematuria, increased urinary frequency, decreased urinary output MSK: No myalgia, back pain. +Chest wall pain Neuro: No headaches, weakness, paresthesias Skin: No rashes or lesions [facility] Medical History Post-mastectomy pain Asthma PONV (postoperative nausea and vomiting) Fibromyalgia HTN (hypertension) Invasive ductal carcinoma of breast Breast mass, right Osteoarthritis of right shoulder Family History Father Stroke Mother Hypertension Asthma Maternal Grandmother Lung cancer Maternal Aunt Breast cancer Maternal Aunt Thyroid cancer Maternal Aunt Colon cancer Surgical History Hx of bilateral mastectomy (08/02/22) History of foot surgery History of hysterectomy Social History Household Members: Family Household Members Other:: Foster child Housing: House Housing Other:: mobile home Are you a primary home health care provider to a significant other at home: Yes (foster child) Do you presently have visiting nurse or other home services: Yes ([facility]) Alcohol intake: current Alcohol intake frequency: does not drink Comment: counts correct Patient Tobacco Use Status: Never used Tobacco Smoked in Last 30 Days: No Second Hand Smoke Exposure: No Use of substances other than those prescribed or required for medical reasons: No Advance Directives: No Advance Directives Information Provided: Yes service: No Current occupational status: disabled Current occupation: right hand dominant Meds Allergies Allergy/AdvReac Type Severity Reaction Status Date / Time ceftriaxone Allergy Intermediate Rash Verified 10/01/23 17:20 metoprolol [METOPROLOL] Allergy Unknown RASH Verified 10/01/23 17:20 adhesive tape Allergy Rash Verified 10/01/23 17:20 Active Medications: Current Medications Acetaminophen (Acetaminophen 325 Mg Tablet) 650 mg PO Q6H PRN PRN Reason: Pain, Mild (Pain Scale 1-3) Dexamethasone (Dexamethasone 6 Mg Tablet) 6 mg PO DAILY [facility] Docusate Sodium (Docusate Sodium 100 Mg Capsule) 100 mg PO BID [facility] Heparin Sodium (Porcine) (Heparin Sodium,Porcine 5,000 Unit/Ml Vial) 5,000 unit SUBCUT Q12H [facility] Hydromorphone HCl (Hydromorphone Hcl 1 Mg/Ml Syringe) 1 mg IVPUSH Q4H PRN; Protocol PRN Reason: Pain, Severe (Pain Scale 7-10) Sodium Chloride (Ns) 1,000 mls @ 125 mls/hr IV .Q8H STA Stop: 10/02/23 01:55 Last Admin: 10/01/23 18:44 Dose: 125 mls/hr Ondansetron HCl (Ondansetron Hcl 4 Mg/2 Ml Vial) 4 mg IVPUSH Q8H PRN PRN Reason: Nausea and Vomiting Oxycodone HCl (Oxycodone Hcl Immed Release 5 Mg Tablet) 5 mg PO Q6H PRN PRN Reason: Pain, Moderate(Pain Scale 4-6) Pregabalin (Pregabalin 150 Mg Capsule) 150 mg PO BID [facility] Sodium Chloride (0.9 % Sodium Chloride Flush 3 Ml Syringe) 3 ml IVFLUSH QSHIFT [facility] Home Medications ?Medication ?Instructions ?Recorded ?Confirmed ?Last Taken ?Type albuterol sulfate 90 mcg/actuation 2 puff PO Q4H PRN Shortness Of 03/19/20 10/01/23 08/19/23 History aerosol inhaler Breath baclofen 10 mg tablet 10 mg PO TID 03/19/20 10/01/23 08/19/23 History clonazepam 0.5 mg tablet 0.5 mg PO BEDTIME 03/19/20 10/01/23 08/19/23 History atorvastatin 20 mg tablet 20 mg PO DAILY 11/20/21 10/01/23 09/14/22 History calcium carbonate 600 mg-vitamin 1 tab PO DAILY 01/22/22 10/01/23 09/14/22 History D3 5 mcg (200 unit) tablet mometasone 0.1 % topical cream 1 applic topical DAILY PRN Rash 01/22/22 10/01/23 09/14/22 History multivitamin with folic acid 400 1 tab PO DAILY 01/22/22 10/01/23 08/19/23 History mcg tablet (Tab-A-Richard) pregabalin 150 mg capsule 1 cap PO BID 01/22/22 10/01/23 08/19/23 History lisinopril 5 mg tablet 5 mg PO DAILY 10/24/22 10/01/23 08/19/23 History fluticasone furoate 100 1 inh inhalation DAILY 09/12/23 10/01/23 Unknown History mcg/actuation blister powder for inhalation (Arnuity Ellipta) dexamethasone 6 mg tablet 6 mg PO BID PRN 1 day prior to 10/01/23 Unknown Histo ry chem and 2 days after hydroxyzine HCl 25 mg tablet 25 mg PO BID 10/01/23 10/01/23 Unknown History nystatin 100,000 unit/gram topical 1 appl topical DAILY 10/01/23 10/01/23 Unknown History ointment omeprazole 20 mg capsule,delayed 20 mg PO DAILY 10/01/23 10/01/23 Unknown History release silver sulfadiazine 1 % topical 1 appl topical BID PRN wounds 10/01/23 10/01/23 Unknown History cream triamcinolone acetonide 0.1 % 1 appl topical BID PRN Rash 10/01/23 10/01/23 Unknown History topical cream Physical Exam Vital Signs and Narrative: Vital Signs: Last Vital Signs Temp 98.6 F 10/01/23 17:16 Pulse 95 10/01/23 19:33 Resp 15 10/01/23 19:33 BP 108/79 10/01/23 19:33 Pulse Ox 96 10/01/23 19:33 O2 Del Method Nasal Cannula 10/01/23 19:33 O2 Flow Rate 2 10/01/23 19:33 BMI result Body Mass Index 35.9 Constitutional - Awake and Alert, No apparent distress Eyes - PERRLA, EOMI Cardiovascular - S1S2, RRR, No edema Respiratory - Normal lung expansion, diminished respiratory effort, No respiratory distress, CTA bilaterally Gastrointestinal - NT / ND; +BS; No rebound or guarding Extremities - no calf tenderness bilaterally, no swelling Skin - Warm/Dry Neurological - Alert & oriented x3 Psychological - Appropriate affect Results Labs Labs: Laboratory Results - last 24 hr 10/01/23 19:18 Troponin I High Sens < 2.7 Assessment and Plan (1) Severe pain: Status: Acute (2) Chest wall recurrence of breast cancer: Status: Acute Plan 63-year-old female with a history of right breast invasive ductal carcinoma 1st diagnosed 11/21/2022 with recurrence in the right breast incision area s/p chemotherapy, htn, fibromyalgia, asthma presented to the ED earlier today from oncology for evaluation of chest wall pain. Per Dr. Calderon, the mass is rapidly growing in his now eroding into the rib and mediastinum. She will be observed for intractable pain #Intractable pain due to necrotic tumor right chest wall r/t reucrrent invasive ductal carcinoma R breast -IV dilaudid and oxycodone prn on pain scale -initiate dexamethasone 6mg daily -oncology consult -due to start radiation -incentive spirometry/pulmonary toilet to prevent atelectasis/hypoxia #HTN -continue lisinopril #Fibromyalgia -continue lyrica dvt prophylaxis- heparin full code Quality Stroke Does the patient have a stroke diagnosis?: No VTE Prior VTE?: No VTE Risk Level:: Medical - moderate - high VTE Device Contraindication: Treatment Not Indicated VTE Drug Contraindication: N/A - Med Ordered
--- NOTE | 2023-10-01 20:31 | PC.NURSE ---
O2 Sat 91-93% RA, RR 15, P 98, BP 108/83, hospitalist updated.
[2023-10-01 20:34] VITALS: BP 108/83; PULSE 100; RESP 15; TEMP 36.6; O2SAT 91
--- NOTE | 2023-10-01 20:42 | PC.NURSE ---
Per Magaly, hospitalist, keep patient on room air, encourage use of incentive spirometer while pain controlled.
--- NOTE | 2023-10-01 20:49 | PHA.MEDREC ---
Pharmacy Consult ? Medication Reconciliation Pharmacy has completed the medication reconciliation. Patient confirmed medications based on claim history and previous medical records. Report docousate, dexamethasone, oxycodone are new prescriptions. Ade Leonard, Gallo[facility]
[2023-10-01] MEDS: hydrOXYzine HCL 25 MG TABLET PO (20:52)
[2023-10-01] MEDS: clonazePAM 0.5 MG TABLET PO (20:52)
[2023-10-01] MEDS: Pregabalin 150 MG CAPSULE PO (20:52)
[2023-10-01] MEDS: Baclofen 10 MG TABLET PO (20:52)
[2023-10-01] MEDS: dexAMETHasone 6 MG TABLET PO (20:53)
[2023-10-01] MEDS: Heparin Sodium,Porcine 5,000 UNIT/ML VIAL 5000 UNIT SUBCUT (20:53)
[2023-10-01] MEDS: Docusate Sodium 100 MG CAPSULE PO (20:53)
[2023-10-01 21:01] VITALS: RESP 13
--- NOTE | 2023-10-01 21:38 | PC.NURSE ---
O2 Sat 88-90% RA when sleeping, 90-93% RA while awake. Patient reports she uses CPAP at night at home. Magaly, hospitalist informed. will order CPAP.
--- NOTE | 2023-10-01 22:13 | PC.NURSE ---
RT at bedside, patient placed on CPAP at bedtime per MD order.
[2023-10-01 22:20] VITALS: PULSE 97; RESP 18; O2SAT 92
--- NOTE | 2023-10-01 22:22 | PC.RT ---
Placed pt on Resmed Cpap. pt does not know her settings. Placed on Auto Cpap 5-20 on room air. Orders edited.
--- NOTE | 2023-10-01 22:35 | PC.NURSE ---
Patient maintaining O2 Sat 9-94% on CPAP while asleep. VSS. Patient reports pain in her right chest/back at tolerable level 3/10 at present. Call barros in patient's reach.
[2023-10-02] VITALS (14 sets, daily range): BP systolic 92–136; BP diastolic 70–81; PULSE 89–105; RESP 12–21; TEMP 36.4–36.9; O2SAT 87–97; BMI 35.9
[2023-10-02] MEDS: HYDROmorphone HCl 1 MG/ML SYRINGE IVPUSH ×3 (01:03→17:46)
--- NOTE | 2023-10-02 01:05 | PC.NURSE ---
Patient requested Dilaudid 1 mg IV push for right sided chest and back pain.
--- NOTE | 2023-10-02 01:53 | PC.RT ---
pt sats down to 87% on auto cpap 5-20. added 2 liters. Sats now up to 96%. Weaned 02 to 1 liter via cpap. ronak well.
[2023-10-02] MEDS: Omeprazole 20 MG CAPSULE.DR PO (06:38)
[2023-10-02 06:45] LABS: Basophils Percent Auto 0.4 % (0-2); Eosinophils Absolute Auto 0.1 X10*3/uL (0.0-0.4); Eosinophils Percent Auto 1.7 % (0-4); Hematocrit 39.3 % (37.0-47.0); Hemoglobin 13.1 g/dl (12.0-16.0); Imm Gran Abs Auto 0.03 X10*3/uL (0.00-0.03); Imm Gran Pct Auto 0.4 % (0.0-0.4); Lymphocytes Absolute Auto 1.6 X10*3/uL (1.2-4.9); Lymphocytes Percent Auto 18.9 % (20-40); MANUAL DIFF FLAG SCAN; Mean Corpuscular HGB Conc 33.3 g/dl (31.0-35.0); Mean Corpuscular Hemoglobin 30.7 pg (27.0-33.0); Mean Platelet Volume 9.8 fL (9.4-12.3); Monocytes Absolute Auto 1.5 X10*3/uL (0.1-1.2); Monocytes Percent Auto 18.6 % (2-11); Neutrophils Absolute Auto 4.9 x10*3/uL (2.0-8.3); Platelet Count 340 X10*3/uL (160-400); Red Blood Count 4.27 X10*6/uL (4.20-5.50); Red Cell Distribution Width 12.2 % (11.0-16.0); SCAN SMEAR FLAG 1; White Blood Count 8.2 X10*3/uL (4.8-10.8)
[2023-10-02 06:54] LABS: Anion Gap 11 (12-20); Blood Urea Nitrogen 14 mg/dL (9-16); Calcium 9.1 mg/dL (8.4-10.2); Carbon Dioxide 26 mmol/L (22-29); Chloride 103 mmol/L (96-108); Creatinine Clr Calc Pharmacy 72.3; Estimated Glomerular Filt Rate > 60; Glucose Random 120 mg/dL (60-115); Potassium 4.2 mmol/L (3.3-5.1); Sodium 136 mmol/L (135-145)
[2023-10-02] MEDS: Fluticasone Propionate 100 MCG BLST.W.DEV 1 PUFF INHALE (07:16)
[2023-10-02 08:23] LABS: SLIDE REVIEW VERIFIED
[2023-10-02] MEDS: ondansetron HCL 4 MG/2 ML VIAL IVPUSH (08:44)
[2023-10-02] MEDS: Heparin Sodium,Porcine 5,000 UNIT/ML VIAL 5000 UNIT SUBCUT ×2 (08:46→22:28)
[2023-10-02] MEDS: Atorvastatin Calcium 20 MG TABLET PO (08:46)
[2023-10-02] MEDS: Pregabalin 150 MG CAPSULE PO ×2 (08:47→22:29)
[2023-10-02] MEDS: hydrOXYzine HCL 25 MG TABLET PO ×2 (08:47→22:30)
[2023-10-02] MEDS: dexAMETHasone 6 MG TABLET PO (08:47)
[2023-10-02] MEDS: DULoxetine HCl 30 MG CAPSULE.DR PO (08:47)
[2023-10-02] MEDS: Ferrous Sulfate 324 MG TABLET.DR PO (08:47)
[2023-10-02] MEDS: Baclofen 10 MG TABLET PO ×3 (08:48→22:30)
[2023-10-02] MEDS: lisinopriL 5 MG TABLET PO (08:48)
[2023-10-02] MEDS: 0.9 % Sodium Chloride Flush 3 ML SYRINGE IVFLUSH ×3 (08:48→22:32)
[2023-10-02] MEDS: Docusate Sodium 100 MG CAPSULE PO ×2 (08:48→22:30)
[2023-10-02] MEDS: Multivitamin TABLET 1 TAB PO (08:48)
[2023-10-02] MEDS: Calcium + Vitamin D 250 MG TABLET 500 MG PO (08:48)
[2023-10-02] MEDS: Acetaminophen 325 MG TABLET 650 MG PO ×3 (08:49→22:30)
--- NOTE | 2023-10-02 09:22 | PC.NURSE ---
Report given to Connie SINGH
[2023-10-02] MEDS: polyethylene glycoL 3350 17 GM POWD.PACK PO (11:30)
[2023-10-02] MEDS: fentaNYL 25 MCG PATCH.TD72 TRANSDERMA (11:30)
--- NOTE | 2023-10-02 11:59 | MHC.CM.PN ---
pt lives with and dgter she has a demand inspector and own ride home dc plan home
--- NOTE | 2023-10-02 15:30 | PC.NURSE ---
this rn assumed care of pt @ 1500. pt medicated according to aug. pt states no additional needs at this time
--- NOTE | 2023-10-02 16:31 | HO.PM.IMPN ---
Subjective Subjective Date of Service: 10/02/23 Interval History: Intractable pain Review of Systems Patient still has significant pain Denies any shortness a breath or cough or phlegm or nausea vomiting. Physical Exam Vital Signs: Vital Signs: Last Vital Signs Temp 98.5 F 10/02/23 13:45 Pulse 89 10/02/23 13:45 Resp 12 10/02/23 13:45 BP 123/76 10/02/23 13:45 Pulse Ox 95 10/02/23 13:45 O2 Del Method Nasal Cannula 10/02/23 13:45 O2 Flow Rate 2 10/02/23 13:45 BMI result Body Mass Index 35.9 Appearance: Alert.? Oriented X3.?still has significant pain cvs: rrr, [id number] , no murmur res: clear to auscultation ,no rhonchii or wheezing abd: no rebound or guarding ,nt, bs present. ext pulses present , no cyanosis . neuro: axo3 , nonfocal. Objective Data Active Medications Acetaminophen (Acetaminophen 325 Mg Tablet) 650 mg PO Q6H [facility] Last Admin: 10/02/23 13:48 Dose: 650 mg Documented By: AUSTIN Albuterol Sulfate (Albuterol Sulfate 90 Mcg 8 Gm Inhaler) 2 puff INHALE Q4H PRN PRN Reason: Shortness Of Breath Atorvastatin Calcium (Atorvastatin Calcium 20 Mg Tablet) 20 mg PO DAILY [facility] Last Admin: 10/02/23 08:46 Dose: 20 mg Documented By: LEXX Baclofen (Baclofen 10 Mg Tablet) 10 mg PO TID [facility] Last Admin: 10/02/23 15:27 Dose: 10 mg Documented By: JOHN Calcium Carbonate/Cholecalciferol (Calcium + Vitamin D 250 Mg Tablet) 500 mg PO DAILY [facility] Last Admin: 10/02/23 08:48 Dose: 500 mg Documented By: LEXX Clonazepam (Clonazepam 0.5 Mg Tablet) 0.5 mg PO BEDTIME [facility] Last Admin: 10/01/23 20:52 Dose: 0.5 mg Documented By: LAURA Dexamethasone (Dexamethasone 6 Mg Tablet) 6 mg PO DAILY [facility] Last Admin: 10/02/23 08:47 Dose: 6 mg Documented By: LEXX Docusate Sodium (Docusate Sodium 100 Mg Capsule) 100 mg PO BID [facility] Last Admin: 10/02/23 08:48 Dose: 100 mg Documented By: LEXX Duloxetine HCl (Duloxetine Hcl 30 Mg Capsule.) 30 mg PO DAILY [facility] Last Admin: 10/02/23 08:47 Dose: 30 mg Documented By: LEXX Ferrous Sulfate (Ferrous Sulfate 324 Mg Tablet.) 324 mg PO DAILY [facility] Last Admin: 10/02/23 08:47 Dose: 324 mg Documented By: LEXX Fluticasone Propionate (Fluticasone Propionate 100 Mcg Blst.W.Dev) 1 puff INHALE RBID [facility] Last Admin: 10/02/23 07:16 Dose: 1 puff Documented By: DOMINIQUE Heparin Sodium (Porcine) (Heparin Sodium,Porcine 5,000 Unit/Ml Vial) 5,000 unit SUBCUT Q12H [facility] Last Admin: 10/02/23 08:46 Dose: 5,000 unit Documented By: LEXX Hydromorphone HCl (Hydromorphone Hcl 1 Mg/Ml Syringe) 1 mg IVPUSH Q4H PRN; Protocol PRN Reason: Pain, Severe (Pain Scale 7-10) Last Admin: 10/02/23 08:45 Dose: 1 mg Documented By: LEXX Hydroxyzine HCl (Hydroxyzine Hcl 25 Mg Tablet) 25 mg PO BID [facility] Last Admin: 10/02/23 08:47 Dose: 25 mg Documented By: LEXX Lisinopril (Lisinopril 5 Mg Tablet) 5 mg PO DAILY [facility]; Protocol Last Admin: 10/02/23 08:48 Dose: 5 mg Documented By: LEXX Multivitamins/Vitamin C (Multivitamin Tablet) 1 tab PO DAILY [facility] Last Admin: 10/02/23 08:48 Dose: 1 tab Documented By: LEXX Nystatin (Nystatin Ointment 15 Gm Tube) 1 appl TOPICAL DAILY [facility]; Protocol Last Admin: 10/02/23 10:52 Dose: Not Given Documented By: AUSTIN Non-Admin Reason: Patient Refused Omeprazole (Omeprazole 20 Mg Capsule.) 20 mg PO DAILY@0630 [facility] Last Admin: 10/02/23 06:38 Dose: 20 mg Documented By: LAURA Ondansetron HCl (Ondansetron Hcl 4 Mg/2 Ml Vial) 4 mg IVPUSH Q8H PRN PRN Reason: Nausea and Vomiting Last Admin: 10/02/23 08:44 Dose: 4 mg Documented By: LEXX Oxycodone HCl (Oxycodone Hcl Immed Release 5 Mg Tablet) 10 mg PO Q4H PRN PRN Reason: Pain, Moderate(Pain Scale 4-6) Polyethylene Glycol (Polyethylene Glycol 3350 17 Gm Powd.Pack) 17 gm PO DAILY [facility] Last Admin: 10/02/23 11:30 Dose: 17 gm Documented By: AUSTIN Pregabalin (Pregabalin 150 Mg Capsule) 150 mg PO BID [facility] Last Admin: 10/02/23 08:47 Dose: 150 mg Documented By: LEXX Silver Sulfadiazine (Silver Sulfadiazine 1 % Cream 20 Gm Tube) 1 appl TOPICAL BID PRN PRN Reason: wounds Sodium Chloride (0.9 % Sodium Chloride Flush 3 Ml Syringe) 3 ml IVFLUSH QSHIFT [facility] Last Admin: 10/02/23 15:27 Dose: 3 ml Documented By: JOHN Triamcinolone Acetonide (Triamcinolone Acet 0.1 % Cream 15 Gm Tube) 1 appl TOPICAL BID PRN; Protocol PRN Reason: Rash Labs 10/02/23 05:13 10/02/23 05:13 Labs: Laboratory Results - last 24 hr 10/01/23 10/02/23 19:18 05:13 MCV 92.0 MCH 30.7 MCHC 33.3 RDW 12.2 Plt Count 340 MPV 9.8 Immature Gran % (Auto) 0.4 Neut % (Auto) 60.0 Lymph % (Auto) 18.9 L Cooper % (Auto) 18.6 H Eos % (Auto) 1.7 Baso % (Auto) 0.4 Lymph # (Auto) 1.6 Cooper # (Auto) 1.5 H Eos # (Auto) 0.1 Baso # (Auto) 0.0 Abs Immat Gran (auto) 0.03 Absolute Neuts (auto) 4.9 Absolute Nucleated RBC 0.000 Nucleated RBC % (auto) 0.0 Smear Tech's Comments VERIFIED Anion Gap 11 L Estim Creat Clear Calc 72.3 Estimated GFR > 60 Random Glucose 120 H Calcium 9.1 D Troponin I High Sens < 2.7 Assessment and Plan (1) Severe pain: Status: Acute (2) Chest wall recurrence of breast cancer: Status: Acute Plan 63-year-old female with a history of right breast invasive ductal carcinoma 1st diagnosed 11/21/2022 with recurrence in the right breast incision area s/p chemotherapy, htn, fibromyalgia, asthma presented to the ED earlier today from oncology for evaluation of chest wall pain. Per Dr. Calderon, the mass is rapidly growing in his now eroding into the rib and mediastinum. She will be observed for intractable pain Intractable pain due to necrotic tumor right chest wall r/t reucrrent invasive ductal carcinoma R breast -IV dilaudid and oxycodone prn on pain scale -initiate dexamethasone 6mg daily -oncology consult -due to start radiation -incentive spirometry/pulmonary toilet to prevent atelectasis/hypoxia HTN-continue lisinopril Fibromyalgia-continue lyrica dvt prophylaxis- heparin full code ongoing need for stay today-patient has intractable pain due to underlying malignancy: Need IV pain medications including Dilaudid, also p.o. pain medications, need for adequate pain control before discharge. Quality Stroke Does the patient have a stroke diagnosis?: No VTE Prior VTE?: No VTE Risk Level:: Medical - moderate - high VTE Device Contraindication: Treatment Not Indicated VTE Drug Contraindication: N/A - Med Ordered
[2023-10-02] MEDS: clonazePAM 0.5 MG TABLET PO (22:30)
[2023-10-03 03:21] VITALS: BP 113/62; PULSE 85; RESP 16; TEMP 36.7; O2SAT 93
[2023-10-03] MEDS: Omeprazole 20 MG CAPSULE.DR PO (06:10)
[2023-10-03] MEDS: Fluticasone Propionate 100 MCG BLST.W.DEV 1 PUFF INHALE (07:38)
[2023-10-03 07:39] VITALS: PULSE 85; RESP 16; O2SAT 94
[2023-10-03 07:59] VITALS: BP 131/72; PULSE 83; RESP 17; TEMP 36.3; O2SAT 93
[2023-10-03] MEDS: polyethylene glycoL 3350 17 GM POWD.PACK PO (08:19)
[2023-10-03] MEDS: DULoxetine HCl 30 MG CAPSULE.DR PO (08:19)
[2023-10-03] MEDS: Calcium + Vitamin D 250 MG TABLET 500 MG PO (08:19)
[2023-10-03] MEDS: lisinopriL 5 MG TABLET PO (08:19)
[2023-10-03] MEDS: Docusate Sodium 100 MG CAPSULE PO (08:20)
[2023-10-03] MEDS: Multivitamin TABLET 1 TAB PO (08:20)
[2023-10-03] MEDS: hydrOXYzine HCL 25 MG TABLET PO (08:20)
[2023-10-03] MEDS: Heparin Sodium,Porcine 5,000 UNIT/ML VIAL 5000 UNIT SUBCUT (08:21)
[2023-10-03] MEDS: Ferrous Sulfate 324 MG TABLET.DR PO (08:22)
[2023-10-03] MEDS: Acetaminophen 325 MG TABLET 650 MG PO (08:22)
[2023-10-03] MEDS: Baclofen 10 MG TABLET PO (08:23)
[2023-10-03] MEDS: Atorvastatin Calcium 20 MG TABLET PO (08:23)
[2023-10-03] MEDS: Pregabalin 150 MG CAPSULE PO (08:23)
[2023-10-03] MEDS: dexAMETHasone 6 MG TABLET PO (08:23)
[2023-10-03] MEDS: 0.9 % Sodium Chloride Flush 3 ML SYRINGE IVFLUSH (08:24)
--- NOTE | 2023-10-03 08:55 | MHC.CM.PN ---
DP: PT HAS BEEN MEDICALLY CLEARED FOR DC HOME, NO SERVICES. PT HAS OWN RIDE HOME
--- NOTE | 2023-10-03 09:21 | PM.DS ---
DS: Providers Provider Date of Service: 10/03/23 Date of admission: 10/01/23 20:15 Date of discharge: 10/03/23 Primary care physician: Mahesh Rosenbaum MD Consults: 10/01/23 20:15 Consult to Hematology / Oncology Routine Consulting Provider: Linda Calderon Reason for consultation: nectroic breast tumor Attending physician on discharge: Sen Cao Discharging clinician: Sen Cao DS: Diagnosis Discharge Diagnosis (1) Severe pain: Status: Acute (2) Chest wall recurrence of breast cancer: Status: Acute DS: Summary Hospital Course Hospital Course: 63-year-old female with a history of right breast invasive ductal carcinoma 1st diagnosed 11/21/2022 with recurrence in the right breast incision area s/p chemotherapy, htn, fibromyalgia, asthma presented to the ED earlier today from oncology for evaluation of chest wall pain. Per Dr. Calderon, the mass is rapidly growing in his now eroding into the rib and mediastinum. She wasprescribed oxycodone 5 mg every 4 hours the pain was very severe and the patient could not tolerate it therefore Dr. Calderon recommended that she come to the emergency department and admission for pain management. She states that the tumor will most likely be treated with radiation therapy, which patient's is due to start on . Pt reports she has been experiencing intermittent 20/10 pain over the right chest at the tumor site and has been progressively worsening especially over the last 4 days. Pain worsens with deep inspiration. NO fevers, chills, abd pain, n/v/d, sob, cough, chest pain. In the ED, vitals stable, no hypoxia. Labs earlier today unremarkable. Trop in the ED undetectable. Last CT chest 09/25 showed interval performance of right breast lumpectomy, including resection of the hypermetabolic carcinoma and probably the right axillary metastatic lymph nodes. There is also interval development of a large right upper chest necrotic tumor in the medial upper right chest contiguous with the posterior border of the right pectoralis major muscle sternal head penetrating through anteromedial right chest wall including the right 2nd and 3rd costochondral junctions to invade the right superior mediastinum among other findings. No evidence of metastatic disease however. In the ED, has been given 1 mg IV morphine and IV Benadryl with improvement in pain levels to 3/10. She has also been started on 1 L IVF. Hospital course: Intractable pain due to necrotic tumor right chest wall r/t reucrrent invasive ductal carcinoma R breast, cxr shows :Known infiltrating right chest wall mass-started on iv dilaudid and po oxycodone ,tylenol , fentnyl patch 25 mcg given ,bowel regimen . patient pain seems controlled .d/w patient in detail -moniter for any sedation or respiratory issues ( hold oxycodone ) as needed. follow up with oncology Dr Calderon for further management . plan: d/w oncology -currently needs pain meds ( oxycodone ,fentanyl)-prescription will be sent by oncology. Added bowel regimen, further malignancy management outpatient with Oncology. Above management discussed with the patient and the family in detail length, time spent 40 minute -they understand and in agreement with the above plan. Time Attestation Total time managing care of this patient today: 40 mintues. Discharge Coordination Time (in mins): 40 min Quality: Safe Use of Opioids Does Pt have an Active Cancer Diagnosis on the Problem List?: Yes Opioid Measure Date for [facility] Report: 09/03/23 Opioid Measure Time for [facility] Report: 16:24 Quality: Stroke Does the patient have a stroke diagnosis?: No Physical Exam Vital Signs: Vital Signs: Last Vital Signs Temp 97.3 F 10/03/23 07:59 Pulse 83 10/03/23 07:59 Resp 17 10/03/23 07:59 BP 131/72 10/03/23 07:59 Pulse Ox 93 10/03/23 07:59 O2 Del Method Room Air 10/03/23 07:59 O2 Flow Rate 2 10/02/23 13:45 BMI result Body Mass Index 35.9 Appearance: Alert.? Oriented X3.?still has significant pain cvs: rrr, [id number] , no murmur res: clear to auscultation ,no rhonchii or wheezing abd: no rebound or guarding ,nt, bs present. ext pulses present , no cyanosis . neuro: axo3 , nonfocal. DS: Data Data Completed and Pending Completed studies during hospitalization [Text1]: Procedures Excision of Right Axillary Lymphatic, Open Approach (08/02/22) Planar Nuclear Medicine Imaging of Upper Chest Lymphatics using Other Radionuclide (08/02/22) Resection of Bilateral Breast, Open Approach (08/02/22) Imaging Chest x-ray: Radiologist's impression: ITS Impressions Chest X-Ray 10/02/23 09:05 IMPRESSION: Known infiltrating right chest wall mass, please see separately reported 09/26/2023 CT dictation for more definitive findings. Left base atelectasis. Discharge Plan Discharge Anticipated Discharge Date/Time: 10/03/23 08:20 Patient Disposition: Home, Self-Care Discharge Diagnosis: Intractable pain due to necrotic tumor right chest wall r/t reucrrent invasive ductal carcinoma R breast Referrals: Name,MD Mahesh [Primary Care Provider] - 1 Week Discharge Medications: New polyethylene glycol 3350 17 gram Powder In Packet 17 g PO DAILY Qty: 30 0RF acetaminophen 325 mg Tablet 650 mg PO Q6H PRN (Reason: pain) Qty: 30 0RF fentanyl 25 mcg/hr patch 72 hour 1 patch transdermal Q72H Qty: 1 0RF Rx Instructions: Partial Fill upon patient request. Continued calcium carbonate-vitamin D3 600 mg-5 mcg (200 unit) tablet 1 tab PO DAILY mometasone 0.1 % cream 1 applic topical DAILY PRN (Reason: Rash) pregabalin 150 mg capsule 1 cap PO BID multivitamin with folic acid [Tab-A-Richard] 400 mcg tablet 1 tab PO DAILY duloxetine 30 mg Capsule,Delayed Release(Dr/Ec) 30 mg PO DAILY Qty: 30 3RF (DME) LympheDiva Arm Sleeve with Gauntlet Kit Qty: 1 1RF Rx Instructions: rt arm As Directed ferrous sulfate 325 mg (65 mg iron) Tablet 325 mg PO DAILY Qty: 30 3RF ondansetron 8 mg Tablet,Disintegrating 8 mg PO Q8H PRN (Reason: Nausea) Qty: 60 2RF docusate sodium [Colace] 100 mg Capsule 100 mg PO DAILY PRN (Reason: contipation) Qty: 30 3RF nystatin 100,000 unit/gram ointment 1 appl topical DAILY omeprazole 20 mg capsule,delayed release(DR/EC) 20 mg PO DAILY hydroxyzine HCl 25 mg tablet 25 mg PO BID silver sulfadiazine 1 % cream 1 appl TOPICAL BID PRN (Reason: wounds) Rx Instructions: apply a 1.5 mm thickness dexamethasone 6 mg tablet 6 mg PO BID PRN (Reason: 1 day prior to chem and 2 days after) Rx Instructions: Start 1 day before chemotherapy and take for 2 days after chemotherapy triamcinolone acetonide 0.1 % cream 1 appl TOPICAL BID PRN (Reason: Rash) albuterol sulfate 90 mcg/actuation HFA aerosol inhaler 2 puff PO Q4H PRN (Reason: Shortness Of Breath) baclofen 10 mg tablet 10 mg PO TID clonazepam 0.5 mg tablet 0.5 mg PO BEDTIME atorvastatin 20 mg tablet 20 mg PO DAILY lisinopril 5 mg tablet 5 mg PO DAILY Arnuity Ellipta 100 mcg/actuation blister with device 1 inh inhalation DAILY Changed oxycodone 5 mg Tablet 10 mg PO Q4H PRN (Reason: Pain (Scale Score 7-10)) Qty: 60 0RF Rx Instructions: Partial Fill upon patient request. No Action fentanyl 37.5 mcg/hour Patch 72 Hour 1 patch TRANSDERMAL Q72H Qty: 6 0RF Rx Instructions: Partial Fill upon patient request. Discharge Orders: Discharge Order (Routine); Ordered 10/03/23 Ordered By: Sen Cao Diet: Advance to usual diet Activity on Discharge: As tolerated Stand Alone Forms: Patient Portal Discharge page Print Language: [place] Citizen Care Plan Goals: Intractable pain due to necrotic tumor right chest wall r/t reucrrent invasive ductal carcinoma R breast-started on iv dilaudid and po oxycodone ,tylenol , bowel regimen . patient pain seems controlled .d/w patient in detail -moniter for any sedation or respiratory issues ( hold oxycodone ) as needed. follow up with oncology Dr Calderon for further management . Health Concerns: as above. Plan of Treatment: pain management-oxycodone changed to 10 mg po q4hr prn and tylenol 650 mg po daily prn Assessment: as above. Discharge Date/Time: 10/03/23 10:40
--- NOTE | 2023-10-03 10:28 | PC.NURSE ---
pt to be discharged to oncology for chemo. t/w spoke to Lissa Clarke RN, who asked for pt to be sent down with IV access. Pt has a 20 gauge in left hand, okayed by hospitality specialist. Oncology to remove post treatment.
[2023-10-03] MEDS: HYDROmorphone HCl 1 MG/ML SYRINGE IVPUSH (10:35)
== END 2023-10-03 10:40 | disposition home or self-care (01) ==
LOC: HO.ED 18:45 → HO.EDOVER 20:42 → HO.S3 10-02 19:08
PROVIDERS: Physician Assistant; Admitting Provider Physician Assistant; Emergency Provider Emergency Medicine Emergency Medical Services; PCP Internal Medicine Geriatric Medicine; Visit Provider Internal Medicine
DX: R07.89 Other chest pain (principal); C50.911 Malignant neoplasm of unspecified site of right female breast; C77.3 Secondary and unspecified malignant neoplasm of axilla and upper limb lymph nodes; I10 Essential (primary) hypertension; M79.7 Fibromyalgia; J45.909 Unspecified asthma, uncomplicated; Z92.21 Personal history of antineoplastic chemotherapy
CPT/HCPCS: 36415; 71046; 80048; 84484; 85025; 93005; 94640; 94660; 94664; 96361; 96372; 96374; 96375; 96376; 99221; 99285; J1170; J1200; J1644; J2405; J8540

== ENCOUNTER → 2023-10-01 17:07 | Outpatient (BNV) | payer OTHER, SELFPAY | PROVIDERS: Admitting Provider Physician Assistant; Emergency Provider Emergency Medicine Emergency Medical Services; PCP Internal Medicine Geriatric Medicine; Visit Provider Internal Medicine | DX: R94.31 Abnormal electrocardiogram [ECG] [EKG] (principal) | CPT/HCPCS: 93010 ==

== ENCOUNTER → 2023-10-01 20:15 | Outpatient (BNV) | payer OTHER, SELFPAY | PROVIDERS: Admitting Provider Physician Assistant; Emergency Provider Emergency Medicine Emergency Medical Services; PCP Internal Medicine Geriatric Medicine; Visit Provider Internal Medicine | DX: C50.911 Malignant neoplasm of unspecified site of right female breast (principal); C79.89 Secondary malignant neoplasm of other specified sites; G89.3 Neoplasm related pain (acute) (chronic) | CPT/HCPCS: 99223; 99231; 99239 ==

== ENCOUNTER 2023-10-16 11:33 | Day surgery (SDC) | payer OTHER, SELFPAY ==
--- NOTE | ~2023-10-16 | CT_ITS ---
History of right breast cancer. Large right chest wall/mediastinal mass. PROCEDURES: 1. Limited preprocedure CT of the chest. Permanent images saved in PACS. 2. CT-guided biopsy the right chest wall/mediastinal mass.. 3. Limited preprocedure CT of the chest. Permanent images saved in PACS. CLINICIANS: Rajiv Ellis PA-C MEDICATIONS: -Versed 1 mg, Fentanyl 50 mcg, and lidocaine 1% 10 mL SQ -Antibiotics: None -For additional details, please see nursing flowsheet. COMPLICATIONS: None ESTIMATED BLOOD LOSS: < 5 ml CONTRAST: None SPECIMENS: 4 x 20 g cores were performed. 30 mL of non-clotting, blood tinged fluid was sent for cytology. MODERATE SEDATION TIME: 33 min PROCEDURE NOTE: The procedure, risks, benefits, and alternatives were carefully explained to the patient and written informed consent was obtained. The patient was placed supine on the CT table. A timeout was performed. A limited CT of the chest was performed to localize the right chest wall/mediastinal mass and choose appropriate needle entry and trajectory. The patient was prepped and draped in usual sterile fashion. The skin and deeper soft tissues were anesthetized with lidocaine. Under CT guidance, a 19 gague trocar needle was advanced into the right chest wall/mediastinal mass. 30 mL of nonclotting blood tinged fluid was immediately aspirated from the necrotic appearing mass and sent for cytology. A 20 gauge biopsy device was inserted through the trocar needle advanced into the more solid appearing portion of the mass.. A total of 4, 20 gague cores were performed. The specimens were sent for pathology. The trocar needle was removed. A dry dressing was applied and secured with Tegaderm. There were no immediate complications. The patient was stable after the procedure and was transferred to the post anesthesia care unit. The procedure was done under moderate sedation with a dedicated nurse for monitoring of vital signs. CT/CT biopsy muscle Impression: CT-guided biopsy of the right chest wall/mediastinal mass. This procedure was performed by Rajiv Ellis PA-C and supervised by Dr. Sorto.
[2023-10-16 11:56] VITALS: BMI 34.9
--- NOTE | 2023-10-16 13:01 | MHC.SHP ---
Pre-Procedural Eval Section A - 24 Hr Update-Section A only Date of Service: 10/16/23 Section B - Complete if H&P > 30 days Chief Complaint: MUSCLE BX, RT CHEST MASS Details of Present Illness: 63 y/o female with breast cancer and a new right chest wall mass extending into the mediastinum. Relevant Family History (Specify if Yes): No Relevant Social History: None Present Medications: see Short Stay Collaborative assessment Medical History: Significant History History of Previous Operations: Relevant previous surgery/procedure and date(s) Allergies: Allergies Allergy/AdvReac Type Severity Reaction Status Date / Time ceftriaxone Allergy Intermediate Rash Verified 10/01/23 17:20 metoprolol [METOPROLOL] Allergy Unknown RASH Verified 10/01/23 17:20 adhesive tape Allergy Rash Verified 10/01/23 17:20 Review of Systems Sugical H&P ROS: Negative: Cardiovascular, Respiratory and Neurological and Yes, Specify: Musculoskeletal (right chest wall pain) Exam Surgical H&P Exam: Normal: Heart, Normal: Lungs and Normal: Neurological, Not Evaluated: HEENT and Significant Findings: Skin (palpable right chest wall mass) Plan Diagnosis/Plan: Unchanged I have reviewed the history and physical and performed a pertinent physical examination on my patient. No changes have occurred unless specified. Image guided right chest wall mass biopsy Time Spent With Patient Time: Total time managing care of this patient today ____ minutes.
[2023-10-16 14:26] VITALS: BP 99/63; PULSE 83; RESP 18; TEMP 37.1; O2SAT 96
[2023-10-16 14:41] VITALS: BP 98/66; PULSE 83; RESP 16; O2SAT 95
[2023-10-16 14:56] VITALS: BP 90/61; PULSE 90; RESP 18; TEMP 36.4; O2SAT 98
[2023-10-16] MEDS: iohexoL 350 MG/ML 75 ML INFUS..BTL 65 ML IV (14:57)
== END 2023-10-16 15:09 | disposition home or self-care (01) ==
PROVIDERS: Student in an Organized Health Care Education/Training Program; PCP Internal Medicine Geriatric Medicine; Visit Provider Internal Medicine
DX: C78.1 Secondary malignant neoplasm of mediastinum (principal); C50.919 Malignant neoplasm of unspecified site of unspecified female breast; Z90.13 Acquired absence of bilateral breasts and nipples; Z17.1 Estrogen receptor negative status [ER-]; J45.909 Unspecified asthma, uncomplicated; I10 Essential (primary) hypertension; M79.7 Fibromyalgia; Z79.899 Other long term (current) drug therapy; Z79.51 Long term (current) use of inhaled steroids; L23.1 Allergic contact dermatitis due to adhesives; Z88.8 Allergy status to other drugs, medicaments and biological substances
CPT/HCPCS: 20206; 77012; 86850; 86900; 86901; 88173; 88305; 88341; 88342; 88360; 99152; 99153; J2250; J2310; J3010

== ENCOUNTER → 2023-10-16 12:04 | Outpatient (BNV) | payer OTHER, SELFPAY | PROVIDERS: PCP Internal Medicine Geriatric Medicine; Visit Provider Physician Assistant Surgical | DX: C50.911 Malignant neoplasm of unspecified site of right female breast (principal) | CPT/HCPCS: 20206; 77012 ==

== ENCOUNTER 2023-10-18 07:35 | Outpatient (REF) | payer OTHER, SELFPAY ==
--- NOTE | ~2023-10-18 | FL_ITS ---
EXAMINATION: XR FLUOROSCOPY UPPER GI WITH AIR CLINICAL INFORMATION: Oropharyngeal dysphasia. Choking sensation with food and water. Metastatic breast CA. COMPARISON: 07/30/2016. TECHNIQUE: Fluoroscopic air contrast upper GI examination was performed utilizing standard techniques with thin and thick barium and effervescent granules. Numerous spot images were obtained. Several fluoroscopic image hold cine sequences were also obtained. FINDINGS: Lateral cine images of the oropharynx and hypopharynx demonstrate normal swallow mechanism with normal epiglottic inversion and soft palate elevation. No tracheal penetration, glottic or subglottic aspiration identified. No nasopharyngeal reflux present. Hypopharyngeal structures appear normal without evidence of mass or diverticulum. 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 Dual and single contrast images of the esophagus demonstrate normal caliber, contour, and mucosal pattern. No evidence of stricture, mass, or ulcerations identified. Esophageal mildly disordered. No evidence of hiatus hernia identified. There was mild is gastroesophageal reflux to the level of the que. Dual contrast and single contrast images of the stomach demonstrated normal contour and mucosal pattern without evidence of mass, ulceration, or other abnormality. Contrast freely passed into the gastric antrum and duodenal bulb without delay. Single and air-contrast images of the duodenal bulb demonstrate no abnormality. The duodenal sweep has a normal appearance, course, and mucosal fold appearance. The imaged proximal jejunum has a normal fold pattern and caliber. FLUOROSCOPY TIME: 4 minutes 21 seconds Number of Spot Images: 13 Number of cines obtained: 11 DOSE AREA PRODUCT: 3702 uGy-m2 (microgray-meter squared) FL/FL upper GI w Ba Swallow IMPRESSION: 1. 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 2. Mildly disordered esophageal peristalsis. 3. Mild gastroesophageal reflux. 4. No definite hiatus hernia.
== END 2023-10-18 07:36 | disposition home or self-care (01) ==
LOC: HO.XRAY 07:35
PROVIDERS: PCP Internal Medicine Geriatric Medicine; Visit Provider Internal Medicine
DX: R13.10 Dysphagia, unspecified (principal)
CPT/HCPCS: 74240

== ENCOUNTER → 2023-10-18 07:37 | Outpatient (BNV) | payer OTHER, SELFPAY | PROVIDERS: PCP Internal Medicine Geriatric Medicine; Visit Provider Radiology Diagnostic Radiology | DX: R13.10 Dysphagia, unspecified (principal) | CPT/HCPCS: 74246 ==

== ENCOUNTER 2023-11-05 11:07 | Day surgery (SDC) | payer OTHER, SELFPAY ==
--- NOTE | ~2023-11-05 | IR_ITS ---
CLINICAL HISTORY: Recurrent right breast cancer. The patient presents to interventional radiology for placement of a port for chemotherapy. PROCEDURES: 1. Real-time ultrasound-guided access into the left internal jugular vein after documentation of selected vessel patency, and permanent image storing in the patient records. 2. Placement of a 6.6 [place] single-lumen power port. CLINICIAN: Rajiv Ellis PA-C MEDICATIONS: - Versed 1 mg, Fentanyl 50 mcg, Lidocaine 1% 10 mL SQ -Antibiotics: Clindamycin 600 mg -For additional details, please see nursing flowsheet. Complications: None. Estimated blood loss: <5 ml Specimens: None. Contrast: None. Fluoroscopy time: 2.9 min MODERATE SEDATION TIME: 38 min PROCEDURE NOTE: The procedure, risks, benefits, and alternatives were carefully explained to the patient and written informed consent was obtained. The patient was placed supine on the fluoroscopy table. A timeout was performed. The left neck and chest was prepped and draped in usual sterile fashion. Maximum barrier technique was utilized. Local anesthesia was administered to the access site with 1% lidocaine. Under ultrasound guidance, the left internal jugular vein was accessed with a 5 fr micropuncture set. A 0.035 in wire was advanced into the IVC. A peel-away sheath was advanced over the wire and into the SVC, and the wire was removed. Next, subcutaneous lidocaine was administered to the chest. The port pocket was created after the skin incision, utilizing blunt dissection. Using blunt dissection, a subcutaneous tunnel was created that connects from the port pocket to the venotomy site. Through the peel-away sheath, the 6.6 [place] port catheter was placed. The catheter position was verified with fluoroscopy to be at the superior vena cava/right atrial junction. The port was connected to the catheter and was placed in the pocket. The venotomy site was closed with a 3-0 Vicryl subcutaneous suture. The port incision site was closed with interrupted 3-0 Vicryl subcutaneous sutures and surgical glue. The port was tested, flushed, and packed with heparin per routine protocol. The patient tolerated the procedure well. The patient was stable after the procedure and was transferred to the PACU. The procedure was performed under moderate sedation and with a dedicated nurse with continuous monitoring of vital signs. A permanent image of the ultrasound the neck and fluoroscopic image of the chest was saved and sent to PACS. FINDINGS: 1. Patent left internal jugular vein 2. Placement of a 6.6 [place] single lumen power port. 3. Port flushes and aspirates very well with a 10 mL syringe. No pneumothorax. IR/IR cvc insert tunnel w prt/chip unloader IMPRESSION: Placement of a 6.6 [place] single-lumen power port. PLAN: - The patient will be discharged home when stable by sedation protocol. - Port may be used immediately. This procedure was performed by Rajiv Ellis PA-C, and directly supervised by Dr. Hadley
[2023-11-05 12:05] VITALS: BP 100/67; PULSE 93; RESP 16; TEMP 36.1; O2SAT 95
--- NOTE | 2023-11-05 12:54 | MHC.SHP ---
Pre-Procedural Eval Section A - 24 Hr Update-Section A only Date of Service: 11/05/23 Section B - Complete if H&P > 30 days Chief Complaint: breast cancer Details of Present Illness: 63 y/o female with recurrent right breast cancer and poor iv access Relevant Family History (Specify if Yes): No Relevant Social History: None Present Medications: see Short Stay Collaborative assessment Medical History: Significant History History of Previous Operations: Relevant previous surgery/procedure and date(s) Allergies: Allergies Allergy/AdvReac Type Severity Reaction Status Date / Time ceftriaxone Allergy Intermediate Rash Verified 10/25/23 14:05 metoprolol [METOPROLOL] Allergy Unknown RASH Verified 10/25/23 14:05 adhesive tape Allergy Rash Verified 10/25/23 14:05 Review of Systems Sugical H&P ROS: Negative: Cardiovascular, Respiratory and Neurological Exam Surgical H&P Exam: Normal: Heart, Normal: Lungs, Normal: Skin and Normal: Neurological and Not Evaluated: HEENT Plan I have reviewed the history and physical and performed a pertinent physical examination on my patient. No changes have occurred unless specified. Left port Time Spent With Patient Time: Total time managing care of this patient today ____ minutes.
[2023-11-05 12:57] VITALS: BMI 34.7
[2023-11-05 14:40] VITALS: BP 94/65; PULSE 91; RESP 16; TEMP 37.3; O2SAT 97
[2023-11-05 14:55] VITALS: BP 110/63; PULSE 94; RESP 16; TEMP 36.5; O2SAT 97
== END 2023-11-05 15:30 | disposition home or self-care (01) ==
LOC: HO.SSS 11:07
PROVIDERS: Radiology Vascular & Interventional Radiology; PCP Internal Medicine Geriatric Medicine; Visit Provider Internal Medicine
DX: C50.811 Malignant neoplasm of overlapping sites of right female breast (principal); Z92.21 Personal history of antineoplastic chemotherapy; K11.7 Disturbances of salivary secretion; G47.33 Obstructive sleep apnea (adult) (pediatric); J45.909 Unspecified asthma, uncomplicated; Z90.13 Acquired absence of bilateral breasts and nipples; I10 Essential (primary) hypertension
CPT/HCPCS: 36561; 99152; 99153; A4364; C1769; C1788; J0690; J0736; J1642; J1644; J2250; J2310; J3010; Q9967

== ENCOUNTER → 2023-11-05 12:43 | Outpatient (BNV) | payer OTHER, SELFPAY | PROVIDERS: PCP Internal Medicine Geriatric Medicine; Visit Provider Physician Assistant Surgical | DX: C50.911 Malignant neoplasm of unspecified site of right female breast (principal) | CPT/HCPCS: 36561; 76937; 77001 ==

== ENCOUNTER 2023-12-13 14:07 | Outpatient (AMB) | payer OTHER, SELFPAY ==
--- NOTE | 2023-12-13 14:29 | A.OFFVIS_ITS ---
Vital Signs 12/13/23 14:42 Height 4 ft 11 in Weight 154 lb 4 oz BMI 31.2 BP 112/70 Blood Pressure Location Lt brachial Position Sitting Pulse 98 Pulse Source Pulse Oximeter Pulse Oximetry (%) 97 Oxygen Delivery Method Room Air Intake Visit Reasons: 3 mo Follow up-CONF Intake Note: Patient presents for 3 months f/u. Doesn't want to continue CPAP machine. Marketing Information Analyst Required: Yes Marketing Information Analyst Services: Marketing Information Analyst Offered & Declined Marketing Information Analyst Name: Staci Branch Allergies ceftriaxone Allergy (Intermediate, Verified 12/13/23 14:39) Rash metoprolol [METOPROLOL] Allergy (Unknown, Verified 12/13/23 14:39) RASH adhesive tape Allergy (Verified 12/13/23 14:39) Rash Medication List - Last Reconciled 12/13/23 by JARROD Pantoja acetaminophen 650 mg (2 x 325 mg) PO Q6H PRN albuterol sulfate 90 mcg/actuation 2 puffs PO Q4H PRN atorvastatin 20 mg PO DAILY baclofen 10 mg PO TID calcium carbonate-vitamin D3 600 mg-5 mcg (200 unit) 1 tab PO DAILY clonazepam 0.5 mg PO BEDTIME compression sleeve and gauntlet (LympheDiva Arm Sleeve with Gauntlet) rt arm As Directed dexamethasone 6 mg PO BID PRN docusate sodium (Colace) 100 mg PO DAILY PRN duloxetine 20 mg PO DAILY fentanyl 25 mcg/hr 1 patch transdermal Q72H ferrous sulfate 325 mg PO DAILY fluticasone furoate 100 mcg/actuation (Arnuity Ellipta) 1 inh inhalation DAILY food supplemt, lactose-reduced (Ensure oral liquid) 1 ea PO 3XD food supplemt, lactose-reduced (Ensure oral liquid) 1 ea PO BID food supplemt, lactose-reduced (Boost) 1 ea PO BID hydroxyzine HCl 25 mg PO BID loratadine (Claritin) 10 mg PO DAILY Magic Mouthwash Diphen/Nystat/Antacid 1:1:1 5 mL PO TID mometasone 0.1% 1 applic topical DAILY PRN multivitamin with folic acid 400 mcg (Tab-A-Richard) 1 tab PO DAILY nitrofurantoin monohyd/m-cryst 100 mg (Macrobid) 100 mg PO Q12H nitrofurantoin monohyd/m-cryst 100 mg (Macrobid) 100 mg PO Q12H nystatin 1 appl topical DAILY omeprazole 20 mg PO DAILY ondansetron 8 mg PO Q8H PRN oxycodone 10 mg (2 x 5 mg) PO Q4H PRN polyethylene glycol 3350 17 grams PO DAILY pregabalin 1 cap PO BID silver sulfadiazine 1% 1 appl topical BID PRN sulfamethoxazole-trimethoprim 800-160 mg (Bactrim DS) 1 tab PO BID triamcinolone acetonide 0.1% 1 appl topical BID PRN HPI Comments Details: 63-yr-old female presents for f/u visit, accompanied by her . Pt reports she has not been able to use her CPAP in over a yr d/t her chronic bothersome dry mouth. She tried Xylimelts for dry mouth- but they did not help. She notes she has lost > 30 lbs in the last several months. Her snoring has decreased significantly. She states her sleep varies, Can have sleep difficulty due to pain. Has clonazepam for sleep. She is on a pain management program, including fentanyl patch, prn oxycodone. [facility] Medical History Post-mastectomy pain Asthma PONV (postoperative nausea and vomiting) Fibromyalgia HTN (hypertension) Invasive ductal carcinoma of breast Breast mass, right Osteoarthritis of right shoulder Surgical History Hx of bilateral mastectomy (08/02/22) History of foot surgery History of hysterectomy Family History Father Stroke Mother Hypertension Asthma Maternal Grandmother Lung cancer Maternal Aunt Breast cancer Maternal Aunt Thyroid cancer Maternal Aunt Colon cancer Social History Household Members: Family Household Members Other:: Foster child Housing: House Housing Other:: mobile home Are you a primary toddler caregiver to a significant other at home: Yes (foster child) Do you presently have visiting nurse or other home services: Yes ([facility]) Alcohol intake: current Alcohol intake frequency: does not drink Comment: counts correct Patient Tobacco Use Status: Never used Tobacco Second Hand Smoke Exposure: No service: No Current occupational status: disabled Current occupation: right hand dominant Physical Exam Vital Signs: Last Vital Signs Pulse 98 12/13/23 14:42 BP 112/70 12/13/23 14:42 Pulse Ox 97 12/13/23 14:42 Oxygen Delivery Method Room Air 12/13/23 14:42 BMI result Body Mass Index 31.2 Const General: cooperative and no acute distress Orientation/consciousness: patient oriented x3 Resp Effort & Inspection: normal respiratory effort and able to speak in complete sentences Neuro General: patient oriented x3 Cranial nerves: Yes CN's II-XII intact bilaterally Cognition (Neuro): normal cognition Psych Appearance: grossly normal Mental Status: mental status grossly normal Speech and movement: Normal speech and movement present Affect: normal affect Attitude: cooperative Assessment & Plan Assessment & Plan (1) Obstructive sleep apnea: Code(s): G47.33 - Obstructive sleep apnea (adult) (pediatric) Category: Medical Plan Pt is advised to undergo f/u HST (pt prefers HST vs in-lab sleep study) to determine status of sleep apnea (both for obstructive and central events) in setting of losing > 10% of her body weight since the last sleep study. Follow-up in 6 months or sooner prn. Orders: Orders RT home sleep study Today G47.33 - Obstructive sleep apnea (adult) (pediatric) Coding Level of Care Code Est Pt Level 3 (14033) Diagnoses Obstructive sleep apnea G47.33
[2023-12-13 14:42] VITALS: BP 112/70; PULSE 98; O2SAT 97; BMI 31.2
== END 2023-12-13 15:22 | disposition home or self-care (01) ==
PROVIDERS: PCP Internal Medicine Geriatric Medicine; Visit Provider Nurse Practitioner Family
DX: G47.33 Obstructive sleep apnea (adult) (pediatric) (principal)
CPT/HCPCS: 99213

== ENCOUNTER → 2023-12-13 14:07 | Outpatient (BNVA) | payer OTHER, SELFPAY | PROVIDERS: PCP Internal Medicine Geriatric Medicine; Visit Provider Nurse Practitioner Family | DX: G47.33 Obstructive sleep apnea (adult) (pediatric) (principal) | CPT/HCPCS: 99212 ==

== ENCOUNTER 2024-01-01 09:38 | Outpatient (REF) | payer OTHER, SELFPAY ==
--- NOTE | ~2024-01-01 | CT_ITS ---
EXAMINATION: CT CHEST WITH CONTRAST CLINICAL INFORMATION: Evaluate response to chemotherapy COMPARISON: 09/26/2023 TECHNIQUE: Multidetector volumetric CT imaging of the chest was obtained after the administration of 65 mL of Omnipaque 350 intravenous contrast without immediate adverse reactions. Axial MIP volume rendering provided. Sagittal and coronal reformatted images were obtained. This CT examination was performed using dose optimization techniques as appropriate, variously including the following: *Automated exposure control *Adjustment of mA and/or kV according to patient size (this includes techniques or standardized protocols for targeted exams where dose is matched to indication/reason for exam; i.e. extremities or head) *Use of iterative reconstruction technique DLP: 109 mGy-cm FINDINGS: OPHTHALMIC LENS INSPECTOR: There is mass in the mediastinum Lungs: Clear Mediastinum: Large heterogeneous mass in the right anterior chest wall protruding to the mediastinum and subcutaneously seen again growing since previous examination in size. Subcutaneous homogeneous low-attenuation components measured 4.4 x 2.5 x 4.6 cm and solid component extending from the cystic component towards the pericardium measured 5.7 x 8.1 x 6.6 cm and is inseparable from the pericardium, chest wall, distracting anterior ribs and right lateral aspect of the sternum. Mass is not invading aorta but inseparable from the pericardium. The entire mass measured approximately 9.9 x 7.4 x 8.8 cm There are small mediastinal lymphadenopathy seen with precarinal lymph node measured 1.1 cm. There is no hilar lymphadenopathy. No pericardial effusion seen. There is Port-A-Cath present on the left with the tip at the atriocaval junction PLEURA: There is a right lower lobe. AXILLA: No lymphadenopathy. UPPER ABDOMEN: Unremarkable OSSEOUS STRUCTURES: There is erosion of ribs medial aspect of ribs #2 and 3 and lateral aspect of the sternum. No mass is protruding through cartilages of the anterior ribs. The rest of the visualized osseous structures are unremarkable CT/CT chest w IV con IMPRESSION: 1. Growing large right anterior chest wall mass with erosion of ribs and inseparable from the mediastinum as described. Fleischner guidelines were followed.
[2024-01-01] MEDS: iohexoL 350 MG/ML 75 ML INFUS..BTL 65 ML IV (12:39)
== END 2024-01-01 09:39 | disposition home or self-care (01) ==
LOC: HO.CT 09:38
PROVIDERS: Visit Provider Internal Medicine
DX: C50.919 Malignant neoplasm of unspecified site of unspecified female breast (principal)
CPT/HCPCS: 71260; Q9967

== ENCOUNTER → 2024-01-16 14:45 | Outpatient (REF) | payer OTHER, SELFPAY ==
--- NOTE | 2024-01-16 14:49 | CA_ITS ---
Transthoracic Echocardiogram Patient (Last, First, Middle): Magaly Zaidi, Gender: Female Date of : 1960 Age: 63 Procedure Date: 01/16/2024 Procedure Type: Transthoracic Echocardiogram Location: OP Height: 149.86 cm Weight: 71.22 kg BSA: 1.66 m2 Heart Rate: 95 bpm BP: 112 / 70 mmHg Hide Dropper: LEONARDO Referring MD: Linda Calderon MD Paint Mixer Hand: Tae Spence MD Symptoms: pre chemo eval Study Quality: Adequate ECG Rhythm: Sinus Conclusions: - Normal study Findings Left Ventricle Normal left ventricular size, thickness, and systolic function. The visually estimated ejection fraction is between 60-65%. Spectral Doppler is indicative of a normal filling pattern. Peak GLS is -19.2%, within normal limits. Right Ventricle Normal right ventricular cavity size and systolic function. Atria Both atria are normal in size. There is no evidence of interatrial shunt. Aortic Valve Normal aortic valve structure and function. There is no aortic valve stenosis. There is no aortic valve regurgitation. Mitral Valve Normal mitral valve structure and function. There is trace mitral valve regurgitation. There is no mitral valve stenosis. Pulmonic Valve The pulmonic valve is likely normal. There is trace pulmonic valve regurgitation. Tricuspid Valve Normal tricuspid valve structure. There is trace tricuspid valve regurgitation. The right ventricular systolic pressure is normal. The right ventricular systolic pressure is 24 mmHg. Normal right atrial pressure. There is no evidence of pulmonary hypertension. Great Vessels All visible segments of the aorta are normal in size. The pulmonary artery was not well visualized. Venous The inferior vena cava is normal in size and collapses greater than 50% with inspiration. Pericardium/Pleural There is no evidence of pericardial effusion. Measurements 2D Linear Measurements IVSd: 0.74 0.6-0.9/0.6-1.0 cm LVIDd: 4.66 3.9-5.3/4.2-5.9 cm LVIDd Index: 2.81 2.4-3.2/2.2-3.1 cm/m2 LVIDs: 3.24 2.0-3.6 cm LVPWd: 0.72 0.7-1.1 cm LA Diam: 3.30 2.7-3.8/3.0-4.0 cm LAIDs Index: 1.99 1.5-2.3 cm/m2 LV Mass: 133.50 67-162/88-224 g LV Mass Index: 80.42 43-95/49-115 g/m2 LVOT Diam: 1.80 3.0+(-)1.3 cm 2D Systolic Function EF 4C: 68.30 >55% EF 2C: 63.00 >55% EF BiP: 65.00 >55% Mitral Valve MV Pk E: 1.02 MV PK A: 0.61 MV Decel Time: 160.00 E/A: 1.70 E'Lateral: 7.62 E'Medial: 9.03 E/E' Med: 11.30 E/E' Lat: 13.40 PHT: 47.00 MVA PHT: 4.68 Decel Fisher: 6.35 Aortic Valve AoV Pk Timo: 1.45 AoV Pk Grad: 8.00 JOYCE: 2.48 LVOT LVOT Pk Timo: 1.26 LVOT Mn Timo: 0.82 LVOT VTI: 0.23 LVOT Pk Grad: 6.00 LVOT Mn Grad: 3.00 LVOT Diam: 1.80 LVOT Area: 2.54 Diastolic Function MV Pk E: 1.02 MV Pk A: 0.61 E/A: 1.70 E'Medial: 9.03 E/E' Med: 11.30 E' Laterial: 7.62 E/E' Lat: 13.40 Right Ventricle TAPSE (mm): 20.00 TVS' Timo: 12.70 Tricuspid Valve TR Pk Timo: 2.28 TR Pk Grad: 21.00 RA Press: 3.00 RVSP: 24.00 Great Vessels Aorta Sinus of Valsalva: 2.80 2.0-3.5 cm Ao Asc: 3.30 2.1-3.4 cm Pulmonary Veins Pulm Vein S/D 1.20 Pulmonary Valve PV Pk Timo: 1.06 Peak PV Grad: 4.00 Updated in Other Vendor System with Status of Final Tae Spence MD electronically signed on 01/17/2024 12:17:11 PM with status of Final
== END ==
LOC: HO.CARD 14:45
PROVIDERS: PCP Internal Medicine Geriatric Medicine; Visit Provider Internal Medicine
DX: C50.919 Malignant neoplasm of unspecified site of unspecified female breast (principal); Z92.21 Personal history of antineoplastic chemotherapy
CPT/HCPCS: 93306

== ENCOUNTER → 2024-01-16 14:49 | Outpatient (BNV) | payer OTHER, SELFPAY | PROVIDERS: PCP Internal Medicine Geriatric Medicine; Visit Provider Internal Medicine Cardiovascular Disease | DX: Z01.818 Encounter for other preprocedural examination (principal) | CPT/HCPCS: 93306; 93356 ==

== ENCOUNTER 2024-01-22 10:37 | Outpatient (AMB) | payer OTHER, SELFPAY ==
[2024-01-22 10:39] VITALS: BMI 32.5
--- NOTE | 2024-01-22 10:39 | MHC.OFFVIS ---
Vital Signs 01/22/24 10:39 Height 4 ft 11 in Weight 161 lb 2.526 oz BMI 32.5 Intake Visit Reasons: 6 month breast exam Intake Note: This patient presents for six month breast examination assessment. Patient c/o; reports swelling both legs, reports swelling right side from upper extremity to lower extremity, reports disfigueration of fingers Burling And Joining Supervisor Required: Yes Burling And Joining Supervisor Language: Tool/Die Maker Name: Dylan Information Interpreted: non-clinical & clinical Accompanied by: Spouse Allergies ceftriaxone Allergy (Intermediate, Verified 01/22/24 10:59) Rash metoprolol [METOPROLOL] Allergy (Unknown, Verified 01/22/24 10:59) RASH adhesive tape Allergy (Verified 01/22/24 10:59) Rash Medication List - Last Reconciled 01/22/24 by Talat Estrada MD acetaminophen 650 mg (2 x 325 mg) PO Q6H PRN albuterol sulfate 90 mcg/actuation 2 puffs PO Q4H PRN atorvastatin 20 mg PO DAILY baclofen 10 mg PO TID calcium carbonate-vitamin D3 600 mg-5 mcg (200 unit) 1 tab PO DAILY clonazepam 0.5 mg PO BEDTIME compression sleeve and gauntlet (LympheDiva Arm Sleeve with Gauntlet) rt arm As Directed dexamethasone 6 mg PO BID PRN docusate sodium (Colace) 100 mg PO DAILY PRN duloxetine 20 mg PO DAILY fentanyl 50 mcg/hr 1 patch transdermal Q72H fentanyl 25 mcg/hr 1 patch transdermal Q72H ferrous sulfate 325 mg PO DAILY fluticasone furoate 100 mcg/actuation (Arnuity Ellipta) 1 inh inhalation DAILY food supplemt, lactose-reduced (Ensure oral liquid) 1 ea PO 3XD food supplemt, lactose-reduced (Ensure oral liquid) 1 ea PO BID food supplemt, lactose-reduced (Boost) 1 ea PO BID hydroxyzine HCl 25 mg PO BID loperamide (Imodium A-D) 2 mg PO Q4H PRN loratadine (Claritin) 10 mg PO DAILY Magic Mouthwash Diphen/Nystat/Antacid 1:1:1 5 mL PO TID mometasone 0.1% 1 applic topical DAILY PRN multivitamin with folic acid 400 mcg (Tab-A-Richard) 1 tab PO DAILY nitrofurantoin monohyd/m-cryst 100 mg (Macrobid) 100 mg PO Q12H nitrofurantoin monohyd/m-cryst 100 mg (Macrobid) 100 mg PO Q12H nystatin 1 appl topical DAILY omeprazole 20 mg PO DAILY ondansetron 8 mg PO Q8H PRN oxycodone 10 mg (2 x 5 mg) PO Q4H PRN oxycodone 10 mg PO Q6H PRN polyethylene glycol 3350 17 grams PO DAILY pregabalin 1 cap PO BID silver sulfadiazine 1% 1 appl topical BID PRN sulfamethoxazole-trimethoprim 800-160 mg (Bactrim DS) 1 tab PO BID triamcinolone acetonide 0.1% 1 appl topical BID PRN HPI HPI 6 month breast exam: Details: She had mastectomy on the right breast for invasive ductal cancer and a prophylactic mastectomy on the left side last July,. She also had sentinel node biopsy on the right. She had a T2 N1 triple negative cancer on the right breast at that time. She had been diagnosed to have a right upper chest wall mass that appears to be recurrence of her cancer. She had been started on Taxotere for this but she has had poor response. She will be switched to sacituzumab govitecan by Dr. Calderon. She complains of pain on her chest wall as well as on different parts of her body now. She spends most of her time in a wheelchair. [facility] Medical History Post-mastectomy pain Asthma PONV (postoperative nausea and vomiting) Fibromyalgia HTN (hypertension) Invasive ductal carcinoma of breast Breast mass, right Osteoarthritis of right shoulder Surgical History Hx of bilateral mastectomy (08/02/22) History of foot surgery History of hysterectomy Family History Father Stroke Mother Hypertension Asthma Maternal Grandmother Lung cancer Maternal Aunt Breast cancer Maternal Aunt Thyroid cancer Maternal Aunt Colon cancer Social History Household Members: Family Household Members Other:: Foster child Housing: House Housing Other:: mobile home Are you a primary director long term care to a significant other at home: Yes (foster child) Do you presently have visiting nurse or other home services: Yes ([facility]) Alcohol intake: current Alcohol intake frequency: does not drink Comment: counts correct Patient Tobacco Use Status: Never used Tobacco Second Hand Smoke Exposure: No service: No Current occupational status: disabled Current occupation: right hand dominant Review of Systems Const Denies chills and Denies fever(s) Musc Details: Pain on chest wall Reports back pain and Reports arthralgias Physical Exam Const Other: On wheelchair General: no acute distress Chest Other: Diffuse mass on the sternum and on the chest wall on the mastectomy site on the right Assessment & Plan Assessment & Plan (1) Chest wall recurrence of breast cancer: Code(s): C50.919 - Malignant neoplasm of unspecified site of unspecified female breast; C79.89 - Secondary malignant neoplasm of other specified sites Category: Medical Plan: She had history of bilateral mastectomy for right breast invasive cancer, T2 N1, triple negative. Unfortunately, she has had a chest wall recurrence. She did not respond to Taxotere. She has been switched to sacituzumab. Primary treatment goal for now should be pain control as well. She is currently on a fentanyl patch. She was interested in other pain control medications. I told her that she should discuss this with Dr. Calderon. I did mention to her and her that marijuana-based products are not being used for pain management in cancer patients. Coding Level of Care Code Est Pt Level 2 (35592) Diagnoses Chest wall recurrence of breast cancer C50.919; C79.89
== END 2024-01-22 10:59 | disposition home or self-care (01) ==
PROVIDERS: PCP Internal Medicine Geriatric Medicine; Visit Provider Surgery
DX: C50.911 Malignant neoplasm of unspecified site of right female breast (principal); C79.89 Secondary malignant neoplasm of other specified sites
CPT/HCPCS: 99213

== ENCOUNTER → 2024-01-22 10:37 | Outpatient (BNVA) | payer OTHER, SELFPAY | PROVIDERS: PCP Internal Medicine Geriatric Medicine; Visit Provider Surgery | DX: C50.919 Malignant neoplasm of unspecified site of unspecified female breast (principal); C79.89 Secondary malignant neoplasm of other specified sites | CPT/HCPCS: 99212 ==

== ENCOUNTER → 2024-01-27 12:22 | Outpatient (REF) | payer OTHER, SELFPAY | LOC: HO.SL 12:22 | PROVIDERS: PCP Internal Medicine Geriatric Medicine; Visit Provider Nurse Practitioner Family | DX: Z13.89 Encounter for screening for other disorder (principal) ==

== ENCOUNTER 2024-02-18 12:40 | Outpatient (REF) | payer OTHER, SELFPAY ==
--- NOTE | ~2024-02-18 | CT_ITS ---
EXAMINATION: CT CHEST WITHOUT CONTRAST CLINICAL INFORMATION: Increasing swelling COMPARISON: Baseline 01/01/2024 TECHNIQUE: Multidetector volumetric CT imaging of the chest was done. Axial MIP volume rendering provided. Sagittal and coronal reformatted images were obtained. This CT examination was performed using dose optimization techniques as appropriate, variously including the following: *Automated exposure control *Adjustment of mA and/or kV according to patient size (this includes techniques or standardized protocols for targeted exams where dose is matched to indication/reason for exam; i.e. extremities or head) *Use of iterative reconstruction technique DLP: 133 mGy-cm FINDINGS: SHIPPING SUPERVISOR: Mediastinal mass appears progressive grossly. LUNGS: The lungs are clear with no evidence of inflammation or nodules. MEDIASTINUM: Large anterior mediastinal lesion straddling the chest wall on this nonenhanced study appears progressive. It measures up to 12.3 x 10.5 cm transaxially and approximately 12.8 cm craniocaudal. Previously measured up to 10 cm. Centimeters significant infiltration and skin thickening noted. Mass effect upon the mediastinal vessels this placement aorta and main pulmonary artery posteriorly at the left of midline. CORONARY ARTERY CALCIFICATION: None visualized on this study. PLEURA: There is no pleural effusion. No pleural mass or thickening. AXILLA: No lymphadenopathy. UPPER ABDOMEN: Unremarkable. OSSEOUS STRUCTURES: Unchanged. CT/CT chest wo IV con IMPRESSION: Progressive large mass straddling the chest wall as above. Fleischner guidelines were followed. Electronically signed by: Shukri Thomson MD 02/19/2024 07:34 PM EDT
== END 2024-02-18 12:41 | disposition home or self-care (01) ==
LOC: HO.CT 12:40
PROVIDERS: PCP Internal Medicine Geriatric Medicine; Visit Provider Internal Medicine
DX: C50.919 Malignant neoplasm of unspecified site of unspecified female breast (principal); C79.89 Secondary malignant neoplasm of other specified sites
CPT/HCPCS: 71250

== ENCOUNTER 2024-02-19 15:07 | Emergency (ER) | payer OTHER, SELFPAY ==
[2024-02-19] VITALS (8 sets, daily range): BP systolic 76–105; BP diastolic 54–64; PULSE 88–112; RESP 12–22; TEMP 36.8–38.2; O2SAT 96–98; BMI 28.5
--- NOTE | 2024-02-19 15:42 | ED.GENADULT ---
HPI - General Adult General Chief complaint: General Medical Stated complaint: Cancer pt, pain Related Data Home Medications ?Medication ?Instructions ?Recorded ?Confirmed albuterol sulfate 90 mcg/actuation 2 puff PO Q4H PRN Shortness Of 03/19/20 01/31/24 aerosol inhaler Breath baclofen 10 mg tablet 10 mg PO TID 03/19/20 01/31/24 clonazepam 0.5 mg tablet 0.5 mg PO BEDTIME 03/19/20 01/31/24 atorvastatin 20 mg tablet 20 mg PO DAILY 11/20/21 01/31/24 calcium carbonate 600 mg-vitamin 1 tab PO DAILY 01/22/22 01/31/24 D3 5 mcg (200 unit) tablet mometasone 0.1 % topical cream 1 applic topical DAILY PRN Rash 01/22/22 01/31/24 multivitamin with folic acid 400 1 tab PO DAILY 01/22/22 01/31/24 mcg tablet (Tab-A-Richard) pregabalin 150 mg capsule 1 cap PO BID 01/22/22 01/31/24 fluticasone furoate 100 1 inh inhalation DAILY 09/12/23 01/31/24 mcg/actuation blister powder for inhalation (Arnuity Ellipta) hydroxyzine HCl 25 mg tablet 25 mg PO BID 10/01/23 01/31/24 nystatin 100,000 unit/gram topical 1 appl topical DAILY 10/01/23 01/31/24 ointment omeprazole 20 mg capsule,delayed 20 mg PO DAILY 10/01/23 01/31/24 release silver sulfadiazine 1 % topical 1 appl topical BID PRN wounds 10/01/23 01/31/24 cream duloxetine 20 mg capsule,delayed 20 mg PO DAILY 12/13/23 01/31/24 release Previous Rx's ?Medication ?Instructions ?Recorded compression sleeve and gauntlet #1 ea 09/23/23 (LympheDiva Arm Sleeve with Gauntlet) docusate sodium 100 mg capsule 100 mg PO DAILY PRN contipation 10/01/23 (Colace) #30 caps ondansetron 8 mg disintegrating 8 mg PO Q8H PRN Nausea #60 tabs 10/01/23 tablet acetaminophen 325 mg tablet 650 mg (2 x 325 mg) PO Q6H PRN 10/03/23 pain #30 tabs polyethylene glycol 3350 17 gram 17 g PO DAILY #30 ea 10/03/23 oral powder packet nitrofurantoin 100 mg PO Q12H #14 caps 10/10/23 monohydrate/macrocrystals 100 mg capsule (Macrobid) Magic Mouthwash 5 ml PO TID #240 mL 10/14/23 Diphen/Nystat/Antacid 1:1:1 240 mL suspension sulfamethoxazole 800 1 tab PO BID #14 tabs 10/14/23 mg-trimethoprim 160 mg tablet (Bactrim DS) triamcinolone acetonide 0.1 % 1 appl topical BID PRN Rash #100 10/14/23 topical cream grams loratadine 10 mg tablet (Claritin) 10 mg PO DAILY #30 tabs 11/06/23 oxycodone 5 mg tablet 10 mg (2 x 5 mg) PO Q4H PRN Pain 11/08/23 (Scale Score 7-10) #60 tabs food supplemt, lactose-reduced 1 ea PO 3XD #90 multiple units 11/15/23 (Ensure oral liquid) food supplemt, lactose-reduced 1 ea PO BID #60 ea 11/20/23 (Ensure oral liquid) food supplemt, lactose-reduced 1 ea PO BID #60 kits 11/26/23 0.04 gram-1 kcal/mL oral liquid (Boost) dexamethasone 6 mg tablet 6 mg PO BID PRN 1 day prior to 12/03/23 chem and 2 days after #30 tabs nitrofurantoin 100 mg PO Q12H #14 caps 12/10/23 monohydrate/macrocrystals 100 mg capsule (Macrobid) loperamide 2 mg tablet (Imodium 2 mg PO Q4H PRN Diarrhea #30 tabs 01/15/24 A-D) furosemide 20 mg tablet (Lasix) 20 mg PO DAILY #30 tabs 01/24/24 potassium chloride 20 mEq 20 meq PO DAILY #30 tabs 01/24/24 tablet,extended release Tegaderm 4 X 4 3/4 bandage #10 ea 01/28/24 (transparent dressings) fentanyl 25 mcg/hr transdermal 1 patch transdermal Q72H #6 ea 02/04/24 patch ferrous sulfate 325 mg (65 mg 325 mg PO DAILY #30 tabs 02/04/24 iron) tablet fentanyl 50 mcg/hr transdermal 1 patch transdermal Q72H pain #10 02/18/24 patch ea oxycodone 10 mg tablet 10 mg PO Q6H PRN Breakthrough 02/18/24 Pain, Moderate #30 tabs Allergies Allergy/AdvReac Type Severity Reaction Status Date / Time ceftriaxone Allergy Intermediate Rash Verified 02/19/24 15:44 metoprolol [METOPROLOL] Allergy Unknown RASH Verified 02/19/24 15:44 adhesive tape Allergy Rash Verified 02/19/24 15:44 [facility] Past Medical History Medical History Post-mastectomy pain Asthma PONV (postoperative nausea and vomiting) Fibromyalgia HTN (hypertension) Invasive ductal carcinoma of breast Breast mass, right Osteoarthritis of right shoulder Surgical History Hx of bilateral mastectomy (08/02/22) History of foot surgery History of hysterectomy Family History Family History Father Stroke Mother Hypertension Asthma Maternal Grandmother Lung cancer Maternal Aunt Breast cancer Maternal Aunt Thyroid cancer Maternal Aunt Colon cancer Social History Social History Household Members: Family Household Members Other:: Foster child Housing: House Housing Other:: mobile home Are you a primary hearing healthcare practitioner to a significant other at home: Yes (foster child) Do you presently have visiting nurse or other home services: Yes ([facility]) Alcohol intake: current Alcohol intake frequency: does not drink Comment: counts correct Patient Tobacco Use Status: Never used Tobacco Second Hand Smoke Exposure: No service: No Current occupational status: disabled Current occupation: right hand dominant Physical Exam ED Vital Signs: Vital Signs - 24 hr 02/19/24 15:42 Temperature 100.8 F H Pulse Rate 112 H Respiratory Rate 20 Blood Pressure 76/54 L Pulse Oximetry 97 Oxygen Delivery Method Room Air BMI result Body Mass Index 28.5 Course Course Course Narrative: This is an RME: Additional HPI, ROS, PE not included below will be deferred to primary provider. RME assessment and note performed by: Gena Holbrook PA-C This is a 63-year-old female, with a history of right breast and basal ductal carcinoma with mediastinal mass who presents emergency department with complaints of worsening pain and chest and into her armpits. She has been using at home fentanyl patches and oxycodone she had a CT scan yesterday which read by the radiologist. Dr. Pope did call, reporting that she is likely going to need pain management, recommending IV pain medication as well as would benefit from dexamethasone 4 mg every 8 hours however this is prior to realizing that vital signs were unstable, patient's blood pressure 76/54, she is tachycardic at 109,and has a temperature of a 100.8?. Discharge Plan Discharge Prescriptions: No Action calcium carbonate-vitamin D3 600 mg-5 mcg (200 unit) tablet 1 tab PO DAILY mometasone 0.1 % cream 1 applic topical DAILY PRN (Reason: Rash) pregabalin 150 mg capsule 1 cap PO BID multivitamin with folic acid [Tab-A-Richard] 400 mcg tablet 1 tab PO DAILY (DME) LympheDiva Arm Sleeve with Gauntlet Kit Qty: 1 1RF Rx Instructions: rt arm As Directed ondansetron 8 mg Tablet,Disintegrating 8 mg PO Q8H PRN (Reason: Nausea) Qty: 60 2RF docusate sodium [Colace] 100 mg Capsule 100 mg PO DAILY PRN (Reason: contipation) Qty: 30 3RF nitrofurantoin monohyd/m-cryst [Macrobid] 100 mg Capsule 100 mg PO Q12H Qty: 14 3RF Rx Instructions: must administer with a meal/food sulfamethoxazole-trimethoprim [Bactrim DS] 800-160 mg Tablet 1 tab PO BID Qty: 14 0RF triamcinolone acetonide 0.1 % cream 1 appl TOPICAL BID PRN (Reason: Rash) Qty: 100 0RF Magic Mouthwash Diphen/Nystat/Antacid 1:1:1 240 mL Suspension 5 ml PO TID Qty: 240 2RF Rx Instructions: nystatin 100,000 unit/mL oral suspension 80 mL; diphenhydramine 12.5 mg/5 mL oral liquid 80 mL; aluminum-mag hydroxide-simethicone 400 mg-400 mg-40 mg/5 mL oral susp 80 mL; Per 240 mL loratadine [Claritin] 10 mg Tablet 10 mg PO DAILY Qty: 30 0RF oxycodone 5 mg Tablet 10 mg PO Q4H PRN (Reason: Pain (Scale Score 7-10)) Qty: 60 0RF Rx Instructions: Partial Fill upon patient request. Ensure Liquid 1 ea PO 3XD Qty: 90 0RF Ensure Liquid 1 ea PO BID Qty: 60 2RF Boost 0.04 gram- 1 kcal/mL Liquid 1 ea PO BID Qty: 60 11RF nitrofurantoin monohyd/m-cryst [Macrobid] 100 mg Capsule 100 mg PO Q12H Qty: 14 2RF Rx Instructions: must administer with a meal/food loperamide [Imodium A-D] 2 mg Tablet 2 mg PO Q4H PRN (Reason: Diarrhea) Qty: 30 1RF Rx Instructions: administer after each loose stool until symptoms controlled; do not exceed 8 mg per 24 hrs furosemide [Lasix] 20 mg Tablet 20 mg PO DAILY Qty: 30 3RF potassium chloride 20 mEq Tablet Extended Release 20 meq PO DAILY Qty: 30 4RF (DME) transparent dressings [Tegaderm] 4 X 4 3/4 Bandage Qty: 10 3RF Rx Instructions: As Directed ferrous sulfate 325 mg (65 mg iron) Tablet 325 mg PO DAILY Qty: 30 3RF fentanyl 25 mcg/hr Patch 72 Hour 1 patch TRANSDERMAL Q72H Qty: 6 0RF Rx Instructions: Partial Fill upon patient request. fentanyl 50 mcg/hr Patch 72 Hour 1 patch TRANSDERMAL Q72H Qty: 10 0RF Rx Instructions: Partial Fill upon patient request. oxycodone 10 mg Tablet 10 mg PO Q6H PRN (Reason: Breakthrough Pain, Moderate) Qty: 30 0RF Rx Instructions: Partial Fill upon patient request. nystatin 100,000 unit/gram ointment 1 appl topical DAILY omeprazole 20 mg capsule,delayed release(DR/EC) 20 mg PO DAILY hydroxyzine HCl 25 mg tablet 25 mg PO BID silver sulfadiazine 1 % cream 1 appl TOPICAL BID PRN (Reason: wounds) Rx Instructions: apply a 1.5 mm thickness polyethylene glycol 3350 17 gram Powder In Packet 17 g PO DAILY Qty: 30 0RF acetaminophen 325 mg Tablet 650 mg PO Q6H PRN (Reason: pain) Qty: 30 0RF dexamethasone 6 mg tablet 6 mg PO BID PRN (Reason: 1 day prior to chem and 2 days after) Qty: 30 2RF Rx Instructions: Start 1 day before chemotherapy and take for 2 days after chemotherapy albuterol sulfate 90 mcg/actuation HFA aerosol inhaler 2 puff PO Q4H PRN (Reason: Shortness Of Breath) baclofen 10 mg tablet 10 mg PO TID clonazepam 0.5 mg tablet 0.5 mg PO BEDTIME atorvastatin 20 mg tablet 20 mg PO DAILY Arnuity Ellipta 100 mcg/actuation blister with device 1 inh inhalation DAILY duloxetine 20 mg capsule,delayed release(DR/EC) 20 mg PO DAILY Print Language: Turkmen
--- NOTE | 2024-02-19 15:46 | ECG_ITS ---
Test Reason : CHEST PAIN Blood Pressure : / mmHG Vent. Rate : 105 BPM Atrial Rate : 105 BPM P-R Int : 128 ms QRS Dur : 086 ms QT Int : 344 ms P-R-T Axes : 057 030 052 degrees QTc Int : 454 ms Sinus tachycardia Nonspecific ST and T wave abnormality Abnormal ECG When compared with ECG of 01-OCT-2023 17:06, No significant change was found Referred By: Gena Holbrook Electronically Signed By:ALEX MOHAMUD
[2024-02-19 16:11] LABS: MANUAL DIFF FLAG NO
[2024-02-19 16:12] LABS: Basophils Percent Auto 0.2 % (0-2); Eosinophils Absolute Auto 0.2 X10*3/uL (0.0-0.4); Eosinophils Percent Auto 1.3 % (0-4); Hematocrit 27.1 % (37.0-47.0); Hemoglobin 8.5 g/dl (12.0-16.0); Imm Gran Abs Auto 0.14 X10*3/uL (0.00-0.03); Imm Gran Pct Auto 0.8 % (0.0-0.4); Lymphocytes Absolute Auto 0.5 X10*3/uL (1.2-4.9); Lymphocytes Percent Auto 2.9 % (20-40); Mean Corpuscular HGB Conc 31.4 g/dl (31.0-35.0); Mean Corpuscular Hemoglobin 24.6 pg (27.0-33.0); Mean Corpuscular Volume 78.6 fL (80.0-98.0); Mean Platelet Volume 9.8 fL (9.4-12.3); Monocytes Absolute Auto 1.4 X10*3/uL (0.1-1.2); Monocytes Percent Auto 8.1 % (2-11); Neutrophils Absolute Auto 14.5 x10*3/uL (2.0-8.3); Neutrophils Percent Auto 86.7 % (45-73); Platelet Count 437 X10*3/uL (160-400); Red Blood Count 3.45 X10*6/uL (4.20-5.50); Red Cell Distribution Width 20.8 % (11.0-16.0); White Blood Count 16.7 X10*3/uL (4.8-10.8)
[2024-02-19 16:17] LABS: INTERNATIONAL NORM RATIO 1.2 (0.9-1.1); Prothrombin Time 14.4 SEC (11.1-13.3)
[2024-02-19 16:20] LABS: Partial Thromboplastin Time 29.7 SEC (26.0-36.8)
--- NOTE | 2024-02-19 16:20 | ED.GENADULT ---
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 Patient is offered professional ekg monitor, but politely declines and requests that her granddaughter at the bedside provides interpretation. History is obtained with the granddaughter providing interpretation. Patient states that she has been having increasing right-sided chest pain for the last several days. Patient states that she is taking pain medications at home as prescribed by her oncologist. She states that she does have breast cancer and last received chemotherapy on Saturday. She states that she had a CT scan of her known tumor in her right chest, but states that she is awaiting the results. She states no difficulty breathing. She states no cough or sputum production. She states no hemoptysis. She states that she has not felt febrile recently or had any chills. She states no abdominal pain, nausea or vomiting. She reports 2-3 loose stools daily for the last several days. She states no melena or hematochezia. She states no flank pain or back pain. She states no dysuria or urinary frequency/urgency. Oncologist: Dr. Calderon Related Data Home Medications ?Medication ?Instructions ?Recorded ?Confirmed albuterol sulfate 90 mcg/actuation 2 puff PO Q4H PRN Shortness Of 03/19/20 01/31/24 aerosol inhaler Breath baclofen 10 mg tablet 10 mg PO TID 03/19/20 01/31/24 clonazepam 0.5 mg tablet 0.5 mg PO BEDTIME 03/19/20 01/31/24 atorvastatin 20 mg tablet 20 mg PO DAILY 11/20/21 01/31/24 calcium carbonate 600 mg-vitamin 1 tab PO DAILY 01/22/22 01/31/24 D3 5 mcg (200 unit) tablet mometasone 0.1 % topical cream 1 applic topical DAILY PRN Rash 01/22/22 01/31/24 multivitamin with folic acid 400 1 tab PO DAILY 01/22/22 01/31/24 mcg tablet (Tab-A-Richard) pregabalin 150 mg capsule 1 cap PO BID 01/22/22 01/31/24 fluticasone furoate 100 1 inh inhalation DAILY 09/12/23 01/31/24 mcg/actuation blister powder for inhalation (Arnuity Ellipta) hydroxyzine HCl 25 mg tablet 25 mg PO BID 10/01/23 01/31/24 nystatin 100,000 unit/gram topical 1 appl topical DAILY 10/01/23 01/31/24 ointment omeprazole 20 mg capsule,delayed 20 mg PO DAILY 10/01/23 01/31/24 release silver sulfadiazine 1 % topical 1 appl topical BID PRN wounds 10/01/23 01/31/24 cream duloxetine 20 mg capsule,delayed 20 mg PO DAILY 12/13/23 01/31/24 release Previous Rx's ?Medication ?Instructions ?Recorded compression sleeve and gauntlet #1 ea 09/23/23 (LympheDiva Arm Sleeve with Gauntlet) docusate sodium 100 mg capsule 100 mg PO DAILY PRN contipation 10/01/23 (Colace) #30 caps ondansetron 8 mg disintegrating 8 mg PO Q8H PRN Nausea #60 tabs 10/01/23 tablet acetaminophen 325 mg tablet 650 mg (2 x 325 mg) PO Q6H PRN 10/03/23 pain #30 tabs polyethylene glycol 3350 17 gram 17 g PO DAILY #30 ea 10/03/23 oral powder packet nitrofurantoin 100 mg PO Q12H #14 caps 10/10/23 monohydrate/macrocrystals 100 mg capsule (Macrobid) Magic Mouthwash 5 ml PO TID #240 mL 10/14/23 Diphen/Nystat/Antacid 1:1:1 240 mL suspension sulfamethoxazole 800 1 tab PO BID #14 tabs 10/14/23 mg-trimethoprim 160 mg tablet (Bactrim DS) triamcinolone acetonide 0.1 % 1 appl topical BID PRN Rash #100 10/14/23 topical cream grams loratadine 10 mg tablet (Claritin) 10 mg PO DAILY #30 tabs 11/06/23 oxycodone 5 mg tablet 10 mg (2 x 5 mg) PO Q4H PRN Pain 11/08/23 (Scale Score 7-10) #60 tabs food supplemt, lactose-reduced 1 ea PO 3XD #90 multiple units 11/15/23 (Ensure oral liquid) food supplemt, lactose-reduced 1 ea PO BID #60 ea 11/20/23 (Ensure oral liquid) food supplemt, lactose-reduced 1 ea PO BID #60 kits 11/26/23 0.04 gram-1 kcal/mL oral liquid (Boost) dexamethasone 6 mg tablet 6 mg PO BID PRN 1 day prior to 12/03/23 chem and 2 days after #30 tabs nitrofurantoin 100 mg PO Q12H #14 caps 12/10/23 monohydrate/macrocrystals 100 mg capsule (Macrobid) loperamide 2 mg tablet (Imodium 2 mg PO Q4H PRN Diarrhea #30 tabs 01/15/24 A-D) furosemide 20 mg tablet (Lasix) 20 mg PO DAILY #30 tabs 01/24/24 potassium chloride 20 mEq 20 meq PO DAILY #30 tabs 01/24/24 tablet,extended release Tegaderm 4 X 4 3/4 bandage #10 ea 01/28/24 (transparent dressings) fentanyl 25 mcg/hr transdermal 1 patch transdermal Q72H #6 ea 02/04/24 patch ferrous sulfate 325 mg (65 mg 325 mg PO DAILY #30 tabs 02/04/24 iron) tablet fentanyl 50 mcg/hr transdermal 1 patch transdermal Q72H pain #10 02/18/24 patch ea oxycodone 10 mg tablet 10 mg PO Q6H PRN Breakthrough 02/18/24 Pain, Moderate #30 tabs Allergies Allergy/AdvReac Type Severity Reaction Status Date / Time ceftriaxone Allergy Intermediate Rash Verified 02/19/24 15:44 metoprolol [METOPROLOL] Allergy Unknown RASH Verified 02/19/24 15:44 adhesive tape Allergy Rash Verified 02/19/24 15:44 Review of Systems Review of Systems: ROS as per HPI [facility] Past Medical History Medical History Post-mastectomy pain Asthma PONV (postoperative nausea and vomiting) Fibromyalgia HTN (hypertension) Invasive ductal carcinoma of breast Breast mass, right Osteoarthritis of right shoulder Surgical History Hx of bilateral mastectomy (08/02/22) History of foot surgery History of hysterectomy Family History Family History Father Stroke Mother Hypertension Asthma Maternal Grandmother Lung cancer Maternal Aunt Breast cancer Maternal Aunt Thyroid cancer Maternal Aunt Colon cancer Social History Social History Household Members: Family Household Members Other:: Foster child Housing: House Housing Other:: mobile home Are you a primary care partner to a significant other at home: Yes (foster child) Do you presently have visiting nurse or other home services: Yes ([facility]) Alcohol intake: current Alcohol intake frequency: does not drink Comment: counts correct Patient Tobacco Use Status: Never used Tobacco Smoked in Last 30 Days: No Second Hand Smoke Exposure: No Use of substances other than those prescribed or required for medical reasons: No Advance Directives: Yes Advance Directives on File: Yes Advance Directives Date on File: 08/07/22 service: No Current occupational status: disabled Current occupation: right hand dominant Physical Exam ED Vital Signs: Vital Signs - 24 hr 02/19/24 15:42 02/19/24 16:41 02/19/24 17:03 Temperature 100.8 F H Pulse Rate 112 H 105 H Respiratory Rate 20 22 H 14 Blood Pressure 76/54 L 93/63 Pulse Oximetry 97 98 Oxygen Delivery Method Room Air Room Air 02/19/24 17:15 02/19/24 19:56 02/19/24 19:56 Temperature 98.6 F 98.6 F Pulse Rate 101 H 90 Respiratory Rate 12 16 Blood Pressure 99/58 L 101/64 Pulse Oximetry 98 96 Oxygen Delivery Method Room Air Room Air 02/19/24 20:00 02/19/24 20:35 Temperature 98.5 F 98.2 F Pulse Rate 88 94 Respiratory Rate 16 16 Blood Pressure 105/62 92/55 L Pulse Oximetry 96 96 Oxygen Delivery Method Room Air Room Air BMI result Body Mass Index 28.5 Gen: NAD, AOx3 HEENT: NCAT, EOMI, normal conjunctiva, oropharynx without erythema or exudates CV: Tachycardic rate, regular rhythm, no murmurs appreciated Pulm: CTAB GI: Soft, NTND, no rebound, guarding or rigidity Neuro: Grossly non focal MSK: Right-sided anterior chest wall mass with out overlying skin changes Medications Administered Discontinued Medications Generic Name Dose Route Start Last Admin Trade Name Vince PRN Reason Stop Dose Admin Acetaminophen 975 mg 02/19/24 16:23 02/19/24 16:26 Acetaminophen 325 Mg Tablet PO 02/19/24 16:24 975 mg ONCE ONE Administration Dexamethasone Sodium Phosphate 4 mg 02/19/24 16:32 02/19/24 17:13 Dexamethasone Sod Phosphate 4 Mg/Ml Vial IVPUSH 02/19/24 16:33 4 mg ONCE ONE Administration Hydromorphone HCl 0.5 mg 02/19/24 16:20 02/19/24 17:03 Hydromorphone Hcl 0.5 Mg/0.5 Ml Syringe IVPUSH 02/19/24 16:21 0.5 mg ONCE ONE Administration Protocol Lactated Ringer's 1,918.71 mls @ 1,918.71 mls/hr 02/19/24 15:56 02/19/24 19:57 Lr 30 ml/kg infuse over 1 hr (1918.71 ml) 02/19/24 16:55 Infused IV Infusion .Q1H ONE Piperacillin Sod/Tazobactam 100 mls @ 200 mls/hr 02/19/24 16:11 02/19/24 17:15 Sod 4.5 gm/ Sodium Chloride IV 02/19/24 16:40 Infused ONCE ONE Infusion Vancomycin HCl 1,500 mg/ 500 mls @ 333.333 mls/hr 02/19/24 16:30 02/19/24 19:12 Sodium Chloride IV 02/19/24 17:59 Infused ONCE ONE Infusion Medical Decision Making Medical Decision Making [facility] Narrative: 1610 - patient is brought back to ED room 11 after being found to meet sepsis criteria. In triage with vitals at 3:42 p.m. demonstrating temperature 100.8? F, pulse rate 112, blood pressure 76/54. Patient reports over last chemotherapy was 5 days ago. Given immunocompromised state differential diagnosis is broad and sepsis is of concern. Thus, we will treat empirically with broad-spectrum antibiotics vancomycin and Zosyn. 30 cc/kilos IV fluids have been ordered with lactated Ringer's. She has been provided Tylenol for fever. On initial exam, patient is ill-appearing but in no acute distress. She is mentating well, awake, alert and answering questions appropriately. She is given 0.5 mg IV Dilaudid for analgesia. 1637 - I have discussed with the patient's oncologist, Dr. Calderon, who recommends admission for pain management as well as 4 mg IV dexamethasone every 12 hours. Patient is given 4 mg IV dexamethasone here. 2022 - I discussed patient's CT imaging with her oncologist, Dr. Calderon. She recommended transfer to higher level care for palliative radiation. Patient is provided additional analgesia with a 0.5 mg IV Dilaudid. She is maintaining her map above 65 mm Hg. I considered norepinephrine GTT, but she is very well-appearing at this point in time maintaining appropriate map goal. I will provide maintenance fluids at 80 cc/hour with lactated Ringer's. She reports that she has urinated twice since she has been here in the ED. I discussed patient's case with the [facility] and she has been accepted for inpatient Oncology floor bed without telemetry under care of Dr. Walters. Critical Care Time: A total of 45 minutes spent in direct patient care with coordinating critical resuscitation, procedures, reviewing records, discussing with consultants, reviewing labs, and/or managing patient. Admission/Observation Consideration of admission/observation: Escalation of care including admission/observation considered Consult Healthcare Provider Management of the patient was discussed with: Insulation Blower I have discussed patient's case and management with rehabilitation consultant Oncologist, Dr. Calderon, who recommends 4mg IV Dexamethasone ever 12 hours and admission for pain control I discussed with [facility] as above Lab Data MDM Lab Attestation statement: I reviewed the patient's lab results. I have independently reviewed and interpreted the patient's labs which are notable for leukocytosis with white blood cell count of 16.7, stable chronic anemia at 8.5 (previous 8.2), thrombocytosis with platelet count of 437, INR 1.2, otherwise metabolic panel was overall reassuring. Troponin is negative. There is no transaminitis or hyperbilirubinemia. Urinalysis is notable for positive urine nitrite, leukocyte esterase and 2+ bacteria. Patient tested negative for COVID-19, influenza and RSV. 02/19/24 16:04 02/19/24 16:04 Labs: Lab Results 02/19/24 02/19/24 Range/Units 16:04 18:03 WBC 16.7 H (4.8-10.8) X10*3/uL RBC 3.45 L (4.20-5.50) X10*6/uL Hgb 8.5 L (12.0-16.0) g/dl Hct 27.1 L (37.0-47.0) % MCV 78.6 L (80.0-98.0) fL MCH 24.6 L (27.0-33.0) pg MCHC 31.4 (31.0-35.0) g/dl RDW 20.8 H (11.0-16.0) % Plt Count 437 H (160-400) X10*3/uL MPV 9.8 (9.4-12.3) fL Immature Gran % (Auto) 0.8 H (0.0-0.4) % Neut % (Auto) 86.7 H (45-73) % Lymph % (Auto) 2.9 L (20-40) % [place] % (Auto) 8.1 (2-11) % Eos % (Auto) 1.3 (0-4) % Baso % (Auto) 0.2 (0-2) % Lymph # (Auto) 0.5 L (1.2-4.9) X10*3/uL [place] # (Auto) 1.4 H (0.1-1.2) X10*3/uL Eos # (Auto) 0.2 (0.0-0.4) X10*3/uL Baso # (Auto) 0.0 (0.0-0.2) X10*3/uL Abs Immat Gran (auto) 0.14 H (0.00-0.03) X10*3/uL Absolute Neuts (auto) 14.5 H (2.0-8.3) x10*3/uL Absolute Nucleated RBC 0.000 (0.0-0.012) X10*3/uL Nucleated RBC % (auto) 0.0 (0.0-0.2) /100WBC PT 14.4 H (11.1-13.3) SEC INR 1.2 H (0.9-1.1) APTT 29.7 (26.0-36.8) SEC Sodium 134 L (135-145) mmol/L Potassium 3.4 (3.3-5.1) mmol/L Chloride 100 (96-108) mmol/L Carbon Dioxide 23 (22-29) mmol/L Anion Gap 14 (12-20) BUN 6 L (9-16) mg/dL Creatinine 0.64 (0.5-1.4) mg/dL Estim Creat Clear Calc 75.0 Estimated GFR > 60 Random Glucose 159 H (60-115) mg/dL Lactic Acid 1.8 (0.5-2.0) mmol/L Calcium 8.8 (8.4-10.2) mg/dL Total Bilirubin 0.4 (0.0-1.0) mg/dL Direct Bilirubin 0.2 (0.0-0.5) mg/dL AST 14 (5-31) U/L ALT 15 (0-31) U/L Alkaline Phosphatase 99 (39-117) U/L Troponin I High Sens < 2.7 (<3.5-17.0) ng/L Total Protein 6.0 L (6.5-8.0) g/dL Albumin 3.0 L (3.5-5.0) g/dL Urine Color Yellow Urine Appearance Clear Urine pH 6.5 (5.0-9.0) Ur Specific [place] 1.010 (1.005-1.025) Urine Protein Negative (Neg-Trace) mg/dL Urine Glucose (UA) Negative (Negative) mg/dL Urine Ketones Negative (Negative) mg/dL Urine Blood Negative (Negative) Urine Nitrite Positive H (Negative) Ur Leukocyte Esterase Trace H (Negative) Urine RBC 0-2 (0-2) /HPF Urine WBC 0-5 (0-5) /HPF Ur Squamous Epith Cells 0-2 (0-2) /HPF Urine Bacteria 2+ (None Seen) Hyaline Casts 0-2 (0-2) /LPF Influenza Type A (PCR) NEGATIVE (Negative) Influenza Type B (PCR) NEGATIVE (Negative) RSV RNA Qual (PCR) NEGATIVE (Negative) SARS-CoV-2 RNA (RT-PCR) NEGATIVE (Negative) Independent Interpretation I performed an independent interpretation of an: EKG Interpretation: I independently reviewed and interpreted patient's EKG which demonstrates sinus tachycardia at 105 beats per minute, SD 128, QRS 86, QTC 454, ST depression in lead V4-V6, no STEMI Radiology Impression Discussion of test interpretation with radiology: I have reviewed the radiologist's reading. Radiologist Impression: CT/CT chest wo IV con IMPRESSION: Progressive large mass straddling the chest wall as above. Fleischner guidelines were followed. Electronically signed by: Shukri Thomson MD 02/19/2024 07:34 PM EDT RP Dictated By: Shukri Thomson MD Signed By: <Electronically signed by Shukri Thomson MD in OV> 02/19/241933 Discharge Plan Discharge Clinical Impression: Chest wall mass, Sepsis Patient Disposition: [facility] Transfer Details: She has been accepted for inpatient Oncology floor bed without telemetry under care of Dr. Walters. Prescriptions: No Action calcium carbonate-vitamin D3 600 mg-5 mcg (200 unit) tablet 1 tab PO DAILY mometasone 0.1 % cream 1 applic topical DAILY PRN (Reason: Rash) pregabalin 150 mg capsule 1 cap PO BID multivitamin with folic acid [Tab-A-Richard] 400 mcg tablet 1 tab PO DAILY (DME) LympheDiva Arm Sleeve with Gauntlet Kit Qty: 1 1RF Rx Instructions: rt arm As Directed ondansetron 8 mg Tablet,Disintegrating 8 mg PO Q8H PRN (Reason: Nausea) Qty: 60 2RF docusate sodium [Colace] 100 mg Capsule 100 mg PO DAILY PRN (Reason: contipation) Qty: 30 3RF nitrofurantoin monohyd/m-cryst [Macrobid] 100 mg Capsule 100 mg PO Q12H Qty: 14 3RF Rx Instructions: must administer with a meal/food sulfamethoxazole-trimethoprim [Bactrim DS] 800-160 mg Tablet 1 tab PO BID Qty: 14 0RF triamcinolone acetonide 0.1 % cream 1 appl TOPICAL BID PRN (Reason: Rash) Qty: 100 0RF Magic Mouthwash Diphen/Nystat/Antacid 1:1:1 240 mL Suspension 5 ml PO TID Qty: 240 2RF Rx Instructions: nystatin 100,000 unit/mL oral suspension 80 mL; diphenhydramine 12.5 mg/5 mL oral liquid 80 mL; aluminum-mag hydroxide-simethicone 400 mg-400 mg-40 mg/5 mL oral susp 80 mL; Per 240 mL loratadine [Claritin] 10 mg Tablet 10 mg PO DAILY Qty: 30 0RF oxycodone 5 mg Tablet 10 mg PO Q4H PRN (Reason: Pain (Scale Score 7-10)) Qty: 60 0RF Rx Instructions: Partial Fill upon patient request. Ensure Liquid 1 ea PO 3XD Qty: 90 0RF Ensure Liquid 1 ea PO BID Qty: 60 2RF Boost 0.04 gram- 1 kcal/mL Liquid 1 ea PO BID Qty: 60 11RF nitrofurantoin monohyd/m-cryst [Macrobid] 100 mg Capsule 100 mg PO Q12H Qty: 14 2RF Rx Instructions: must administer with a meal/food loperamide [Imodium A-D] 2 mg Tablet 2 mg PO Q4H PRN (Reason: Diarrhea) Qty: 30 1RF Rx Instructions: administer after each loose stool until symptoms controlled; do not exceed 8 mg per 24 hrs furosemide [Lasix] 20 mg Tablet 20 mg PO DAILY Qty: 30 3RF potassium chloride 20 mEq Tablet Extended Release 20 meq PO DAILY Qty: 30 4RF (DME) transparent dressings [Tegaderm] 4 X 4 3/4 Bandage Qty: 10 3RF Rx Instructions: As Directed ferrous sulfate 325 mg (65 mg iron) Tablet 325 mg PO DAILY Qty: 30 3RF fentanyl 25 mcg/hr Patch 72 Hour 1 patch TRANSDERMAL Q72H Qty: 6 0RF Rx Instructions: Partial Fill upon patient request. fentanyl 50 mcg/hr Patch 72 Hour 1 patch TRANSDERMAL Q72H Qty: 10 0RF Rx Instructions: Partial Fill upon patient request. oxycodone 10 mg Tablet 10 mg PO Q6H PRN (Reason: Breakthrough Pain, Moderate) Qty: 30 0RF Rx Instructions: Partial Fill upon patient request. nystatin 100,000 unit/gram ointment 1 appl topical DAILY omeprazole 20 mg capsule,delayed release(DR/EC) 20 mg PO DAILY hydroxyzine HCl 25 mg tablet 25 mg PO BID silver sulfadiazine 1 % cream 1 appl TOPICAL BID PRN (Reason: wounds) Rx Instructions: apply a 1.5 mm thickness polyethylene glycol 3350 17 gram Powder In Packet 17 g PO DAILY Qty: 30 0RF acetaminophen 325 mg Tablet 650 mg PO Q6H PRN (Reason: pain) Qty: 30 0RF dexamethasone 6 mg tablet 6 mg PO BID PRN (Reason: 1 day prior to chem and 2 days after) Qty: 30 2RF Rx Instructions: Start 1 day before chemotherapy and take for 2 days after chemotherapy albuterol sulfate 90 mcg/actuation HFA aerosol inhaler 2 puff PO Q4H PRN (Reason: Shortness Of Breath) baclofen 10 mg tablet 10 mg PO TID clonazepam 0.5 mg tablet 0.5 mg PO BEDTIME atorvastatin 20 mg tablet 20 mg PO DAILY Arnuity Ellipta 100 mcg/actuation blister with device 1 inh inhalation DAILY duloxetine 20 mg capsule,delayed release(DR/EC) 20 mg PO DAILY Print Language: [place]
[2024-02-19 16:21] LABS: Lactic Acid 1.8 mmol/L (0.5-2.0)
[2024-02-19 16:26] LABS: Alanine Aminotransferase 15 U/L (0-31); Alkaline Phosphatase 99 U/L (39-117); Anion Gap 14 (12-20); Aspartate Amino Transferase 14 U/L (5-31); Bilirubin Direct 0.2 mg/dL (0.0-0.5); Bilirubin Total 0.4 mg/dL (0.0-1.0); Blood Urea Nitrogen 6 mg/dL (9-16); Calcium 8.8 mg/dL (8.4-10.2); Carbon Dioxide 23 mmol/L (22-29); Chloride 100 mmol/L (96-108); Estimated Glomerular Filt Rate > 60; Glucose Random 159 mg/dL (60-115); Potassium 3.4 mmol/L (3.3-5.1); Sodium 134 mmol/L (135-145)
[2024-02-19] MEDS: Acetaminophen 325 MG TABLET 975 MG PO (16:26)
[2024-02-19] MEDS: Piperacillin Sodium/Tazobactam 4.5 GM in 0.9 % Sodium Chloride 100 ML IV (16:26)
[2024-02-19 16:35] LABS: Troponin-I High Sensitivity < 2.7 ng/L (<3.5-17.0)
[2024-02-19 16:49] LABS: Influenza A PCR NEGATIVE (Negative); Influenza B PCR NEGATIVE (Negative); Resp Syncy Virus RNA Qual PCR NEGATIVE (Negative); SARS COV2 PCR INHOUSE NEGATIVE (Negative)
[2024-02-19] MEDS: HYDROmorphone HCl 0.5 MG/0.5 ML SYRINGE IVPUSH ×2 (17:03→22:58)
[2024-02-19] MEDS: dexAMETHasone sod phosphate 4 MG/ML VIAL IVPUSH (17:13)
[2024-02-19] MEDS: vancomycin HCL 1,500 MG in 0.9 % Sodium Chloride 500 ML 333.33 MG IV (17:15)
[2024-02-19 18:11] LABS: Appearance Urine Clear; Color Urine Yellow; Glucose Urine UA Negative (Negative); Leukocyte Esterase Urine Trace (Negative); Nitrite Urine Positive (Negative); PH 6.5 (5.0-9.0); UMIC TRIGGER UACC YES; Urine Blood Negative (Negative); Urine Ketones Negative (Negative); Urine Protein Negative (Neg-Trace)
[2024-02-19 18:16] LABS: Bacteria Urine 2+ (None Seen); Hyaline Casts Urine 0-2 /LPF (0-2); RBC Urine 0-2 /HPF (0-2); Squamous Epithelial Cell Urine 0-2 /HPF (0-2); UACC Culture Trigger YES; WBC Urine 0-5 /HPF (0-5)
--- NOTE | 2024-02-19 19:19 | PC.NURSE ---
Addendum entered by Tate Chapman RN 02/19/24 19:46: Update: Admission order not in at this time. Original Note: Assumed care of pt. Pt currently admitted, and per documentation and orders, met sepsis criteria and received treatment, no documentation completed at time of assumption of care. pt lying on stretcher, n oacute distress at this time. Continuing plan of care for admission.
--- NOTE | 2024-02-19 20:14 | PC.NURSE ---
late entry - pt requested peripheral iv rather than using implanted port. she states she she has had issues with the port before and this is her second one.
[2024-02-19] MEDS: Lactated Ringers 1,000 ML 80 ML IVCONT (22:59)
== END 2024-02-19 23:02 | disposition short-term general hospital (02) ==
PROVIDERS: Physician Assistant Medical; Emergency Provider Emergency Medicine; PCP Internal Medicine Geriatric Medicine
DX: A41.51 Sepsis due to Escherichia coli [E. coli] (principal); R22.2 Localized swelling, mass and lump, trunk; R00.0 Tachycardia, unspecified; R07.9 Chest pain, unspecified; I10 Essential (primary) hypertension; J45.909 Unspecified asthma, uncomplicated; Z85.3 Personal history of malignant neoplasm of breast; Z79.899 Other long term (current) drug therapy; Z03.818 Encounter for observation for suspected exposure to other biological agents ruled out
CPT/HCPCS: 0241U; 80048; 80076; 81001; 83605; 84484; 85025; 85610; 85730; 87040; 87086; 87088; 87186; 93005; 96361; 96374; 96375; 96376; 99285; J1100; J1170; J2543; J3371; J7120

== ENCOUNTER → 2024-05-21 12:55 | Outpatient (REF) | payer OTHER, SELFPAY ==
--- OUTSIDE RECORDS SUMMARY | 2024-05-27 02:14 | XMS_ITS | Continuity of Care Document ---
Author Organization [facility] ter Address [address] [place] [id number]- Care Team Providers Care Grounds And Nursery Specialist Name Role Phone Name Mahesh STEVENS Primary Care Physician Encounter [facility] Date(s): 03/30/24 - 04/29/[address] [address] Attending Physician: Not on Staff, Attending MD Admitting Physician: Not on Staff, Admitting MD Referring Physician: Not on Staff, Referring MD Encounter Type: Pre-Outpt Allergies, Adverse Reactions, Alerts Substance Criticality Severity Reaction Reaction Severity Status metoprolol Unable to assess criticality Persistent Moderate Active cefTRIAXone 1 Active 1hives Immunizations Given and Recorded Vaccine Date Status Refusal Reason influenza virus vaccine, inactivated 04/08/23 Gonzalez rded influenza virus vaccine, inactivated 06/05/22 Gonzalez rded influenza virus vaccine, inactivated 04/05/21 Gonzalez rded influenza virus vaccine, inactivated 04/29/20 Gonzalez rded influenza virus vaccine, inactivated 05/13/18 Gonzalez rded influenza virus vaccine, inactivated 06/06/17 Gonzalez rded influenza virus vaccine, inactivated 04/25/16 Gonzalez rded influenza virus vaccine, inactivated 05/19/15 Gonzalez rded influenza virus vaccine, inactivated 03/19/14 Gonzalez rded influenza virus vaccine, inactivated 03/10/13 Gonzalez rded influenza virus vaccine, inactivated 02/22/12 Gonzalez rded influenza virus vaccine, inactivated 02/26/11 Gonzalez rded tetanus/diphtheria/pertussis, acel(Tdap) 04/08/23 Recorded tetanus/diphtheria/pertussis, acel(Tdap) 02/26/11 Recorded zoster vaccine, inactivated 11/23/21 Recorded SARS-CoV-2 (COVID-19) mRNA-1273 vaccine 11/23/21 R ecorded SARS-CoV-2 (COVID-19) mRNA-1273 vaccine 05/22/21 R ecorded SARS-CoV-2 (COVID-19) mRNA-1273 vaccine 10/13/20 R ecorded SARS-CoV-2 (COVID-19) mRNA-1273 vaccine 09/14/20 R ecorded pneumococcal 23-valent vaccine 02/11/18 Recorded Medications Albuterol (Eqv-ProAir HFA) 90 mcg/inh inhalation aerosol Inhalation, as directed, 0 Refills, Maintenance, 02/20/22 11:16:00 PM EDT, Partial fill upon patient request if the prescription is for a schedule II opioid drug. Start Date: 02/20/22 Status: Ordered Repeat number: 1 baclofen 10 mg oral tablet 5 mg, By Mouth, 3 times a day, PRN, # 8 each, Refills 0, Tot. Refills 0, Maintenance, Spasm, 04/01/24 8:51:00 AM EDT, Route to Pharmacy Electronically, [facility], Partial fill upon patient request if the prescription is for a schedule II opioid drug., 149.86, cm, 03/31/24 23:27:00 EDT, Height, 63, kg, 03/18/24 21:03:00 EDT, Dry Weight Start Date: 04/01/24 Stop Date: 04/06/24 Status: Ordered Quantity: 8.0 Unit: each Repeat number: 1 clonazePAM 0.5 mg oral tablet 1 tablet = 0.5 mg, By Mouth, Daily at bedtime, 0 Refills, Maintenance, 02/20/22 11:15:00 PM EDT, Tablet, Partial fill upon patient request if the prescription is for a schedule II opioid drug. Start Date: 02/20/22 Status: Ordered Repeat number: 1 duloxetine 20 mg oral enteric coated capsule = 20 mg, By Mouth, Daily, 0 Refills, Maintenance, 04/01/24 8:51:00 AM EDT, Capsule, Partial fill upon patient request if the prescription is for a schedule II opioid drug. Start Date: 04/01/24 Status: Ordered Repeat number: 1 Flovent HFA 110 mcg/inh inhalation aerosol 2 puffs, Inhalation, 2 times a day, 0 Refills, Maintenance, 02/20/22 11:15:00 PM EDT, Aerosol, Partial fill upon patient request if the prescription is for a schedule II opioid drug. Start Date: 02/20/22 Status: Ordered Repeat number: 1 lidocaine 5% topical film See Instructions, Apply 1 patch to painful area of chest Topically Daily remove patches after 12 hours, # 30 patch, 0 Refills, Maintenance, 02/25/24 10:32:00 AM EDT, Patch, [id number], Partialfill upon patient request if the prescription is for a schedule II opioid drug., Apply 1 patch to painful area of chest Topically Daily; remove patches after 12 hours, 150, cm, 03/13/22 10:25:00 EDT,Height Start Date: 02/25/24 Status: Ordered Quantity: 30.0 Unit: patch Repeat number: 1 nalOXONE 4 mg/0.1 mL nasal spray See Instructions, 1 sprays Once use one spray in one nostril. if an additional dose is needed, alternate nostril, # 2 each, 0 Refills, Soft Stop, 04/01/24 8:55:00 AM EDT, [facility], Partial fill upon patient request if the prescription is for a schedule II opioid drug., 149.86, cm, 03/31/24 23:27:00 EDT, Height, 63, kg, 03/18/24 21:03:00 EDT, Dry Weight Start Date: 04/01/24 Status: Ordered Quantity: 2.0 Unit: each Repeat number: 1 omeprazole 20 mg oral enteric coated capsule 1 capsule = 20 mg, By Mouth, Daily, 0 Refills, Maintenance, 02/20/22 11:16:00 PM EDT, EC Capsule, Partial fill upon patient request if the prescription is for a schedule II opioid drug. Start Date: 02/20/22 Status: Ordered Repeat number: 1 ondansetron 8 mg oral tablet, disintegrating 1 tablet = 8 mg, By Mouth, Every 8 hours, PRN Nausea & Vomiting, 0 Refills, Maintenance, 02/20/2211:16:00 PM EDT, Tablet, Partial fill upon patient request if the prescription is for a schedule IIopioid drug. Start Date: 02/20/22 Status: Ordered Repeat number: 1 senna 187 mg oral tablet 1 tablet = 8.6 mg, By Mouth, 2 times a day, # 60 tablet, 0 Refills, Maintenance, 02/25/24 10:34:00 AM EDT, Tablet, [facility]/pharm[facility] #[id number], Partial fill upon patient request if the prescription is for a schedule II opioid drug., 150, cm, 03/13/22 10:25:00 EDT, Height Start Date: 02/25/24 Status: Ordered Quantity: 60.0 Unit: tablet Repeat number: 1 Problem List Condition Confirmation Course Effective Dates Status Health St atus Informant COVID-19 1 Confirmed 02/28/22 Active COVID-19 2 Confirmed 02/28/22 Active Breast cancer, right Confirmed 02/20/24 Active 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 Active Sepsis Confirmed Active 1Problem added by Discern Expert 2Problem added by Discern Expert Social History Social History Type Response Smoking Status Never (less than 100 in lifetime) entered on: 03/13/22 Sex Sex Representation Female (finding) Patient Care team information Care Team Personnel Name: Cedrick Roque RN Position: [facility] RN Member Role: Primary Care Nurse Name: Neeru Ratliff RN Position: [facility] RN Member Role: Primary Care Nurse Name: Angelique Booth LPN Position: [facility] RN Member Role: Primary Care Nurse Name: Gena Steward RN Position: [facility] RN Member Role: Primary Care Nurse Name: Arlyn Brice RN Position: S RN Member Role: Primary Care Nurse Name: Violeta Nunez RN Position: S RN Member Role: Primary Care Nurse Name: Cr Montemayor LPN Position: S RN Member Role: Primary Care Nurse Name: Berta Hawthorne RN Position: S RN Member Role: Primary Care Nurse Name: Ariella Dee RN Position: S RN Member Role: Primary Care Nurse Name: Oly Chappell RN Position: S RN Member Role: Primary Care Nurse Name: Jessenia Murray RN Position: S RN Member Role: Primary Care Nurse Name: Alfie Muhammad RN Position: S RN Member Role: Primary Care Nurse Name: Michelle Castorena RN Position: S RN Member Role: Primary Care Nurse Name: Chloe Thomson LPN Position: [facility] RN Member Role: Primary Care Nurse Name: Mahesh Rosenbaum MD Position: S Outreach Member Role: PCP Address: [address] [place] [id number] Telecom: Name: Kris Piña RN Position: [facility] RN Member Role: Primary Care Nurse Name: Isabel Mason RN Position: [facility] SN RN Member Role: Primary Care Nurse Name: Sena Kong RN Position: [facility] RN Member Role: Primary Care Nurse Name: Kp Kowalski RN Position: [facility] RN Member Role: Primary Care Nurse Name: Kiera Kowalski RN Position: [facility] RN Member Role: Primary Care Nurse Care Team Related Persons Name: JASPAL COVARRUBIAS Name: MICHAEL LYN Insurance Providers Guarantor name: RUFINO Health Plan Information #: 1 Payer: [facility] Member Number: NA Policy Number: NA Group Number: [id number]
--- OUTSIDE RECORDS SUMMARY | 2024-05-27 02:14 | XMS_ITS | Data Portability ---
Author Organization [facility] [place] [facility] Address [address] [place] [id number] Care Team Providers Care Tile Setter Name Role Phone [facility] Referring Provider Assessment Encounter Date Assessment Date Assessment LastModified by Organization Details LastModified Time 04/30/2022 04/30/2022 In brief this is a 61 YOF currently on treatment for breast CA, having completed a Zpack for concern of possible PNA, being seen for continued cough. Pt encouraged to have CXR with PCP but prescribed tessalon to see if this help with [facility] Not available 05/01/2022 09:07:43 Plan of Treatment Reminders Order Date Submit Date Provider Last Modified By Organization Details Last Modified Time Details Appointments None recorded. Lab rapid SARS CoV 2 Ag, QL [place], respiratory specimen [address], [address] [place] [address], [id number], 09:08:28 rapid flu (A+B) [address], [address] [place] [address], [phone], 09:08:28 Referral None recorded. Procedures None recorded. Surgeries None recorded. Imaging None recorded. Medication Orders benzonatate 100 mg capsule 2021 [id number], [address] [facility], [place], [address], 14:32:08 Patient TargetsNo targets recorded. Patient InstructionsNo instructions recorded. Reason for Referral None Reported. Results Created Date Observation Date Name Description Value Unit Range Abnormal Flag Note LastModifiedBy Organization Detail LastModifiedTime 05/01/2005/01/2022 rapid flu (A+B) Flu negati ve Not Available Main - [facility] ed [address] [place] [address], [phone], 05/01/2022 09:08:15 05/01/20 22 05/01/2022 rapid SARS CoV 2 Ag, QL IA, respi rator y speci men rapid SARS CoV 2 Ag, QL IA, respiratory specimen negati ve Not Available Main - [facility] ed [address] [place] [address], [phone], 05/01/2022 09:08:12 Result Notes None recorded. Medical Equipment None Reported. Allergies Allergen ID Allergen Name Allergen Category Reaction Reaction Severity Criticality Documentation Date Start Date Code Code System Note Provider Name and Address Organization Details Recorded Time 8290 ceftriaxo ne medicatio n Not available Not available Not available 04/14/2024 2193 RxNorm Not Available [facility] - production 4 03:43:16 8291 metoprolo l Not available Not available Not available Not available 04/14/2024 6918 RxNorm Not Available [facility] - production 4 03:43:16 Medications Name Sig Start Date Stop Date Status Note LastModified by Organization Details LastModified Time atorvastatin 20 mg tablet active Not Available Not Available Not Available oxacillin 10 gram solution for injection active Not Available Not Available No t Available azithromycin 250 mg tablet TAKE 1 TABLET BY MOUTH EVERY DAY active Not Available Not Available No t Available meloxicam 15 mg tablet active Not Available Not Available No t Available clonazepam 0.5 mg tablet active Not Available Not Available Not Available amlodipine 2.5 mg tablet active Not Available Not Available Not Available amlodipine 5 mg tablet active Not Available Not Available No t Available calcium 600 mg (as carbonate)-v itamin D3 5 mcg (200 unit) tablet active Not Available Not Available Not Available triamcinolon e acetonide 0.1 % topical cream active Not Available Not Available Not Available ondansetron 8 mg disintegrati ng tablet active Not Available Not Available No t Available baclofen 10 mg tablet active Not Available Not Available No t Available benzonatate 100 mg capsule TAKE ONE CAPSULE BY MOUTH THREE TIMES A DAY FOR 10 DAYS active Not Available Not Available Not Available dexamethason e 4 mg tablet active Not Available Not Available Not Available lisinopril 10 mg tablet active Not Available Not Available Not Available omeprazole 20 mg capsule,jonny yed release active Not Available Not Available Not Available hydroxyzine HCl 25 mg tablet active Not Available Not Available Not Available albuterol sulfate HFA 90 mcg/actuatio n aerosol inhaler active Not Available Not Available Not Available betamethason e dipropionate 0.05 % topical ointment active Not Available Not Available Not Available mometasone 0.1 % topical cream active Not Available Not Available Not Available hydroxyzine pamoate 25 mg capsule active Not Available Not Available N ot Available duloxetine 20 mg capsule,jonny yed release active Not Available Not Available Not Available Flovent HFA 110 mcg/actuatio n aerosol inhaler active Not Available Not Available Not Available pregabalin 150 mg capsule active Not Available Not Available Not Available diclofenac 1 % topical gel active Not Available Not Available Not Available Tab-A-Richard 400 mcg tablet active Not Available Not Available Not Available Sodium Fluoride 5000 Dry Mouth 1.1 % dental paste active Not Available Not Available Not Available Paxlovid 300 mg (150 mg x 2)-100 mg tablets in a dose pack TAKE 3 TABLETS BY MOUTH TWICE A DAY FOR 5 DAYS PER PACKAGE DIRECTIONS active Not Available Not Available N ot Available Vitals Date Recorded Oxygen saturation Oxygen saturation in Arterial blood by Pulse oximetry Body weight Body temperature Heart rate Respiratory rate Systolic blood pressure Diastolic blood pressure Provider Name and Address Organization Details Last Updated DateTime 2 100 % 100 % 82681.3 76 g 98.8 [degF] 86 /min 16 /min 114 mm[Hg] 78 mm[Hg] Not Available [employer] - production 2 14:29:06 Social History None recorded. Functional Status None recorded. Mental Status None recorded. Family History Nothing Reported. Medical History No medical history recorded. Gynecological HistoryNo gynecological history recorded. Obstetrics History GPAL:G 0 P 0 0 0 0 Past Encounters Encounter ID Performer Location Encounter Start Date Encounter Closed Date Diagnosis/Indication Diagnosis SNOMED-CT Code Diagnosis ICD10 Code [id number] Rajiv Herman MD Main - [facility] [address] [place] [phone] 04/30/2022 14:29:04 05/01/2022 12:38:30 Persistent cough 809483527 R05.3 Health Concerns Section Related Observation LastModified by Organization Detai ls LastModified Time None Recorded Concern Status LastModified by Organization Details LastModified Time None Recorded Advance Directives Directive None Recorded Payers Encounter Date Sequence Insurance Name Policy Number Policy Perry Covered Member ID Perry Member ID Guarantor Name 04/30/2022 1 [facility] - DOS PRIOR TO 2022 - DUAL ELIGIBLE (MEDICARE REPLACEMENT/ADV ANTAGE - HMO) Magaly Zaidi [id number] Magaly Zaidi Notes Date Note Type Note Provider Name and Address Organization Details Recorded Time 04/30/2022 text/html HPI: Pt reports having 1 week of hoarseness, productive cough and congestion. Per pt was given abx x 7 days but sx persist. Pt reports having brown and blood tinged sputum. Per pt this was prescribed by oncology. Per pt has completed COVID-19 testing and negative. Pt denies any fever. Pt unable to come into [facility]. Agrees to [facility] referral for assessment. .................. .................. .................. .................. .................. .................. .................. ............... [facility] Nursing Assessment: Comments: No additional information needed by CRC RN .................. .................. .................. .................. .................. .................. .................. ............... Sheet Tester Note: Dispatch to home a 61-year-old female patient with cold like symptoms times five days negative Covid negative flu test patient is being treated for breast CA as well patient is looking for something to help ease her cough vitals as noted [facility] physician contacted and prescription for Tessalon pearls called into patients pharmacy .................. .................. .................. .................. .................. .................. .................. ............... Disposition: Fulfilled Rajiv Herman MD [address] [facility],[address] [facility], [place], [phone], [employer] 05/01/2022 09:08:46 OBGyn Episode No OBEpisode recorded.
== END ==
LOC: HO.SL 12:55
PROVIDERS: PCP Internal Medicine Geriatric Medicine; Visit Provider Nurse Practitioner Family
DX: G47.33 Obstructive sleep apnea (adult) (pediatric) (principal)
CPT/HCPCS: 95806

== ENCOUNTER → 2024-05-21 13:09 | Outpatient (BNV) | payer OTHER, SELFPAY | PROVIDERS: PCP Internal Medicine Geriatric Medicine; Visit Provider Psychiatry & Neurology Neurology | DX: G47.33 Obstructive sleep apnea (adult) (pediatric) (principal) | CPT/HCPCS: 95806 ==